=== PATIENT | female | born 1945 | race Caucasian/White ===

== ENCOUNTER 2017-12-30 16:09 | Outpatient (REF) | payer MEDICARE, SELFPAY ==
[2017-12-30 21:52] LABS: HCT 40.6 % (36.0-46.0); HGB 13.6 g/dL (12.0-15.5); Mean Corp. HGB Concentration 33.5 g/dL (32.0-36.0); Mean Corpuscular Hemoglobin 29.6 pg (27.0-33.0); Mean Corpuscular Volume 88.5 fL (80-95); Mean Platelet Volume 10.3 fL (8.0-11.0); Platelet Count 170 x1000/uL (130-400); RBC 4.59 m/cumm (4.00-5.20); RBC Distribution Width 13.6 % (11.7-14.6); White Blood Cell Count 5.98 k/cumm (4.4-10.8)
[2017-12-30 22:17] LABS: ALT 29 U/L (12-78); AST 14 U/L (15-37); Albumin 3.4 g/dL (3.4-5.0); Alkaline Phosphatase 98 U/L (46-116); Anion Gap 5.8 mmol/L (3-11); BUN 20 mg/dL (7-18); Bilirubin, Total 0.4 mg/dL (0.2-1.0); CO2 29.2 mmol/L (21.0-32.0); Calcium 9.2 mg/dL (8.5-10.1); Chloride 104 mmol/L (98-107); Glucose 185 mg/dL (70-100); Potassium 3.8 mmol/L (3.5-5.1); Sodium 139 mmol/L (136-145); TSH 1.61 uIU/mL (0.358-3.74); Total Protein 6.5 g/dL (6.4-8.2); Vitamin B12 605 pg/mL (193-986)
[2018-01-01 12:51] LABS: Albumin 59.9 % (55.8-66.1); Total Protein 6.1 g/dl (6.3-8.2)
== END 2017-12-30 16:29 ==
LOC: NCHCN 16:09
PROVIDERS: PCP Internal Medicine; Visit Provider Internal Medicine
DX: R27.9 Unspecified lack of coordination (principal); E11.40 Type 2 diabetes mellitus with diabetic neuropathy, unspecified
CPT/HCPCS: 80053; 85027; 82607; 84165; 84443

== ENCOUNTER 2018-10-05 16:04 | Outpatient (REF) | payer OTHER, SELFPAY ==
--- NOTE | 2018-10-05 16:15 | SKI_PTH ---
PATIENT: Peggy Coffman LOC: [facility] U#:[id number] AGE/SX: 73/F ROOM: RE10/05/[address]: Giovani Mendoza : 1945 BED: DIS: 10/05/2018 SPEC #: [id number] RECD: 10/06/18 12:48 STATUS: SEBASTIAN REDMOND #: [id number] YANETH: 10/05/18 16:[address]: Giovani Mendoza DEPT: Surgical Specimen RECD BY: Marla Walker ENTERED: 10/06/18 12:48 SP TYPE: RAVI GRAHAM DR: Ivan Gotti Tissues: 1 - SKIN BIOPSY(SHAVE/PUNCH) Procedures: SKIN LEVEL 4 Comments: [id number]
[2018-10-05 21:41] LABS: ALT 29 U/L (12-78); AST 15 U/L (15-37); Albumin 3.5 g/dL (3.4-5.0); Alkaline Phosphatase 74 U/L (46-116); Anion Gap 10.9 mmol/L (3-11); BUN 21 mg/dL (7-18); Bilirubin, Total 0.5 mg/dL (0.2-1.0); CO2 29.1 mmol/L (21.0-32.0); CREATININE 0.88 mg/dL (0.55-1.02); Calcium 9.7 mg/dL (8.5-10.1); Chloride 104 mmol/L (98-107); Glucose 216 mg/dL (70-100); Potassium 4.4 mmol/L (3.5-5.1); Sodium 144 mmol/L (136-145); Total Protein 6.5 g/dL (6.4-8.2)
[2018-10-05 21:49] LABS: Abs Immature Grans 0.01 k/cumm (0.0-0.09); Absolute Basophil Count 0.03 k/cumm (0.0-0.2); Absolute Eosinophil Count 0.22 k/cumm (0.0-0.7); Absolute Lymphocyte Count 2.06 k/cumm (1.2-3.4); Absolute Monocyte Count 0.61 k/cumm (0.11-0.7); Absolute Neutrophil Count 3.36 k/cumm (1.2-6.7); Basophils % 0.5; Eosinophils % 3.5; HCT 43.9 % (36.0-46.0); HGB 14.7 g/dL (12.0-15.5); Immature Grans % 0.2; Lymphocytes % 32.8; Mean Corp. HGB Concentration 33.5 g/dL (32.0-36.0); Mean Corpuscular Hemoglobin 30.1 pg (27.0-33.0); Mean Platelet Volume 10.4 fL (8.0-11.0); Monocytes % 9.7; Neutrophils % 53.3; Platelet Count 173 x1000/uL (130-400); RBC 4.88 m/cumm (4.00-5.20); RBC Distribution Width 13.5 % (11.7-14.6); White Blood Cell Count 6.29 k/cumm (4.4-10.8)
[2018-10-05 22:25] LABS: ESR 8 MM/HR (0-30)
== END 2018-10-05 16:24 ==
LOC: NCHCN 16:04
PROVIDERS: PCP Internal Medicine; Visit Provider Specialist/Technologist Athletic Trainer
DX: M79.609 Pain in unspecified limb (principal); L30.8 Other specified dermatitis; L57.0 Actinic keratosis
CPT/HCPCS: 80053; 85652; 85025; 86140; 88305

== ENCOUNTER 2018-12-29 12:04 | Outpatient (REF) | payer OTHER, SELFPAY ==
[2018-12-29 12:51] LABS: HCT 41.2 % (36.0-46.0); HGB 13.7 g/dL (12.0-15.5); Mean Corp. HGB Concentration 33.3 g/dL (32.0-36.0); Mean Corpuscular Volume 90.4 fL (80-95); Mean Platelet Volume 10.1 fL (8.0-11.0); Platelet Count 175 x1000/uL (130-400); RBC 4.56 m/cumm (4.00-5.20); RBC Distribution Width 13.8 % (11.7-14.6); White Blood Cell Count 6.45 k/cumm (4.4-10.8)
[2018-12-29 13:22] LABS: TSH 1.37 uIU/mL (0.36-3.74); Vitamin B12 1262 pg/mL (193-986)
[2018-12-29 13:43] LABS: ESR 11 mm/hr (0-30)
[2018-12-30 10:26] LABS: Cyclic Citrullinated Peptide <2.5 U/mL (<5.0)
[2018-12-30 11:38] LABS: Rheumatoid Factor <8 IU/mL (<12.5)
[2018-12-30 14:18] LABS: Albumin 59.7 % (55.8-66.1); Comment SEE COMMENTS; Total Protein 6.6 g/dl (6.3-8.2)
== END 2018-12-29 12:24 ==
LOC: NCHCN 12:04
PROVIDERS: PCP Internal Medicine; Visit Provider Internal Medicine
DX: E11.40 Type 2 diabetes mellitus with diabetic neuropathy, unspecified (principal); M79.10 Myalgia, unspecified site; M25.50 Pain in unspecified joint
CPT/HCPCS: 85027; 85652; 86200; 82607; 84165; 84443; 86320; 86431

== ENCOUNTER 2019-03-15 11:51 | Outpatient (REF) | payer OTHER, SELFPAY ==
[2019-03-15 21:21] LABS: HCT 40.9 % (36.0-46.0); HGB 13.4 g/dL (12.0-15.5); Mean Corp. HGB Concentration 32.8 g/dL (32.0-36.0); Mean Corpuscular Hemoglobin 29.6 pg (27.0-33.0); Mean Corpuscular Volume 90.5 fL (80-95); Platelet Count 182 x1000/uL (130-400); RBC 4.52 m/cumm (4.00-5.20); White Blood Cell Count 5.86 k/cumm (4.4-10.8)
[2019-03-15 22:33] LABS: ALT 32 U/L (14-59); AST 18 U/L (15-37); Albumin 3.6 g/dL (3.4-5.0); Alkaline Phosphatase 55 U/L (46-116); Anion Gap 10.3 mmol/L (3-11); BUN 22 mg/dL (7-18); Bilirubin, Total 0.5 mg/dL (0.2-1.0); CO2 27.7 mmol/L (21.0-32.0); CREATININE 0.76 mg/dL (0.55-1.02); Calcium 9.7 mg/dL (8.5-10.1); Chloride 104 mmol/L (98-107); Glucose 83 mg/dL (74-106); Potassium 4.2 mmol/L (3.5-5.1); Sodium 142 mmol/L (136-145); Total Protein 6.8 g/dL (6.4-8.2)
== END 2019-03-15 12:11 ==
LOC: NCHCN 11:51
PROVIDERS: PCP Internal Medicine; Visit Provider Internal Medicine
DX: R10.31 Right lower quadrant pain (principal)
CPT/HCPCS: 80053; 85027

== ENCOUNTER 2019-06-18 15:10 | Outpatient (REF) | payer OTHER, SELFPAY ==
[2019-06-18 21:57] LABS: Magnesium 1.6 mg/dL (1.8-2.4)
== END 2019-06-18 15:30 ==
LOC: NCHCN 15:10
PROVIDERS: PCP Internal Medicine; Visit Provider Internal Medicine
DX: E83.42 Hypomagnesemia (principal)
CPT/HCPCS: 83735

== ENCOUNTER → 2019-08-24 12:48 | Outpatient (BNVA) | payer OTHER, SELFPAY | PROVIDERS: PCP Internal Medicine; Referring Provider Internal Medicine; Visit Provider Surgery | DX: L72.3 Sebaceous cyst (principal); Z79.01 Long term (current) use of anticoagulants; E11.42 Type 2 diabetes mellitus with diabetic polyneuropathy; I10 Essential (primary) hypertension | CPT/HCPCS: 99202; 99203 ==

== ENCOUNTER → 2019-08-27 09:53 | Outpatient (BNVA) | payer OTHER, SELFPAY | PROVIDERS: PCP Internal Medicine; Referring Provider Internal Medicine; Visit Provider Surgery | DX: L72.3 Sebaceous cyst (principal); L08.9 Local infection of the skin and subcutaneous tissue, unspecified; E11.42 Type 2 diabetes mellitus with diabetic polyneuropathy; I10 Essential (primary) hypertension | CPT/HCPCS: 10060; 99212; 99213 ==

== ENCOUNTER → 2019-08-30 12:38 | Outpatient (BNVA) | payer OTHER, SELFPAY | PROVIDERS: PCP Internal Medicine; Referring Provider Internal Medicine; Visit Provider Surgery | DX: Z48.817 Encounter for surgical aftercare following surgery on the skin and subcutaneous tissue (principal) ==

== ENCOUNTER 2020-07-24 16:11 | Outpatient (REF) | payer OTHER, SELFPAY ==
[2020-07-24 21:58] LABS: Anion Gap 7.5 mmol/L (3-11); BUN 28 mg/dL (7-18); CO2 29.5 mmol/L (21.0-32.0); CREATININE 0.9 mg/dL (0.55-1.02); Calcium 9.6 mg/dL (8.5-10.1); Chloride 103 mmol/L (98-107); Glucose 183 mg/dL (74-106); Magnesium 1.7 mg/dL (1.8-2.4); Potassium 4.1 mmol/L (3.5-5.1); Sodium 140 mmol/L (136-145); TSH 1.36 uIU/mL (0.36-3.74)
[2020-07-24 22:15] LABS: FREE T4 0.94 ng/dL (0.76-1.46)
[2020-07-28 11:07] LABS: Codeine Negative ng/mL (Cutoff: 25); Dihydrocodeine Negative ng/mL (Cutoff: 25); Hydrocodone Negative ng/mL (Cutoff: 25); Hydromorphone Negative ng/mL (Cutoff: 25); Morphine Negative ng/mL (Cutoff: 25); Naloxone Negative ng/mL (Cutoff: 25); Norhydrocodone Negative ng/mL (Cutoff: 25); Noroxycodone Negative ng/mL (Cutoff: 25); Noroxymorphone Negative ng/mL (Cutoff: 25); Opiates Interpretation Negative.
== END 2020-07-24 16:12 | disposition home or self-care (01) ==
LOC: NCHCN 16:11
PROVIDERS: PCP Internal Medicine; Visit Provider Internal Medicine
DX: E11.9 Type 2 diabetes mellitus without complications (principal); I10 Essential (primary) hypertension; E83.42 Hypomagnesemia; R42 Dizziness and giddiness; M54.5 Low back pain; G89.29 Other chronic pain; Z79.899 Other long term (current) drug therapy; Z51.81 Encounter for therapeutic drug level monitoring
CPT/HCPCS: 80048; 80361; 80362; 83735; 84439; 84443

== ENCOUNTER → 2021-03-01 10:29 | Outpatient (BNVA) | payer MEDICARE, SELFPAY | PROVIDERS: PCP Internal Medicine; Referring Provider Physical Therapist; Visit Provider Student in an Organized Health Care Education/Training Program | DX: M16.11 Unilateral primary osteoarthritis, right hip (principal); Z79.891 Long term (current) use of opiate analgesic; E11.9 Type 2 diabetes mellitus without complications | CPT/HCPCS: 99214 ==

== ENCOUNTER → 2021-03-08 01:22 | Outpatient (CLI) | payer MEDICARE, SELFPAY ==
--- NOTE | 2021-03-08 08:30 | DI.RAD_ITS ---
Exam(s) RF JOINT INJECTION FLUORO GUID EXAM: RF JOINT INJECTION FLUORO GUID CLINICAL HISTORY: R HIP INJ UNDER FLUORO,primary oa rt hip, m16.11 TECHNIQUE: Fluoroscopy provided. Radiologist not present. CONTRAST MATERIAL: None COMPARISON: No exams were available for comparison FINDINGS: Fluoroscopy was provided for Dr. Varela during therapeutic right hip injection. Submitted image(s) reveal needle placement lateral aspect femoral head contrast Please refer to the procedure report for complete details. Cumulative Dose: nola Fuentes=2.13 mGy IMPRESSION: RADIATION DOSE DELIVERED:
[2021-03-08] MEDS: Omnipaque 300 MG/ML 10 ML BTL IJ (15:53)
[2021-03-08] MEDS: Bupivacaine 0.5% Pres-Free 10 ML VIAL IJ (15:53)
[2021-03-08] MEDS: methylPREDNISolone ACETATE 80 MG/ML VIAL IM (15:53)
--- NOTE | 2021-03-09 22:44 | W.PROCNOTE ---
Date of service: 03/08/21 Time of Service: 15:17 Procedure Note Date of procedure: 03/08/21 Procedure: Right Hip Injection with Fluoroscopic Guidance Surgeon/Proceduralist/Physician: Favio Varela Procedure Diagnosis: Right Hip Osteoarthritis Procedure Indications: Peggy has had persistent pain of the RIGHT hip and groin. Noninvasive measures have been tried. To serve as both diagnostic and therapeutic, an injection under fluoroscopy was recommended. I had discussed the risks of the procedure and the patient elected to proceed. Procedure Description: Hellen was greeted in the flouroscopy room. The correct side was identified and the consent was reviewed with the patient and signed. The patient was then placed in the supine position on the fluoroscopy table. The RIGHT hip was then prepped with Chloraprep. The anterolateral injection starting point was identiifed by bony landmarks and fluoroscopy. The skin and soft tissue in the tract of the injection was anesthetized with 1% Lidocaine. A spinal needle was then inserted deep into the hip joint at the level of the lateral femoral neck under fluoroscopic guidance. A small amount of Omnipaque solution was injected to confirm intraarticular placement. Once confirmed, the hip was injected with 6cc of 0.5% Bupivicaine and 80mg of Depo-Medrol. A bandaid was placed on the injection site. The patient tolerated the procedure well.
== END ==
PROVIDERS: PCP Internal Medicine; Visit Provider Student in an Organized Health Care Education/Training Program
DX: M16.11 Unilateral primary osteoarthritis, right hip (principal); M25.552 Pain in left hip; R10.32 Left lower quadrant pain
CPT/HCPCS: 20610; 77002; J1040

== ENCOUNTER 2021-04-15 13:11 | Emergency (ER) | payer MEDICARE, SELFPAY ==
[2021-04-15 13:15] VITALS: BP 156/72; PULSE 70; RESP 18; TEMP 36.1; O2SAT 96
--- NOTE | 2021-04-15 14:21 | NUR.NOTE ---
Nursing Note: PT REFERRAL MADE FOR PT TO BE SEEN BY [facility]O [facility] FOR PAIN MANAGEMENT. [facility]
--- NOTE | 2021-04-15 14:42 | ED.GENADUL_ITS ---
Discharge Plan Disposition Patient Disposition: HOME Condition: Stable Discharge Details Clinical Impression: Osteoarthritis of right hip Primary Care Provider: Ivan Gotti ED Provider: Markus Brody Home Meds and New Rx's Prescriptions: New ondansetron 4 mg tablet,disintegrating 4 mg PO Q8H PRN (Reason: nausea and vomiting) Qty: 10 RF: 0 Continued Lantus U-100 Insulin 100 unit/mL solution 40 unit subcut HS RF: 0 duloxetine 30 mg capsule,delayed release(DR/EC) 30 mg PO DAILY RF: 0 cholecalciferol (vitamin D3) 25 mcg (1,000 unit) capsule 50 mcg PO DAILY RF: 0 losartan 50 mg tablet 100 mg PO DAILY RF: 0 atorvastatin 80 mg tablet 80 mg PO DAILY RF: 0 pregabalin [Lyrica] 100 mg capsule 100 mg PO TID RF: 0 ascorbic acid (vitamin C) 1,000 mg tablet 1 g PO DAILY RF: 0 Trulicity 0.75 mg/0.5 mL pen injector 0.75 mg subcut QWEEK RF: 0 magnesium oxide 500 mg capsule 400 mg PO BID RF: 0 sumatriptan succinate [Imitrex] 50 MG tablet 50 mg PO PRN PRNRF: 0 clopidogrel [Plavix] 75 MG tablet 75 mg PO DAILY RF: 0 diflunisal 500 MG tablet 500 mg PO BID RF: 0 isosorbide mononitrate 60 MG tablet extended release 24 hr 60 mg PO DAILY RF: 0 nitroglycerin 0.4 MG tablet, sublingual 0.4 mg Sublingual PRN PRNRF: 0 epinephrine 0.3 MG/SYR auto-injector 1 unit IM PRN PRNRF: 0 Xtampza ER 13.5 mg cap,sprinkl,ER12hr(DONT CRUSH) 13.5 mg PO BID RF: 0 oxycodone 10 mg tablet 10 mg PO QID PRN PRNRF: 0 Calcium 600 + D(3) 600 mg calcium- 200 unit Capsule 2 cap PO DAILY RF: 0 Discharge Instructions Instructions: Hip Pain (ED) Additional Instructions: If you develop fever chills, severe worsening of your symptoms, or change in your condition please return immediately for reassessment. Otherwise it is very important that you follow-up with Dr. Varela for long-term establishment of plan for pain control pending your hip replacement. It is recommended that you call his office tomorrow and inform them of your discomfort level. As discussed take your medications that are already prescribed to you and you may also add in Tylenol 325 mg every 8 hours as needed. Medical Decision Making Patient presenting to the emergency department for chief complaint of significant right hip pain. She states history of chronic right hip issues and that she has pending replacement but over the past 3 days has noted to have return of pain. She does state that she received a joint injection by orthopedist that showed significant benefit but has started to wear off and now has had a return of discomfort. She does state some radiation of pain further down her extremity but otherwise discomfort is in similar pattern to previous pain. Patient denies any new injury or trauma, fever chills, erythema or other joints involved. Physical exam shows that patient is obviously uncomfortable with constant repositioning and significant pain with any movement of the right hip. Pulses and sensation are intact distal to injury with significant increase in pain with palpation to right hip both lateral and anterior. Contacted anesthesia on-call to discuss possible pain management strategies but unfortunately they were not able to assist with any acute strategy to pain reduction through block. After thorough discussion with patient risk versus benefit of IM steroid she was agreeable to this given that her blood sugars have been well managed with current medication regime and that she is willing to closely monitor blood sugars. Also went through patient's medication given that she is on multiple narcotic. Patient did show some confusion at using her prescribed meds as she has both on long-term and short acting narcotics. After thorough discussion it was evident that patient was only taking long-term pain medication and had not been taking immediate release for breakthrough pain. Discussed the directions as prescribed as I feel that this will also help control her pain better. Given that she is no longer on combination therapy did discuss use of o [id number] Tylenol and appropriate amounts for her to take given her age. Patient does state secondary nausea and lack of appetite due to pain and discomfort. Will prescribe patient some Zofran. patient placed upon orthopedic follow-up list as I do feel that she may need a long-term plan to get her to her scheduled surgery date or adjustment of that dates if possible. After discussion of diagnosis and plan of care patient has no further needs, questions, or concerns and states clear understanding to return to the emergency department for any worsening symptoms. HPI General Mode of arrival: ambulatory . Date/Time Provider Initiated Documentation: 04/15/21 13:24 . Limitations to Documentation: no limitations . Information obtained by: patient . History of Present Illness 75 year old F presents to the emergency department with the chief complaint of Right hip pain, described as severe and similar to prior episodes, with intensity rated at 10. Quality is described as aching and sharp, and is localized to the right and lower extremity. Patient extremity and distal. Patient started experiencing this year(s) (with worsening over the past 3 days) and it has been constant. Immobilization improves symptom(s), Movement worsens symptoms . Patient notes loss of appetite. Patient did receive the following treatments prior to arrival, other (Long-acting pain medications) Related Data Home Medications Medication Instructions Recorded Confirmed clopidogrel [Plavix] 75 mg PO DAILY 03/16/14 04/15/21 diflunisal 500 mg PO BID 03/16/14 04/15/21 epinephrine 1 unit IM PRN PRN 03/16/14 04/15/21 isosorbide mononitrate 60 mg PO DAILY 03/16/14 04/15/21 nitroglycerin 0.4 mg SUBLINGUAL PRN PRN 03/16/14 04/15/21 sumatriptan succinate [Imitrex] 50 mg PO PRN PRN 03/16/14 04/15/21 ascorbic acid (vitamin C) 1,000 mg 1 g PO DAILY tab 02/20/21 04/15/21 tablet atorvastatin 80 mg tablet 80 mg PO DAILY 02/20/21 04/15/21 cholecalciferol (vitamin D3) 25 50 mcg PO DAILY cap 02/20/21 04/15/21 mcg (1,000 unit) capsule dulaglutide 0.75 mg/0.5 mL 0.75 mg SUBCUT QWEEK 02/20/21 04/15/21 subcutaneous pen injector duloxetine 30 mg capsule,delayed 30 mg PO DAILY 02/20/21 04/15/21 release insulin glargine 100 unit/mL 40 unit SUBCUT HS ml 02/20/21 04/15/21 subcutaneous solution losartan 50 mg tablet 100 mg PO DAILY tab 02/20/21 04/15/21 pregabalin 100 mg capsule 100 mg PO TID 02/20/21 04/15/21 magnesium oxide 500 mg capsule 400 mg PO BID 03/01/21 04/15/21 Calcium 600 + D(3) 2 cap PO DAILY 04/15/21 04/15/21 Xtampza ER 13.5 mg PO BID 04/15/21 04/15/21 ondansetron 4 mg PO Q8H PRN #10 tab 04/15/21 oxycodone 10 mg PO QID PRN PRN 04/15/21 04/15/21 Previous Rx's Medication Instructions Recorded ondansetron 4 mg PO Q8H PRN #10 tab 04/15/21 Allergies Allergy/AdvReac Type Severity Reaction Status Date / Time aspirin Allergy Unverified 04/15/21 13:23 codeine Allergy Unverified 04/15/21 13:23 metformin Allergy Unverified 04/15/21 13:23 methadone Allergy Unverified 04/15/21 13:23 naproxen Allergy Anaphylaxsi Unverified 04/15/21 13:23 s Penicillins Allergy Unverified 04/15/21 13:23 Sulfa (Sulfonamide Allergy Unverified 04/15/21 13:23 Antibiotics) lisinopril [From Zestril] AdvReac cough Unverified 04/15/21 13:23 mirtazapine AdvReac Dizziness/L Unverified 04/15/21 13:23 ightheade General Stated Complaint: Orthopedic BROWN: 4 Review of Systems Constitutional Constitutional: Denies chills, Denies fever(s) and Reports poor appetite Cardiovascular Cardiovascular: Denies chest pain, Denies syncope, Denies leg edema and Reports dyspnea Respiratory Respiratory: Reports dyspnea Gastrointestinal Gastrointestinal: Reports abdominal pain and Reports nausea Genitourinary Genitourinary: Denies difficulty voiding, Denies dysuria and Reports urinary incontinence (at baseline) Musculoskeletal Musculoskeletal: Denies back pain, Reports arthralgias and Reports radiating pain into limb Integumentary/Breasts Skin/Breast: Denies rash Neurologic Neurologic: Denies syncope PFSH All Active Problems Osteoarthritis of right hip (Acute) Medical History Actinic keratosis Arthralgia Arthritis of hand Balance problem CAD (coronary artery disease) Chronic anticoagulation Chronic diarrhea Cystocele Depression Diabetes type 2, controlled Diabetic peripheral neuropathy Entrapment of right superficial peroneal nerve Globus sensation Hip pain, right Hx of adenomatous colonic polyps Hypercholesterolemia Hypertension Hypomagnesemia Infected sebaceous cyst Leg pain, left Lumbar back pain Migraine Mixed incontinence urge and stress Myalgia Onychomycosis Osteoarthritis of left knee Postmenopausal Rectocele Right thyroid nodule Sebaceous cyst Sleep apnea Stasis dermatitis Thyroid cyst Surgical History S/P colonoscopy Status post replacement of right shoulder joint Social History Smoking/Tobacco Use Status: Never Smoking risk assessment performed?: Yes Alcohol Intake: current Alcohol Intake frequency: holidays/special occasions only Drug use: Never Current gender identity: female Do you feel safe at home: Yes Do you feel safe in your relationship?: Yes Exam Const General: cooperative, no acute distress, in distress moderate (Secondary to pain) and not ill appearing Orientation: alert, awake and oriented x3 HENMT Mouth: moist mucous membranes Resp Effort & Inspection: normal respiratory effort, able to speak in complete se ntences and no respiratory distress Cardio Rate: regular rate Rhythm: regular rhythm Heart Sounds: S1 normal and S2 normal Back/Spine/Pelvis Thoracic/Lumbar Spine: No thoracic spinal tenderness and No lumbar spinal tenderness Pelvis: no buttock tenderness Skin General skin exam: no rashes or lesions noted Neuro General: patient alert, patient awake, patient oriented x3, moves all extremities and no focal motor deficits Sensory Exam: no sensory deficits noted Extrem General: normal exam except as noted Right lower extremity: hip/thigh Details: tenderness Location: of the hip, of the proximal upper leg and of the mid upper leg and abnormal ROM Details: pain with active ROM during, pain with passive ROM during and with range as follows (Difficult to perform due to significant pain with any movement of the extremity); no ecchymosis and no crepitus Course Vital Signs Vital signs: Vital Signs Temperature 36.1 C L 04/15/21 13:15 Pulse 70 04/15/21 13:15 Respiratory Rate 18 04/15/21 13:15 Blood Pressure 156/72 H 04/15/21 13:15 Pulse Oximetry 96 04/15/21 13:15 Temperature 36.1 C L 04/15/21 13:15 Temperature Source Temporal Artery Scan 04/15/21 13:15 Pulse 70 04/15/21 13:15 Respiratory Rate 18 04/15/21 13:15 Respiratory Effort Non-Labored 04/15/21 13:22 Blood Pressure 156/72 H 04/15/21 13:15 Pulse Oximetry 96 04/15/21 13:15 Oxygen Delivery Method Room Air 04/15/21 13:15 Oxygen Flow Rate 0 04/15/21 13:15 Pain Level 10 04/15/21 13:15
[2021-04-15] MEDS: Dexamethasone 10 MG/ML VIAL IM (14:48)
== END 2021-04-15 14:58 | disposition home or self-care (01) ==
PROVIDERS: Emergency Provider Nurse Practitioner Family; PCP Internal Medicine
DX: M16.11 Unilateral primary osteoarthritis, right hip (principal); R11.0 Nausea; E11.42 Type 2 diabetes mellitus with diabetic polyneuropathy
CPT/HCPCS: 36416; 82962; 96372; 99284; 99283; J1100

== ENCOUNTER 2021-05-14 14:54 | Outpatient (REF) | payer MEDICARE, SELFPAY ==
[2021-05-16 10:55] LABS: COVID-19 RT-PCR UVMMC Result Negative (Negative)
== END 2021-05-14 14:55 | disposition home or self-care (01) ==
LOC: NCHCN 14:54
PROVIDERS: PCP Internal Medicine; Visit Provider Internal Medicine
DX: Z20.822 Contact with and (suspected) exposure to COVID-19 (principal); J06.9 Acute upper respiratory infection, unspecified
CPT/HCPCS: U0003

== ENCOUNTER 2021-05-17 18:50 | Outpatient (REF) | payer MEDICARE, SELFPAY ==
[2021-05-17 15:57] LABS: HCT 45.5 % (36.0-46.0); MCH 28.2 pg (27.0-33.0); MCHC 30.8 % (32.0-36.0); MCV 91.5 fL (80-95); MPV 9.8 fL (8.0-11.0); Platelet Count 191 10^3/uL (130-400); RBC 4.97 10^6/uL (3.93-5.22); RDW 15.3 % (11.7-14.6); RDW-SD 50.6 fL; WBC 5.64 10^3/uL (4.4-10.8)
[2021-05-17 16:05] LABS: Anion Gap 8.2 mmol/L (3-11); BUN 18 mg/dL (7-18); CO2 29.8 mmol/L (21.0-32.0); CREATININE 0.8 mg/dL (0.55-1.02); Calcium 9.9 mg/dL (8.5-10.1); Chloride 105 mmol/L (98-107); Glucose 97 mg/dL (74-106); Potassium 4.5 mmol/L (3.5-5.1); Sodium 143 mmol/L (136-145)
[2021-05-17 19:00] LABS: Magnesium 1.7 mg/dL (1.8-2.4)
[2021-05-17 22:52] LABS: Hepatitis C Ab w Rflx HCV PCR Negative (Negative)
== END 2021-05-17 18:51 | disposition home or self-care (01) ==
LOC: NCHCN 18:50
PROVIDERS: PCP Internal Medicine; Visit Provider Internal Medicine
DX: E11.9 Type 2 diabetes mellitus without complications (principal); I10 Essential (primary) hypertension; Z11.59 Encounter for screening for other viral diseases; I25.10 Atherosclerotic heart disease of native coronary artery without angina pectoris; M16.11 Unilateral primary osteoarthritis, right hip; Z01.818 Encounter for other preprocedural examination
CPT/HCPCS: 80048; 85027; 86803; 83735

== ENCOUNTER 2021-05-21 15:34 | Outpatient (REF) | payer MEDICARE, SELFPAY ==
[2021-05-23 09:21] LABS: COVID-19 RT-PCR UVMMC Result Negative (Negative)
== END 2021-05-21 15:35 | disposition home or self-care (01) ==
LOC: NCHCN 15:34
PROVIDERS: PCP Internal Medicine; Visit Provider Internal Medicine
DX: Z20.822 Contact with and (suspected) exposure to COVID-19 (principal)
CPT/HCPCS: U0003; U0005

== ENCOUNTER 2021-05-31 13:53 | Outpatient (CLI) | payer MEDICARE, SELFPAY ==
--- NOTE | 2021-05-31 13:30 | DI.RAD_ITS ---
Exam(s) XR PELVIS AP EXAM: XR PELVIS AP CLINICAL HISTORY: PRE OP R MARBIN. TECHNIQUE: 2D digital imaging was performed. COMPARISON: CR XR SHANE HIP SINGLE W PELVIS from 01/12/2021 FINDINGS: Single AP view of the pelvis-hips compared to 01/12/2021. Again noted is a stimulator device on the right side which is projected over the right hip, partially obscuring the femoral head. There do appear to be some degenerative changes in the right hip. Left hip exhibits mild degenerative changes. No lytic osseous lesions evident in the field of view of th is single image. IMPRESSION: DATA REPOSITORY: RADIATION DOSE DELIVERED:
== END 2021-05-31 13:54 | disposition home or self-care (01) ==
LOC: DIORS 13:53
PROVIDERS: PCP Internal Medicine; Referring Provider Internal Medicine; Visit Provider Physician Assistant
DX: M16.11 Unilateral primary osteoarthritis, right hip (principal); Z01.818 Encounter for other preprocedural examination
CPT/HCPCS: 72170

== ENCOUNTER 2021-06-06 18:04 | Emergency (ER) | payer MEDICARE, SELFPAY ==
[2021-06-06 18:30] VITALS: BP 143/69; PULSE 61; RESP 18; TEMP 36.4; O2SAT 95
--- NOTE | 2021-06-06 18:30 | DI.RAD_ITS ---
Exam(s) XR PORTABLE CHEST AP EXAM: XR PORTABLE CHEST AP CLINICAL HISTORY: cough TECHNIQUE: 2D digital imaging was performed of the chest. One image was obtained. An AP view was ob tained. COMPARISON: CR CHEST 2 VIEWS PA,LAT from 03/25/2013 FINDINGS: MEDIASTINUM: Normal. HEART: Normal. PULMONARY VASCULATURE: Normal. LUNGS: No focal consolidating infiltrates. PLEURAL SPACE: No pleural effusion or pneumothorax. BONE:Within normal limits for the patient's age. The patient is status post right total reverse shoul norma replacement. OTHER FINDINGS:Normal. IMPRESSION: No pulmonary infiltrates. DATA REPOSITORY: RADIATION DOSE DELIVERED:
[2021-06-06 20:17] LABS: Abs Immature Grans 0.01 10^3/uL (0.0-0.06); Absolute Basophil Count 0.05 10^3/uL (0.0-0.2); Absolute Eosinophil Count 0.61 10^3/uL (0.0-0.7); Absolute Lymphocyte Count 2.16 10^3/uL (1.2-3.4); Absolute Monocyte Count 0.61 10^3/uL (0.1-0.8); Absolute Neutrophil Count 2.48 10^3/uL (1.2-6.7); Basophils % 0.8; Eosinophils % 10.3; HCT 38.8 % (36.0-46.0); HGB 12.2 g/dL (11.2-15.7); Immature Grans % 0.2; Lymphocytes % 36.5; MCH 28.4 pg (27.0-33.0); MCHC 31.4 % (32.0-36.0); MCV 90.2 fL (80-95); MPV 9.2 fL (8.0-11.0); Monocytes % 10.3; Neutrophils % 41.9; Nucleated RBC 0 %; Platelet Count 148 10^3/uL (130-400); RDW 14.5 % (11.7-14.6); RDW-SD 47.8 fL; WBC 5.92 10^3/uL (4.4-10.8)
[2021-06-06 20:29] LABS: ALT 17 U/L (14-59); AST 17 U/L (15-37); Albumin 2.9 g/dL (3.4-5.0); Alkaline Phosphatase 85 U/L (46-116); Anion Gap 3.3 mmol/L (3-11); BUN 18 mg/dL (7-18); Bilirubin, Total 0.5 mg/dL (0.2-1.0); CO2 33.7 mmol/L (21.0-32.0); CREATININE 0.9 mg/dL (0.55-1.02); Calcium 9.6 mg/dL (8.5-10.1); Chloride 103 mmol/L (98-107); Glucose 88 mg/dL (74-106); Sodium 140 mmol/L (136-145); Total Protein 6.4 g/dL (6.4-8.2)
--- NOTE | 2021-06-06 20:57 | DI.VRAD_ITS ---
PROCEDURE INFORMATION: Exam: XR Chest Exam date and time: 06/06/2021 6:38 PM Age: 75 years old Clinical indication: Cough TECHNIQUE: Imaging protocol: XR of the chest. Views: 1 view. Total images: 1 COMPARISON: No relevant prior studies available. FINDINGS: Lungs: Question mild peribronchial thickening and perihilar stranding suggesting possible bronchitis. Normal pulmonary expansion. Pulmonary vasculature grossly normal. No gross pulmonary infiltrates. Pleural spaces: No pleural effusion. No pneumothorax. Heart/Mediastinum: Heart size normal. No tracheal/mediastinal shift. Vasculature: Mild aortic ectasia/tortuosity. Bones/joints: No acute osseous abnormalities are identified. Osteopenia with advanced left glenohumeral osteoarthritic changes and prior right shoulder arthroplasty. Radiodensities projecting over the midline lower thoracic spine may represent a stimulator, correlate with procedural history. IMPRESSION: Question mild changes of bronchitis. No gross pulmonary infiltrates. Dictated and Authenticated by: Aleks Fine MD. Ordering:MAURY Gonzalez MD
--- NOTE | 2021-06-06 21:05 | W.ED.GENAD ---
Discharge Plan Disposition Patient Disposition: HOME Condition: Stable Discharge Details Clinical Impression: Cough Primary Care Provider: Ivan Gotti ED Provider: Carlos Rose Home Meds and New Rx's Prescriptions: New prednisone 20 mg tablet 20 mg PO DAILY 5 Days Qty: 5 0RF Continued duloxetine 30 mg capsule,delayed release(DR/EC) 30 mg PO DAILY 0RF cholecalciferol (vitamin D3) 25 mcg (1,000 unit) capsule 50 mcg PO DAILY 0RF losartan 50 mg tablet 100 mg PO DAILY 0RF atorvastatin 80 mg tablet 80 mg PO DAILY 0RF pregabalin [Lyrica] 100 mg capsule 100 mg PO TID 0RF ascorbic acid (vitamin C) 1,000 mg tablet 1 g PO DAILY 0RF Trulicity 0.75 mg/0.5 mL pen injector 0.75 mg subcut QWEEK 0RF magnesium oxide 500 mg capsule 400 mg PO BID 0RF Lantus U-100 Insulin 100 unit/mL solution 30 unit subcut HS 0RF spironolactone 25 mg tablet 25 mg PO DAILY 0RF sumatriptan succinate [Imitrex] 50 MG tablet 50 mg PO PRN PRN0RF clopidogrel [Plavix] 75 MG tablet 75 mg PO DAILY 0RF diflunisal 500 MG tablet 500 mg PO BID 0RF isosorbide mononitrate 60 MG tablet extended release 24 hr 60 mg PO DAILY 0RF nitroglycerin 0.4 MG tablet, sublingual 0.4 mg Sublingual PRN PRN0RF epinephrine 0.3 MG/SYR auto-injector 1 unit IM PRN PRN0RF Xtampza ER 13.5 mg cap,sprinkl,ER12hr(DONT CRUSH) 13.5 mg PO BID 0RF Label Comments: TAKE ONE CAPSULE BY MOUTH TWICE A DAY oxycodone 10 mg tablet 10 mg PO QID PRN PRN0RF Calcium 600 + D(3) 600 mg calcium- 200 unit Capsule 2 cap PO DAILY 0RF ondansetron 4 mg tablet,disintegrating 4 mg PO Q8H PRN (Reason: nausea and vomiting) Qty: 10 0RF Discharge Instructions Instructions: Acute Cough (ED) Additional Instructions: Your laboratory values are unremarkable for any obvious emergent process and your chest x-ray does not reveal a pneumonia. You have already been on 2 separate antibiotics. I do not know that a third 1 will help with your symptoms. Your COVID test is pending, I recommend quarantining until this has resulted negative. Prednisone albuterol as directed. Please watch for new or worsening symptoms and return to the ER for any concerns. Lastly, please contact your primary care office tomorrow to discuss your ER visit and need for outpatient reevaluation Discharge Data Discharge Date/Time-TO BE ENTERED AT DEPARTURE: 06/06/21 21:55 Medical Decision Making 75-year-old vaccinated female patient presents to the ER for evaluation of ongoing cough for the past 3 weeks. She states that she is seen by her primary care provider in place on Augmentin and then subsequently Levaquin although neither antibiotic really helped. She states in general she is feeling slightly better but the cough is not gone away, continues to the productive, a light yellow although this is different than the dark green she was coughing up last week. She denies any chest pain or shortness of breath. Otherwise she feels well. Clinically she appears well, nontoxic heart rate in the 60s, O2 sat 95% on room air she denies any chest pain or shortness of breath. Plan is to obtain routine laboratory values, chest x-ray headache send out Covid swab. Laboratory values are unremarkable for obvious process, no leukocytosis Chest x-ray questioned mild bronchitis but no gross pulmonary infiltrate. Covid pending Discussed work-up with patient. No clear pneumonia or indication for antibiotics. At this time she was treating her with steroids and albuterol inhaler may be beneficial. First dose of steroids will be given here and she will provided with a inhaler. Standard discharge and return precautions were provided. We discussed the importance of outpatient follow-up with her primary care provider This documentation was generated using [employer] dictation system, please disregard any oddities of phrase or misspellings. Medical Records Medical records reviewed: Yes I reviewed the patient's medical records. Imaging Data Radiologic Study: Attestation: I personally reviewed and interpreted this imaging study as follows: Imaging: X-Ray Radiologist's impression: PROCEDURE INFORMATION: Exam: XR Chest Exam date and time: 06/06/2021 6:38 PM Age: 75 years old Clinical indication: Cough TECHNIQUE: Imaging protocol: XR of the chest. Views: 1 view. Total images: 1 COMPARISON: No relevant prior studies available. FINDINGS: Lungs: Question mild peribronchial thickening and perihilar stranding suggesting possible bronchitis. Normal pulmonary expansion. Pulmonary vasculature grossly normal. No gross pulmonary infiltrates. Pleural spaces: No pleural effusion. No pneumothorax. Heart/Mediastinum: Heart size normal. No tracheal/mediastinal shift. Vasculature: Mild aortic ectasia/tortuosity. Bones/joints: No acute osseous abnormalities are identified. Osteopenia with advanced left glenohumeral osteoarthritic changes and prior right shoulder arthroplasty. Radiodensities projecting over the midline lower thoracic spine may represent a stimulator, correlate with procedural history. IMPRESSION: Question mild changes of bronchitis. No gross pulmonary infiltrates Lab Data Lab results reviewed: Yes I reviewed the patient's lab results. Labs: Laboratory Tests Range/Units 06/06/21 06/06/21 20:12 20:12 WBC (4.4-10.8) 10^3/uL 5.92 RBC (3.93-5.22) 10^6/uL 4.30 Hgb (11.2-15.7) g/dL 12.2 Hct (36.0-46.0) % 38.8 MCV (80-95) fL 90.2 MCH (27.0-33.0) pg 28.4 MCHC (32.0-36.0) % 31.4 L RDW (11.7-14.6) % 14.5 Plt Count (130-400) 10^3/uL 148 MPV (8.0-11.0) fL 9.2 Immature Gran % 0.2 Neutrophils % 41.9 Lymphocytes % 36.5 Monocytes % 10.3 Eosinophils % 10.3 Basophils % 0.8 Nucleated RBC % % 0 Absolute Neutrophils (1.2-6.7) 10^3/uL 2.48 Absolute Lymphocytes (1.2-3.4) 10^3/uL 2.16 Absolute Monocytes (0.1-0.8) 10^3/uL 0.61 Absolute Eosinophils (0.0-0.7) 10^3/uL 0.61 Absolute Basophils (0.0-0.2) 10^3/uL 0.05 Sodium (136-145) mmol/L 140 Potassium (3.5-5.1) mmol/L 4.0 Chloride (98-107) mmol/L 103 Carbon Dioxide (21.0-32.0) mmol/L 33.7 H Anion Gap (3-11) mmol/L 3.3 BUN (7-18) mg/dL 18 Creatinine (0.55-1.02) mg/dL 0.9 Estimated GFR/1.73 m2 (mL/min/1.73m2) >= 60.00 Glucose (74-106) mg/dL 88 Calcium (8.5-10.1) mg/dL 9.6 Total Bilirubin (0.2-1.0) mg/dL 0.5 AST (15-37) U/L 17 ALT (14-59) U/L 17 Alkaline Phosphatase (46-116) U/L 85 Total Protein (6.4-8.2) g/dL 6.4 Albumin (3.4-5.0) g/dL 2.9 L HPI General Mode of arrival: ambulatory. Date/Time Provider Initiated Documentation: 06/06/21 18:36. Limitations to Documentation: no limitations. Information obtained by: patient. History of Present Illness 75 year old F presents to the emergency department with the chief complaint of cough, described as moderate, with intensity rated at 5. Quality is described as other (productive cough), and is localized to the chest. Patient reports no radiation. Patient started experiencing this week(s) (3) and it has been intermittent (improving). improves with No relieving factors improve symptom(s), No exacerbating factors reported . Patient notes cough; denies chest pain and fever/chills. Patient did receive the following treatments prior to arrival, other (Has been on both Augmentin and Levaquin) Related Data Home Medications Medication Instructions Recorded Confirmed clopidogrel 75 mg tablet (Plavix) 75 mg PO DAILY 03/16/14 05/31/21 diflunisal 500 mg tablet 500 mg PO BID 03/16/14 05/31/21 epinephrine 0.3 mg/0.3 mL 1 unit IM PRN PRN 03/16/14 05/31/21 injection, auto-injector isosorbide mononitrate 60 mg 60 mg PO DAILY 03/16/14 05/31/21 tablet,extended release 24 hr nitroglycerin 0.4 mg sublingual 0.4 mg SUBLINGUAL PRN PRN 03/16/14 05/31/21 tablet sumatriptan succinate 50 mg tablet 50 mg PO PRN PRN 03/16/14 05/31/21 (Imitrex) ascorbic acid (vitamin C) 1,000 mg 1 g PO DAILY tab 02/20/21 05/31/21 tablet atorvastatin 80 mg tablet 80 mg PO DAILY 02/20/21 05/31/21 cholecalciferol (vitamin D3) 25 50 mcg PO DAILY cap 02/20/21 05/31/21 mcg (1,000 unit) capsule dulaglutide 0.75 mg/0.5 mL 0.75 mg SUBCUT QWEEK 02/20/21 05/31/21 subcutaneous pen injector (Trulicity) duloxetine 30 mg capsule,delayed 30 mg PO DAILY 02/20/21 05/31/21 release losartan 50 mg tablet 100 mg PO DAILY tab 02/20/21 05/31/21 pregabalin 100 mg capsule (Lyrica) 100 mg PO TID 02/20/21 05/31/21 magnesium oxide 500 mg capsule 400 mg PO BID 03/01/21 05/31/21 calcium carbonate 600 mg-vitamin 2 cap PO DAILY 04/15/21 05/31/21 D3 5 mcg (200 unit) capsule (Calcium 600 + D(3)) ondansetron 4 mg disintegrating 4 mg PO Q8H PRN #10 tab 04/15/21 05/31/21 tablet oxycodone 10 mg tablet 10 mg PO QID PRN PRN 04/15/21 05/31/21 oxycodone myristate 13.5 mg 13.5 mg PO BID 04/15/21 05/31/21 capsule sprinkle extend release 12hr(DON'T CRUSH) (Xtampza ER) insulin glargine 100 unit/mL 30 unit SUBCUT HS ml 05/31/21 05/31/21 subcutaneous solution (Lantus U-100 Insulin) spironolactone 25 mg tablet 25 mg PO DAILY 05/31/21 05/31/21 prednisone 20 mg tablet 20 mg PO DAILY 5 Days #5 tab 06/06/21 Previous Rx's Medication Instructions Recorded ondansetron 4 mg disintegrating 4 mg PO Q8H PRN #10 tab 04/15/21 tablet prednisone 20 mg tablet 20 mg PO DAILY 5 Days #5 tab 06/06/21 Allergies Allergy/AdvReac Type Severity Reaction Status Date / Time aspirin Allergy Unverified 05/31/21 13:38 codeine Allergy Unverified 05/31/21 13:38 methadone Allergy Unverified 05/31/21 13:38 naproxen Allergy Anaphylaxsi Unverified 05/31/21 13:38 s Penicillins Allergy Unverified 05/31/21 13:38 Sulfa (Sulfonamide Allergy Unverified 05/31/21 13:38 Antibiotics) lisinopril [From Zestril] AdvReac cough Unverified 05/31/21 13:38 metformin AdvReac Unverified 05/31/21 13:38 mirtazapine AdvReac Dizziness/L Unverified 05/31/21 13:38 ightheade General Stated Complaint: RespSymp BROWN: 4 Review of Systems Constitutional Constitutional: Denies fever(s) ENT Ears, Nose, Mouth, and Throat: Denies neck pain Cardiovascular Cardiovascular: Denies chest pain and Denies dyspnea Respiratory Respiratory: Reports cough and Denies dyspnea Gastrointestinal Gastrointestinal: Denies abdominal pain, Denies nausea and Denies vomiting Musculoskeletal Musculoskeletal: Denies back pain and Denies neck pain Integumentary/Breasts Skin/Breast: Denies rash PFSH All Active Problems Cough (Acute) Osteoarthritis of right hip (Chronic) Medical History Actinic keratosis Arthralgia Arthritis of hand Balance problem CAD (coronary artery disease) Chronic anticoagulation Chronic diarrhea Cystocele Depression Diabetes type 2, controlled Diabetic peripheral neuropathy Entrapment of right superficial peroneal nerve Globus sensation Hip pain, right Hx of adenomatous colonic polyps Hypercholesterolemia Hypertension Hypomagnesemia Infected sebaceous cyst Leg pain, left Lumbar back pain Migraine Mixed incontinence urge and stress Myalgia Onychomycosis Osteoarthritis of left knee Postmenopausal Rectocele Right thyroid nodule Sebaceous cyst Sleep apnea Stasis dermatitis Thyroid cyst Surgical History History of carpal tunnel surgery of left wrist History of tonsillectomy and adenoidectomy Nerve entrapment of lower limb s/p right lower extremity around knee S/P colonoscopy Status post replacement of right shoulder joint Status post right knee replacement Status post total left knee replacement Revision s/p Left TKA Social History Smoking/Tobacco Use Status: Former Tobacco Use tobacco type: cigarettes Smoking risk assessment performed?: Yes Alcohol Intake: former Drug use: Never Details: Reports rare cigarette use when she was upset years ago; denies regular use Current gender identity: female Do you feel safe at home: Yes Do you feel safe in your relationship?: Yes Exam Const General: cooperative, healthy appearing, comfortable and no acute distress Orientation: alert, awake and oriented x3 HENMT Head: normal to inspection, normocephalic and atraumatic Face and sinus: normal facial exam Mouth: moist mucous membranes Eyes Conjunctivae: conjunctivae normal Neck Neck: normal visual inspection, trachea midline and supple Resp Effort & Inspection: normal respiratory effort and able to speak in complete sentences Auscultation: wheezes (rare, clears with coughing) Cardio Rate: regular rate Rhythm: regular rhythm GI Palpation: soft and nontender Skin General skin exam: no rashes or lesions noted Neuro General: patient alert, patient awake, moves all extremities and no focal motor deficits Cognition: normal cognition Speech: speech normal Gait: normal gait Motor: muscle tone normal throughout Sensory Exam: no sensory deficits noted Extrem General: normal to inspection, full ROM, capillary refill normal, no pedal edema and no calf tenderness Psych Appearance: grossly normal Mental Status: mental status grossly normal Course Vital Signs Vital signs: Vital Signs Temperature 36.4 C L 06/06/21 18:30 Pulse 61 06/06/21 18:30 Respiratory Rate 18 06/06/21 18:30 Blood Pressure 143/69 H 06/06/21 18:30 Pulse Oximetry 95 06/06/21 18:30 Temperature 36.4 C L 06/06/21 18:30 Temperature Source Tympanic 06/06/21 18:30 Pulse 61 06/06/21 18:30 Respiratory Rate 18 06/06/21 18:30 Respiratory Effort 06/06/21 18:33 Respiratory Depth Normal 06/06/21 18:33 Blood Pressure 143/69 H 06/06/21 18:30 Blood Pressure Position Supine 06/06/21 18:30 Pulse Oximetry 95 06/06/21 18:30 Oxygen Delivery Method Room Air 06/06/21 18:30 Oxygen Flow Rate 0 06/06/21 18:30 Pain Level 8 06/06/21 18:30 Lab/Test Results Lab/Test Results: Laboratory Tests Range/Units 06/06/21 06/06/21 20:12 20:12 WBC (4.4-10.8) 10^3/uL 5.92 RBC (3.93-5.22) 10^6/uL 4.30 Hgb (11.2-15.7) g/dL 12.2 Hct (36.0-46.0) % 38.8 MCV (80-95) fL 90.2 MCH (27.0-33.0) pg 28.4 MCHC (32.0-36.0) % 31.4 L RDW (11.7-14.6) % 14.5 Plt Count (130-400) 10^3/uL 148 MPV (8.0-11.0) fL 9.2 Immature Gran % 0.2 Neutrophils % 41.9 Lymphocytes % 36.5 Monocytes % 10.3 Eosinophils % 10.3 Basophils % 0.8 Nucleated RBC % % 0 Absolute Neutrophils (1.2-6.7) 10^3/uL 2.48 Absolute Lymphocytes (1.2-3.4) 10^3/uL 2.16 Absolute Monocytes (0.1-0.8) 10^3/uL 0.61 Absolute Eosinophils (0.0-0.7) 10^3/uL 0.61 Absolute Basophils (0.0-0.2) 10^3/uL 0.05 Sodium (136-145) mmol/L 140 Potassium (3.5-5.1) mmol/L 4.0 Chloride (98-107) mmol/L 103 Carbon Dioxide (21.0-32.0) mmol/L 33.7 H Anion Gap (3-11) mmol/L 3.3 BUN (7-18) mg/dL 18 Creatinine (0.55-1.02) mg/dL 0.9 Estimated GFR/1.73 m2 (mL/min/1.73m2) >= 60.00 Glucose (74-106) mg/dL 88 Calcium (8.5-10.1) mg/dL 9.6 Total Bilirubin (0.2-1.0) mg/dL 0.5 AST (15-37) U/L 17 ALT (14-59) U/L 17 Alkaline Phosphatase (46-116) U/L 85 Total Protein (6.4-8.2) g/dL 6.4 Albumin (3.4-5.0) g/dL 2.9 L
[2021-06-06] MEDS: Albuterol HFA 8 GM 60 PUFF INH IH (21:27)
[2021-06-06] MEDS: predniSONE 20 MG TAB 60 MG PO (21:27)
[2021-06-08 13:23] LABS: COVID-19 RT-PCR UVMMC Result Negative (Negative)
== END 2021-06-06 21:55 | disposition home or self-care (01) ==
PROVIDERS: Emergency Provider Physician Assistant; PCP Internal Medicine
DX: R05.1 Acute cough (principal); Z20.822 Contact with and (suspected) exposure to COVID-19
CPT/HCPCS: 80053; 99283; U0003; U0005; 71045; 85025; J7512

== ENCOUNTER → 2021-07-12 13:39 | Outpatient (BNVA) | payer MEDICARE, SELFPAY | PROVIDERS: PCP Internal Medicine; Referring Provider Internal Medicine | DX: Z01.818 Encounter for other preprocedural examination (principal); M16.11 Unilateral primary osteoarthritis, right hip; Z47.1 Aftercare following joint replacement surgery; Z96.652 Presence of left artificial knee joint ==

== ENCOUNTER 2021-07-16 03:05 | Outpatient (CLI) | payer MEDICARE, SELFPAY ==
[2021-07-16 10:44] LABS: Source Nasal/Nares
[2021-07-16 13:08] LABS: COVID-19 PCR Negative (Negative)
== END 2021-07-16 03:06 | disposition home or self-care (01) ==
PROVIDERS: PCP Internal Medicine; Visit Provider Student in an Organized Health Care Education/Training Program
DX: Z20.822 Contact with and (suspected) exposure to COVID-19 (principal); Z01.818 Encounter for other preprocedural examination
CPT/HCPCS: 87635; U0005

== ENCOUNTER 2021-07-16 03:19 | Outpatient (CLI) | payer MEDICARE, SELFPAY ==
[2021-07-16 11:15] LABS: HCT 42.2 % (36.0-46.0); HGB 13.2 g/dL (11.2-15.7); MCH 28.4 pg (27.0-33.0); MCHC 31.3 % (32.0-36.0); MCV 90.8 fL (80-95); MPV 9.6 fL (8.0-11.0); Platelet Count 139 10^3/uL (130-400); RBC 4.65 10^6/uL (3.93-5.22); RDW 14.3 % (11.7-14.6); RDW-SD 47.5 fL; WBC 4.56 10^3/uL (4.4-10.8)
[2021-07-16 12:12] LABS: Anion Gap 4.9 mmol/L (3-11); BUN 15 mg/dL (7-18); CO2 32.1 mmol/L (21.0-32.0); CREATININE 0.8 mg/dL (0.55-1.02); Calcium 9.8 mg/dL (8.5-10.1); Chloride 105 mmol/L (98-107); Glucose 90 mg/dL (74-106); Potassium 4.2 mmol/L (3.5-5.1); Sodium 142 mmol/L (136-145)
[2021-07-16 12:14] LABS: Hemoglobin A1C 5.8 % (<5.7)
== END 2021-07-16 03:20 | disposition home or self-care (01) ==
LOC: LBO 03:19
PROVIDERS: PCP Internal Medicine; Visit Provider Student in an Organized Health Care Education/Training Program
DX: M25.551 Pain in right hip (principal); M16.11 Unilateral primary osteoarthritis, right hip; E11.9 Type 2 diabetes mellitus without complications; I25.10 Atherosclerotic heart disease of native coronary artery without angina pectoris; Z01.818 Encounter for other preprocedural examination; Z01.812 Encounter for preprocedural laboratory examination
CPT/HCPCS: 36415; 80048; 85027; 86850; 86900; 86901; 83036

== ENCOUNTER 2021-07-18 06:06 | Day surgery (SDC) | payer MEDICARE, SELFPAY ==
[2021-07-18] VITALS (10 sets, daily range): BP systolic 100–151; BP diastolic 46–71; PULSE 45–59; RESP 9–20; TEMP 36.1–36.8; O2SAT 94–97; BMI 36.8
[2021-07-18] MEDS: Acetaminophen 500 MG TAB 1000 MG PO (06:39)
[2021-07-18] MEDS: Celecoxib 200 MG CAP 400 MG PO (06:56)
--- NOTE | 2021-07-18 07:07 | W.ANESPRE ---
General Info Date of Service Date Performed: 07/18/21 Height: 5 ft 1 in Weight: 88.6 kg Body Mass Index (BMI): 36.8 Surgical Procedure: Operation Date: 07/18/21 08:35 Proposed Procedure Side Surgeon p Hip Total Hip Anterior Right Favio Varela MD Meds Allergies and Home Medications Allergies Allergy/AdvReac Type Severity Reaction Status Date / Time aspirin Allergy Severe Anaphylaxis Unverified 07/18/21 06:26 naproxen Allergy Severe Anaphylaxsi Unverified 07/18/21 06:26 s codeine Allergy Intermediate Hives Unverified 07/18/21 06:26 methadone Allergy Intermediate Hives Unverified 07/18/21 06:26 Penicillins Allergy Intermediate Hives Unverified 07/18/21 06:26 Sulfa (Sulfonamide Allergy Intermediate Hives Unverified 07/18/21 06:26 Antibiotics) lisinopril [From Zestril] AdvReac Intermediate cough Unverified 07/18/21 06:26 metformin AdvReac Intermediate Other (See Unverified 07/18/21 06:26 Comment) mirtazapine AdvReac Intermediate Dizziness/L Unverified 07/18/21 06:26 ightheade Home Medication Medication Instructions Recorded clopidogrel 75 mg tablet (Plavix) 75 mg PO DAILY 03/16/14 diflunisal 500 mg tablet 500 mg PO BID 03/16/14 epinephrine 0.3 mg/0.3 mL 1 unit IM PRN PRN 03/16/14 injection, auto-injector isosorbide mononitrate 60 mg 60 mg PO DAILY 03/16/14 tablet,extended release 24 hr nitroglycerin 0.4 mg sublingual 0.4 mg SUBLINGUAL PRN PRN 03/16/14 tablet sumatriptan succinate 50 mg tablet 50 mg PO PRN PRN 03/16/14 (Imitrex) ascorbic acid (vitamin C) 1,000 mg 1 g PO DAILY tab 02/20/21 tablet atorvastatin 80 mg tablet 80 mg PO DAILY 02/20/21 cholecalciferol (vitamin D3) 25 50 mcg PO DAILY cap 02/20/21 mcg (1,000 unit) capsule dulaglutide 0.75 mg/0.5 mL 0.75 mg SUBCUT QWEEK 02/20/21 subcutaneous pen injector (Trulicity) duloxetine 30 mg capsule,delayed 30 mg PO DAILY 02/20/21 release losartan 50 mg tablet 100 mg PO DAILY tab 02/20/21 pregabalin 100 mg capsule (Lyrica) 100 mg PO TID 02/20/21 magnesium oxide 500 mg capsule 400 mg PO BID 03/01/21 calcium carbonate 600 mg-vitamin 2 cap PO DAILY 04/15/21 D3 5 mcg (200 unit) capsule (Calcium 600 + D(3)) ondansetron 4 mg disintegrating 4 mg PO Q8H PRN #10 tab 04/15/21 tablet oxycodone myristate 13.5 mg 13.5 mg PO BID 04/15/21 capsule sprinkle extend release 12hr(DON'T CRUSH) (Xtampza ER) insulin glargine 100 unit/mL 30 unit SUBCUT HS ml 05/31/21 subcutaneous solution (Lantus U-100 Insulin) spironolactone 25 mg tablet 25 mg PO DAILY 05/31/21 acetaminophen 500 mg tablet 1,000 mg PO Q8H PRN #90 tab 07/18/21 celecoxib 200 mg capsule 200 mg PO BID PRN #60 cap 07/18/21 docusate sodium 100 mg capsule 100 mg PO BID PRN #7 cap 07/18/21 (Colace) oxycodone 10 mg tablet 10 mg PO Q4H PRN #35 tab MDD 70mg 07/18/21 pantoprazole 40 mg tablet,delayed 40 mg PO DAILY #30 tab 07/18/21 release rivaroxaban 10 mg tablet 10 mg PO DAILY #12 tab 07/18/21 Current Visit Medications: Current Medications Generic Name Dose Route Start Last Admin Trade Name Belkys PRN Reason Stop Dose Admin Acetaminophen 1,000 mg 07/18/21 06:00 07/18/21 06:39 Acetaminophen 500 Mg Tab PO 07/18/21 16:00 1,000 mg PREOP MARI Administration Celecoxib 400 mg 07/18/21 06:00 07/18/21 06:56 Celecoxib 200 Mg Cap PO 07/18/21 16:00 400 mg PREOP MARI Administration Tranexamic Acid 1,000 mg/ 60 mls @ 360 mls/hr 07/18/21 06:00 Sodium Chloride IV 07/18/21 16:00 PREOP MARI Ringer's Solution 1,000 mls @ 80 mls/hr 07/18/21 06:00 IV 08/16/21 23:59 INFUSION MARI Cefazolin Sodium/Dextrose 2 gm in 50 mls @ 100 mls/hr 07/18/21 06:00 Ancef Duplex IVPB 07/18/21 18:00 PREOP MARI IV Miscellaneous Supplies 1 each 07/18/21 06:00 Iv Access IV 08/16/21 23:59 DIRECTED MARI Sodium Chloride 0 ml 07/18/21 06:00 Normal Saline Flush 10 Ml Syr IV 08/16/21 23:59 PRN PRN Sodium Chloride 0 ml 07/18/21 06:00 Normal Saline 10 Ml Vial IJ 08/16/21 23:59 DIRECTED PRN Sterile Water 0 ml 07/18/21 06:00 Water,Injection,Sterile 10 Ml Vial IJ 08/16/21 23:59 DIRECTED PRN PFSH Active Problems Active Problems: Problem Status Onset Code Osteoarthritis of right hip M16.11 Medical History Medical History Actinic keratosis Arthralgia Arthritis of hand Balance problem CAD (coronary artery disease) Chronic anticoagulation Chronic diarrhea Cystocele Depression Diabetes type 2, controlled Diabetic peripheral neuropathy Entrapment of right superficial peroneal nerve Globus sensation Hip pain, right Hx of adenomatous colonic polyps Hypercholesterolemia Hypertension Hypomagnesemia Infected sebaceous cyst Leg pain, left Lumbar back pain Migraine Mixed incontinence urge and stress Myalgia Onychomycosis Osteoarthritis of left knee Postmenopausal Rectocele Right thyroid nodule Sebaceous cyst Sleep apnea Stasis dermatitis Thyroid cyst Medical History Comments:: Pt. reports she has a stimulator in her R lower back Surgical History Surgical History History of carpal tunnel surgery of left wrist History of tonsillectomy and adenoidectomy Nerve entrapment of lower limb s/p right lower extremity around knee S/P colonoscopy Status post replacement of right shoulder joint Status post right knee replacement Status post total left knee replacement Became infected Revision s/p Left TKA Tobacco Smoking/Tobacco Use Status: Former Tobacco Use Alcohol Alcohol Intake: never Substance Use Substance use: Never Substance use type: does not use Details: Reports rare cigarette use when she was upset years ago; denies regular use Vital Signs and Lab Results Vital Signs Most Recent Vital Signs in EMR: Most Recent Vital Signs Temp Pulse Resp BP Pulse Ox 36.3 C L 58 L 20 151/71 H 97 07/18/21 06:47 07/18/21 06:47 07/18/21 06:47 07/18/21 06:47 07/18/21 06:47 Point of Care Results Point of Care Results: Finger Stick Blood Glucose 83 07/18/21 07:07 Lab Results Blood Type / Crossmatch: Patient ABO/Rh O Negative 07/16/21 Antibody Screen NEGATIVE 07/16/21 Complete Blood Count: White Blood Count 4.56 10^3/uL (4.4-10.8) 07/16/21 10:55 07/16/21 Red Blood Count 4.65 10^6/uL (3.93-5.22) 07/16/21 10:55 07/16/21 Hemoglobin 13.2 g/dL (11.2-15.7) 07/16/21 10:55 07/16/21 Hematocrit 42.2 % (36.0-46.0) 07/16/21 10:55 07/16/21 Platelet Count 139 10^3/uL (130-400) 07/16/21 10:55 07/16/21 Complete Metabolic Panel: Sodium Level 142 mmol/L (136-145) 07/16/21 10:55 07/16/21 Potassium Level 4.2 mmol/L (3.5-5.1) 07/16/21 10:55 07/16/21 Chloride Level 105 mmol/L (98-107) 07/16/21 10:55 07/16/21 Carbon Dioxide Level 32.1 mmol/L (21.0-32.0) H 07/16/21 10:55 07/16/21 Blood Urea Nitrogen 15 mg/dL (7-18) 07/16/21 10:55 07/16/21 Creatinine 0.8 mg/dL (0.55-1.02) 07/16/21 10:55 07/16/21 Estimated GFR/1.73 m2 >= 60.00 (mL/min/1.73m2) 07/16/21 10:55 07/16/21 Calcium Level 9.8 mg/dL (8.5-10.1) 07/16/21 10:55 07/16/21 Glucose Level 90 mg/dL (74-106) 07/16/21 10:55 07/16/21 Hemoglobin A1c 5.8 % (<5.7) H 07/16/21 10:55 07/16/21 Liver Function Panel: No Data to Display Coagulation Panel: No Data to Display Cardiac Panel: No Data to Display Arterial Blood Gas: No Data to Display Venous Blood Gas: No Data to Display Pancreas Panel: No Data to Display Thyroid Panel: No Data to Display Infectious Disease: Coronavirus (COVID-19)(PCR) Negative (Negative) 07/16/21 10:10 07/16/21 Coronavirus 2019 Source Nasal/Nares 07/16/21 10:10 07/16/21 Blood Cultures: No Data to Display Toxicology Panel: No Data to Display Anesthesia Assessment and Plan Anesthesia History Personal History: No History of Anesthesia Complications Family History: No Family History of Anesthesia Complications Exercise Tolerance Exercise Tolerance: Metabolic Equivalents<4 Pertinent Negatives Pertinent Negatives: No Symptoms of GERD, No Major Cardiovascular Symptoms or Complaints, No Major Pulmonary Symptoms or Complaints, No History of CVA/TIA and Other (URI early May, antibiotics course, symptoms resolved) Cardiac & Pulmonary Exam Cardiac Exam: Normal S1/S2 Heart Sounds Pulmonary Exam: Clear Bilateral Breath Sounds Implantable Cardiac Device Does patient have a Pacemaker or an ICD?: No Airway Exam Known Difficult Airway: No Mallampati Class: 3 Mouth Opening: Normal (> 3cm) Thyromental Distance: Greater than 3 cm Neck Range of Motion: Full ROM Neck Circumference: Normal Teeth Condition: Removable Dentures/Plates Upper and Edentulous ASA Classification ASA Score: ASA 3 Emergency Case?: No NPO Status NPO Status: NPO Clears >2 hours, Solids >8 hours Anesthesia Plan Resuscitation Status: Full Code Anesthesia Technique: Spinal Anesthesia Airway Planned: Natural Airway Monitors Used: Standard Monitors Preoperative Comments:: Remote CAD history, no recent symptoms, followed by Cardiology in [place]. Nerve stimulator in situ right lower back, has not been working for years
--- NOTE | 2021-07-18 07:20 | W.PREOPHP ---
Assessment and Plan Assessment and plan (1) Osteoarthritis of right hip: Status: Chronic Assessment and plan: Peggy is a 75-year-old who has severe arthritis about the right hip. She has other major medical comorbidities but has been cleared for surgery by her primary care provider and cardiology. She has clopidogrel for 7 days and I recommend that she stays off of this in the postoperative period as clopidogrel is associated with significant increase in GI bleeding events. We will use Xarelto for 14 days postoperatively and then transition back to her home Clopidogrel dose. History of Present Illness Narrative: Peggy is a 75-year-old who has severe arthritis of her right hip. She is here today for right hip arthroplasty. She has been cleared by cardiology and her primary provider. Unfortunately, the primary care provider's note reported the right knee however it is the right hip. Please reference the primary care provider's history and physical for complete medical history and clearance for surgery but the surgery is listed inappropriately as the right knee where it is the right hip. She continues have right hip pain. She desires to proceed with right hip replacement. She has been off of the Plavix for 7 days. Review of Systems All systems reviewed & are unremarkable except as noted in HPI and below PFSH All Active Problems Osteoarthritis of right hip (Chronic) Medical History Actinic keratosis Arthralgia Arthritis of hand Balance problem CAD (coronary artery disease) Chronic anticoagulation Chronic diarrhea Cystocele Depression Diabetes type 2, controlled Diabetic peripheral neuropathy Entrapment of right superficial peroneal nerve Globus sensation Hip pain, right Hx of adenomatous colonic polyps Hypercholesterolemia Hypertension Hypomagnesemia Infected sebaceous cyst Leg pain, left Lumbar back pain Migraine Mixed incontinence urge and stress Myalgia Onychomycosis Osteoarthritis of left knee Postmenopausal Rectocele Right thyroid nodule Sebaceous cyst Sleep apnea Stasis dermatitis Thyroid cyst Surgical History History of carpal tunnel surgery of left wrist History of tonsillectomy and adenoidectomy Nerve entrapment of lower limb s/p right lower extremity around knee S/P colonoscopy Status post replacement of right shoulder joint Status post right knee replacement Status post total left knee replacement Became infected Revision s/p Left TKA Social History Smoking/Tobacco Use Status: Former Tobacco Use tobacco type: cigarettes Quit Date: 04/21/59 Smoking risk assessment performed?: Yes Alcohol Intake: never Drug use: Never Substance use type: does not use Details: Reports rare cigarette use when she was upset years ago; denies regular use Current gender identity: female Do you feel safe at home: Yes Do you feel safe in your relationship?: Yes Meds Allergies and Home Medications Allergies Allergy/AdvReac Type Severity Reaction Status Date / Time aspirin Allergy Severe Anaphylaxis Unverified 07/18/21 06:26 naproxen Allergy Severe Anaphylaxsi Unverified 07/18/21 06:26 s codeine Allergy Intermediate Hives Unverified 07/18/21 06:26 methadone Allergy Intermediate Hives Unverified 07/18/21 06:26 Penicillins Allergy Intermediate Hives Unverified 07/18/21 06:26 Sulfa (Sulfonamide Allergy Intermediate Hives Unverified 07/18/21 06:26 Antibiotics) lisinopril [From Zestril] AdvReac Intermediate cough Unverified 07/18/21 06:26 metformin AdvReac Intermediate Other (See Unverified 07/18/21 06:26 Comment) mirtazapine AdvReac Intermediate Dizziness/L Unverified 07/18/21 06:26 ightheade Home Medications Medication Instructions Recorded Confirmed Type clopidogrel 75 mg tablet (Plavix) 75 mg PO DAILY 03/16/14 07/18/21 History diflunisal 500 mg tablet 500 mg PO BID 03/16/14 07/18/21 History epinephrine 0.3 mg/0.3 mL 1 unit IM PRN PRN 03/16/14 07/18/21 History injection, auto-injector isosorbide mononitrate 60 mg 60 mg PO DAILY 03/16/14 07/18/21 History tablet,extended release 24 hr nitroglycerin 0.4 mg sublingual 0.4 mg SUBLINGUAL PRN PRN 03/16/14 07/18/21 History tablet sumatriptan succinate 50 mg tablet 50 mg PO PRN PRN 03/16/14 07/18/21 History (Imitrex) ascorbic acid (vitamin C) 1,000 mg 1 g PO DAILY tab 02/20/21 07/18/21 History tablet atorvastatin 80 mg tablet 80 mg PO DAILY 02/20/21 07/18/21 History cholecalciferol (vitamin D3) 25 50 mcg PO DAILY cap 02/20/21 07/18/21 History mcg (1,000 unit) capsule dulaglutide 0.75 mg/0.5 mL 0.75 mg SUBCUT QWEEK 02/20/21 07/18/21 History subcutaneous pen injector (Trulicity) duloxetine 30 mg capsule,delayed 30 mg PO DAILY 02/20/21 07/18/21 History release losartan 50 mg tablet 100 mg PO DAILY tab 02/20/21 07/18/21 History pregabalin 100 mg capsule (Lyrica) 100 mg PO TID 02/20/21 07/18/21 History magnesium oxide 500 mg capsule 400 mg PO BID 03/01/21 07/18/21 History calcium carbonate 600 mg-vitamin 2 cap PO DAILY 04/15/21 07/18/21 History D3 5 mcg (200 unit) capsule (Calcium 600 + D(3)) ondansetron 4 mg disintegrating 4 mg PO Q8H PRN #10 tab 04/15/21 07/18/21 Rx tablet oxycodone 10 mg tablet 10 mg PO QID PRN PRN 04/15/21 07/18/21 History oxycodone myristate 13.5 mg 13.5 mg PO BID 04/15/21 07/18/21 History capsule sprinkle extend release 12hr(DON'T CRUSH) (Xtampza ER) insulin glargine 100 unit/mL 30 unit SUBCUT HS ml 05/31/21 07/18/21 History subcutaneous solution (Lantus U-100 Insulin) spironolactone 25 mg tablet 25 mg PO DAILY 05/31/21 07/18/21 History Exam Narrative Exam Narrative: From primary care providers (Dr. Gotti) history and physical - heart rate rhythm are regular and chest is clear to auscultation bilaterally. Results Last Vital Signs Temp 36.3 C L 07/18/21 06:47 Pulse 58 L 07/18/21 06:47 Resp 20 07/18/21 06:47 BP 151/71 H 07/18/21 06:47 Pulse Ox 97 07/18/21 06:47
[2021-07-18] MEDS: Lactated Ringers 1,000 ML 80 ML IV (07:25)
--- NOTE | 2021-07-18 07:26 | W.PM.DSUDISC ---
Discharge Plan Disposition Patient Disposition: HOME Condition: Good Discharge Details Reason For Visit: Right Hip Arthritis Attending Provider: Favio Varela Primary Care Provider: Ivan Gotti Home Meds and New Rx's Prescriptions: New acetaminophen 500 mg tablet 1,000 mg PO Q8H PRN (Reason: pain) Qty: 90 3RF celecoxib 200 mg capsule 200 mg PO BID PRN (Reason: pain) Qty: 60 1RF pantoprazole 40 mg tablet,delayed release (DR/EC) 40 mg PO DAILY Qty: 30 0RF docusate sodium [Colace] 100 mg capsule 100 mg PO BID PRNQty: 7 0RF rivaroxaban 10 mg tablet 10 mg PO DAILY Qty: 12 0RF Rx Instructions: for 12 days s/p MARBIN Continued duloxetine 30 mg capsule,delayed release(DR/EC) 30 mg PO DAILY 0RF cholecalciferol (vitamin D3) 25 mcg (1,000 unit) capsule 50 mcg PO DAILY 0RF losartan 50 mg tablet 100 mg PO DAILY 0RF atorvastatin 80 mg tablet 80 mg PO DAILY 0RF pregabalin [Lyrica] 100 mg capsule 100 mg PO TID 0RF ascorbic acid (vitamin C) 1,000 mg tablet 1 g PO DAILY 0RF Trulicity 0.75 mg/0.5 mL pen injector 0.75 mg subcut QWEEK 0RF magnesium oxide 500 mg capsule 400 mg PO BID 0RF Lantus U-100 Insulin 100 unit/mL solution 30 unit subcut HS 0RF spironolactone 25 mg tablet 25 mg PO DAILY 0RF sumatriptan succinate [Imitrex] 50 MG tablet 50 mg PO PRN PRN0RF diflunisal 500 MG tablet 500 mg PO BID 0RF isosorbide mononitrate 60 MG tablet extended release 24 hr 60 mg PO DAILY 0RF nitroglycerin 0.4 MG tablet, sublingual 0.4 mg Sublingual PRN PRN0RF Label Comments: t. reports a long time ago epinephrine 0.3 MG/SYR auto-injector 1 unit IM PRN PRN0RF Label Comments: pt. reports she used it quite awhile ago Xtampza ER 13.5 mg cap,sprinkl,ER12hr(DONT CRUSH) 13.5 mg PO BID 0RF Label Comments: TAKE ONE CAPSULE BY MOUTH TWICE A DAY Calcium 600 + D(3) 600 mg calcium- 200 unit Capsule 2 cap PO DAILY 0RF ondansetron 4 mg tablet,disintegrating 4 mg PO Q8H PRN (Reason: nausea and vomiting) Qty: 10 0RF Changed oxycodone 10 mg tablet 10 mg PO Q4H MDD 70mg PRNQty: 35 0RF Rx Instructions: Take 10mg up to every 4 hours as needed with one additional dose per day if necessary. Held clopidogrel [Plavix] 75 MG tablet 75 mg PO DAILY 0RF Hold Instructions: Resume on 08/01/21. To resume after Rivaroxaban has stopped Discharge Instructions Additional Instructions: Total Hip Discharge Instructions Activity: The most important activity is to walk. You should try to take short walks a few times a day. You have no restrictions on movement or positioning, but do not try to force what you do. You will find some stiffness and weakness with hip flexion (lifting your knee). Do not try to strengthen this too early, continue to practice walking and stairs and this will come. - Outpatient physical therapy can be helpful to help return you to a normal gait and improve your flexibility and strength. This can start around 2 weeks. For some patients, it?s not necessary. Usually this is determined at the time of discharge or at the first post-operative visit. - You should wear the SHIRAZ hose on both legs for 2 weeks. You may remove them at night. If they become too cumbersome then you can discontinue them but discuss with Dr. Varela's nurse. Dressing: Keep the surgical dressing in place for at least one week. After the first week it may be removed and replace with light gauze and tape or nothing. It may get wet after 3 days but avoid soaking the dressing. If it gets wet, just lightly pat dry. It is important to always keep some gauze between skin folds, especially when you are sitting. Spend some time with the wound exposed when you are lying flat as the incision does wrinkle onto itself. Medications: - You should take Tylenol and an anti-inflammatory Celebrex as your primary pain control medications. The Celebrex you can take once or twice a day. If you start having any indigestion, stomach pain, or notice any blood or bleeding - stop the Celebrex and call Dr. Varela's office or him personally. - You have been prescribed a stronger pain medication Oxycodone for breakthrough pain, take as needed as prescribed. You usually take this up to 4 times per day but you may take it every 4 hours as needed with one additional breakthrough dose. You will then transition back to your baseline pain control. - You have also been prescribed a stomach acid reduction agent Pantoprozole to help reduce stomach acid and reflux. - You will be taking Rivaroxaban 10mg daily for DVT prevention for 12 days and then return to taking Plavix. You will not take Plavix while on this medication. - If you have constipation you should take Colace or Miralax (both [id number]). It takes most people 3-4 days to have a bowel movement. Follow-up: 2 weeks If you have any acute concerns or questions, please do not hesitate to contact the office at [phone]. You may contact Dr. Varela with any questions after hours through the hospital at [phone] or on his cell phone at [phone]. Referrals: Favio Varela MD [ [facility] STAFF PHYSICIAN] - Equipment/Supplies: Walker Activity:: Activity as Tolerated Remove Dressings/Wound Care:: Do Not Remove Shower/Bathe:: Cover Diet:: Carb Counting Discharge Orders Discharge Orders: Discharge Order (Routine); Ordered 07/18/21 Ordered By: Favio Varela DS: Diagnosis Discharge Diagnosis (1) Osteoarthritis of right hip: Status: Chronic
[2021-07-18] MEDS: ceFAZolin 2 GM/50 ML BAG IVPB (07:40)
[2021-07-18] MEDS: Ketorolac 30 MG/ML VIAL (08:15)
[2021-07-18] MEDS: Bupivacaine 0.25% Pres-Free 30 ML VIAL (08:16)
--- NOTE | 2021-07-18 09:00 | DI.RAD_ITS ---
Exam(s) XR HIP RT IN OR EXAM: XR HIP RT IN OR CLINICAL HISTORY: right total hip TECHNIQUE: 2D and realtime digital imaging was performed. COMPARISON: No exams were available for comparison FINDINGS: C-arm fluoroscopy was utilized by Dr. Varela during placement of a total hip prosthesis on the [facility]. Hard copies show acetabular and femoral components in good position. IMPRESSION: RADIATION DOSE DELIVERED: nola Fuentes=9.22 mGy
--- NOTE | 2021-07-18 11:13 | W.ANESPOSTOP ---
Postoperative Evaluation Date, Time and Location Date Performed: 07/18/21 Time Performed: 10:30 Patient Location: Day Surgery Unit Vital Signs Most Recent Imported Vital Signs: Most Recent Vital Signs Temp Pulse Resp BP Pulse Ox 36.2 C L 45 L 13 109/53 L 95 07/18/21 11:04 07/18/21 11:04 07/18/21 11:04 07/18/21 11:04 07/18/21 11:04 Pain Score Most Recent Pain Score: Most Recent Pain Score Pain Level 0 07/18/21 11:04 Assessment Mental Status: Awake (Alert & Oriented to Patient Baseline) Airway and Respiratory Function: Patent airway with normal (patient baseline) respiratory exam Cardiovascular Function: Hemodynamically Stable Hydration Status: Adequately Hydrated Nausea & Vomiting: No Nausea or Vomiting Pain: Pt. Denies Any Pain Peripheral Nerve Block: Patient did not receive a nerve block
--- NOTE | 2021-07-18 11:49 | IN_ITS ---
Date of service: 07/18/21 Time of Service: 11:49 PT Notes Visit Reasons: Right Hip Arthritis Physical Therapy Day Surgery Initial Evaluation Date: 07/18/2021 Referring Doctor: Favio Varela MD PT Orders: PT CONSULT: Status post Ortho surgery. S/p R MARBIN. Precautions: WBAT on the right LE with AD. Patient Profile/Admitting Diagnosis: Peggy is a 75-year-old female with primary osteoarthritis of the right hip and is status post right total hip arthroplasty on postoperative day 0. PMHX: Medical History? Actinic keratosis Arthralgia Arthritis of hand Balance problem CAD (coronary artery disease) Chronic anticoagulation Chronic diarrhea Cystocele Depression Diabetes type 2, controlled Diabetic peripheral neuropathy Entrapment of right superficial peroneal nerve Globus sensation Hip pain, right Hx of adenomatous colonic polyps Hypercholesterolemia Hypertension Hypomagnesemia Infected sebaceous cyst Leg pain, left Lumbar back pain Migraine Mixed incontinence urge and stress Myalgia Onychomycosis Osteoarthritis of left knee Postmenopausal Rectocele Right thyroid nodule Sebaceous cyst Sleep apnea Stasis dermatitis Thyroid cyst Surgical History?(Updated 07/12/21 @ 14:21 by Dalila Lai) History of carpal tunnel surgery of left wrist History of tonsillectomy and adenoidectomy Nerve entrapment of lower limb s/p right lower extremity around knee S/P colonoscopy Status post replacement of right shoulder joint Status post right knee replacement Status post total left knee replacement Became infected Revision s/p Left TKA Social History/Home Situation: Lives alone in a private home with 7-8 steps to enter with a rail on 1 side. Best friend Yocasta will be with her as she recovers for as long as needed. Equipment Owned/DME: [facility] Subjective: Agreeable to PT consult. Reports 2/10 pain and the right hip with weight bearing. Reports mild lightheadedness that did not limit mobility performance today. Denies headache and chest pain throughout. Objective: General Observation: Mepilex Ag over surgical incision. TEDs to B legs. Mental Status: Alert and oriented x4 Pain: 2/10 in the right hip ROM: Right Lower Extremity: Hip flexion lacks the last 30 degrees of active flexion while seated at edge of bed. Hip abduction WFL. Knee flexion WFL. Ankle dorsiflexion WFL. Ankle plantarflexion WFL. Left Lower Extremity: Hip flexion WFL. Hip abduction WFL. Knee flexion WFL. Ankle dorsiflexion WFL. Ankle plantarflexion WFL. Strength: Right Lower Extremity: Hip flexors 3-/5. Hip abductors 4-/5. Knee flexors 5/5. Knee extensors 4/5. Ankle dorsiflexors 5/5. Ankle plantarflexors 5/5. Left Lower Extremity:Hip flexors 5/5. Hip abductors 5/5. Knee flexors 5/5. Knee extensors 5/5. Ankle dorsiflexors 5/5. Ankle plantarflexors 5/5. Sensation: Intact as to pain and light pressure in bilateral lower extremities Bed Mobility/Transfers: Supine to sit supervision Sit to stand contact guard assist Stand to sit standby assist Bed to chair contact-guard assist Gait: 150 feet of level surface ambulation using front wheel walker with step to gait pattern requiring contact-guard assist of PT and wheelchair follow of nurse Michelle. Denies chest pain, headache, but did report mild lightheadedness that did not limit ambulation performance. Stairs: Negotiated up and down 6 x 4 inch steps and 4 x 6 inch steps while holding onto 1 rail with one hand and a single-point cane with the other hand requiring contact-guard assist with step to gait pattern. Balance: Static Sitting: Normal Dynamic Sitting: Normal Static Standing: Fair fair Dynamic Standing: Special Tests: Mobility Limitations Standardized Measure [facility] AM-PAC 6 clicks Basic Mobility Inpatient Short Form: Raw Score: 21 CMS Score: 29% deficit Informed Consent/Education: Patient instructed in purpose of PT consult. Education and training on initial set of exercises that can be done at home have been completed with patient. Assessment: Peggy requires the use of a front wheel walker for all mobility ADL performance in order to maximize independence and reduce fall risk. Patient presents with clinical signs and symptoms consistent with current/admitting diagnoses that have resulted to mobility limitations, gait instability, generalized weakness, and impairment of motor control as demonstrated by the following impairment level findings: 1. Decreased strength to right hip major muscle groups 2. Impaired standing balance 3. Limitation of joint range of motion in right hip Impairments are contributing to the following functional limitations: 1. Inability to safely ambulate without assistive device 2. Increase completion time for mobility ADL performance 3. Increased fall risk Patient is assessed as a 84682 moderate complexity based on the following: History: 75-year-old female with impairment level findings, functional limitations, and past medical history as indicated above Examination: Demonstrable impairment in strength, balance, and mobility level with underlying impairments and functional limitations as documented above Presentation: Evolving Decision Makin moderate complexity Goals: N/A. PT evaluation and 1-2 treatment sessions only for functional mobility training using recommended AD and for HEP instruction. Plan of Care/Treatment Plan: N/A. PT evaluation and 1-2 treatment session only for functional mobility training using recommended AD and for HEP instruction. DISCHARGE RECOMMENDATIONS: [] Home with no services [] [] Home with services [specify] [X] Home with outpatient PT. Home when medically cleared by orthopedic surgeon. Will benefit from outpatient PT services in order to facilitate return to full ADL performance and independent community ambulation without an assistive device. [] SNF for continued rehabilitation [] [] Longterm Care [] [] SNF versus LTC based on ability to participate and progress [] TREATMENT CODE/TIME: 85464 x 20 minutes, 62235 x 17 minutes beginning at 11:49 AM. Thank you for the opportunity to participate in the care of this patient. Ree Mckinley PT, DPT, CLT [facility] [place], [place]
--- NOTE | 2021-07-18 14:50 | W.PM.OP ---
Date of service: 07/18/21 Time of Service: 09:30 Operative Note Operative Note DATE OF PROCEDURE: 07/18/21 PRE-OP DIAGNOSIS: Right Hip Osteoarthritis POST-OP DIAGNOSIS: same PROCEDURE: Right Anterior Total Hip Arthroplasty with Intraoperative Navigation SURGEON: Favio Varela CORPORATE CONCIERGE: Jeremie Hawk Refer to Anesthesia Record PATHOLOGY: none sent COMPLICATIONS: None Patient was transported to: PACU Patient's condition: stable Implants: 1. Depuy [place] Acetabular Component, 50mm 2. Depuy Acetabular Liner, [id number] 3. Depuy Corail Standard Collared Femoral Stem, Size 11 4. Depuy Altrx Ceramic Femoral Head, Size 32+1mm Indications: I have seen Peggy in clinic for symptoms of hip arthritis, confirmed with radiographic findings. She has exhausted nonoperative methods and was having significant limitations in daily function and desired better function and less pain. I discussed the technical details of a hip replacement. I explained the risks of the procedure to include, but not limited to, bleeding, infection, pain, stiffness, fracture, damage to nerves and vessels, damage to muscles and tendons, loosening, instability, leg length inequality, need for repeat procedure, blood clot and cardiopulmonary demise. Despite these risks, Peggy elected to proceed. Findings: There was significant signs of arthritis throughout the hip with a completely flattened femoral head. Procedure Description: Peggy was greeted in the preoperative holding area where the correct side was identified and marked. The consent was reviewed with the patient and signed. The history and physical was updated. All questions were answered. She was taken back to the operating room. A spinal anesthestic was then administered. The feet were wrapped with cast padding and Coban and then placed into the boot liners and then into the boots. Care was taken to protect the skin and make sure the heels were fully down and the boots were stable. The patient was then positioned onto the HANA table. Both legs were held in a neutral position. SCDs were applied. The patient was then slid down onto a peroneal post. Prophylactic antibiotics in the form of Cefazolin were administered. 1g of Tranxemic Acid was given intravenously within 30 minutes of incision. The right leg was then prepped with Chloraprep and draped in a standard fashion. A second prep with Chloraprep was performed prior to placement of a shower-curtain type drape with Iodine impregnated skin protection. A timeout to confirm correct identity, side and site, procedure, allergies, anesthesia, and medical concerns was performed. An obliquely oriented incision was made starting lateral to the ASIS and running distal over the Tensor Fascia Tania (TFL) muscle belly toward the fibular head, approximately 10cm. The skin and soft tissue was dissected sharply, through Mitchell?s fascia, and to the fascia of the TFL. With the fascia and superior border of the IT band identified, the fascia was incised with a new knife just above any perforators from the IT band. The TFL muscle belly was bluntly dissected away from the fascia and moved laterally. The fat between TFL and rectus was identified to ensure the dissection was not within the TFL. Blunt dissection created space between abductors and the capsule and retractor was placed over the lateral femoral neck. The fibers of the rectus femoris tendon were identified and these were freed from the anterior capsule. A second cobra retractor was placed around the medial femoral neck. The TFL was further retracted laterally to show the deep fascia. Careful dissection through this layer identified three main crossing vessels of the lateral femoral circumflex. These were cauterized in multiple locations and then cut without any noticeable bleeding. The TFL was further released bluntly from the deep fascia to expose anterior hip capsule and fat The Patrick orthopaedic retractor was then placed beneath the TFL and against sartorius and medial soft tissues to protect and retract the soft tissues. A T-capsulotomy was then performed starting at the superior lateral acetabulum and moving distally to the intertrochanteric ridge. These capsular flaps were tagged with a No. 1 Ethibond and elevated from within. The capsular flaps were released to the shoulder of the lateral neck and to the lesser trochanter to give excellent visualization of the proximal femur. A neck osteotomy was performed using an oscillating saw based on preoperative templates. This cut started in the shoulder and of the lateral neck and exited medially. The saw was at all times directed medially to avoid injury to the greater trochanter. Gross traction was applied to the leg and the osteotomy opened. The femoral head was removed with a corkscrew, making sure to protect the TFL on its exit. Traction was released after head removal. This was measured on the back table to determine the starting reamer size. Portions of the rectus obscuring visualization were minimally elevated off the superior acetabulum. An anterior retractor was placed over the anterior wall between capsule and labrum and attached to the Gripper retraction system. The femur was rotated to 90 degrees and medial capsule was fully released until the lesser trochanter was palpable and visible; the femur was returned to 30 degrees. A posterior retractor was placed similarly between capsule and labrum. This provided excellent visualization. The contents of the cotyloid fossa were removed with electrocautery and the labrum was removed with a knife. There was significant chondromalacia of the superior acetabulum. There was incredible deformity of the femoral head with completely collapse. Acetabular reaming began with a 45mm reamer. This first reaming was directed anterior to posterior and medial to get down to the true floor. This was inspected and reamed until the true floor was reached. The anterior retractor was then released and entry and exit was provided by traction on the capsular flaps. I then reamed sequentially up to a 50mm reamer where good fit was obtained. The larger reamers were oriented based on anatomical reference of the anterior and lateral sloan to ensure proper abduction and anteversion. Positioning and size was confirmed with the fluoroscopy. A 50mm Depuy [place] acetabular component was selected. The deep tissues were irrigated. The acetabular component was then impacted in a position of about 40-45 degrees of abduction and 15-20 degrees of anteversion, using the patient?s anatomy as the ultimate landmark. Fluoroscopy was used to confirm this. There was excellent homebound teacher of the acetabular component and the inserting handle was removed. The acetabular liner, Depuy [id number] polyethylene liner, was inserted and lined up with the tines of the acetabular component. There was no soft tissue interposition. The liner was then impacted into position and confirmed to be well-seated. A portion of the vicky-articular cocktail was then injected around the acetabulum into the capsule and periosteum. This cocktail consisted of 50cc of 0.25% Bupivicaine and 20cc of Exparel and 30mg of Ketorolac. The leg was rotated to 120 degrees. Any remaining medial capsule was released until the lesser trochanter was easily palpable. A retractor was placed medially. The lateral capsule was further released into the shoulder to allow access to the greater trochanter. A Verma retractor was placed over the greater trochanter which allowed the trochanter to flip in front of the capsule for excellent exposure. The leg was brought down into maximal extension and 20 degrees of adduction while ensuring there was no impingement on the acetabulum. Any remnant capsule within the trochanter was released. Piriformis and obturator externis were identified and protected. There was excellent access to the proximal femur. The lateral neck remnant was removed with a rongeur. A blunt canal probe was used to identify the canal and trajectory for later broaching. A box osteotome initiated the broach course. A small curved rasp and a curved curette were used to work laterally. Broaching then began with a size 8 Corail broach. This was inserted manually around the trochanter and into the canal before mallet blows. The broach was seated to a few millimeters below the cut level based on the neck cut and the preoperative template. Sequential broaching was continued with the [employer] pneumatic broaching device until a tight fit was obtained with good rotational control of the femur. A trial standard neck was inserted along with a +1 trial head. The leg was brought out of extension and adduction and then reduced with traction and internal rotation. The leg was stable anteriorly in a position of 30 degrees of extension and 90 degrees of external rotation. Fluoroscopy was used to ensure there was no fracture and the stem was seated well. Leg lengths were checked with an AP pelvis and pelvic reference points. [employer] navigation system was used to confirm appropriate positioning and leg length and offset. This provided necessary leg length and offset recreation. Once content with the desired offset and leg lengths, the leg was brought back into extension, external rotation and adduction. The periosteum and surrounding tissue was injected with remaining portion of the vicky-articular cocktail. The proximal femur was irrigated as well as the deep tissues. The Depuy Corail standard collared stem, size 11, was then manually inserted into the proximal femur making sure to control rotation. It was then malleted into position with light blows, giving breaks to allow bone expansion and decrease risk of fracture. The selected Depuy Altrx Ceramic Head, size 32+1mm, was then placed onto the clean and dry trunnion and secured with impaction onto the tapered fit. The leg was brought back out of extension and adduction and reduced with traction and internal rotation. Stability was confirmed with no shuck at 90 degrees of external rotation and 30 degrees of extension. No impingement through range of motion arc. Final x-ray images were obtained with fluoroscopy to confirm adequate positioning and no intraoperative fracture. The deep tissues were thoroughly irrigated with Irrisept chlorhexadine solution. The capsule was then reapproximated with the previously placed Ethibond sutures. The TFL fascia was finally closed with a No. 2 Stratafix, barbed suture. Deep tissues were then reapproximated with 0 Vicryl and a running 2-0 Vicryl. The skin was closed with a running 4-0 Monocryl in a subcuticular fashion. This was reinforced with skin glue. A Mepilex silver dressing was applied. At the end of the case, all counts were correct. Peggy was transferred to the hospital bed without difficulty and suffering no apparent complication. Peggy has a good prognosis. Physical therapy will start today and without restrictions, weight-bearing as tolerated. Rivaroxaban 10mg daily will be used for DVT prophylaxis.
== END 2021-07-18 13:29 | disposition home or self-care (01) ==
PROVIDERS: PCP Internal Medicine; Visit Provider Student in an Organized Health Care Education/Training Program
PROC: (CPT 27130; principal; 2021-07-18 08:15)
DX: M16.11 Unilateral primary osteoarthritis, right hip (principal); E11.42 Type 2 diabetes mellitus with diabetic polyneuropathy; I10 Essential (primary) hypertension; E78.00 Pure hypercholesterolemia, unspecified; I25.10 Atherosclerotic heart disease of native coronary artery without angina pectoris
CPT/HCPCS: 20985; 27130; C1776; 97162; 97530; 73501; J0690; J1885; J2250; J2405

== ENCOUNTER 2021-08-02 11:32 | Outpatient (CLI) | payer MEDICARE, SELFPAY ==
--- NOTE | 2021-08-02 11:00 | DI.RAD_ITS ---
Exam(s) XR HIP RT COMPLETE AP PELVIS EXAM: XR HIP RT COMPLETE AP PELVIS CLINICAL HISTORY: R MARBIN TECHNIQUE: COMPARISON: CR XR PELVIS AP from 05/31/2021 FINDINGS: Two views were obtained and show total hip joint replacement in position on the right. The component s appear well seated. Note is made of severe DJD of the left hip. IMPRESSION: RADIATION DOSE DELIVERED: Total DLP
== END 2021-08-02 11:33 | disposition home or self-care (01) ==
LOC: DIORS 11:32
PROVIDERS: PCP Internal Medicine; Referring Provider Internal Medicine; Visit Provider Student in an Organized Health Care Education/Training Program
DX: Z96.641 Presence of right artificial hip joint (principal); Z47.1 Aftercare following joint replacement surgery
CPT/HCPCS: 73502

== ENCOUNTER → 2021-09-03 13:03 | Outpatient (BNVA) | payer MEDICARE, SELFPAY | PROVIDERS: PCP Internal Medicine; Referring Provider Internal Medicine; Visit Provider Student in an Organized Health Care Education/Training Program | DX: Z96.641 Presence of right artificial hip joint (principal); M70.61 Trochanteric bursitis, right hip | CPT/HCPCS: 20610; J1040 ==

== ENCOUNTER 2021-09-20 19:00 | Outpatient (REF) | payer MEDICARE, SELFPAY ==
[2021-09-20 14:49] LABS: Calculated LDL 67 mg/dL (<100); Cholesterol 143 mg/dL (<200); HDL Cholesterol 66 mg/dL (40-60); TSH 1.19 uIU/mL (0.36-3.74); Triglyceride 53 mg/dL (<150)
== END 2021-09-20 19:01 | disposition home or self-care (01) ==
LOC: NCHCN 19:00
PROVIDERS: PCP Internal Medicine; Visit Provider Internal Medicine
DX: E04.1 Nontoxic single thyroid nodule (principal); I10 Essential (primary) hypertension; E11.9 Type 2 diabetes mellitus without complications; I25.10 Atherosclerotic heart disease of native coronary artery without angina pectoris; F32.9 Major depressive disorder, single episode, unspecified
CPT/HCPCS: 80061; 84439; 84443

== ENCOUNTER → 2022-01-14 13:48 | Outpatient (BNVA) | payer MEDICARE, SELFPAY | PROVIDERS: PCP Internal Medicine; Referring Provider Internal Medicine; Visit Provider Student in an Organized Health Care Education/Training Program | DX: M70.61 Trochanteric bursitis, right hip (principal); M16.12 Unilateral primary osteoarthritis, left hip | CPT/HCPCS: 99213 ==

== ENCOUNTER 2022-02-21 03:04 | Outpatient (CLI) | payer MEDICARE, SELFPAY ==
[2022-02-21 13:50] LABS: HGB 12.8 g/dL (11.2-15.7); MCH 30.7 pg (27.0-33.0); MCHC 32.8 % (32.0-36.0); MCV 94 fL (80-95); MPV 9.2 fL (8.0-11.0); Platelet Count 154 10^3/uL (130-400); RBC 4.17 10^6/uL (3.93-5.22); RDW 13.3 % (11.7-14.6); RDW-SD 45.6 fL; WBC 6.13 10^3/uL (4.4-10.8)
[2022-02-21 13:59] LABS: Hemoglobin A1C 6.1 % (<5.7)
[2022-02-21 14:12] LABS: Anion Gap 5.3 mmol/L (3-11); BUN 19 mg/dL (7-18); CO2 32.7 mmol/L (21.0-32.0); CREATININE 0.9 mg/dL (0.55-1.02); Calcium 9.8 mg/dL (8.5-10.1); Chloride 104 mmol/L (98-107); Estimated GFR 65.44 (mL/min/1.73m2); Glucose 100 mg/dL (74-106); Potassium 3.9 mmol/L (3.5-5.1); Sodium 142 mmol/L (136-145)
== END 2022-02-21 03:05 | disposition home or self-care (01) ==
LOC: LBO 03:04
PROVIDERS: PCP Internal Medicine; Visit Provider Student in an Organized Health Care Education/Training Program
DX: M16.12 Unilateral primary osteoarthritis, left hip (principal); Z01.818 Encounter for other preprocedural examination
CPT/HCPCS: 36415; 80048; 85027; 83036

== ENCOUNTER 2022-03-05 05:51 | Day surgery (SDC) | payer MEDICARE, SELFPAY ==
[2022-03-05] VITALS (11 sets, daily range): BP systolic 76–136; BP diastolic 32–66; PULSE 58–77; RESP 17–22; TEMP 36.1–36.5; O2SAT 93–99; BMI 36.3
[2022-03-05] MEDS: Celecoxib 200 MG CAP 400 MG PO (06:34)
[2022-03-05] MEDS: Acetaminophen 500 MG TAB 1000 MG PO (06:34)
[2022-03-05] MEDS: Lactated Ringers 1,000 ML 80 ML IV (06:50)
--- NOTE | 2022-03-05 07:00 | DI.RAD_ITS ---
Exam(s) XR HIP LT IN OR EXAM: XR HIP LT IN OR CLINICAL HISTORY: ARTHRITIS LEFT HIP. TECHNIQUE: 2D digital imaging was performed. COMPARISON: No exams were available for comparison FINDINGS: Fluoroscopy provided during left hip procedure. See procedure report for details. Total fluoroscopy time 33 seconds. Cumulative dose=4.17mGy IMPRESSION: DATA REPOSITORY: RADIATION DOSE DELIVERED:
--- NOTE | 2022-03-05 07:11 | ANES.PREOP_ITS ---
General Info Date of Service Date Performed: 03/05/22 Height: 5 ft 1 in Weight: 87.4 kg Body Mass Index (BMI): 36.3 Surgical Procedure: Operation Date: 03/05/22 07:50 Proposed Procedure Side Surgeon p Hip Total Hip Anterior Left Favio Varela MD Pre-Op Diagnosis Post-Op Diagnosis ARTHRITS LEFT HIP Meds Allergies and Home Medications Allergies Allergy/AdvReac Type Severity Reaction Status Date / Time aspirin Allergy Severe Anaphylaxis Verified 03/05/22 06:10 naproxen Allergy Severe Anaphylaxsi Verified 03/05/22 06:10 s codeine Allergy Intermediate Hives Verified 03/05/22 06:10 methadone Allergy Intermediate Hives Verified 03/05/22 06:10 Penicillins Allergy Intermediate Hives Verified 03/05/22 06:10 Sulfa (Sulfonamide Allergy Intermediate Hives Verified 03/05/22 06:10 Antibiotics) lisinopril [From Zestril] AdvReac Intermediate cough Verified 03/05/22 06:10 metformin AdvReac Intermediate Other (See Verified 03/05/22 06:10 Comment) mirtazapine AdvReac Intermediate Dizziness/L Verified 03/05/22 06:10 ightheade Home Medication Medication Instructions Recorded epinephrine 0.3 mg/0.3 mL 1 unit IM PRN PRN 03/16/14 injection, auto-injector isosorbide mononitrate 60 mg 50 mg PO DAILY 03/16/14 tablet,extended release 24 hr nitroglycerin 0.4 mg sublingual 0.4 mg sublingual PRN PRN 03/16/14 tablet sumatriptan succinate 50 mg tablet 50 mg PO PRN PRN 03/16/14 (Imitrex) ascorbic acid (vitamin C) 1,000 mg 1 g PO DAILY 02/20/21 tablet atorvastatin 80 mg tablet 80 mg PO HS 02/20/21 cholecalciferol (vitamin D3) 25 50 mcg PO DAILY 02/20/21 mcg (1,000 unit) capsule duloxetine 30 mg capsule,delayed 20 mg PO DAILY 02/20/21 release losartan 50 mg tablet 100 mg PO DAILY 02/20/21 calcium carbonate 600 mg-vitamin 2 cap PO DAILY 04/15/21 D3 5 mcg (200 unit) capsule (Calcium 600 + D(3)) insulin glargine 100 unit/mL 30 unit subcut HS 05/31/21 subcutaneous solution (Lantus U-100 Insulin) spironolactone 25 mg tablet 25 mg PO DAILY 05/31/21 acetaminophen 500 mg tablet 1,000 mg PO Q8H PRN pain #90 tabs 07/18/21 docusate sodium 100 mg capsule 100 mg PO BID PRN #7 caps 07/18/21 (Colace) rivaroxaban 10 mg tablet 10 mg PO DAILY #12 tabs 07/18/21 atenolol 25 mg tablet 25 mg PO HS 09/26/21 biotin 5 mg capsule 5 mg PO DAILY 09/26/21 calcium carbonate 500 mg calcium 1,200 mg PO DAILY 09/26/21 (1,250 mg) tablet conjugated estrogens 0.625 mg/gram 0.625 mg vaginal DAILY 09/26/21 vaginal cream (Premarin) diflunisal 500 mg tablet 500 mg PO BID PRN 09/26/21 dulaglutide 0.75 mg/0.5 mL 0.75 mg subcut QWEEK 09/26/21 subcutaneous pen injector (Trulicity) fluticasone propionate 50 1 spray intranasal DAILY 09/26/21 mcg/actuation nasal spray,suspension magnesium oxide 500 mg capsule 500 mg PO HS 09/26/21 naloxone 4 mg/actuation nasal 4 mg intranasal Q3M PRN 09/26/21 spray (Narcan) clopidogrel 75 mg tablet (Plavix) 75 mg PO DAILY 10/04/21 polyethylene glycol 3350 17 17 g PO DAILY 10/04/21 gram/dose oral powder (Miralax) pregabalin 100 mg capsule (Lyrica) 300 mg PO DAILY 01/14/22 oxycodone 10 mg tablet 10 mg PO QID 02/21/22 Current Visit Medications: Current Medications Generic Name Dose Route Start Last Admin Trade Name Freq PRN Reason Stop Dose Admin Acetaminophen 1,000 mg 03/05/22 06:00 03/05/22 06:34 Acetaminophen 500 Mg Tab PO 03/05/22 16:00 1,000 mg PREOP MARI Administration Celecoxib 400 mg 03/05/22 06:00 03/05/22 06:34 Celecoxib 200 Mg Cap PO 03/05/22 16:00 400 mg PREOP MARI Administration Tranexamic Acid 1,000 mg/ 60 mls @ 360 mls/hr 03/05/22 06:00 Sodium Chloride IV 03/05/22 16:00 PREOP MARI Ringer's Solution 1,000 mls @ 80 mls/hr 03/05/22 06:00 03/05/22 06:50 IV 03/05/22 23:59 80 mls/hr [facility] Administration Cefazolin Sodium/Dextrose 2 gm in 50 mls @ 100 mls/hr 03/05/22 06:00 Ancef Duplex IVPB 03/05/22 23:59 PREOP MARI IV Miscellaneous Supplies 1 each 03/05/22 06:00 Iv Access IV 03/05/22 23:59 DIRECTED MARI Sodium Chloride 0 ml 03/05/22 06:00 Normal Saline Flush 10 Ml Syr IV 03/05/22 23:59 PRN PRN Sodium Chloride 0 ml 03/05/22 06:00 Normal Saline 10 Ml Vial IJ 03/05/22 23:59 DIRECTED PRN Sterile Water 0 ml 03/05/22 06:00 Water,Injection,Sterile 10 Ml Vial IJ 03/05/22 23:59 DIRECTED PRN PFSH Active Problems Active Problems: Problem Status Onset Code History of total right hip arthroplasty 07/18/21 Z96.641 Trochanteric bursitis, right hip M70.61 Arthritis of left hip M16.12 Medical History Medical History Actinic keratosis Arthralgia Arthritis of hand Balance problem Bradycardia CAD (coronary artery disease) Chronic anticoagulation Chronic cough Chronic diarrhea Chronic pain Cystocele Depression Diabetes type 2, controlled Diabetic peripheral neuropathy Eczematous dermatitis 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 reports she has a stimulator in her R lower back Surgical History Surgical History History of carpal tunnel surgery of left wrist History of hip replacement History of tonsillectomy and adenoidectomy Nerve entrapment of lower limb s/p right lower extremity around knee S/P colonoscopy Status post replacement of right shoulder joint Status post right knee replacement Status post total left knee replacement Became infected Revision s/p Left TKA Tobacco Smoking/Tobacco Use Status: Former Tobacco Use Alcohol Alcohol Intake: never Substance Use Substance use: Never Substance use type: does not use Details: Reports rare cigarette use when she was upset years ago; denies regular use Vital Signs and Lab Results Vital Signs Most Recent Vital Signs in EMR: Most Recent Vital Signs Temp Pulse Resp BP Pulse Ox 36.4 C L 58 L 18 136/63 98 03/05/22 06:25 03/05/22 06:25 03/05/22 06:25 03/05/22 06:25 03/05/22 06:25 Point of Care Results Point of Care Results: Finger Stick Blood Glucose 70 03/05/22 06:47 Lab Results Blood Type / Crossmatch: No Data to Display Complete Blood Count: White Blood Count 6.13 10^3/uL (4.4-10.8) 02/21/22 13:42 Red Blood Count 4.17 10^6/uL (3.93-5.22) 02/21/22 13:42 Hemoglobin 12.8 g/dL (11.2-15.7) 02/21/22 13:42 Hematocrit 39.0 % (36.0-46.0) 02/21/22 13:42 Platelet Count 154 10^3/uL (130-400) 02/21/22 13:42 Complete Metabolic Panel: Sodium 142 mmol/L (136-145) 02/21/22 13:42 Potassium 3.9 mmol/L (3.5-5.1) 02/21/22 13:42 Chloride 104 mmol/L (98-107) 02/21/22 13:42 Carbon Dioxide 32.7 mmol/L (21.0-32.0) H 02/21/22 13:42 BUN 19 mg/dL (7-18) H 02/21/22 13:42 Creatinine 0.9 mg/dL (0.55-1.02) 02/21/22 13:42 Est GFR (CKD-EPI 2020) 65.44 (mL/min/1.73m2) 02/21/22 13:42 Calcium 9.8 mg/dL (8.5-10.1) 02/21/22 13:42 Glucose 100 mg/dL (74-106) 02/21/22 13:42 Hemoglobin A1c 6.1 % (<5.7) H 02/21/22 13:42 Liver Function Panel: No Data to Display Coagulation Panel: No Data to Display Cardiac Panel: No Data to Display Arterial Blood Gas: No Data to Display Venous Blood Gas: No Data to Display Pancreas Panel: No Data to Display Thyroid Panel: No Data to Display Infectious Disease: No Data to Display Blood Cultures: No Data to Display Toxicology Panel: No Data to Display Anesthesia Assessment and Plan Anesthesia History Personal History: No History of Anesthesia Complications Family History: No Family History of Anesthesia Complications Exercise Tolerance Exercise Tolerance: Metabolic Equivalents<4 Pertinent Negatives Pertinent Negatives: No Symptoms of GERD, No Major Cardiovascular Symptoms or Complaints, No Major Pulmonary Symptoms or Complaints and No History of CVA/TIA Cardiac & Pulmonary Exam Cardiac Exam: Normal S1/S2 Heart Sounds Pulmonary Exam: Clear Bilateral Breath Sounds Implantable Cardiac Device Does patient have a Pacemaker or an ICD?: No Airway Exam Known Difficult Airway: No Mallampati Class: 3 Mouth Opening: Normal (> 3cm) Thyromental Distance: Greater than 3 cm Neck Range of Motion: Full ROM Neck Circumference: Normal Teeth Condition: Removable Dentures/Plates Upper and Edentulous ASA Classification ASA Score: ASA 2 Emergency Case?: No NPO Status NPO Status: NPO Clears >2 hours, Solids >8 hours Anesthesia Plan Resuscitation Status: Full Code Anesthesia Technique: Spinal Anesthesia Airway Planned: Natural Airway Monitors Used: Standard Monitors Preoperative Comments:: Blood sugar 70, patient asymptomatic
--- NOTE | 2022-03-05 07:24 | W.PM.DSUDISC ---
Date of service: 03/05/22 Time of Service: 07:24 Discharge Plan Disposition Patient Disposition: HOME Condition: Good Discharge Details Reason For Visit: Left Hip DJD Attending Provider: Favio Varela Primary Care Provider: Ivan Gotti Home Meds and New Rx's Prescriptions: New celecoxib 200 mg capsule 200 mg PO BID PRN (Reason: pain) Qty: 60 1RF pantoprazole 40 mg tablet,delayed release (DR/EC) 40 mg PO DAILY Qty: 30 0RF Continued duloxetine 30 mg capsule,delayed release(DR/EC) 20 mg PO DAILY cholecalciferol (vitamin D3) 25 mcg (1,000 unit) capsule 50 mcg PO DAILY losartan 50 mg tablet 100 mg PO DAILY atorvastatin 80 mg tablet 80 mg PO HS ascorbic acid (vitamin C) 1,000 mg tablet 1 g PO DAILY pregabalin [Lyrica] 100 mg capsule 300 mg PO DAILY insulin glargine [Lantus U-100 Insulin] 100 unit/mL solution 30 unit subcut HS spironolactone 25 mg tablet 25 mg PO DAILY polyethylene glycol 3350 [Miralax] 17 gram/dose powder 17 g PO DAILY Trulicity 0.75 mg/0.5 mL pen injector 0.75 mg subcut QWEEK atenolol 25 mg tablet 25 mg PO HS diflunisal 500 mg tablet 500 mg PO BID PRN Premarin 0.625 mg/gram cream 0.625 mg vaginal DAILY fluticasone propionate 50 mcg/actuation spray,suspension 1 spray intranasal DAILY Rx Instructions: administer into each nostril magnesium oxide 500 mg capsule 500 mg PO HS calcium carbonate 500 mg calcium (1,250 mg) tablet 1,200 mg PO DAILY biotin 5 mg capsule 5 mg PO DAILY naloxone [Narcan] 4 mg/actuation spray,non-aerosol 4 mg intranasal Q3M PRN Rx Instructions: spray 1 dose into ONE nostril; alternate nostrils w each dose until help arrives sumatriptan succinate [Imitrex] 50 MG tablet 50 mg PO PRN PRN isosorbide mononitrate 60 MG tablet extended release 24 hr 50 mg PO DAILY Label Comments: pt. reports dose change nitroglycerin 0.4 MG tablet, sublingual 0.4 mg Sublingual PRN PRN Label Comments: t. reports a long time ago epinephrine 0.3 MG/SYR auto-injector 1 unit IM PRN PRN Label Comments: pt. reports she used it quite awhile ago. Pt. states she used it about a year ago because she took alkaselsa plus acetaminophen 500 mg tablet 1,000 mg PO Q8H PRN (Reason: pain) Qty: 90 3RF rivaroxaban 10 mg tablet 10 mg PO DAILY Qty: 12 0RF Rx Instructions: for 12 days s/p MARBIN Calcium 600 + D(3) 600 mg calcium- 200 unit Capsule 2 cap PO DAILY docusate sodium [Colace] 100 mg capsule 100 mg PO BID PRNQty: 7 0RF Changed oxycodone 10 mg tablet 10 mg PO Q4H PRN PRNQty: 30 0RF Rx Instructions: Take up to every 4 hours as needed. Held clopidogrel [Plavix] 75 mg tablet 75 mg PO DAILY Hold Instructions: Resume on 03/19/22. After Rivaroxaban is completed. Discharge Instructions Additional Instructions: Total Hip Discharge Instructions Activity:?The most important activity is to walk.? You should try to take short walks a few times a day.? You have no restrictions on movement or positioning, but do not try to force what you do.? You will find some stiffness and weakness with hip flexion (lifting your knee).? Do not try to strengthen this too early, continue to practice walking and stairs and this will come.? - Outpatient physical therapy can be helpful to help return you to a normal gait and improve your flexibility and strength.? This can start around 2 weeks.? For some patients, it?s not necessary.? Usually this is determined at the time of discharge or at the first post-operative visit. - You should wear the SHIRAZ hose on both legs for 2 weeks.? You may remove them at night.? If they become too cumbersome then you can discontinue them but discuss with Dr. Varela's nurse. Dressing:?Keep the surgical dressing in place for at least one week.? After the first week it may be removed and replace with light gauze and tape or nothing.? It may get wet after 3 days but avoid soaking the dressing.? If it gets wet, just lightly pat dry.? It is important to always keep some gauze between skin folds, especially when you are sitting.? Spend some time with the wound exposed when you are lying flat as the incision does wrinkle onto itself. Medications: -?You should take Tylenol and an anti-inflammatory Celebrex as your primary pain control medications.? The Celebrex you can take once or twice a day.? If you start having any indigestion, stomach pain, or notice any blood or bleeding - stop the Celebrex and call Dr. Varela's office or him personally. - You have been prescribed a stronger pain medication Oxycodone for breakthrough pain, take as needed as prescribed.? You usually take this up to 4 times per day but you may take it every 4 hours as needed with one additional breakthrough dose.? You will then transition back to your baseline pain control. - You have also been prescribed a stomach acid reduction agent Pantoprozole to help reduce stomach acid and reflux. - You will be taking Rivaroxaban 10mg daily for DVT prevention for 12 days and then return to taking Plavix.? You will not take Plavix while on this medication. - If you have constipation you should take Colace or Miralax (both [id number]).? It takes most people 3-4 days to have a bowel movement. Follow-up:?2 weeks If you have any acute concerns or questions, please do not hesitate to contact the office at [phone].? You may contact Dr. Varela with any questions after hours through the hospital at [phone] or on his cell phone at [phone]. Equipment/Supplies: Walker Activity:: Activity as Tolerated Remove Dressings/Wound Care:: Do Not Remove Shower/Bathe:: 72 hours Diet:: As Tolerated Discharge Orders Discharge Orders: Discharge Order (Routine); Ordered 03/05/22 Ordered By: Favio Varela
[2022-03-05] MEDS: ceFAZolin 2 GM/50 ML BAG IVPB (07:39)
[2022-03-05] MEDS: ePHEDrine 25 MG/5 ML Syringe IVP (10:17)
--- NOTE | 2022-03-05 13:02 | IN_ITS ---
Date of service: 03/05/22 Time of Service: 13:02 PT Notes Visit Reasons: Left Hip DJD Physical Therapy Day Surgery Initial Evaluation Date: 03/05/2022 Referring Doctor: Favio Varela MD PT Orders: PT CONSULT: S/P Ortho surgery.? S/p L MARBIN. Precautions: WBAT on the left LE with AD. Patient Profile/Admitting Diagnosis: Peggy is a 75-year-old female with primary osteoarthritis of the left hip and is status post left total hip arthroplasty on postoperative day 0. PMHX: Medical History? 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 History of carpal tunnel surgery of left wrist History of tonsillectomy and adenoidectomy Nerve entrapment of lower limb s/p right lower extremity around knee S/P colonoscopy Status post replacement of right shoulder joint Status post right knee replacement Status post total left knee replacement Became infected Revision s/p Left TKA Social History/Home Situation: Lives alone in a private home with no steps to enter.? Equipment Owned/DME: None Subjective: Agreeable to PT consult.? Reports 7-8/10 pain in the right hip with weight bearing.? Denies headache, chest pain, and lightheadedness throughout. Objective: General Observation: Mepilex Ag over surgical incision.? TEDs to B legs. Mental Status: Alert and oriented x4 Pain: 7-8/10 in the right hip ROM: Right Lower Extremity: Hip flexion WFL. Hip abduction WFL. Knee flexion WFL. Ankle dorsiflexion WFL. Ankle plantarflexion WFL. Left Lower Extremity: Hip flexion lacks the last 30 degrees of active flexion while seated at edge of bed.? Hip abduction WFL. Knee flexion WFL. Ankle dorsiflexion WFL. Ankle plantarflexion WFL. Strength: Right Lower Extremity: Hip flexors 3-/5. Hip abductors 4-/5. Knee flexors 5/5. Knee extensors 4/5. Ankle dorsiflexors 5/5. Ankle plantarflexors 5/5. Left Lower Extremity:Hip flexors 5/5. Hip abductors 5/5. Knee flexors 5/5. Knee extensors 5/5. Ankle dorsiflexors 5/5. Ankle plantarflexors 5/5. Sensation: Intact as to pain and light pressure in bilateral lower extremities Bed Mobility/Transfers: Supine to sit supervision Sit to stand contact guard assist Stand to sit standby assist Bed to chair stand by assist Gait: 150 feet of level surface ambulation using front-wheeled walker with step- through gait pattern requiring stand by assist of PT and wheelchair follow of nurse Michelle for safety.? Denies chest pain, headache, but did report mild lightheadedness that did not limit ambulation performance. Stairs: Negotiated up and down 3 x 4-inch steps and 2 x 6-inch steps while holding onto 1 rail with one hand and a single-point cane with the other hand requiring contact-guard assist with step to gait pattern. Balance: Static Sitting: Normal Dynamic Sitting: Normal Static Standing: Fair Dynamic Standing:Fair Special Tests: Mobility Limitations Standardized Measure [facility] AM-PAC 6 clicks Basic Mobility Inpatient Short Form: Raw Score: 22 CMS Score: 21% deficit Informed Consent/Education:? Patient instructed in purpose of PT consult. ? Education and training on initial set of exercises that can be done at home have been completed with patient. Written [employer] exercise sheet with access code given to patient. Assessment: Peggy requires the use of a front wheel walker for all mobility ADL performance in order to maximize independence and reduce fall risk.? Patient presents with clinical signs and symptoms consistent with current/admitting diagnoses that have resulted to mobility limitations, gait instability, generalized weakness, and impairment of motor control as demonstrated by the following impairment level findings: 1.? Decreased strength to left hip major muscle groups 2.? Impaired standing balance 3.? Limitation of joint range of motion in left hip Impairments are contributing to the following functional limitations: 1.? Inability to safely ambulate without assistive device 2.? Increase completion time for mobility ADL performance 3.? Increased fall risk Patient is assessed as a [id number] moderate complexity based on the following: History: 75-year-old female with impairment level findings, functional limitations, and past medical history as indicated above Examination: Demonstrable impairment in strength, balance, and mobility level with underlying impairments and functional limitations as documented above Presentation: Evolving Decision Makin moderate complexity Goals: N/A.? PT evaluation and 1-2 treatment sessions only for functional mobility training using recommended AD and for HEP instruction. Plan of Care/Treatment Plan: N/A.? PT evaluation and 1-2 treatment session only for functional mobility training using recommended AD and for HEP instruction. DISCHARGE RECOMMENDATIONS: [] ? Home with no services [] [] ? Home with services [specify] [X] ? Home with outpatient PT.? Home when medically cleared by orthopedic surgeon.? Will benefit from outpatient PT services in order to facilitate return to full ADL performance and independent community ambulation without an assistive device. [] ? SNF for continued rehabilitation [] [] ? [facility] [] [] ? SNF versus LTC based on ability to participate and progress [] TREATMENT CODE/TIME: 71811 x 20 minutes, 97512 x 10 minutes beginning at 13:02 PM. Thank you for the opportunity to participate in the care of this patient. Ree Mckinley PT, DPT, CLT [facility] [place], [place]
[2022-03-05] MEDS: oxyCODONE 5 MG TAB PO (13:18)
--- NOTE | 2022-03-05 15:00 | W.ANESPOSTOP ---
Postoperative Evaluation Date, Time and Location Date Performed: 03/05/22 Time Performed: 14:10 Patient Location: Day Surgery Unit Vital Signs Most Recent Imported Vital Signs: Most Recent Vital Signs Temp Pulse Resp BP Pulse Ox 36.2 C L 69 18 122/60 97 03/05/22 13:35 03/05/22 13:35 03/05/22 13:35 03/05/22 13:35 03/05/22 13:35 Pain Score Most Recent Pain Score: Most Recent Pain Score Pain Level [Left Hip] 2 03/05/22 12:04 Pain Level 6 03/05/22 13:35 Assessment Mental Status: Awake (Alert & Oriented to Patient Baseline) Airway and Respiratory Function: Patent airway with normal (patient baseline) respiratory exam Cardiovascular Function: Hemodynamically Stable Hydration Status: Adequately Hydrated Nausea & Vomiting: No Nausea or Vomiting Pain: Pain is tolerable per patient Peripheral Nerve Block: Patient did not receive a nerve block
--- NOTE | 2022-03-05 17:39 | W.PM.OP ---
Date of service: 03/05/22 Time of Service: 09:20 Operative Note Operative Note DATE OF PROCEDURE: 03/05/22 PRE-OP DIAGNOSIS: Left Hip Osteoarthritis POST-OP DIAGNOSIS: same PROCEDURE: Left Anterior Total Hip Arthroplasty with Intraoperative Navigation SURGEON: Favio Varela SOFA BACK UPHOLSTERER: Jeremie aHwk ANESTHESIA TYPE: Spinal Refer to Anesthesia Record ESTIMATED BLOOD LOSS: 250 PATHOLOGY: none sent TOURNIQUET TIME: 0 COMPLICATIONS: None Patient was transported to: PACU Patient's condition: stable Implants: 1. Depuy Hawks Acetabular Component, 50mm 2. Depuy Acetabular Liner, [id number] 3. Depuy Corail Standard Collared Femoral Stem, Size 11 4. Depuy Altrx Ceramic Femoral Head, Size 32+5mm Indications: I have seen Peggy in clinic for symptoms of hip arthritis, confirmed with radiographic findings. She has exhausted nonoperative methods and was having significant limitations in daily function and desired better function and less pain. She had a previous hip replacement on the right with excellent results. I discussed the technical details of a hip replacement. I explained the risks of the procedure to include, but not limited to, bleeding, infection, pain, stiffness, fracture, damage to nerves and vessels, damage to muscles and tendons, loosening, instability, leg length inequality, need for repeat procedure, blood clot and cardiopulmonary demise. Despite these risks, Peggy elected to proceed. Findings: There was significant signs of arthritis throughout the hip involving the weight bearing portion of the femoral head and acetabular chondromalacia. Procedure Description: Peggy was greeted in the preoperative holding area where the correct side was identified and marked. The consent was reviewed with the patient and signed. The history and physical was updated. All questions were answered. She was taken back to the operating room. A spinal anesthestic was then administered. The feet were wrapped with cast padding and Coban and then placed into the boot liners and then into the boots. Care was taken to protect the skin and make sure the heels were fully down and the boots were stable. The patient was then positioned onto the HANA table. Both legs were held in a neutral position. SCDs were applied. The patient was then slid down onto a peroneal post. Prophylactic antibiotics in the form of Cefazolin were administered. 1g of Tranxemic Acid was given intravenously within 30 minutes of incision. The left leg was then prepped with Chloraprep and draped in a standard fashion. A second prep with Chloraprep was performed prior to placement of a shower-curtain type drape with Iodine impregnated skin protection. A timeout to confirm correct identity, side and site, procedure, allergies, anesthesia, and medical concerns was performed. An obliquely oriented incision was made starting lateral to the ASIS and running distal over the Tensor Fascia Tania (TFL) muscle belly toward the fibular head, approximately 10cm. The skin and soft tissue was dissected sharply, through Mitchell?s fascia, and to the fascia of the TFL. With the fascia and superior border of the IT band identified, the fascia was incised with a new knife just above any perforators from the IT band. The TFL muscle belly was bluntly dissected away from the fascia and moved laterally. The fat between TFL and rectus was identified to ensure the dissection was not within the TFL. Blunt dissection created space between abductors and the capsule and retractor was placed over the lateral femoral neck. The fibers of the rectus femoris tendon were identified and these were freed from the anterior capsule. A second cobra retractor was placed around the medial femoral neck. The TFL was further retracted laterally to show the deep fascia. Careful dissection through this layer identified three main crossing vessels of the lateral femoral circumflex. These were cauterized in multiple locations and then cut without any noticeable bleeding. The TFL was further released bluntly from the deep fascia to expose anterior hip capsule and fat The Patrick orthopaedic retractor was then placed beneath the TFL and against sartorius and medial soft tissues to protect and retract the soft tissues. A T-capsulotomy was then performed starting at the superior lateral acetabulum and moving distally to the intertrochanteric ridge. These capsular flaps were tagged with a No. 1 Ethibond and elevated from within. The capsular flaps were released to the shoulder of the lateral neck and to the lesser trochanter to give excellent visualization of the proximal femur. A neck osteotomy was performed using an oscillating saw based on preoperative templates. This cut started in the shoulder and of the lateral neck and exited medially. The saw was at all times directed medially to avoid injury to the greater trochanter. Gross traction was applied to the leg and the osteotomy opened. The femoral head was removed with a corkscrew, making sure to protect the TFL on its exit. Traction was released after head removal. This was measured on the back table to determine the starting reamer size. Portions of the rectus obscuring visualization were minimally elevated off the superior acetabulum. An anterior retractor was placed over the anterior wall between capsule and labrum and attached to the Gripper retraction system. The femur was rotated to 90 degrees and medial capsule was fully released until the lesser trochanter was palpable and visible; the femur was returned to 30 degrees. A posterior retractor was placed similarly between capsule and labrum. This provided excellent visualization. The contents of the cotyloid fossa were removed with electrocautery and the labrum was removed with a knife. There was a notable floor osteophyte. There was significant chondromalacia of the superior acetabulum. Acetabular reaming began with a 46mm reamer. This first reaming was directed anterior to posterior and medial to get down to the true floor. This was inspected and reamed until the true floor was reached. The anterior retractor was then released and entry and exit was provided by traction on the capsular flaps. I then reamed sequentially up to a 50mm reamer where good fit was obtained. The larger reamers were oriented based on anatomical reference of the anterior and lateral sloan to ensure proper abduction and anteversion. Positioning and size was confirmed with the fluoroscopy. A 50mm Depuy Hawks acetabular component was selected. The acetabulum was reamed around the periphery with the selected acetabular size to prevent a rim fit. The deep tissues were irrigated. The acetabular component was then impacted in a position of about 40-45 degrees of abduction and 15-20 degrees of anteversion, using the patient?s anatomy as the ultimate landmark. Fluoroscopy was used to confirm this. There was excellent agricultural engineering teacher of the acetabular component and the inserting handle was removed. The acetabular liner, Depuy [id number] polyethylene liner, was inserted and lined up with the tines of the acetabular component. There was no soft tissue interposition. The liner was then impacted into position and confirmed to be well-seated. A portion of the vicky-articular cocktail was then injected around the acetabulum into the capsule and periosteum. This cocktail consisted of 123mg of Ropivacaine, 0.25mg of Epinephrine, 0.04mg of Clonidine, and 15mg of Ketorolac, diluted to 50cc. The leg was rotated to 120 degrees. Any remaining medial capsule was released until the lesser trochanter was easily palpable. A retractor was placed medially. The lateral capsule was further released into the shoulder to allow access to the greater trochanter. A Verma retractor was placed over the greater trochanter which allowed the trochanter to flip in front of the capsule for excellent exposure. The leg was brought down into maximal extension and 20 degrees of adduction while ensuring there was no impingement on the acetabulum. Any remnant capsule within the trochanter was released. Piriformis and obturator externis were identified and protected. There was excellent access to the proximal femur. The lateral neck remnant was removed with a rongeur. A blunt canal probe was used to identify the canal and trajectory for later broaching. A box osteotome initiated the broach course. A small curved rasp and a curved curette were used to work laterally. Broaching then began with a size 8 Corail broach. This was inserted manually around the trochanter and into the canal before mallet blows. The broach was seated to a few millimeters below the cut level based on the neck cut and the preoperative template. Sequential broaching was continued with the [place] Stem Cellse pneumatic broaching device until a tight fit was obtained with good rotational control of the femur. A trial standard neck was inserted along with a +5 trial head. The leg was brought out of extension and adduction and then reduced with traction and internal rotation. The leg was stable anteriorly in a position of 30 degrees of extension and 90 degrees of external rotation. Fluoroscopy was used to ensure there was no fracture and the stem was seated well. Leg lengths were checked with an AP pelvis and pelvic reference points. BackupAgent navigation system was used to confirm appropriate positioning and leg length and offset. Once content with the desired offset and leg lengths, the leg was brought back into extension, external rotation and adduction. The periosteum and surrounding tissue was injected with remaining portion of the vicky-articular cocktail. The proximal femur was irrigated as well as the deep tissues. The Depuy Corail standard collared stem, size 11, was then manually inserted into the proximal femur making sure to control rotation. It was then malleted into position with light blows, giving breaks to allow bone expansion and decrease risk of fracture. The selected Depuy Altrx Ceramic Head, size 32+5mm, was then placed onto the clean and dry trunnion and secured with impaction onto the tapered fit. The leg was brought back out of extension and adduction and reduced with traction and internal rotation. Stability was confirmed with no shuck at 90 degrees of external rotation and 30 degrees of extension. No impingement through range of motion arc. Final x-ray images were obtained with fluoroscopy to confirm adequate positioning and no intraoperative fracture. The deep tissues were thoroughly irrigated with Surgiphor, betadine solution. This was allowed to sit in the wound for 3 minutes before being thoroughly irrigated out with normal saline. The capsule was then reapproximated with the previously placed Ethibond sutures. The TFL fascia was finally closed with a No. 2 Stratafix, barbed suture. Deep tissues were then reapproximated with 0 Vicryl and a running 2-0 Vicryl. The skin was closed with a running 4-0 Monocryl in a subcuticular fashion. This was reinforced with skin glue. A Mepilex silver dressing was applied. At the end of the case, all counts were correct. Peggy was transferred to the hospital bed without difficulty and suffering no apparent complication. She has a good prognosis. Physical therapy will start today and without restrictions, weight-bearing as tolerated. Rivaroxaban 10mg dailyl will be used for DVT prophylaxis with a return to Plavix at 2 weeks.
== END 2022-03-05 14:28 | disposition home or self-care (01) ==
PROVIDERS: PCP Internal Medicine; Visit Provider Student in an Organized Health Care Education/Training Program
PROC: (CPT 27130; principal; 2022-03-05 07:30)
DX: M16.12 Unilateral primary osteoarthritis, left hip (principal); E11.9 Type 2 diabetes mellitus without complications; I25.10 Atherosclerotic heart disease of native coronary artery without angina pectoris; I10 Essential (primary) hypertension
CPT/HCPCS: 20985; 27130; C1776; 97162; 97530; 73501; J0360; J0690; J1100; J2250; J2405; J3010

== ENCOUNTER 2022-03-10 20:56 | Emergency (ER) | payer MEDICARE, SELFPAY ==
--- OUTSIDE RECORDS SUMMARY | 2022-03-10 21:02 | XMS_ITS | Encounter Summary ---
:1945 Author Organization [facility] [place] [address] Care Team Providers Name Role Phone Ivan Gotti MD Primary Care Provider Reason for Referral Speech Therapy (Routine) - Closed Specialty Diagnoses / Procedures Referred By Contact Refer red To Contact Speech Pathology / Diagnoses Dysphagia, unspecified type Marlon Still, [facility] Payroll Analyst Rehab Speech Therapy PA [facility] [address] [place] [phone] [place] [address] Referral ID Status Reason Start Date Expiration Date Visits V isits Requested Authorized [id number] Closed Evaluate and 05/04/2017 05/04/2018 1 1 Treat Diagnostic Test (Routine) - Closed Specialty Diagnoses / Procedures Referred By Contact Refer red To Contact Radiology Diagnoses Thyroid nodule Marlon Still PA [facility] Interventionl Rad Procedures IR Biopsy Thyroid FNA [facility] [place] [address] [place] [address] Referral ID Status Reason Start Date Expiration Date Visits V isits Requested Authorized [id number] Closed Specialty 05/04/2017 05/04/2018 1 1 Service Requested Encounter Details Date Type Department Care Team Description 05/02/2017 Orders Only Otolaryngology at [facility] Dysphagia, unspecified type; [facility] [place] [place] [address] [address] [facility] [phone] Center Otolaryngology [place], [place] [address] Social History Tobacco Use Types Packs/Day Years Used Date Smoking Tobacco: Former Cigarettes Quit : 07/12/1969 Smokeless Tobacco: Never Alcohol Use Standard Drinks/Week Comments No 0 (1 standard drink = 0.6 oz pure alcoho l) never Sex Assigned at Date Recorded Not on file documented as of this encounter Plan of Treatment Scheduled Referrals Name Type Priority Associated Diagnoses Order S chedule Referral to Speech Outpatient Referral Routine Dysphagia, Or dered: Therapy Unspecified Type 05/04/2017 documented as of this encounter Results XR Fluoro Modified Barium Swallow (06/02/2017 2:36 PM EST) Anatomical Region Laterality Modality N/A Radio Fluoroscopy Specimen (Source) Anatomical Location Collection Method / Collectio n Time Received Time / Laterality Volume Impressions 06/02/2017 3:17 PM EST Normal modified barium swallow. Please see speech therapy note for furth er details. I have personally reviewed the image(s) and the residents interpretation and agree with the findings, Brea james at 06/02/2017 3:17 PM Narrative 06/02/2017 3:17 PM EST EXAMINATION: XR FLUORO MODIFIED BARIUM SWALLOW CLINICAL HISTORY: Dysphagia TECHNIQUE: The examination was performed in conjunc tion with speech pathology. ??Varying consistencies of barium were administere d under lateral fluoroscopic observation. ? Fluoro time: 0.98 minutes COMPARISON: None FINDINGS: The oral phase of swallowing is normal. There is normal elevation of the larynx and normal epiglottic inversion with swallowing. No penetration of the airway or aspirati on occurred with any consistency. No residual pooling within the vallecula e or piriform sinuses. The 13 mm barium tablet passed quickly t hrough the hypopharynx without delay or globus sensation. Procedure Note Brea River MD - 06/02/2017Form atting of this note might be different from the original. EXAMINATION: XR FLUORO MODIFIED BARIUM S CLINICAL HISTORY: Dysphagia TECHNIQUE: The examination was performed in conjunc tion with speech pathology. Varying consistencies of barium were administere d under lateral fluoroscopic observation. Fluoro time: 0.98 minutes COMPARISON: None FINDINGS: The oral phase of swallowing is normal. There is normal elevation of the larynx and normal epiglottic inversion with swallowing. No penetration of the airway or aspirati on occurred with any consistency. No residual pooling within the vallecula e or piriform sinuses. The 13 mm barium tablet passed quickly t hrough the hypopharynx without delay or globus sensation. IMPRESSION Normal modified barium swallow. Please see speech therapy note for furth er details. I have personally reviewed the image(s) and the residents interpretation and agree with the findings, Brea james at 06/02/2017 3:17 PM Bart Chatman MD IMG FLUORO ORDERABLES IR Biopsy Thyroid FNA (05/23/2017 10:40 AM EST) Anatomical Region Laterality Modality Neck X-Ray Angiography Specimen (Source) Anatomical Location Collection Method / Collectio n Time Received Time / Laterality Volume Impressions 05/23/2017 11:06 AM EST Ultrasound guided thyroid FNA with a total of 3 FNAs taken from the right inferior thyroid lobe lesion. I, Salinas Cai, was present for the e ntire procedure. I have personally reviewed the image(s) and the residents interpretation and agree with the findings, Salinas Cai at 05/23/2017 11:06 AM Narrative 05/23/2017 11:06 AM EST EXAMINATION: IR BIOPSY THYROID FNA CLINICAL HISTORY: Right calcified thyroi d nodule found incidentally on CT, would like to rule out malignant pathology.; E xam/Procedure requested: U/S guided FNA TECHNIQUE: The risks, benefits and alter natives of the procedure were explained to the patient. Written informed consent was obtained. The site was marked. Time out was performed. An appropriate entry site was marked under ultrasound, then prepped and draped in the usual sterile fashion. Limited ultrasound evaluation of the thyroid demonstrated a 1 cm hypoe choic nodule in the inferior right thyroid. 1% lidocaine was given to achie ve local anesthesia. Under ultrasound guidance, three 25-gauge FNAs of the rig ht thyroid lobe were taken. The lesion mostly appeared cystic and was aspirated , the samples given to the pathology teacher present for the study, who deemed the samples adequate. All needles were removed. The patient tolerated the procedure well without immediate post-procedure complication. The patient was instructed on post-procedure site care and told to seek healthcare for sig ns or symptoms of infection, prolonged/excessive pain or bleeding. Procedure Note Salinas Cai MD - 05/23/2017Format ting of this note might be different from the original. EXAMINATION: IR BIOPSY THYROID FNA CLINICAL HISTORY: Right calcified thyroi d nodule found incidentally on CT, would like to rule out malignant pathology.; E xam/Procedure requested: U/S guided FNA TECHNIQUE: The risks, benefits and alter natives of the procedure were explained to the patient. Written informed consent was obtained. The site was marked. Time out was performed. An appropriate entry site was marked under ultrasound, then prepped and draped in the usual sterile fashion. Limited ultrasound evaluation of the thyroid demonstrated a 1 cm hypoe choic nodule in the inferior right thyroid. 1% lidocaine was given to achie ve local anesthesia. Under ultrasound guidance, three 25-gauge FNAs of the rig ht thyroid lobe were taken. The lesion mostly appeared cystic and was aspirated , the samples given to the pathology teacher present for the study, who deemed the samples adequate. All needles were removed. The patient tolerated the procedure well without immediate post-procedure complication. The patient was instructed on post-procedure site care and told to seek healthcare for sig ns or symptoms of infection, prolonged/excessive pain or bleeding. IMPRESSION Ultrasound guided thyroid FNA with a tot al of 3 FNAs taken from the right inferior thyroid lobe lesion. I, Salinas Cai, was present for the e ntire procedure. I have personally reviewed the image(s) and the residents interpretation and agree with the findings, Salinas Cai at 05/23/2017 11:06 AM Bart Chatman MD IMG IR ORDERABLES documented in this encounter Visit Diagnoses Diagnosis Dysphagia, unspecified type Thyroid nodule Nontoxic uninodular goiter Pre-op testing Preoperative examination, unspecified Thyroid nodule Nontoxic uninodular goiter Dysphagia, unspecified type documented in this encounter Care Teams [employer] Relationship Specialty Start Date End Date Ivan Gotti MD PCP - General 03/13/10 [address] [place] [address] documented as of this encounter
--- OUTSIDE RECORDS SUMMARY | 2022-03-10 21:02 | XMS_ITS | Encounter Summary ---
:1945 Author Organization [facility] [place] [address] Care Team Providers Name Role Phone Ivan Gotti MD Primary Care Provider Encounter Details Date Type Department Care Team Description 06/02/2017 Hospital Encounter XRay at [facility] [place] [place], Dysphagia, [address] Bart Holland MD unspecified type [place] [phone] CENTER [phone] [place] [address] Social History Tobacco Use Types Packs/Day Years Used Date Smoking Tobacco: Former Cigarettes Quit : 07/12/1969 Smokeless Tobacco: Never Alcohol Use Standard Drinks/Week Comments No 0 (1 standard drink = 0.6 oz pure alcoho l) never Sex Assigned at Date Recorded Not on file documented as of this encounter Medications at Time of Discharge Medication Sig Dispensed Refills Start Date End Date atorvastatin (LIPITOR) TAKE ONE TABLET BY 0 80 mg Tablet MOUTH AT BEDTIME Insulin Syringe-Needle USE WITH INSULIN TWO 0 U-100 (BD INSULIN TIMES A DAY SYRINGE ULTRA-FINE) 1 mL 31 gauge x 5/16 Syringe NARCAN 4 mg/actuation 0 02/20/2017 [place], Non-Aerosol gabapentin (NEURONTIN) nightly. 0 02/20/2017 300 mg Capsule MYRBETRIQ 50 mg Tablet Take 50 mg by mouth 0 10/19 Sustained Release 24 hr daily. lidocaine (XYLOCAINE) 2 Apply topically as 0 % Gel needed. amLODIPine (NORVASC) 5 Take 5 mg by mouth 0 08/30 mg tablet daily. oxyCODONE-acetaminophen Take 2 tablets by 0 05/14 (PERCOCET) 5-325 mg per mouth every 4 hours tablet as needed. senna-docusate Take 1-4 tablets by 60 tablet 2 04/18/2013 (PERICOLACE) 8.6-50 mg mouth 2 times daily. per tablet ondansetron (ZOFRAN-ODT) Take 1-2 tablets by 10 tablet 1 4 mg oral disintegrating mouth every 8 hours tablet as needed for Nausea. OXYcodone (OXYCONTIN) 40 Take 40 mg by mouth 0 mg CR tablet every 12 hours. insulin glargine Inject 80 Units 0 (LANTUS) vial injection subcutaneously nightly. sertraline (ZOLOFT) 100 Take 100 mg by mouth 0 mg tablet daily. clopidogrel (PLAVIX) 75 Take 75 mg by mouth 0 mg tablet daily. nitroGLYcerin Place 0.4 mg under 0 (NITROSTAT) 0.4 mg SL the tongue every 5 tablet minutes as needed. isosorbide mononitrate Take 60 mg by mouth 0 (IMDUR) 60 mg 24 hr daily. tablet SUMAtriptan (IMITREX) 50 Take 50 mg by mouth 0 mg tablet as needed. epiNEPHrine (EPIPEN Inject 0.3 mg into 0 2-JIM) 0.3 mg/0.3 mL the muscle once as (1:1,000) injection needed. diflunisal (DOLOBID) 500 Take 500 mg by mouth 0 mg Tab 2 times daily. prochlorperazine Take 5 mg by mouth 0 (COMPAZINE) 5 mg tablet every 6 hours as needed. atenolol (TENORMIN) 25 Take 25 mg by mouth 0 mg tablet daily. Blood-Glucose Meter 1 each by 0 (FREESTYLE F[place]) [facility] [place] [facility].(Non-Drug; Combo monitoring kit Route) route as needed. insulin by [facility].(Non-Drug; 0 syringe,safetyneedle 0.5 Combo Route) route. mL 29 x 1/2 Syrg lancets (FREESTYLE by [facility] [place] [facility].(Non-Drug; 0 LANCETS) 28 gauge Misc Combo Route) route. PROAIR HFA 90 0 03/04/2017 02/24/2018 mcg/actuation HFA Aerosol Inhaler benzonatate (TESSALON) Every 8 hours. 0 02/24/2018 200 mg Capsule betamethasone valerate 0 04/26/2017 (VALISONE) 0.1 % Ointment OXYcodone (OXYCONTIN) 20 Take 15 mg by mouth 0 02/24/2018 mg CR tablet every 12 hours. losartan (COZAAR) 50 mg Take 100 mg by mouth 0 02/24/2018 tablet daily. documented as of this encounter Plan of Treatment Not on filedocumented as of this encounter Procedures Procedure Name Priority Date/Time Associated Diagnosis Comme nts XR FLUORO BARIUM Routine 06/02/2017 2:36 PM Dysphagia, Resul ts for this SWALLOW EST unspecified type procedure a re in (MODIFIED/VIDEO the results SWALLOW PHARYNX) section. documented in this encounter Results XR Fluoro Modified Barium Swallow (06/02/2017 2:36 PM EST) Anatomical Region Laterality Modality N/A Radio Fluoroscopy Specimen (Source) Anatomical Location Collection Method / Collectio n Time Received Time / Laterality Volume Impressions 06/02/2017 3:17 PM EST Normal modified barium swallow. [facility] I have personally reviewed the [...] original. EXAMINATION: XR FLUORO MODIFIED BARIUM S WALLOW CLINICAL HISTORY: Dysphagia TECHNIQUE: The examination was [...] PM Bart Chatman MD IMG FLUORO ORDERABLES documented in this encounter Visit Diagnoses Diagnosis Dysphagia, unspecified type documented in this encounter Administered Medications Inactive Administered Medications - up to 3 most recent administrations Medication Order MAR Action Action Date Dose Rate Site barium sulfate (E-Z DISK) tablet Given 06/02/2017 2:27 PM EST 70 0 mg 700 mg 700 mg, Oral, ONCE PRN, 1 dose, Starting on Fri06/02/17 at 1437, Until Fri06/02/17 at 1427, Per Protocol, Routine barium sulfate (VARIBAR HONEY) oral Given 06/02/2017 2:27 PM EST 10 mLs suspension 10 mL 10 mL, Oral, ONCE PRN, 1 dose, Starting on Fri06/02/17 at 1437, Until Fri06/02/17 at 1427, Per Protocol, Routine barium sulfate (VARIBAR NECTAR) oral Given 06/02/2017 2:27 PM ES T 15 mLs suspension 15 mL 15 mL, Oral, ONCE PRN, 1 dose, Starting on Fri06/02/17 at 1437, Until Fri06/02/17 at 1427, Per Protocol, Routine barium sulfate (VARIBAR PUDDING) oral paste Given 06/02/2017 2:27 PM EST 15 mLs 15 mL 15 mL, Oral, ONCE PRN, 1 dose, Starting on Fri06/02/17 at 1437, Until Fri06/02/17 at 1427, Per Protocol, Routine barium sulfate (VARIBAR THIN LIQUID) oral Given 06/02/2017 2:28 PM EST 40 mLs powder 40 mL 40 mL, Oral, ONCE PRN, 1 dose, Starting on Fri06/02/17 at 1436, Until Fri06/02/17 at 1428, Per Protocol, Routine documented in this encounter Care Teams 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
--- OUTSIDE RECORDS SUMMARY | 2022-03-10 21:02 | XMS_ITS | Encounter Summary ---
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
--- OUTSIDE RECORDS SUMMARY | 2022-03-10 21:02 | XMS_ITS | Encounter Summary ---
:1945 Author Organization [facility] [place] [address] Care Team Providers Name Role Phone Ivan Gotti MD Primary Care Provider Encounter Details Date Type Department Care Team Description 04/28/2017 Telephone Otolaryngology at [facility] [place] [address] Social History Tobacco Use Types Packs/Day Years Used Date Smoking Tobacco: Former Cigarettes Quit : 07/12/1969 Smokeless Tobacco: Never Alcohol Use Standard Drinks/Week Comments No 0 (1 standard drink = 0.6 oz pure alcoho l) never Sex Assigned at Date Recorded Not on file documented as of this encounter Miscellaneous Notes Telephone Encounter - Marlon Still PA - 04/30/2017 6:00 PM EST I called his office this afternoon, but he was not in today. I left a number for him to return my call, with instructions to have me paged so that I can hopefully speak with him at that time. Telephone Encounter - Julia Monte - 04/28/2017 1:39 PM EST Alessandro Gotti called regarding patient. He stated both he and Kenny Still were waiting on a CT scan for patient. CT was done Friday and CT was essentially normal so his question is now Now what?. documented in this encounter Plan of Treatment Not on filedocumented as of this encounter Visit Diagnoses Not on filedocumented in this encounter Care Teams Deck Lid Fitter Relationship Specialty Start Date End Date Ivan Gotti MD PCP - General 03/13/10 [address] [place] [address] documented as of this encounter
--- OUTSIDE RECORDS SUMMARY | 2022-03-10 21:02 | XMS_ITS | Clinical Summary ---
:1945 Author Organization [facility] [place] [address] Care Team Providers Name Role Phone Ivan Gotti MD Primary Care Provider Allergies Active Allergy Reactions Severity Noted Date Comments Aspirin Anaphylaxis High Anaphylaxis Codeine Phosphate Hives High hives, sw elling, hard time breathing Lisinopril Hives High hives, swellin g, hard time breathing Metformin Nausea And Vomiting High vomitin g Methadone Hives High Hives Mirtazapine Other (See Comments) Medium 02/24/2013 dizzine ss Naproxen Anaphylaxis High Anaphylaxis Penicillins Anaphylaxis High Anaphylaxis Red Blood Cells Other (See Comments) High 04/14/2013 Anti bodies-Difficult to Crossmatch DO NOT REMOVE Please contact the Blood Bank at [phone] for questions. Sulfa (Sulfonamide Anaphylaxis High Anaphyla xis Antibiotics) Medications Medication Sig Dispensed Refills Start Date End Date Status OXYcodone (OXYCONTIN) Take 40 mg by mouth 0 Active 40 mg CR tablet every 12 hours. insulin glargine Inject 80 Units 0 Active (LANTUS) vial subcutaneously injection nightly. sertraline (ZOLOFT) Take 100 mg by 0 Active 100 mg tablet mouth daily. clopidogrel (PLAVIX) Take 75 mg by mouth 0 Active 75 mg tablet daily. nitroGLYcerin Place 0.4 mg under 0 Active (NITROSTAT) 0.4 mg SL the tongue every 5 tablet minutes as needed. isosorbide mononitrate Take 60 mg by mouth 0 Active (IMDUR) 60 mg 24 hr daily. tablet SUMAtriptan (IMITREX) Take 50 mg by mouth 0 Active 50 mg tablet as needed. epiNEPHrine (EPIPEN Inject 0.3 mg into 0 Active 2-JIM) 0.3 mg/0.3 mL the muscle once as (1:1,000) injection needed. diflunisal (DOLOBID) Take 500 mg by 0 Active 500 mg Tab mouth 2 times daily. prochlorperazine Take 5 mg by mouth 0 Active (COMPAZINE) 5 mg every 6 hours as tablet needed. atenolol (TENORMIN) 25 Take 25 mg by mouth 0 Active mg tablet daily. Blood-Glucose Meter 1 each by 0 Active (FREESTYLE FREEDOM Misc.(Non-Drug; LITE) monitoring kit Combo Route) route as needed. insulin by Misc.(Non-Drug; 0 A ctive syringe,safetyneedle Combo Route) route. 0.5 mL 29 x 1/2 Syrg lancets (FREESTYLE by Misc.(Non-Drug; 0 Active LANCETS) 28 gauge Misc Combo Route) route. senna-docusate Take 1-4 tablets by 60 tablet 2 04/18/2013 Active (PERICOLACE) 8.6-50 mg mouth 2 times per tablet daily. ondansetron Take 1-2 tablets by 10 tablet 1 04/18/2013 Active (ZOFRAN-ODT) 4 mg oral mouth every 8 hours disintegrating tablet as needed for Nausea. oxyCODONE-acetaminophe Take 2 tablets by 0 4 Active n (PERCOCET) 5-325 mg mouth every 4 hours per tablet as needed. amLODIPine (NORVASC) 5 Take 5 mg by mouth 0 08/31/19 14 Active mg tablet daily. MYRBETRIQ 50 mg Tablet Take 50 mg by mouth 0 016 Active Sustained Release 24 daily. hr lidocaine (XYLOCAINE) Apply topically as 0 Active 2 % Gel needed. atorvastatin (LIPITOR) TAKE ONE TABLET BY 0 Active 80 mg Tablet MOUTH AT BEDTIME Insulin Syringe-Needle USE WITH INSULIN 0 Active U-100 (BD INSULIN TWO TIMES A DAY SYRINGE ULTRA-FINE) 1 mL 31 gauge x 5/16 Syringe NARCAN 4 mg/actuation 0 02/20/2017 Active [place], Non-Aerosol gabapentin (NEURONTIN) nightly. 0 02/20/2017 Active 300 mg Capsule DULoxetine (CYMBALTA) TAKE ONE CAPSULE BY 0 10/18/20 18 Active 30 mg Capsule, Delayed MOUTH EVERY DAY Release(E.C.) losartan (COZAAR) 100 TAKE 1 TABLET BY 0 12/15/2017 Active mg Tablet MOUTH EVERY DAY Active Problems Problem Noted Date Chronic pain disorder 05/12/2017 Goiter 05/12/2017 Heart murmur 05/12/2017 Migraine without aura 05/12/2017 Morbid obesity 05/12/2017 Spasm of bladder 05/12/2017 Pain in right hip 05/12/2017 Obesity, Class II, BMI 35-39.9 04/15/2013 Overview: BMI 39.3 Hyperlipidemia 04/02/2013 migraine H/A 04/02/2013 Low back pain 04/02/2013 Obstructive sleep apnea 04/02/2013 recurrent r peroneal entrapment 04/02/2013 Episodic mood disorder 04/02/2013 Disorder of thyroid gland 04/02/2013 adenoma coln polyp 04/02/2013 Osteoarthritis, knee - s/p R TKA (04/15/13) 02/24/2013 Chronic pain 02/24/2013 CAD (coronary artery disease) 02/24/2013 Diabetes mellitus 02/24/2013 Anticoagulant long-term use on plavix 02/24/2013 S/P knee replacement 02/24/2013 Hypertensive disorder 02/24/2013 Family History Medical History Relation Comments High Cholesterol Mother Relation Status Comments Mother Social History Tobacco Use Types Packs/Day Years Used Date Smoking Tobacco: Former Cigarettes Quit : 07/12/1969 Smokeless Tobacco: Never Alcohol Use Standard Drinks/Week Comments No 0 (1 standard drink = 0.6 oz pure alcoho l) never Sex Assigned at Date Recorded Not on file Last Filed Vital Signs Vital Sign Reading Time Taken Comments Blood Pressure 158/69 02/24/2018 9:44 AM EST Pulse 78 05/23/2017 10:37 AM EST Temperature 36.8 ??C (98.2 ??F) 02/24/2018 9:44 AM EST Respiratory Rate 15 05/23/2017 11:30 AM EST Oxygen Saturation 97% 02/24/2018 9:44 AM EST Inhaled Oxygen Concentration - - Weight 95.3 kg (210 lb) 02/24/2018 9:44 AM EST Height 156.2 cm (5' 1.5) 02/24/2018 9:44 AM EST Body Mass Index 39.04 02/24/2018 9:44 AM EST Plan of Treatment Health Maintenance Due Date Last Done Comments Covid-19 Vaccine (#1) 03/02/1946 DM Hemoglobin A1c 08/30/1953 DM Opthalmology Exam 08/30/1953 DM Urine Microalbumin yearly 08/30/1953 Hepatitis C Screening 08/30/1961 Tdap adult 08/30/1962 Tetanus vaccine 08/30/1962 Zoster vaccine (1 of 2) 08/30/1993 Bone Density Scan 08/30/2008 Pneumoccocal Vaccine: 65+ (1 - 08/30/2008 PCV) DM Creatinine yearly 04/18/2014 04/18/2013, 04/17/2013, 04/16/2013, Additional history exists Influenza (Flu) vaccine (1 of 1 - 12/20/2021 Influenza standard series) Medical Devices Implanted Type Area Bottoming Machine Operator Device Shelf Model / Identifier Expiration Serial / Date Lot Inser,Sgm,Stab,Crslnk,2.5x12.5 ([id number]) ([employer]) - Sn/A IMPLAN TS DO NOT USE Depuy 07/19/2017 [id number] / Implanted: Qty: 1 on 04/15/2013 by David Rehman MD at [facility] - [id number] N/A / [id number] Insurance Payer Benefit Plan / Subscriber ID Effective Dates Phone Addre ss Type Group [facility] MANAGED [facility] MANAGED [id number] 2020-Timothy [phone] [address] [address] MEDICARE MEDICARE t [address] [place] [address] Advance Directives Documents on File Type Date Recorded Patient Value Analyst Explanati on Advance Directives and 07/03/2010 2:59 PM Living Will Advance Directives and 06/20/2010 8:50 AM Revoked 06/29/10 Living Will Latest Code Status on File Code Status Date Activated Date Inactivated Comments Full Code 05/23/2017 9:10 AM 05/24/2017 4:35 AM Question Answer Comments Does patient have capacity to make decision: Yes Code Status History Code Status Date Activated Date Inactivated Comments Full Code 04/15/2013 12:22 PM 04/18/2013 5:34 PM Question Answer Comments Does patient have decision making Yes, order is based on Pat ient capacity? wishes. Care Teams Assistant Food Service Manager Relationship Specialty Start Date End Date Ivan Gotti MD PCP - General 03/13/[address] [place] [address]
--- OUTSIDE RECORDS SUMMARY | 2022-03-10 21:02 | XMS_ITS | Encounter Summary ---
:1945 [place] [address] Care Team Providers Name Role Phone Ivan Gotti MD Primary Care Provider Encounter Details Date Type Department Care Team Description 11/28/2017 Orders Only Orthopaed[place] [facility] [place]aph[place] Luna, History of knee [facility] HEATING AND VENTILATING TENDER replacement, total, [facility] [place] [phone] ORTHOPAEDIC SURGERY [place] [address] Social History Tobacco Use Types Packs/Day Years Used Date Smoking Tobacco: Former Cigarettes Quit : 07/12/1969 Smokeless Tobacco: Never Alcohol Use Standard Drinks/Week Comments No 0 (1 standard drink = 0.6 oz pure alcoho l) never Sex Assigned at Date Recorded Not on file documented as of this encounter Plan of Treatment Not on filedocumented as of this encounter Visit Diagnoses Diagnosis History of knee replacement, total, bila teral documented in this encounter Care Teams Replenishment Specialist Relationship Specialty Start Date End Date Ivan Gotti MD PCP - General 03/13/10 [address] [place] [address] documented as of this encounter
--- OUTSIDE RECORDS SUMMARY | 2022-03-10 21:02 | XMS_ITS | Encounter Summary ---
:1945 Author Organization [facility] [place] [address] Care Team Providers Name Role Phone Ivan Gotti MD Primary Care Provider Encounter Details Date Type Department Care Team Description 06/02/2017 Telephone Otolaryngology at [facility] [place] [address] Social History Tobacco Use Types Packs/Day Years Used Date Smoking Tobacco: Former Cigarettes Quit : 07/12/1969 Smokeless Tobacco: Never Alcohol Use Standard Drinks/Week Comments No 0 (1 standard drink = 0.6 oz pure alcoho l) never Sex Assigned at Date Recorded Not on file documented as of this encounter Miscellaneous Notes Telephone Encounter - Emily Gu - 06/02/2017 11:05 AM EST Left message for patient to call back to schedule follow-up with Kenny when Dr. Woodard in clinic. documented in this encounter Plan of Treatment Not on filedocumented as of this encounter Visit Diagnoses Not on filedocumented in this encounter Care Teams Interdisciplinary Professor Relationship Specialty Start Date End Date Ivan Gotti MD PCP - General 03/13/10 [address] [place] [address] documented as of this encounter
--- OUTSIDE RECORDS SUMMARY | 2022-03-10 21:02 | XMS_ITS | Encounter Summary ---
:1945 Author Organization [facility] [place] [address] Care Team Providers Name Role Phone Ivan Gotti MD Primary Care Provider Reason for Visit Reason Comments Other new pt Consultation (Routine) - Closed Specialty Diagnoses / Procedures Referred By Contact Refer red To Contact Otolaryngology Diagnoses Globus Sensation Dysphagia Ivan Gotti MD Murphy, Douglas M, PA Procedures Evaluate and Treat [address] [facility] [place] [address] [place] [address] Phone: Fax: Referral ID Status Reason Start Date Expiration Date Visits V isits Requested Authorized [id number] Closed Consult, 04/09/2017 04/09/2018 1 1 [facility] Encounter Details Date Type Department Care Team Description 04/11/2017 Office Visit Otolaryngology at [facility] Swelling of pharynx; [facility] FACUNDO Monteiro Dysphagia, unspecified type; [place] [address] [facility] Globus sensation [phone] Center [facility] [place], [place] [address] Social History Tobacco Use Types Packs/Day Years Used Date Smoking Tobacco: Former Cigarettes Quit : 07/12/1969 Smokeless Tobacco: Never Alcohol Use Standard Drinks/Week Comments No 0 (1 standard drink = 0.6 oz pure alcoho l) never Sex Assigned at Date Recorded Not on file documented as of this encounter Last Filed Vital Signs Vital Sign Reading Time Taken Comments Blood Pressure - - Pulse - - Temperature - - Respiratory Rate - - Oxygen Saturation - - Inhaled Oxygen Concentration - - Weight 100.2 kg (221 lb) 04/11/2017 1:10 PM EST Height 154.9 cm (5' 1) 04/11/2017 1:10 PM EST Body Mass Index 41.76 04/11/2017 1:10 PM EST documented in this encounter Progress Notes Marlon Still PA - 04/11/2017 1:00 PM EST [facility] Otolaryngology - Head and Neck Surgery Marlon Still PA-C 04/11/17 1:16 PM [place], [place] [address] Office Patient Name: Peggy Coffman Date of : 1945 PCP: Ivan Gotti MD Chief Complaint: Globus sensation and dysphagia History was obtained through review of the relevant records, discussion with referring physician and/or patient interview. History of Present Illness: Peggy Coffman is a 71 y.o. year old female with a history of DM2, CAD, HTN, and SID who was seen today at the request of Ivan Gotti in consultation for globus sensation and dysphagia. For two years has had a knot in her throat. If she flexes her neck toward chest, cuts off her breath. Notes it putting clothes on, happens often, every few days. Progressing, as feels it more often. Has thyroid nodules, known for 5 years, Dr. Upton sees her 1/year to monitor. Denies difficulty with swallowing, but chokes when swallowing often. Happens with solids and liquids; especially lettuce, beef. They get caught, coughs it up some, then re-swallows and will usually go down. Happens at least every week, sometimes a couple of times per day. Has been going on for a 1.5 years. Not progressing. Admits to coughing fits every day at night and in the morning. Had CT neck on 09/26/15 which was negative. Had Barium Swallow on 09/24/15, which was normal. Is to have a CT neck next week. Denies odynophagia. Admits GERD symptoms occasionally. Denies difficulty with breathing. Denies difficulty with talking. Has had some fevers and chills recently due to recent cold. Head and neck symptom survey >Symptom ?? >Comments Dysphagia y See HPI Odynophagia n Voice change or hoarseness n Breathing difficulties n Otalgia n Hemoptysis n ?? Adenopathy n Weight loss n Xerstomia n Trismus n Numbness n Loose Dentition n Has false teeth Taste disturbance n ?? 10 point Review of Systems was normal except for pertinent positives and negatives included in the History of Present Illness. Past Medical and Surgical History Problem List: Patient Active Problem List Diagnosis Code ??? Osteoarthritis, knee - s/p R TKA (04/15/13) M17.10 ??? Chronic pain G89.29 ??? CAD (coronary artery disease) I25.10 ??? Diabetes mellitus E11.9 ??? Anticoagulant long-term use on plavix Z79.01 ??? S/P knee replacement Z96.659 ??? HTN (hypertension) I10 ??? Hypercholesterolemia E78.00 ??? migraine H/A G43.C1 ??? Low back pain M54.5 ??? Obstructive sleep apnea G47.33 ??? 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 Depression F32.9 ??? Thyroid cyst E04.1 ??? adenoma coln polyp K63.5 ??? Obesity, Class II, BMI 35-39.9 E66.9 Medications: Current Outpatient Prescriptions on File Prior to Visit Medication Sig Dispense Refill ??? mirtazapine (REMERON) 15 mg Tablet Take 15 mg by mouth nightly. ??? MYRBETRIQ 50 mg Tablet Sustained Release 24 hr Take 50 mg by mouth daily. ??? lidocaine (XYLOCAINE) 2 % Gel Apply topically as needed. ??? PREMARIN 0.625 mg/gram Cream ??? amLODIPine (NORVASC) 5 mg tablet Take 5 mg by mouth daily. ??? econazole nitrate 1 % cream ??? oxyCODONE-acetaminophen (PERCOCET) 5-325 mg per tablet Take by mouth. ??? diclofenac 1 % Gel topical gel Apply 1 g topically 4 times daily as needed. 1 Tube 1 ??? senna-docusate (PERICOLACE) 8.6-50 mg per tablet Take 1-4 tablets by mouth 2 times daily. 60 tablet 2 ??? ondansetron (ZOFRAN-ODT) 4 mg oral disintegrating tablet Take 1-2 tablets by mouth every 8 hoursas needed for Nausea. 10 tablet 1 ??? ascorbic acid (VITAMIN C) 500 mg tablet Take 500 mg by mouth daily. ??? CALCIUM CARBONATE/VITAMIN D3 (CALCIUM 500 + D, D3, ORAL) Take by mouth. ??? biotin 300 mcg Tab Take by mouth. ??? OXYcodone (OXYCONTIN) 20 mg CR tablet Take 15 mg by mouth every 12 hours. ??? OXYcodone (OXYCONTIN) 40 mg CR tablet Take 40 mg by mouth every 12 hours. ??? insulin glargine (LANTUS) vial injection Inject 50 Units subcutaneously nightly. ??? ezetimibe-simvastatin (VYTORIN) 10-40 mg per tablet Take 1 tablet by mouth nightly. ??? sertraline (ZOLOFT) 100 mg tablet Take 100 mg by mouth daily. ??? clopidogrel (PLAVIX) 75 mg tablet Take 75 mg by mouth daily. ??? nitroGLYcerin (NITROSTAT) 0.[address] 0.4 mg under the tongue every 5 minutes as needed. ??? isosorbide mononitrate (IMDUR) 60 mg 24 hr tablet Take 60 mg by mouth daily. ??? SUMAtriptan (IMITREX) 50 mg tablet Take 50 mg by mouth as needed. ??? imipramine (TOFRANIL) 25 mg tablet Take 25 mg by mouth nightly. ??? epiNEPHrine (EPIPEN 2-JIM) 0.3 mg/0.3 mL (1:1,000) injection Inject 0.3 mg into the muscle once as needed. ??? diflunisal (DOLOBID) 500 mg Tab Take 500 mg by mouth 2 times daily. ??? losartan (COZAAR) 50 mg tablet Take 50 mg by mouth daily. ??? prochlorperazine (COMPAZINE) 5 mg tablet Take 5 mg by mouth every 6 hours as needed. ??? atenolol (TENORMIN) 25 mg tablet Take 25 mg by mouth daily. ??? Blood-Glucose Meter (FREESTYLE FREEDOM LITE) monitoring kit 1 each by [facility].(Non-Drug; Combo Route) route as needed. ??? insulin syringe,safetyneedle 0.5 mL 29 x 1/2 Syrg by [facility].(Non-Drug; Combo Route) route. ??? lancets (FREESTYLE LANCETS) 28 gauge Misc by [facility].(Non-Drug; Combo Route) route. No current facility-administered medications on file prior to visit. Allergies: Aspirin; Codeine phosphate; Lisinopril; Metformin; Methadone; Naproxen; Penicillins; Red blood cells; Sulfa (sulfonamide antibiotics); and Mirtazapine Surgical History: Past Surgical History: Procedure Laterality Date ??? PRO TOTAL KNEE ARTHROPLASTY 04/15/2013 @TOTAL KNEE ARTHROPLASTY performed by David Rehman MD at [facility] MA[facility] OR ??? PRO UNLISTED PROCEDURE, MUSCULOSKELETAL SYSTEM, GENERAL Family and Social History Family History: Family History Problem Relation Age of Onset ??? High Cholesterol Mother Social History: Lives [place] [facility] [id number] Social History Social History ??? Marital status: Spouse name: N/A ??? Number of children: N/A ??? Years of education: N/A Occupational History ??? Not on file. Social History Main Topics ??? Smoking status: Former Smoker Types: Cigarettes Quit date: 07/12/1969 ??? Smokeless tobacco: Never Used ??? Alcohol use No Comment: never ??? Drug use: No ??? Sexual activity: Not on file Other Topics Concern ??? Exercise: Patient Reported No ??? Abuse Or Threat: Physical, Sexual, Verbal No Social History Narrative Physical Exam Physical Examination: VITALS - Height 154.9 cm (5' 1), weight 100.2 kg (221 lb). GENERAL - Well dressed and well nourished. - Breathing comfortably without stridor. - No acute distress. - Patient is obese. FACE - Full and symmetric facial movement. - No dysmorphic facial features. EYES - Periocular structures and conjunctiva healthy without lesions. - Pupils are equal, round, and reactive to light. - Extraocular movement is full and intact. - No evidence of nystagmus. EARS Left: - Auricle normal exam. - External auditory canal normal exam. - Tympanic membrane padron and translucent. Right: - Auricle normal exam. - External auditory canal normal exam. - Tympanic membrane padron and translucent. NOSE - Patent anteriorly with adequate airflow, healthy pink mucosa. - Septum is midline without significant deviation. - Inferior turbinates normal exam. MOUTH - Lips and gingiva pink, moist, without lesions. - Patient is edentulous - Tongue soft without lesions or masses. - Hard palate without lesions. PHARYNX - Soft palate without lesions. - Uvula is midline. - Oropharynx symmetric. NECK - Soft, supple, without significant lymphadenopathy. - Thyroid gland without masses or asymmetry. - Trachea midline without deviation. LUNGS - Clear to auscultation bilaterally without wheezes. HEART - Regular rate and rhythm without murmur. NEURO - Cranial nerves II-XII intact and symmetric. - Responds appropriately to questions. PSYCHE - Normal mood and affect. Procedures Procedure: Direct Laryngoscopy: Indications: Evaluation for mucosal lesion of the upper airway. The risks of the procedure were reviewed, and verbal consent was obtained. Topical anesthetic and decongestant applied to the nasal cavity. The scope was passed through the nasal cavity, through the nasopharynx, and into the oropharynx. Patient tolerated the procedure well without any complications. Nasal Cavity: Normal appearing mucosa, no obstructions or lesions noted. Nasopharynx: No lesions or masses noted. Some mild erythema postero-superiorly. Midline ~1cm raised submucosal mass on superior aspect of nasopharynx. Oropharynx: Base of tongue/vallecula symmetric with normal appearing lingual tonsillar tissue. Rightposterior pharyngeal submucosal swelling, extending into the right posterior hypopharynx. No abnormal mucosal tissue noted; no evidence of infection or bleeding. Larynx: Epiglottis is thin and non-edematous. Arytenoids are symmetric. True cords demonstrate full and symmetric motion. Hypopharynx: Piriform sinuses are clear bilaterally, without evidence of masses or lesions. No significant pooling of secretions was noted. No overt laryngeal penetration or aspiration. ASSESSMENT & RECOMMENDATIONS Peggy Coffman is a 71 y.o. year old female with a history of DM2, CAD, HTN, and SID who was seen today in consultation for globus sensation which feels like a knot in throat for 2 years, notes it every few days, usually when she flexes her neck forward, and it interrupts her breathing. Dysphagia to solids and liquids for 1.5 years, feeling that things get caught, she coughs them up a little and then is able to swallow again and pass. Does report thyroid nodule being monitored yearly by Dr. Johnson. As part of a workup for these same symptoms last year, she did have a CT neck done on 09/26/15 which was negative, and a Barium Swallow test on 09/24/15 that was similarly negative. Direct laryngoscopy reveals a large, right, postero-lateral area of submucosal swelling that extends from the oropharyngeal/nasopahryngeal junction into the hypopharynx. Also noted was an ~1cm submucosal mass in the nasopharynx at its superior aspect, midline. Discussed abnormal finding of right pharyngeal submucosal swelling, and that it might be contributing to her swallowing difficulty and choking. Discussed her upcoming CT neck study next week, and its importance in determining what the swelling is. Discussed that I would like to receive the results of that imaging, and that if there were any concerning finding, that she may need to come to our clinic for further management. The incidental finding of the mass in the nasopharyngeal roof was also of concern. The patient expressed understanding of these points and agreement with the plan, and all questions that were asked were answered to the patient's satisfaction. Recommendations: 1. Have CT neck performed neck week as planned by Dr. Gotti. With contrast would be preferable. 2. Pending results of imaging, patient may need to return to our clinic for further workup/treatment. 3. Patient should call if her symptoms worsen or fail to improve, if new concerning symptoms arise, or if she has any question or concerns regarding their treatment. Marlon Still PA-C [place], [place] [address] Office 04/11/2017 1:16 PM documented in this encounter Plan of Treatment Not on filedocumented as of this encounter Visit Diagnoses Diagnosis Swelling of pharynx Dysphagia, unspecified type Globus sensation Gastrointestinal malfunction arising fro m mental factors documented in this encounter Care Teams Food And Beverage Intern Relationship Specialty Start Date End Date Ivan Gotti MD PCP - General 03/13/10 [address] [place] [address] documented as of this encounter
--- OUTSIDE RECORDS SUMMARY | 2022-03-10 21:02 | XMS_ITS | Encounter Summary ---
:1945 Author Organization [facility] [place] [address] Care Team Providers Name Role Phone Ivan Gotti MD Primary Care Provider Encounter Details Date Type Department Care Team Description 05/14/2017 Hospital Encounter Ultrasound at [facility] Bart Hernandez Thyroid nodule [facility] [place] [address] OTOLARYNGOLOGY DEPT. [place], [place] [address] Social History Tobacco Use Types [...] 5/16 Syringe NARCAN 4 mg/actuation 0 02/20/2017 [place], Non-Aerosol gabapentin (NEURONTIN) nightly. 0 02/20/2017 300 mg Capsule MYRBETRIQ 50 mg Tablet Take 50 mg by mouth 0 10/19 Sustained Release 24 hr daily. lidocaine (XYLOCAINE) 2 Apply topically as 0 % Gel needed. amLODIPine (NORVASC) 5 Take 5 mg by mouth 0 05/12 /2014 mg tablet daily. oxyCODONE-acetaminophen Take 2 tablets [...] 1 each by 0 (FREESTYLE FREEDOM LITE) [facility]Non-Drug; Combo monitoring kit Route) route as needed. insulin by [facility].(Non-Drug; 0 syringe,safetyneedle 0.5 Combo Route) route. mL 29 x 1/2 Syrg lancets (FREESTYLE by [facility].(Non-Drug; 0 LANCETS) 28 gauge Misc Combo Route) [...] Name Priority Date/Time Associated Diagnosis Comme nts US THYROID SOFT Routine 05/14/2017 11:25 AM Thyroid nodule Res ults for this TISSUE EST procedure are i n the results section. documented in this encounter Results US Thyroid Soft Tissue (05/14/2017 11:25 AM EST) Anatomical Region Laterality Modality Pelvis Ultrasound Specimen (Source) Anatomical Collection Method Collection Time Re ceived Time Location / / Volume Laterality 05/14/2017 11:26 AM EST Impressions 05/14/2017 12:06 PM EST ??Ultrasound Dictation:Multiple colloid cysts bilaterally.Using the TiRADS ACR Criter ia the following nodules were evaluated:Nodule Number: 1 Site: Right mid thyroid lobe:TiRADS: TR2: Not suspi cious. RECOMMENDATION: No FNACalcified septate d are dominantly cystic nodule. This may repr esent a complexcolloid cyst.Nodule Number: 2Sit e: Right lower thyroid lobe:TiRADS: 5A portion of this nodule is obscured by shadowing from peripheral calcificationwhich limits sonographic e valuation. Nevertheless, this deep inferior rightn odule is suspicious and given its size, FNA is recommended. TR1 Score (0 points)- Benign (No FNA)TR2 Score (2 points)- Not suspiciou s (No FNA)TR3 Score (3 points)- Mildly suspic ious (FNA if greater than 2.5cm, Follow ifgreater th an 1.5cm)TR4 Score (4-6 points)- Moderately suspicio us (FNA if greater than 1.5cm, Followif greater th an 1.0cm)TR5 Score (7 points or more)- Highly suspic ious (FNA is greater than 1.0cm,Follow if greater th an 0.5cm)Follow up ultrasound recommendations assuming no growth are as follows:TR3: At 1, 3 and 5 years TR4: At 1,2,3 and 5 yearsTR5: At 1,2,3,4,5 yearsImagi ng can stop at 5 years if there is no change in size, as stability overthat time span reliably indicates t hat a nodule has a benign behaviorBiopsy of no more than 2 nodules with the most suspicious criteria isrec ommended (not necessarily the largest)Source: Journal of [employer] 2017;14:587-595. ?Melissa morataya MD Electronically Signed Final Report ?? 12:05 pm Narrative 05/14/2017 12:06 PM EST Thyroid ? (Signed Final 05/14/2017 12:05 pm) PATIENT INFO: ID #: ? [id number] ?: ??[birth year] (71 yrs) Name: ? PEGGY L ?Visit Date: 05/14/2017 11:26 am ? HONEY PERFORMED BY: Performed By: ? Feroz Parra RDMS Attending: ?Melissa Soriano MD Referred By: ?[facility] Location: ? [place] SERVICE(S) PROVIDED: ??UTHYRD - Thyroid - [id number] ?[id number] INDICATIONS: ??Concerning finding of potentially magaly cified ??thyroid nodule in the right lower lob e. ??Needs ??further assessment. COMPARISON: CT - SPINE 04/25/17 RIGHT LOBE: ??Date ? L(cm) ?AP(cm) ?TV(cm) ??05/14/17 ? 5.3 ?2.1 ? 2.4 -------- Lesions: -------- ??# ?Date ?Location ?Description ??1 ?05/14/17 ?Mid Lobe ?Cystic or almost ? completely cystic (0) ? Hyperechoic or isoechoic ? (1) Diubi-rfmo-fovn (0) ? Smooth (0 points) ? Macrocalcifications (1) ??2 ?01/24/18 ?Lower Lobe ?Solid or almost completely ? solid (2) Hypoechoic (2) ? Lekmeg-duvx-iiah (3) ill- ? defined (0 points) ? Peripheral (rim) ? calcifications (2) -------- Lesions: -------- ??# ?? Date ? L(cm) ? AP(cm) ?TV(cm) ?Vol(ml) ?? % Chg ??1 ?? 05/14/17 ?? 0.9 ? 0.6 ? 0.9 ? 0.3 ??2 ?? 05/14/17 ?? 1.0 ? 1.1 ? 1.2 ? 0.7 Comment: ?Multiple colloid cysts LEFT LOBE: ??Date ? L(cm) ?AP(cm) ?TV(cm) ??05/14/17 ? 5.5 ?2.5 ? 1.9 Comment: ?Multiple colloid cysts -------- ISTHMUS: -------- Measurement: ?0.6 ??cm Comment: ?Heterogeneous LYMPH NODES: Lateral neck: ??Examination of bilatera l levels II - IV does not reveal any masses or morphologically ab normal lymph nodes. Procedure Note Melissa Soriano MD - 05/14/2017 Thyroid (Signed Final 05/14/2017 12:05 pm) PATIENT INFO: ID #: [id number] : [birth year] (71 y rs) Name: PEGGY Albert Visit Date: 05/14/2017 11:26 am HONEY PERFORMED BY: Performed By: Feroz Parra RDMS Attending: Melissa Soriano MD Referred By: BART HERNANDEZ Location: [place] SERVICE(S) PROVIDED: UTHYRD - Thyroid - [id number] INDICATIONS: Concerning finding of potentially calci fied thyroid nodule in the right lower lobe. Needs further assessment. COMPARISON: CT - SPINE 04/25/17 RIGHT LOBE: Date L(cm) AP(cm) TV(cm) 05/14/17 5.3 2.1 2.4 -------- Lesions: -------- # Date Location Description 1 05/14/17 Mid Lobe Cystic or almost completely cystic (0) Hyperechoic or isoechoic (1) Nawhb-xidc-phim (0) Smooth (0 points) Macrocalcifications (1) 2 05/14/17 Lower Lobe Solid or almost c ompletely solid (2) Hypoechoic (2) Upvqus-suzs-tpkl (3) ill- defined (0 points) Peripheral (rim) calcifications (2) -------- Lesions: -------- # Date L(cm) AP(cm) TV(cm) Vol(ml) % Ch g 1 05/14/17 0.9 0.6 0.9 0.3 2 05/14/17 1.0 1.1 1.2 0.7 Comment: Multiple colloid cysts LEFT LOBE: Date L(cm) AP(cm) TV(cm) 05/14/17 5.5 2.5 1.9 Comment: Multiple colloid cysts -------- ISTHMUS: -------- Measurement: 0.6 cm Comment: Heterogeneous LYMPH NODES: Lateral neck: Examination of bilateral levels II - IV does not reveal any masses or morphologically ab normal lymph nodes. IMPRESSION Ultrasound Dictation:Multiple colloid c ysts bilaterally.Using the TiRADS ACR Criter ia the following nodules were evaluated:Nodule Number: 1 Site: Right mid thyroid lobe:TiRADS: TR2: Not suspi cious. RECOMMENDATION: No FNACalcified septate d are dominantly cystic nodule. This may repr esent a complexcolloid cyst.Nodule Number: 2Sit e: Right lower thyroid lobe:TiRADS: 5A portion of this nodule is obscured by shadowing from peripheral calcificationwhich limits sonographic e valuation. Nevertheless, this deep inferior rightn odule is suspicious and given its size, FNA is recommended. TR1 Score (0 points)- Benign (No FNA)TR2 Score (2 points)- Not suspiciou s (No FNA)TR3 Score (3 points)- Mildly suspic ious (FNA if greater than 2.5cm, Follow ifgreater th an 1.5cm)TR4 Score (4-6 points)- Moderately suspicio us (FNA if greater than 1.5cm, Followif greater th an 1.0cm)TR5 Score (7 points or more)- Highly suspic ious (FNA is greater than 1.0cm,Follow if greater th an 0.5cm)Follow up ultrasound recommendations assuming no growth are as follows:TR3: At 1, 3 and 5 years TR4: At 1,2,3 and 5 yearsTR5: At 1,2,3,4,5 yearsImagi ng can stop at 5 years if there is no change in size, as stability overthat time span reliably indicates t hat a nodule has a benign behaviorBiopsy of no more than 2 nodules with the most suspicious criteria isrec ommended (not necessarily the largest)Source: Journal of [employer] 2017;14:587-595. Melissa Soriano MD Electronically Signed Final Report 05/14 12:05 pm Bart Hernnadez MD IMG US GEN ORDERABLES documented in this encounter Visit Diagnoses Diagnosis Thyroid nodule Nontoxic uninodular goiter documented in this encounter Care Teams Computer Graphic Artist Relationship Specialty Start Date End Date Ivan Gotti MD PCP - General 03/13/10 [address] [place] [address] documented as of this encounter
--- OUTSIDE RECORDS SUMMARY | 2022-03-10 21:02 | XMS_ITS | Encounter Summary ---
:1945 Author Organization [facility] [place] [address] Care Team Providers Name Role Phone Ivan Gotti MD Primary Care Provider Reason for Referral Diagnostic Test (Routine) - Closed Specialty Diagnoses / Procedures Referred By Contact Refer red To Contact Radiology Diagnoses Thyroid nodule Marlon Still PA [facility] Interventionl Rad Procedures IR Biopsy Thyroid FNA [facility] [place] [phone] [place] [address] Referral ID Status Reason Start Date Expiration Date Visits V isits Requested Authorized [id number] Closed Specialty 05/04/2017 05/04/2018 1 1 Service Requested Reason for Visit Diagnostic Test (Routine) - Closed Specialty Diagnoses / Procedures Referred By Contact Refer red To Contact Radiology Diagnoses Thyroid nodule Marlon Still PA [facility] Interventionl Rad Procedures IR Biopsy Thyroid FNA [facility] [place] [id number] [place] [address] Referral ID Status Reason Start Date Expiration Date Visits V isits Requested Authorized [id number] Closed Specialty 05/04/2017 05/04/2018 1 1 Service Requested Encounter Details Date Type Department Care Team Description 05/23/2017 Hospital Encounter Radiology at [facility] WarrenantoniaBart llamas Pre-op testing; [facility] MD Amalia Thyroid nodule [address] [place], [place] C[place] [address] OTOLARYNGOLOGY [phone] [place] [address] Social History Tobacco Use Types Packs/Day Years Used Date Smoking Tobacco: Former Cigarettes Quit : 07/12/1969 Smokeless Tobacco: Never Alcohol Use Standard Drinks/Week Comments No 0 (1 standard drink = 0.6 oz pure alcoho l) never Sex Assigned at Date Recorded Not on file documented as of this encounter Last Filed Vital Signs Vital Sign Reading Time Taken Comments Blood Pressure 138/69 05/23/2017 11:15 AM EST Pulse 78 05/23/2017 10:37 AM EST Temperature 36.7 ??C (98 ??F) 05/23/2017 10:37 AM EST Respiratory Rate 15 05/23/2017 11:30 AM EST Oxygen Saturation 96% 05/23/2017 11:15 AM EST Inhaled Oxygen Concentration - - Weight - - Height - - Body Mass Index - - documented in this encounter Discharge Instructions Discharge InstructionsJacoby Ng RN - 05/23/2017 10:51 AM EST [facility] DEPARTMENT OF RADIOLOGY Biopsy Discharge Instructions Thyroid, lymph node or soft tissue: call your doctor immediately if you develop increased pain swelling or heavy bleeding at the biopsy site, or difficulty swallowing . Activity and Diet: Go home and rest quietly for the remainder of the day. You may resume your normalactivities tomorrow. Resume your usual diet after the procedure. When to call your healthcare provider: If you see any redness, swelling or drainage at the biopsy site. If you develop shaking chills. If you have a fever greater than or equal to101 degrees Fahrenheit. If you develop pain around the biopsy site. Bandage: Check the dressing/bandaid throughout the day for an increase in drainage. Keep the biopsy site dry for 24 hours. Replace the bandaid as needed. You may shower 24 hours after the biopsy. Medication: DO NOT take aspirin-containing products, ibuprofen, or blood- thinning medication for thenext 24 hours unless your doctor says you may do so. Generally you may use acetaminophen as needed for discomfort unless you have liver disease and are instructed not to take acetaminophen. Biopsy Results: The results of your biopsy should be available within 5 business days and will be reported to you by your primary career services officer or the clinician who ordered the biopsy. Please do not call us for results as we will not have them. If you have not been contacted by your clinician within 5 business days you should call that office for further information. When to call the Radiology Department: Please call with any questions or concerns. If it is during regular office hours, please call [phone]. If it is after regular office hours, or on weekends or holidays, please call [phone] andask to speak to the Logistics/Shipper qualifications examiner. Revised 05/05/15 documented in this encounter Medications at Time of Discharge Medication Sig Dispensed Refills Start Date End Date atorvastatin (LIPITOR) TAKE ONE TABLET BY 0 80 mg Tablet MOUTH AT BEDTIME Insulin Syringe-Needle USE WITH INSULIN TWO 0 U-100 (BD INSULIN TIMES A DAY SYRINGE ULTRA-FINE) 1 mL 31 gauge x 5/16 Syringe NARCAN 4 mg/actuation 0 02/20/2017 [place], Non-Aerosol gabapentin (NEURONTIN) nightly. 0 02/20/2017 300 [...] 1 each by 0 (FREESTYLE FREEDOM LITE) [facility].(Non-Drug; Combo monitoring kit Route) route as needed. insulin by [facility].(Non-Drug; 0 syringe,safetyneedle 0.5 Combo Route) route. mL 29 x 1/2 Syrg lancets (FREESTYLE by [facility]Non-Drug; 0 LANCETS) 28 gauge Misc Combo Route) [...] encounter Procedures Procedure Name Priority Date/Time Associated Comments Diagnosis IR FNA THYROID NODULE Routine 05/23/2017 10:40 Thyroid nodule Results for this AM EST procedure are i n the results section. NON-SUCTION OPERATOR FINAL REPORT Routine 05/23/2017 10:00 Res ults for this AM EST procedure are i n the results section. CYTOPATHOLOGY Routine 05/23/2017 9:38 AM Results for this NON-GYNECOLOGICAL EST procedure are in the results section. POCT GLUCOSE Routine 05/23/2017 9:12 AM Results f or this EST procedure are i n the results section. documented in this encounter Results IR Biopsy Thyroid FNA (05/23/2017 10:40 AM [...] aspirated , the samples given to the medical imaging technologist present for the study, who deemed the [...] aspirated , the samples given to the medical imaging technologist present for the study, who deemed the [...] AM Bart Chatman MD IMG IR ORDERABLES Non-Palaeontologist Final Report (05/23/2017 10:00 AM EST) Component Value Ref Test Analysis Performed At [facility] Range Method Time Signature Non-Palaeontologist [id number] ? Location: [address] [place] [address] Final Report SYLACAUGA The signing pathologist has (i) examined the relevant preparation(s) for the MEMORIAL specimen(s) and (ii) rendered or confirmed the diagnosis(es) . HOSPITAL LAB[facility]ORY . ? No n-Palaeontologist Final DIAGNOSIS Benign Electronically signed by: ??Betty HERNANDEZ, Denis Sanchez Verified: ??05/27/2017 ?Cytopathologist Performed at: ??-[facility] Dept. of Pathology, [place], [place] DISCUSSION Thyroid: right (US-guided FNA) - Benign (see note). Compatible with a benign fol licular nodule (includes adenomatoid nodule and colloid nodule). Cytologic preservation: ?? Adequate. Cellularity (follicular cells): ?? Low to moderate. Colloid: ?? Abundant. Macrophages: ?? Some histiocytes are seen. Architectural pattern: ?? Predominantly macrofollicular pattern. Note: Recommend clinicopatho logic correlation and follow up as clinically indicated. Reference: Nato DEWITT, Belem SERNA. The [place] System for Reporting Thyroid Cytopathology. [place]: [place]; 2018. CLINICAL INFORMATION Specimen Source : Thyroid: right (US-guided FNA - assisted) Pertinent Clinical Data and Significant Therapy: Right calcified thyroid nodu le found incidentally on CT, would like to rule out malignant pathology Clinical Impression: ? malignancy Pertinent Radiologic Findings: (not provided) Gross Description: Received in CytoLyt approximately 10 mL total volume o f clear, yellow fluid. Total Preparation: Liquid-Based Prep 1; Diff-Quik 2; Pap Sta in 2. . CLINICAL INFORMATION Fine Needle Aspiration Immediate Assessment: Evaluation Episode #1 (1 slide): Adequate for final diagnosis. Clusters of follicular epithelial cells present. Immediate Assessment by: Kelli Hernández MD. I have personally examined the cytologic slides. My interpretation is as stated. Note: Immediate Assessment results are p reliminary assessments of adequacy and diagnosis. See final diagnostic comments for completed inte rpretation. Specimen (Source) Anatomical Collection Method Collection Time Re ceived Time Location / / Volume Laterality 05/23/2017 10:00 AM EST Bart Chatman MD PATHOLOGY/CYTOLOGY ORDERABLE S Performing Organization Address City/State/[place] [address] [facility] [address] Cytopathology Non-Gynecological (05/23/2017 9:38 AM EST) Specimen Anatomical Collection Method Collection Time Receive d Time (Source) Location / / Volume Laterality AP Specimen 05/23/2017 9:38 AM 8 9:38 EST AM EST Narrative [facility] - 05/23/2017 9:38 AM EST Specimen requisition ordered. ??Separate Pathology report to follow Bart Chatman MD PATHOLOGY/CYTOLOGY ORDERABLE S Performing Organization Address City/[facility]/ZIP Code Phon e Number [address] POCT Glucose (05/23/2017 9:12 AM EST) athologist Signature POC Glucose 129 65 - 199 [facility] mg/dL [facility] Comment: Supplemental ranges: <140 mg/dL before meals <180 mg/dL all other times of the day Specimen Anatomical Collection Method Collection Time Receive d Time (Source) Location / / Volume Laterality Blood specimen 05/23/2017 9:12 AM 018 9:12 (specimen) EST AM EST Bart Chatman MD POINT OF CARE TEST ORDERABLE S Performing Organization Address City/[facility]/ZIP Code Phon e Number [address] Platelet count (05/23/2017 8:44 AM EST) athologist Signature Platelets 167 145 - 357 [facility] x10(3)/[facility] LABORATORY Plat Immature 1.2 0.0 - 7.4 [facility] % % [facility] Comment: Limitation of the Immature Platelet Frac tion (IPF)-May be less reliable when the platelet count is less than 34n044/u L due to statistical imprecision. The IPF value provides an assessment of the Bone Marrow production status. ??It is useful in differentiating Thrombocyto penia caused by platelet destruction/consumption versus decreased production. It also helps to determine the imminent release of platelets and ca n be therefore a helpful parameter in Chemotherapy and Bone marrow transplant patients. ELEVATED IPF value: ?? When the bone marrow is in a state of over production such as when increased destruction and consumption are the unde rlying issue. ?? When the marrow is recovering post ch emotherapy or bone marrow transplant. LOW to NORMAL IPF value: ?? When the bone marrow in not respondin g and is in a decreased state of production. References: [employer] The Clinical Value of the Immature Platelet Fraction (IPF) in Cell Recovery Document Number [id number] 09/2010 [employer] The Role of the Imm ature Platelet Fraction (IPF) in the Differential Diagnosis of Thrombocytopen ia, Document [id number] V008/30/13 P009/01 Specimen Anatomical Collection Method Collection Time Receive d Time (Source) Location / / Volume Laterality Blood specimen 05/23/2017 8:44 AM 018 8:47 (specimen) EST AM EST Resulting Agency Comment Spec In Lab Bart Chatman MD HEMATOLOGY ORDERABLES Performing Organization Address City/State/[place] [address] documented in this encounter Visit Diagnoses Diagnosis Pre-op testing Preoperative examination, unspecified Thyroid nodule Nontoxic uninodular goiter documented in this encounter Care Teams Print Shop Assistant Relationship Specialty Start Date End Date Ivan Gotti MD PCP - General 03/13/10 [address] [place] [address] documented as of this encounter
--- OUTSIDE RECORDS SUMMARY | 2022-03-10 21:02 | XMS_ITS | Encounter Summary ---
:1945 Author Organization [facility] [place] [address] Care Team Providers Name Role Phone Ivan Gotti MD Primary Care Provider Encounter Details Date Type Department Care Team Description 09/22/2013 Hospital Encounter XRay at [facility] Right knee pain; [address] [place] [phone] Social History Tobacco Use Types Packs/Day Years Used Date Smoking Tobacco: Former Cigarettes Quit : 07/12/1969 Smokeless Tobacco: Never Alcohol Use Standard Drinks/Week Comments No 0 (1 standard drink = 0.6 oz pure alcoho l) never Sex Assigned at Date Recorded Not on file documented as of this encounter Medications at Time of Discharge Medication Sig Dispensed Refills Start Date End Date amLODIPine (NORVASC) 5 Take 5 mg by [...] 1 each by 0 (FREESTYLE FREEDOM LITE) [facility].(Non-Drug; Combo monitoring kit Route) route as needed. insulin by [facility].(Non-Drug; 0 syringe,safetyneedle 0.5 Combo Route) route. mL 29 x 1/2 Syrg lancets (FREESTYLE by [facility].(Non-Drug; 0 LANCETS) 28 gauge Misc Combo Route) route. econazole nitrate 1 % 0 08/30/2013 cream terbinafine (LAMISIL) 0 05/08/201307/2015 250 mg tablet diclofenac 1 % Gel Apply 1 g topically 4 1 Tube 1 201305/12/2017 topical gel times daily as needed. PAIN RELIEF EXTRA TAKE 2 TABLETS BY 90 tablet 2 05/24/2013 11/23/2015 STRENGTH 500 mg tablet MOUTH EVERY 8 HOURS polyethylene glycol Take 17 g by mouth 2 14 each 3 201211/23/2015 (MIRALAX) 17 gram packet times daily. ascorbic acid (VITAMIN Take 500 mg by mouth 0 05/12/2017 C) 500 mg tablet daily. CALCIUM Take by mouth. 0 05/12/2017 CARBONATE/VITAMIN D3 (CALCIUM 500 + D, D3, ORAL) cyanocobalamin (VITAMIN Take 1,000 mcg by 0 11/23/2015 B-12) 1,000 mcg tablet mouth daily. pyridoxine (VITAMIN B-6) Take 100 mg by mouth 0 11/23/2015 100 mg tablet daily. biotin 300 mcg Tab Take by mouth. 0 OXYcodone (OXYCONTIN) 20 Take 15 mg by mouth 0 02/24/2018 mg CR tablet every 12 hours. ezetimibe-simvastatin Take 1 tablet by 0 05/12/2017 (VYTORIN) 10-40 mg per mouth nightly. tablet imipramine (TOFRANIL) 25 Take 25 mg by mouth 0 05/12/2017 mg tablet nightly. losartan (COZAAR) 50 mg Take 100 mg by mouth 0 02/24/2018 tablet daily. Monona-3 Fatty Acids Take 1 capsule by 0 11/23/2015 (FISH OIL) 500 mg Cap mouth daily. OXYGEN-AIR DELIVERY by Misc.(Non-Drug; 0 11/23/2015 SYSTEMS (HORIZON NASAL Combo Route) route. CPAP SYSTEM MISC) documented as of this encounter Plan of Treatment Not on filedocumented as of this encounter Procedures Procedure Name Priority Date/Time Associated Diagnosis Comme nts XR KNEE DIAGNOSTIC 1 Routine 09/22/2013 1:15 PM Right kn ee pain Results for this OR 2 VIEW EDT Aftercare following procedur e are in joint replacement the result s section. documented in this encounter Results XR knee diagnostic 1 or 2 view (09/22/2013 1:15 PM EDT) Anatomical Region Laterality Modality Knee N/A Radiographic Imaging Specimen (Source) Anatomical Collection Method Collection Time Re ceived Time Location / / Volume Laterality 09/22/2013 1:15 PM EDT Narrative 09/22/2013 2:48 PM EDT Examination KNEE 1 OR 2 VIEWS/RIGHT Clinical History s/p right TKA ??04/15/13 - Pt fell ~3-4 weeks ago and has pain still Comparison 05/12/2013, 02/24/2013 ?? Technique AP view and right lateral views of the k nees were obtained. ?? Findings Bilateral, cemented total knee arthropla sties are unchanged in appearance and alignment. No periprosthetic fracture or new significant radiolucency identified. ??There is interval decrease in size of the right joint effusion. ?? Impression Stable appearance of right total knee ar throplasty with slight interval decrease in size of right knee effusion. Procedure Note Rosie Cornell MD - 09/22/2013 Examination KNEE 1 OR 2 VIEWS/RIGHT Clinical History s/p right TKA 04/15/13 - Pt fell ~3-4 we eks ago and has pain still Comparison 05/12/2013, 02/24/2013 Technique AP view and right lateral views of the k nees were obtained. Findings Bilateral, cemented total knee arthropla sties are unchanged in appearance and alignment. No periprosthetic fracture or new significant radiolucency identified. There is interval decrease i n size of the right joint effusion. Impression Stable appearance of right total knee ar throplasty with slight interval decrease in size of right knee effusion. David Rehman MD IMG DX ORDERABLES documented in this encounter Visit Diagnoses Diagnosis Right knee pain Pain in joint, lower leg Aftercare following joint replacement documented in this encounter Care Teams Draw Hand Relationship Specialty Start Date End Date Ivan Gotti MD PCP - General 03/13/10 [address] [place] [address] documented as of this encounter
--- OUTSIDE RECORDS SUMMARY | 2022-03-10 21:02 | XMS_ITS | Encounter Summary ---
:1945 Author Organization [facility] [place] [address] Care Team Providers Name Role Phone Ivan Gotti MD Primary Care Provider Encounter Details Date Type Department Care Team Description 03/06/2018 Telephone Rheumatology at [facility] [place] [address] Social History Tobacco Use Types Packs/Day Years Used Date Smoking Tobacco: Former Cigarettes Quit : 07/12/1969 Smokeless Tobacco: Never Alcohol Use Standard Drinks/Week Comments No 0 (1 standard drink = 0.6 oz pure alcoho l) never Sex Assigned at Date Recorded Not on file documented as of this encounter Miscellaneous Notes Telephone Encounter - David Walker RN - 03/06/2018 1:34 PM EST Images from the original note were not included. Bobo Pemberton MD Gavalakis, Rory A, RN Caller: Unspecified (Today, 10:23 AM) ?? Not sure where the idea of Celebrex came up. I talked about Tylenol along with the Diflunisal that she is already on. And then if that didn't help much, maybe a trial of Voltaren gel, watching for any signs of a skin reaction to that. I think the odds of her having an allergic reaction to a topical NSAID would be smaller, but not zero. Telephone Encounter - David Walker RN - 03/06/2018 10:57 AM EST Patient calls about labs results. Message in -, relayed to patient. Patient expressed understanding. Patient does state she can't take Celebrex d/t allergy. Patient states she will call if any issues/questions arise. documented in this encounter Plan of Treatment Not on filedocumented as of this encounter Visit Diagnoses Not on filedocumented in this encounter Care Teams Conditioner Tender Relationship Specialty Start Date End Date Ivan Gotti MD PCP - General 03/13/10 [address] [place] [address] documented as of this encounter
--- OUTSIDE RECORDS SUMMARY | 2022-03-10 21:02 | XMS_ITS | Encounter Summary ---
:1945 Author Organization [facility] [place] [address] Care Team Providers Name Role Phone Ivan Gotti MD Primary Care Provider Encounter Details Date Type Department Care Team Description 11/23/2015 Hospital Encounter [place] [facility] [place] Khan, Right knee pain, [address] HERNANDEZ unspecified [place], [place] [facility] chronicity [id number] [place] [phone] [place] [address] Social History Tobacco Use Types Packs/Day Years Used Date Smoking Tobacco: Former Cigarettes Quit : 07/12/1969 Smokeless Tobacco: Never Alcohol Use Standard Drinks/Week Comments No 0 (1 standard drink = 0.6 oz pure alcoho l) never Sex Assigned at Date Recorded Not on file documented as of this encounter Medications at Time of Discharge Medication Sig Dispensed Refills Start Date End Date MYRBETRIQ 50 mg Tablet Take 50 mg [...] 1 each by 0 (FREESTYLE FREEDOM LITE) [facility]Non-Drug; Combo monitoring kit Route) route as needed. insulin by [facility].(Non-Drug; 0 syringe,safetyneedle 0.5 Combo Route) route. mL 29 x 1/2 Syrg lancets (FREESTYLE by [facility].(Non-Drug; 0 LANCETS) 28 gauge Misc Combo Route) route. mirtazapine (REMERON) 15 Take 15 mg by mouth 0 05/12/2017 mg Tablet nightly. PREMARIN 0.625 mg/gram 0 11/07/2015 Cream econazole nitrate 1 % 0 08/30/2013 cream diclofenac 1 % Gel Apply 1 g topically 4 1 Tube 1 201305/12/2017 topical gel times daily as needed. ascorbic acid (VITAMIN Take 500 mg by mouth 0 05/12/2017 C) 500 mg tablet daily. CALCIUM Take by mouth. 0 05/12/2017 CARBONATE/VITAMIN D3 (CALCIUM 500 + D, D3, ORAL) biotin 300 mcg Tab Take by mouth. [...] Date/Time Associated Diagnosis Comme nts XR KNEE STANDING Routine 11/23/2015 1:49 PM Right knee pain, R esults for this ALIGNMENT AP LAT EDT unspecified procedure a re in [facility] chronicity the result s RIGHT section. documented in this encounter Results XR Joint Team Alignment AP Lat [facility] Right (11/23/2015 1:49 PM EDT) Anatomical Region Laterality Modality Right Digital Radiography Specimen (Source) Anatomical Location Collection Method / Collectio n Time Received Time / Laterality Volume Addenda Addendum by Clotilde Murillo MD on 11/19 4:37 PM EDT TECHNIQUE: Separate images of the pelvis , knees and feet were acquired in the AP projection with the patient standing. Th christopher images were stitched together to form a composite image of the pelvis and legs allowing for evaluation of lower extremity alignment in the weight bearin g position. 4 additional views of the right knee were obtained. Addendum by Clotilde Murillo MD on 11/19 3:24 PM EDT TECHNIQUE: ??TECHNIQUE: Separate images of the pelvis, knees and feet were acquired in the AP projection with the p atient standing. These images were stitched together to form a composite im age of the pelvis and legs allowing for evaluation of lower extremity alignment in the weight bearing position. 4 additional views of the right knee were obtained. Impressions 11/23/2015 2:50 PM EDT No fracture seen. No interval post arthroplasty complication identified. Right knee joint effusion appears resolved. Narrative 11/23/2015 2:50 PM EDT EXAMINATION: XR JOINT TEAM ALIGNMENT AP LAT [facility]LINE RIGHT CLINICAL HISTORY: R KNEE PAIN S/P FALL S /P TKA 2012 TECHNIQUE: Separate images of the pelvis , knees and feet were acquired in the AP projection with the patient standing. Th christopher images were stitched together to form a composite image of the pelvis and legs allowing for evaluation of lower extremity alignment in the weight bearin g position. ? COMPARISON: 09/22/2013. FINDINGS: The left lower extremity mechanical vasc ular versus medially deviated approximately 17 mm. On the right, mecha nical axis may be slightly less accurate as the right femoral head is obscured by pulse generator. However, the right lower extremity mechanical axis appears medially deviated approximately 7 mm. Bilateral total knee arthroplasties, as before, with no change in alignment of the osseous structures. No new or increa sed periprosthetic lucency is seen. No periprosthetic fracture is identified. B jude demonstrated, but unchanged is an osteophyte along the lateral articular s urface of the legs proximal tibia. Previous right knee joint effusion appea rs resolved. Procedure Note Clotilde Murillo MD - 11/23/2015Formatt ing of this note might be different from the original. EXAMINATION: XR JOINT TEAM ALIGNMENT AP LAT [facility] SKYLINE RIGHT CLINICAL HISTORY: R KNEE PAIN S/P FALL S /P TKA 2012 TECHNIQUE: Separate images of the pelvis , knees and feet were acquired in the AP projection with the patient standing. Th christopher images were stitched together to form a composite image of the pelvis and legs allowing for evaluation of lower extremity alignment in the weight bearin g position. COMPARISON: 09/22/2013. FINDINGS: The left lower extremity mechanical vasc ular versus medially deviated approximately 17 mm. On the right, mecha nical axis may be slightly less accurate as the right femoral head is obscured by pulse generator. However, the right lower extremity mechanical axis appears medially deviated approximately 7 mm. Bilateral total knee arthroplasties, as before, with no change in alignment of the osseous structures. No new or increa sed periprosthetic lucency is seen. No periprosthetic fracture is identified. B jude demonstrated, but unchanged is an osteophyte along the lateral articular s urface of the legs proximal tibia. Previous right knee joint effusion appea rs resolved. IMPRESSION No fracture seen. No interval post arthr oplasty complication identified. Right knee joint effusion appears resolved. Víctor Khan MD IMG DX ORDERABLES documented in this encounter Visit Diagnoses Diagnosis Right knee pain, unspecified chronicity documented in this encounter Care Teams Manager Field Services Relationship Specialty Start Date End Date Ivan Gotti MD PCP - General 03/13/[address] [place] [id number] documented as of this encounter
--- OUTSIDE RECORDS SUMMARY | 2022-03-10 21:02 | XMS_ITS | Encounter Summary ---
:1945 [place] [address] Care Team Providers Name Role Phone Ivan Gotti MD Primary Care Provider Reason for Visit Reason Comments Right Knee Pain s/p fall Encounter Details Date Type Department Care Team Description 09/22/2013 Office Visit Orthopaedics at [facility] David Rehman, Osteoarthritis, knee [facility] MD - s/p R TKA [facility] (04/15/13) ([place] [address] Dx) [phone] ORTHOPAEDIC SURGERY [place] [address] Social History Tobacco Use Types Packs/Day Years Used Date Smoking Tobacco: Former Cigarettes Quit : 07/12/1969 Smokeless Tobacco: Never Alcohol Use Standard Drinks/Week Comments No 0 (1 standard drink = 0.6 oz pure alcoho l) never Sex Assigned at Date Recorded Not on file documented as of this encounter Last Filed Vital Signs Vital Sign Reading Time Taken Comments Blood Pressure 121/66 09/22/2013 2:31 PM EDT Pulse 63 09/22/2013 2:31 PM EDT Temperature - - Respiratory Rate - - Oxygen Saturation - - Inhaled Oxygen Concentration - - Weight 98.9 kg (218 lb) 09/22/2013 2:31 PM EDT Height 154.9 cm (5' 1) 09/22/2013 2:31 PM EDT Body Mass Index 41.19 09/22/2013 2:31 PM EDT documented in this encounter Progress Notes David Rehman MD - 09/22/2013 4:50 PM EDT I saw this patient in conjunction with FACUNDO Yung today. Please see his note for details of the history and physical examination. I am in agreement with the plan as stated. Contusion and lateral pain after a fall on her TKA. Films are unchanged and exam is reassuring. Willwork with local modalities and follow up as previously scheduled or sooner PRN. David Rehman MD MS Bobo Hooker PA - 09/22/2013 2:49 PM EDT Case Date: 04/15/2013 Surgeon: Surgeon(s) and Role: * David Rehman MD - Primary PROCEDURE: right total knee arthroplasty. INSTRUMENTATION USED: DePuy PFC Sigma knee system 1. Size 3 lugged posterior stabilized femoral component. 2. Size 2.5 tibial tray. 3. 12.5 mm polyethylene insert. 4. 35 mm round all-polyethylene patellar component. 5. 1 batch of gentamycin bone cement. HPI Ms Coffman returns 6 months form her knee replacement. She had been doing well until 4 weeks ago when she had a fall and landed on her knee. Since that time there has been increased anterior aching. The symptoms are stable. She has been working through the discomfort without accomodation. She denies numbness or tingling. No weakness. There is some tenderness. Aside from the pain she has felt well. Physical Exam: Ambulatory without assist or antalgia. The right knee shows no effusion. No pain or laxity with varus and valgus stress. ROM from 0-115 without pain; no extensor lag. Good quad strength with some anterior discomfort. X-rays: Cemented implants; I see no fracture or dislocation. No signs of loosening. No change from previous films Assessment: Contusion s/p TKA Plan: Her x-rays are reassuring; I see no structural abnormality but she likely has soft tisue contusion. We reviewed joint precautions and infection management. Antibiotic prophylaxis was recommended.We discussed appropriate activities to prevent premature implant failure. I encouraged continued joint specific rehab exercises. We'll plan to f/u at the one year anniversary of her surgery or sooner as needed. documented in this encounter Plan of Treatment Not on filedocumented as of this encounter Visit Diagnoses Diagnosis Osteoarthritis, knee - s/p R TKA () - Primary Osteoarthrosis, unspecified whether gene ralized or localized, lower leg documented in this encounter Care Teams [employer] Labourer Relationship Specialty Start Date End Date Ivan Gotti MD PCP - General 03/13/10 [address] [place] [address] documented as of this encounter
--- OUTSIDE RECORDS SUMMARY | 2022-03-10 21:02 | XMS_ITS | Encounter Summary ---
:1945 Author Organization [place] [address] Care Team Providers Name Role Phone Ivan Gotti MD Primary Care Provider Reason for Referral Physical Therapy (Routine) - Complete - Patient Will Schedule External Appt Specialty Diagnoses / Procedures Referred By Contact Refer red To Contact Physical Therapy Diagnoses Right knee pain Bobo Hooker PA [facility] Krissy [place] [address] Referral ID Status Reason Start Expiration Visits Visits Date Date Requested Authorized [id number] Complete - Evaluate and 07/12/2013 01/08/2014 1 1 Patient Will Treat Schedule External Appt Reason for Visit Reason Comments Follow-up S/P RIGHT TKA 04/15/13 Encounter Details Date Type Department Care Team Description 07/12/2013 Office Visit Orthopaedics at [facility] [place] David Rehman, Right knee pain [facility] (Primary Dx) [place] [address] [phone] ORTHOPAEDIC SURGERY [place] [address] Social History Tobacco Use Types Packs/Day Years Used Date Smoking Tobacco: Former Cigarettes Quit : 07/12/1969 Smokeless Tobacco: Never Alcohol Use Standard Drinks/Week Comments No 0 (1 standard drink = 0.6 oz pure alcoho l) never Sex Assigned at Date Recorded Not on file documented as of this encounter Last Filed Vital Signs Vital Sign Reading Time Taken Comments Blood Pressure 133/77 07/12/2013 12:55 PM EDT Pulse 71 07/12/2013 12:55 PM EDT Temperature - - Respiratory Rate - - Oxygen Saturation - - Inhaled Oxygen Concentration - - Weight 93.4 kg (206 lb) 07/12/2013 12:55 PM EDT Height 154.9 cm (5' 1) 07/12/2013 12:55 PM EDT Body Mass Index 38.92 07/12/2013 12:55 PM EDT documented in this encounter Patient Instructions Patient InstructionsBobo Hooker PA - 07/12/2013 1:35 PM EDT -activities as tolerated with exception of running (axial loading) -infection awareness -continue stretching and strengthening -antibiotic prior to dental work documented in this encounter Progress Notes Bobo Hooker PA - 07/12/2013 1:40 PM EDT Case Date: 04/15/2013 Surgeon: Surgeon(s) and Role: * David Rehman MD - Primary PROCEDURE: right total knee arthroplasty. INSTRUMENTATION USED: DePuy PFC Sigma knee system 1. Size 3 lugged posterior stabilized femoral component. 2. Size 2.5 tibial tray. 3. 12.5 mm polyethylene insert. 4. 35 mm round all-polyethylene patellar component. 5. 1 batch of gentamycin bone cement. HPI Ms Coffman returns 3 months form her knee replacement. She has done well overall. Her knee replacement specifically is doing very well. She has had some lpostero-lateral pain which is reminiscentof previous peroneal nerve entrapement symptoms. She has had discomfort with pressure to the are in the last 3 weeks. She denes injuries. She denies numbness or tingling. No weakness. There is some tenderness. Aside from the pain she has felt well. Physical Exam: Ambulatory without assist or antalgia. The right knee shows no effusion. No pain or laxity with varus and valgus stress. ROM from 0-115 without pain. Good quad strength. There is tenderness to the distal ITB and rectis insertion. Trace depenedent lymphedema Assessment: Postero- lateral knee pain s/p TKA Plan: Im not sure exactly what the cause of her symptoms are but there is certainly localized tenderness and inflammation at the distal rectis and ITB. I recommended ice, PT to included soft tissue modalaties. I also gave her some voltaren which she will use with caution given her history of reaction to aspirin. We'll see her again in 3 months or sooner as needed. documented in this encounter Plan of Treatment Scheduled Referrals Name Type Priority Associated Diagnoses Order S chedule Referral to Outpatient Referral Routine Right knee pain Order ed: Physical Therapy 07/12/2013 documented as of this encounter Visit Diagnoses Diagnosis Right knee pain - Primary Pain in joint, lower leg documented in this encounter Care Teams Custom Furrier Relationship Specialty Start Date End Date Ivan Gotti MD PCP - General 03/13/10 [address] [place] [address] documented as of this encounter
--- OUTSIDE RECORDS SUMMARY | 2022-03-10 21:02 | XMS_ITS | Encounter Summary ---
:1945 [place] [address] Care Team Providers Name Role Phone Ivan Gotti MD Primary Care Provider Reason for Visit Reason Comments Medication Refill Encounter Details Date Type Department Care Team Description 05/24/2013 Refill Orthopaedics at [facility] [place] Corinne Clinton MD [facility] [place] [address] [place] [address] ORTHOPAEDIC SURGERY DEPT [phone] [place], [place] [address] (Wo rk) Social History Tobacco Use Types Packs/Day Years Used Date Smoking Tobacco: Former Cigarettes Smokeless Tobacco: Never Alcohol Use Standard Drinks/Week Comments No 0 (1 standard drink = 0.6 oz pure alcoho l) never Sex Assigned at Date Recorded Not on file documented as of this encounter Plan of Treatment Not on filedocumented as of this encounter Visit Diagnoses Not on filedocumented in this encounter Care Teams Bench Grinder Relationship Specialty Start Date End Date Ivan Gotti MD PCP - General 03/13/10 [address] [place], [place] [address] documented as of this encounter
--- OUTSIDE RECORDS SUMMARY | 2022-03-10 21:02 | XMS_ITS | Encounter Summary ---
:1945 Author Organization [facility] [place] [address] Care Team Providers Name Role Phone Ivan Gotti MD Primary Care Provider Reason for Visit Speech Therapy (Routine) - Closed Specialty Diagnoses / Procedures Referred By Contact Refer red To Contact Speech Pathology / Diagnoses Dysphagia, unspecified type Marlon Still, [facility] Speech Therapy [facility] [address] [place], [place] Otolaryngology [id number] [place] [address] Referral ID Status Reason Start Date Expiration Date Visits V isits Requested Authorized [id number] Closed Evaluate and 05/04/2017 05/04/2018 1 1 Treat Encounter Details Date Type Department Care Team Description 06/02/2017 Office Visit Speech Therapy at Ila Richardson ia, pharyngeal [facility] Lin Holland, CARBON PAPER COATING MACHINE SETTER phase [facility]ly [facility], [address] [place] PHYSICAL MEDICINE & [id number] REHABILITAT [phone] [place] [address] Social History Tobacco Use Types Packs/Day Years Used Date Smoking Tobacco: Former Cigarettes Quit : 07/12/1969 Smokeless Tobacco: Never Alcohol Use Standard Drinks/Week Comments No 0 (1 standard drink = 0.6 oz pure alcoho l) never Sex Assigned at Date Recorded Not on file documented as of this encounter Progress Notes Lin Richardson, CARBON PAPER COATING MACHINE SETTER - 06/02/2017 2:30 PM EST Speech-Language Pathology OP Modified Barium Swallow Evaluation Patient Name: Peggy Coffman Date of : 1945 Referring MD: Marlon Still Date Seen by MD: 04/11/2017 Diagnosis: Dysphagia Date of Onset: 1.5 years ago Date of Evaluation: 06/02/2017 Duration of Evaluation minutes Certification Period: Eval Only Total Timed Code Treatment: 0 minutes S: Pt. denies pain at this time. Pt alert and cooperative with study. O: Order received and completed with this 71 y.o. female referred by Marlon Still Current Problem / Complaint: Intermittent choking / coughing w/ solids (ex: beef, lettuce) happens at least weekly, at times morefrequent Relevant Medical History: 04/11/2017: ENT note states: Procedure: Direct Laryngoscopy: Indications: Evaluation for mucosal lesion of the upper airway. ??The risks of the procedure were reviewed, and [...] noted. No overt laryngeal penetration or aspiration. Peggy Coffman is a 71 y.o. year [...] nodule being monitored yearly by Dr. Johnson. Recent FNA came back benign, calcified R inferior thyroid. Medications: Current Outpatient Prescriptions Medication Sig Dispense Refill ??? PROAIR HFA 90 mcg/actuation HFA Aerosol Inhaler ??? atorvastatin (LIPITOR) 80 mg Tablet TAKE ONE TABLET BY MOUTH AT BEDTIME ??? Insulin Syringe-Needle U-100 (BD INSULIN SYRINGE ULTRA-FINE) 1 mL 31 gauge x 5/16 Syringe USE WITH INSULIN TWO TIMES A DAY ??? benzonatate (TESSALON) 200 mg Capsule Every 8 hours. ??? betamethasone valerate (VALISONE) 0.1 % Ointment ??? NARCAN 4 mg/actuation [place], Non-Aerosol ??? gabapentin (NEURONTIN) 300 mg Capsule ??? MYRBETRIQ 50 mg Tablet Sustained Release 24 hr Take 50 mg by mouth daily. ??? lidocaine (XYLOCAINE) 2 % Gel Apply topically as needed. ??? amLODIPine (NORVASC) 5 mg tablet Take 5 mg by mouth daily. ??? oxyCODONE-acetaminophen (PERCOCET) 5-325 mg per tablet Take by mouth. ??? senna-docusate (PERICOLACE) 8.6-50 mg per tablet Take 1-4 tablets by mouth 2 times daily. 60 tablet 2 ??? ondansetron (ZOFRAN-ODT) 4 mg oral disintegrating tablet Take 1-2 tablets by mouth every 8 hoursas needed for Nausea. 10 tablet 1 ??? OXYcodone (OXYCONTIN) 20 mg CR tablet Take 15 mg by mouth every 12 hours. ??? OXYcodone (OXYCONTIN) 40 mg CR tablet Take 40 mg by mouth every 12 hours. ??? insulin glargine (LANTUS) vial injection Inject 50 Units subcutaneously nightly. ??? sertraline (ZOLOFT) 100 mg tablet [...] 50 mg by mouth as needed. ??? epiNEPHrine (EPIPEN 2-JIM) 0.3 mg/0.3 mL (1:1,000) injection Inject 0.3 mg into the muscle once as needed. ??? diflunisal (DOLOBID) 500 mg Tab Take 500 mg by mouth 2 times daily. ??? losartan (COZAAR) 50 mg tablet Take 100 mg by mouth daily. ??? prochlorperazine (COMPAZINE) 5 mg tablet Take 5 mg by mouth every 6 hours as needed. ??? atenolol (TENORMIN) 25 mg tablet Take 25 mg by mouth daily. ??? Blood-Glucose Meter (Signum BiosciencesSTYLE FREEDOM LITE) monitoring kit 1 each by [facility].(Non-Drug; Combo Route) route as needed. ??? insulin syringe,safetyneedle 0.5 mL 29 x 1/2 Syrg by [facility].(Non-Drug; Combo Route) route. ??? lancets (FREESTYLE LANCETS) 28 gauge Misc by [facility].(Non-Drug; Combo Route) route. No current facility-administered medications for this visit. Current Diet: modified regular; pt reports avoiding certain solids, cutting up or chewing hard solids up very well prior to swallowing Cognitive-Linguistic Status: alert, Ox3, able to follow simple directions and respond to basic questions Respiratory Status: pt on room air Feeding / Oral Care Status: pt independent Seating and Positioning: pt able to stand up with head midline without assistance; pt ambulatory Oral Peripheral WFL: labial, buccal, lingual, jaw ROM, strength, agility, and sensation are adequate for PO intake Velar elevation and retraction adequate Intact gag reflex Adequate laryngeal elevation, retraction to palpation Volitional swallow, throat clear, cough prompt and strong Speech and voice judged to be WNL Difficulties Observed: ?? Intermittent globus sensation reported (not noted during today's testing) Bolus Presentation(s) (all consistencies are mixed with Barium) ?? Thin liquid via straw ?? Lyden thick liquid via straw ?? Honey Thick liquid via spoon ?? Thick puree via spoon ?? Soft solid via spoon ?? Hard solid ?? Pill w/ thin liquids Oral Preparatory Phase WFL; adequate lip closure, no loss from oral cavity; adequate bolus cohesion and A-P propulsion; prompt swallow initiation, no oral residue noted. Pharyngeal Phase Appears to be WFL, no overt clinical s/s aspiration or significant pharyngeal dysphagia noted duringevaluation. Prompt, distinct, and coordinated swallow without breath or vocal quality changes Esophageal Phase WFL, no immediate reflux noted during this limited test, normal relaxation of upper esophageal sphincter Pt denies s/s GERD at this time A: Dx: ?? No significant Oropharyngeal Dysphagia noted at this time with this study. ?? Aspiration / Penetration Scale Score (RosenRosetta hyman et al. Dysphagia, 1995) ??? 1 = no material enters the airway ??? 2 = material enters the airway, does not touch the vocal cords, and is completely ejected ??? 3 = material enters the airway, does not touch the vocal cords, but is not ejected ??? 4 = material enters the airway, contacts the vocal cords, but is ejected ??? 5 = material enters the airway, contacts the vocal cords, but is not ejected ??? 6 = material enters the airway, passes below the vocal cords, and is ejected ??? 7 = material passes below the vocal cords, is not ejected, but there is effort made to expel material ??? 8 = material passes below the vocal cords, and there is no attempt to eject it Recommendations: Diet: continue modified regular diet; cut solids small and chew throughly prior to swallowinging; adding moisture via soups, gravies, sauces, juices, etc...may also improve subjective swallow function / comfort when eating solids Aspiration Precautions / Safe Swallowing Strategies: ?? Sit up for all meals / snacks / drinks / oral medications ?? Take small, single bites and sips ?? Swallow everything in your mouth before taking next bite and sip; eat slowly ?? Remain upright for 30 min after eating before laying down P: ?? No Speech Pathology intervention recommended at this time ?? [facility] Speech Pathology to monitor for carryover and safety with recommendations. Pt provided w/ this clinician's contact information (see below). Encouraged to email me w/ any questions or concerns, and to call my office if f/u appointments are desired in the future. ?? Pt in agreement with plan of treatment. Thank you for this consult with this patient. Please feel free to contact me with any questions or concerns. Lin Richardson MA CCC-CARBON PAPER COATING MACHINE SETTER [facility] OP Rehabilitation Medicine [phone] Pager:# [phone] [email or web address] G-Code: Swallowing Status Modifier CURRENT CI - At least 1 percent but less than 20 percent impaired, limited or restricted PROJECTED CI - At least 1 percent but less than 20 percent impaired, limited or restricted DISCHARGE CI - At least 1 percent but less than 20 percent impaired, limited or restricted G Code Rationale: This G-Code and these disability modifiers were selected as the primary speech therapy goal based upon the patient's evaluation including clinical presentation on tests and clinical judgement. Ms. Coffman's current G-Code functional level is 5% impaired based upon pt report / clinical assessment. documented in this encounter Plan of Treatment Scheduled Referrals Name Type Priority Associated Diagnoses Order S chedule Referral to Speech Outpatient Referral Routine Dysphagia, Or dered: Therapy Unspecified Type 05/04/2017 documented as of this encounter Visit Diagnoses Diagnosis Dysphagia, pharyngeal phase documented in this encounter Care Teams Electrical Installer Relationship Specialty Start Date End Date Ivan Gotti MD PCP - General 03/13/10 [address] [place] [address] documented as of this encounter
--- OUTSIDE RECORDS SUMMARY | 2022-03-10 21:02 | XMS_ITS | Encounter Summary ---
:1945 [place] [address] Care Team Providers Name Role Phone Ivan Gotti MD Primary Care Provider Encounter Details Date Type Department Care Team Description 04/25/2017 Hospital Encounter Radiology Library at [place] [facility] [place] [address] [place] [address] OTOLARYNGOLOGY DEPT. [phone] [place] [id number] (Wo rk) Social History Tobacco Use Types [...] Sig Dispensed Refills Start Date End Date NARCAN 4 mg/actuation 0 02/20/2017 [place], Non-Aerosol gabapentin (NEURONTIN) nightly. 0 02/20/2017 300 [...] 1 each by 0 (FREESTYLE FREEDOM LITE) [facility].(Non-Drug; Combo monitoring kit Route) route as needed. insulin by [facility].(Non-Drug; 0 syringe,safetyneedle 0.5 Combo Route) route. mL 29 x 1/2 Syrg lancets (FREESTYLE by [facility].(Non-Drug; 0 LANCETS) 28 [facility] Combo Route) route. PROAIR HFA 90 0 03/04/2017 02/24/2018 mcg/actuation HFA Aerosol Inhaler mirtazapine (REMERON) 15 Take 15 mg by [...] Name Priority Date/Time Associated Diagnosis Comme nts FILM LIBRARY Routine 04/25/2017 12:00 AM Results for this STORAGE ONLY CT EST procedure ar e in SPINE the results section. documented in this encounter Results Film Library- Storage Only CT Spine (04/25/2017 12:00 AM EST) Specimen (Source) Anatomical Location Collection Method / Collectio n Time Received Time / Laterality Volume Narrative RADAMES - 04/25/2017 9:42 PM EST This exam is for storage only and is aut o-finalizing. Dennis Woodard MD IMeRji FILM LIBRARY ORDERABLES Performing Organization Address City/State/ZIP Code Phon e Number [place], [place] documented in this encounter Visit Diagnoses Not on filedocumented in this encounter Care Teams Recycling Tech Relationship Specialty Start Date End Date Ivan Gotti MD PCP - General 03/13/10 [address] [place] [address] documented as of this encounter
--- OUTSIDE RECORDS SUMMARY | 2022-03-10 21:02 | XMS_ITS | Encounter Summary ---
:1945 Author Organization [facility] [place] [address] Care Team Providers Name Role Phone Ivan Gotti MD Primary Care Provider Reason for Visit Reason Comments Right Hip Pain Consultation (Routine) - Closed Specialty Diagnoses / Procedures Referred By Contact Refer red To Contact Orthopaedics Diagnoses RIGHT HIP PAIN Ivan Gotti MD [facility] Orthopaedics 3a Procedures [address] [place] [address] [place] [address] Fax: Referral ID Status Reason Start Date Expiration Date Visits V isits Requested Authorized [id number] Closed Consult, 04/30/2017 04/30/2018 1 1 Test & Treat Encounter Details Date Type Department Care Team Description 05/12/2017 Office Visit Orthopaedics at [facility] Daphney Luna, Status post bilateral knee r eplacements (Primary Dx); [facility] [place] MAITRE D Pain in right hip; [facility] Trochanteric bursitis [place] [address] CENTER [phone] ORTHOPAEDIC SURGERY [place], [place] [address] Social History Tobacco Use Types Packs/Day Years Used Date Smoking Tobacco: Former Cigarettes Quit : 07/12/1969 Smokeless Tobacco: Never Alcohol Use Standard Drinks/Week Comments No 0 (1 standard drink = 0.6 oz pure alcoho l) never Sex Assigned at Date Recorded Not on file documented as of this encounter Last Filed Vital Signs Vital Sign Reading Time Taken Comments Blood Pressure 145/54 05/12/2017 11:02 AM EST Pulse 62 05/12/2017 11:02 AM EST Temperature - - Respiratory Rate - - Oxygen Saturation - - Inhaled Oxygen Concentration - - Weight 100.2 kg (221 lb) 05/12/2017 11:02 AM EST Height 154.9 cm (5' 1) 05/12/2017 11:02 AM EST Body Mass Index 41.76 05/12/2017 11:02 AM EST documented in this encounter Progress Notes Daphney Luna, MAITRE D - 05/12/2017 11:30 AM EST Arthroplasty History/Previous Hip Surgery: 1. LEFT knee TKA 2003 [place], [place] 2. LEFT knee TKA revision 2004 [facility] 3. Right knee TKA 2012. Dr. Rehman. Chief Complaint: Chief Complaint Patient presents with ??? Right lateral Hip Pain This patient was referred from Ivan Gotti MD [address] [address] I.D.: Peggy Coffman is a 71 y.o. year old female being seen today to discuss her right hip. Her history and physical exam were reviewed in detail. She states the hip has been symptomatic for a few months. There was no inciting trauma/injury, although she does admit to falling off of a horse a few years ago. No groin pain. She does describe hip pain, does not report groin pain, does not endorse thigh pain and does feel as if she walks with a limp. There is No radiation of the pain below the knee. Aggravating factors include lying on the right side of the hip. Alleviating factors include relativerest and avoidance of painful activity. There is pain at night.. She can walk short distances and does not use assistive devices. She climb stairs and does use the railing. She does not have difficultyputting on her shoes and socks. She can sit comfortably in a chair. She can use public transportation. She has not had tried injections into the joint. She has not had tried NSAID's (Aspirin allergy)/Pain meds (Chronic narcotic pain medication for chronic pain syndrome). Ms. Coffman denies no fevers/chills/headache/chest pain/shortness of breath/abdominal pain/nausea or vomiting/weight changes She does not endorse a history of DVT/PE or clotting disorder. ASSOCIATED DIAGNOSES: She does not reports problems with the contralateral hip, does not report problems with the ipsilateral knee and does have a history of spine or back issues. ALLERGIES Allergies Allergen Reactions ??? Aspirin Anaphylaxis Anaphylaxis ??? Codeine Phosphate Hives hives, swelling, hard time breathing ??? Lisinopril Hives hives, swelling, hard time breathing ??? Metformin Nausea And Vomiting vomiting ??? Methadone Hives Hives ??? Naproxen Anaphylaxis Anaphylaxis ??? Penicillins Anaphylaxis Anaphylaxis ??? Red Blood Cells Other (See Comments) Antibodies-Difficult to Crossmatch DO NOT REMOVE Please contact the Blood Bank at [phone] for questions. ??? Sulfa (Sulfonamide Antibiotics) Anaphylaxis Anaphylaxis ??? Mirtazapine Other (See Comments) dizziness Allergies to metals: none reported. SOCIAL HISTORY: reports that she quit smoking about 47 years ago. Her smoking use included Cigarettes. She has never used smokeless tobacco. She reports that she does not drink alcohol or use illicit drugs. 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 SIGNIFICANT MEDICAL COMORBIDITIES: Patient Active Problem List Diagnosis Code ??? Osteoarthritis, knee - s/p R TKA (04/15/13) M17.10 ??? Chronic pain G89.29 ??? CAD (coronary artery disease) I25.10 ??? Diabetes mellitus E11.9 ??? Anticoagulant long-term use on plavix Z79.01 ??? S/P knee replacement Z96.659 ??? Hypertensive disorder I10 ??? Hyperlipidemia E78.5 ??? migraine H/A G43.C1 ??? Low back pain M54.5 ??? Obstructive sleep apnea G47.33 ??? 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 Episodic mood disorder F39 ??? Disorder of thyroid gland E07.9 ??? adenoma coln polyp K63.5 ??? Obesity, Class II, BMI 35-39.9 E66.9 ??? Chronic pain disorder G89.4 ??? Goiter E04.9 ??? Heart murmur R01.1 ??? Migraine without aura G43.009 ??? Morbid obesity E66.01 ??? Spasm of bladder N32.89 ??? Pain in right hip M25.551 VITALS: BP Readings from Last 1 Encounters: 05/12/17 145/54 Pulse Readings from Last 1 Encounters: 05/12/17 62 Height: 154.9 cm (5' 1) Weight: 100.2 kg (221 lb) Body mass index is 41.76 kg/(m^2). PHYSICAL EXAM: Constitution: Patient sits in the clinic today in no apparent distress. The patient is alert and oriented x 3. Appearance is age-appropriate, affect is similarly appropriate. Chest: Normal chest expansion with regular inspiratory effort. No audible wheezing with regularly inspiratory effort. Cardiac: regular rate and rhythm by peripheral palpation. I have made the following determinations: Enters exam room with no assistive devices. Positional changes are slow with a mildly antalgic gait. Negative nerve root tension sign. No clonus. EHL/FHL 5/5. + Anthony's. ++ TTP at the right hip GTB. No palpable masses or lesions of the right lateral hip. Hip Exam: Right Prior surgery on this joint: No Leg length: Longer leg: equal Limb Length discrepancy: 0cm Motion: Flexion contracture: 0 Total degrees of Flexion:105 Total degrees of Abduction:20 Total degrees of Ext Rotation: 30 Total degrees of Internal Rotation: 15 Gait Abnormality: Antalgic, mild Skin Integrity: Normal Pulses Palpable: Right PT: Yes Right DP:Yes Motor/Sensory: Right Distal Motor: Normal Distal Sensory: Normal Hip Abductors: 5 Trendelenburg test: negative Radiographic evidence of joint damage:[0= normal; 1=minimal ; 2= some osteophytes , some narrowing ;3= moderate osteophytes, significant narrowing, mild deformity; 4= large osteophytes, marked narrowing, obvious deformity]: 2= some osteophytes, some narrowing Questionnaire Responses: General Health, Prior Treatments, PreExisting Condition, Health Habits, About You 05/12/2017 PROMIS-10 General Health Fair PROMIS-10 Quality of Life Good PROMIS-10 Physical Health Fair PROMIS-10 Mental Health Good PROMIS-10 Social Activity Fair PROMIS-10 Everyday Activities A little PROMIS-10 Pain 7 PROMIS-10 Fatigue Moderate PROMIS-10 Social Roles Fair PROMIS-10 Anxious or Depressed Sometimes PROMIS PHYSICAL SCORE (range 16-68) 32.4 PROMIS MENTAL SCORE (range 21-68) 41.1 Treatments Tried Heat and ice therapy, Acetaminophen (e.g. Tylenol) Prior Surgery none HOOS JR Scores 49.86 MARBIN Grade 5 Alzheimers or dementia No Cirrohosis or liver disease No HIV/AIDS No Pain in more than one joint in legs Yes Back or neck pain Yes Heart attack No Heart failure Yes Unclog/bypass leg arteries No Stroke, blood clot, TIA No Asthma No Emphysema, chronic bronchities, or COPD No Stomach ulcers/peptic ulcer disease No Diabetes Yes Diabetes caused problems with kidneys No Diabetes caused problems with eyes No Poor kidney function No Rheumatic condtions No Cancer No Weight (lbs) 220 Height (feet) 5 feet Height (Inches) 1 BMI 41.56 (Obese) Ever used tobacco products Yes Tobacco frequency Never WHO - Tobacco Advice 0 (You are at low risk of health and other problems from your current pattern of use.) Ever used alcoholic beverages Yes Alcohol frequency Once or twice WHO - Alcohol Advice 2 (You are at low risk of health and other problems from your current pattern of use.) Live Alone Yes Marital situation Schooling High school graduate or GED Combined Household Income $10,000 to less than $15,000 # People Supported 1 Lithuanian, , No, not Lithuanian// Race White Health Literacy Quite a bit Currently working No Not working because: Not working due to disability Orthopeadics [facility] Response 05/12/2017 HOOS JR Scores 49.86 Spine [facility] Response 05/12/2017 HOOS JR Scores 49.86 ASSESSMENT AND PLAN: Ms. Coffman is a 71 y.o. year old female with her right lateral hip pain. Radiographs with mild tomoderate DJD. 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 We reviewed various treatment options available to her for this condition. At this time, Peggy would like to try a right hip GTB steroid injection. See procedure below. Tolerated well. Advised cool packs prn. Tylenol prn no greater than 3grams per day. I reviewed a HEP for hip pain. She can try this. If Peggy feels that she needs someadditional structure with the HEP, call and we can set up a formal PT program closer to home. Consider using a trekking pole to help unload her painful joint. In addition, the following is relevant to their care: We do recommend a routine rotary f/u for the knees and I will have the secretarial staff schedule that in the next few months with both knee x-rays. We briefly discussed the right spine stimulator, apparently the batteries have been for a few years. Peggy is not interested in a Pain clinic consult at this time to address. Certainly call prn and we can send a referral. Pt agrees, questions solicited/answered, will return as scheduled and as needed for concerns or questions. Pt understands they may also call us prn for above. Procedure: After sterile preparation, Right trochanteric region injected with 40mg Kenolog and 4 cc's of quarter percent marcaine plain. Post injection care was reviewed. Will use ice afterwards. documented in this encounter Plan of Treatment Not on filedocumented as of this encounter Visit Diagnoses Diagnosis Status post bilateral knee replacements - Primary Pain in right hip Pain in joint, pelvic region and thigh Trochanteric bursitis of right hip Enthesopathy of hip region documented in this encounter Administered Medications Inactive Administered Medications - up to 3 most recent administrations Medication Order MAR Action Action Date Dose Rate Site BUpivacaine (PF) (MARCAINE) 0.25 Given 05/12/2017 11:35 AM EST 1 2.5 mg % (2.5 mg/mL) injection 12.5 mg 12.5 mg, Intra-articular, ONCE, 1 dose, On Fri05/12/17 at 1145, Routine triamcinolone acetonide (KENALOG) injection Given 05/12/2017 11:35 AM EST 20 mg 20 mg 20 mg, Other, ONCE, 1 dose, On Fri05/12/17 at 1145, Routine documented in this encounter Care Teams Welder Apprentice Gas Relationship Specialty Start Date End Date Ivan Gotti MD PCP - General 03/13/10 [address] [place] [address] documented as of this encounter
--- OUTSIDE RECORDS SUMMARY | 2022-03-10 21:02 | XMS_ITS | Encounter Summary ---
:1945 Author Organization [facility] [place] [address] Care Team Providers Name Role Phone Ivan Gotti MD Primary Care Provider Encounter Details Date Type Department Care Team Description 05/12/2013 Hospital Encounter XRay at [facility] Osteoarthritis, knee [address] [facility] [place] [address] Social History Tobacco Use Types Packs/Day Years Used Date Smoking Tobacco: Former Cigarettes Smokeless Tobacco: Never Alcohol Use Standard Drinks/Week Comments No 0 (1 standard drink = 0.6 oz pure alcoho l) never Sex Assigned at Date Recorded Not on file documented as of this encounter Medications at Time of Discharge Medication Sig Dispensed Refills Start Date End Date senna-docusate Take 1-4 tablets by 60 tablet 2 04/18/2013 (PERICOLACE) 8.6-50 mg mouth 2 times daily. per tablet ondansetron Take 1-2 tablets by 10 tablet 1 04/18/2013 (ZOFRAN-ODT) 4 mg oral mouth every 8 hours disintegrating tablet as needed for Nausea. OXYcodone (OXYCONTIN) Take 40 mg by mouth 0 40 mg CR tablet every 12 hours. [...] (IMITREX) Take 50 mg by mouth 0 50 mg tablet as needed. epiNEPHrine (EPIPEN Inject 0.3 mg into 0 2-JIM) 0.3 mg/0.3 mL the muscle once as (1:1,000) injection needed. diflunisal (DOLOBID) Take 500 mg by mouth 0 500 mg Tab 2 times daily. prochlorperazine Take 5 mg by mouth 0 (COMPAZINE) 5 mg tablet every 6 hours as needed. atenolol (TENORMIN) 25 Take 25 mg by mouth 0 mg tablet daily. Blood-Glucose Meter 1 each by 0 (FREESTYLE FREEDOM Misc.(Non-Drug; Combo LITE) monitoring kit Route) route as needed. insulin by Misc.(Non-Drug; 0 syringe,safetyneedle Combo Route) route. 0.5 mL 29 x 1/2 Syrg lancets (FREESTYLE by Misc.(Non-Drug; 0 LANCETS) 28 gauge Misc Combo Route) route. terbinafine (LAMISIL) 0 05/08/201307/2015 250 mg tablet acetaminophen (TYLENOL) Take 2 tablets by 90 tablet 2 04/1805/24/2013 500 mg tablet mouth every 8 hours. HYDROmorphone Take 1-2 tablets by 100 tablet 0 04/18/2013 (DILAUDID) 4 mg tablet mouth every 4 hours as needed for Pain. polyethylene glycol Take 17 g by mouth 2 14 each 3 201211/23/2015 (MIRALAX) 17 gram times daily. packet ascorbic acid (VITAMIN Take 500 mg by mouth 0 05/12/2017 C) 500 mg tablet daily. CALCIUM Take by mouth. 0 8 CARBONATE/VITAMIN D3 (CALCIUM 500 + D, D3, ORAL) cyanocobalamin (VITAMIN Take 1,000 mcg by 0 11/23/2015 B-12) 1,000 mcg tablet mouth daily. pyridoxine (VITAMIN Take 100 mg by mouth 0 11/23/2015 B-6) 100 mg tablet daily. biotin 300 mcg Tab Take by mouth. 0 OXYcodone (OXYCONTIN) Take 15 mg by mouth 0 02/24/2018 20 mg CR tablet every 12 hours. ezetimibe-simvastatin Take 1 tablet by 0 05/12/2017 (VYTORIN) 10-40 mg per mouth nightly. tablet imipramine (TOFRANIL) Take 25 mg by mouth 0 05/12/2017 25 mg tablet nightly. losartan (COZAAR) 50 mg Take 100 mg by mouth 0 02/24/2018 tablet daily. Sweetser-3 Fatty Acids Take 1 capsule by 0 11/23/2015 (FISH OIL) 500 mg Cap mouth daily. OXYGEN-AIR DELIVERY by [facility].(Non-Drug; 0 11/23/2015 SYSTEMS (HORIZON NASAL Combo Route) route. CPAP SYSTEM MISC) documented as of this encounter Plan of Treatment Not on filedocumented as of this encounter Procedures Procedure Name Priority Date/Time Associated Diagnosis Comme nts XR TKA FIRST PO Routine 05/12/2013 11:49 AM Osteoarthritis, kn ee Results for this VISIT ALIGNMENT AP EST procedure are in LAT SKYLINE the results section. documented in this encounter Results XR TKA FIRST PO VISIT ALIGNMENT AP LAT SKYLINE (05/12/2013 11:49 AM EST) Anatomical Region Laterality Modality Knee N/A Radiographic Imaging Specimen (Source) Anatomical Collection Method Collection Time Re ceived Time Location / / Volume Laterality 05/12/2013 11:49 AM EST Narrative 05/12/2013 2:49 PM EST Examination TKA FIRST PO VISIT STANDING ALIGNMENT AP LAT SKYLINE/RIGHT Clinical History Status Post TKA Comparison Radiographs of the knees from 02/24/2013 . Technique Separate images of the pelvis, knees and feet were acquired in the AP projection with the patient standing. In addition to routine views of the knee, these images were stitched together to f orm a composite image of the pelvis and legs allowing for evaluation of lower ex tremity alignment in the weight bearing position. Findings New right total knee arthroplasty, witho ut periprosthetic fracture or abnormal lucency. ??Small to moderate right knee effusion is present, with mild soft tissue swelling about the knee. ??Older left revised arthroplasty is also unchanged from the prior exam in the fro ntal projection. Standing alignment view demonstrates cynthia ghtbearing axis of the right lower extremity near midline, and mild unchang ed medial deviation of the left lower extremity weightbearing axis relative to the knee by approximately 13 mm. Impression New right total knee arthroplasty, witho ut evidence of complication. ??Small to moderate right knee effusion. Procedure Note Bakari Negron MD - 05/12/2013Formatti ng of this note might be different from the original. Examination TKA FIRST PO VISIT STANDING ALIGNMENT AP LAT SKYLINE/RIGHT Clinical History Status Post TKA Comparison Radiographs of the knees from 02/24/2013 . Technique Separate images of the pelvis, knees and feet were acquired in the AP projection with the patient standing. In addition to routine views of the knee, these images were stitched together to f orm a composite image of the pelvis and legs allowing for evaluation of lower ex tremity alignment in the weight bearing position. Findings New right total knee arthroplasty, witho ut periprosthetic fracture or abnormal lucency. Small to moderate right knee ef fusion is present, with mild soft tissue swelling about the knee. Older le ft revised arthroplasty is also unchanged from the prior exam in the fro ntal projection. Standing alignment view demonstrates cynthia ghtbearing axis of the right lower extremity near midline, and mild unchang ed medial deviation of the left lower extremity weightbearing axis relative to the knee by approximately 13 mm. Impression New right total knee arthroplasty, witho ut evidence of complication. Small to moderate right knee effusion. David Rehman MD IMG DX ORDERABLES documented in this encounter Visit Diagnoses Diagnosis Osteoarthritis, knee Osteoarthrosis, unspecified whether gene ralized or localized, lower leg documented in this encounter Care Teams Order Expediter Relationship Specialty Start Date End Date Ivan Gotti MD PCP - General 03/13/10 [address] [place] [address] documented as of this encounter
--- OUTSIDE RECORDS SUMMARY | 2022-03-10 21:02 | XMS_ITS | Encounter Summary ---
:1945 [place] [address] Care Team Providers Name Role Phone Ivan Gotti MD Primary Care Provider Reason for Visit Reason Comments Medication Refill Encounter Details Date Type Department Care Team Description 11/30/2013 Refill Orthopaedics at [facility] Corinne Clinton MD [facility] [place] [address] ORTHOPAEDIC SURGERY DEPT [phone] [place], [place] [address] (Wo rk) Social History Tobacco [...] on filedocumented in this encounter Care Teams Guest Relations Agent Relationship Specialty Start Date End Date Ivan Gotti MD PCP - General 03/13/10 [address] [place] [address] documented as of this encounter
--- OUTSIDE RECORDS SUMMARY | 2022-03-10 21:02 | XMS_ITS | Encounter Summary ---
:1945 Author Organization [facility] [place] [address] Care Team Providers Name Role Phone Ivan Gotti MD Primary Care Provider Encounter Details Date Type Department Care Team Description 05/12/2017 Hospital Encounter XRay at [facility] Daphney Luna, Right hip pain [address] [place] [address] [place] [address] [facility] [phone] ORTHOPAEDIC SURGERY [place], [place] [address] Social History Tobacco Use Types [...] 5/16 Syringe NARCAN 4 mg/actuation 0 02/20/2017 [place], Non-Aerosol gabapentin (NEURONTIN) nightly. 0 02/20/2017 300 [...] 1 each by 0 (FREESTYLE FREEDOM LITE) [facility].(Non-Drug; Combo monitoring kit Route) route as needed. insulin by [facility].(Non-Drug; 0 syringe,safetyneedle 0.5 Combo Route) route. mL 29 x 1/2 Syrg lancets (FREESTYLE by [facility].(Non-Drug; 0 LANCETS) 28 gauge Misc Combo Route) [...] Priority Date/Time Associated Diagnosis Comme nts XR PELVIS AND HIP 2 Routine 05/12/2017 10:25 AM Right hip pain Results for this VIEWS RIGHT EST procedure are i n the results section. documented in this encounter Results XR Pelvis w AP & Lat Hip Right (05/12/2017 10:25 AM EST) Anatomical Region Laterality Modality Pelvis, Hip Right Digital Radiography Specimen (Source) Anatomical Location Collection Method / Collectio n Time Received Time / Laterality Volume Impressions 05/12/2017 11:51 AM EST 1. ??No fracture or dislocation. 2. ??Bilateral hip osteoarthropathy. I have personally reviewed the image(s) and the residents interpretation and agree with the findings, Phylicia garcia 05/12/2017 11:51 AM Narrative 05/12/2017 11:51 AM EST EXAMINATION: XR PELVIS W AP AND LAT HIP RIGHT CLINICAL HISTORY: right hip pain TECHNIQUE: Frontal pelvis, frontal and lateral RIGH T hip. COMPARISON: None FINDINGS: There is a partially imaged neural simul ator is noted projecting over the RIGHT iliac. No fracture or dislocation. Bilateral hi p osteoarthropathy with subchondral sclerosis, marginal osteophytes and mild joint space loss. The sacrum is obscured by stool and bowel gas. No abno rmal soft tissue calcification. Procedure Note Phylicia Navarrete MD - 05/12/2017Formatt ing of this note might be different from the original. EXAMINATION: XR PELVIS W AP AND LAT HIP RIGHT CLINICAL HISTORY: right hip pain TECHNIQUE: Frontal pelvis, frontal and lateral RIGH T hip. COMPARISON: None FINDINGS: There is a partially imaged neural simul ator is noted projecting over the RIGHT iliac. No fracture or dislocation. Bilateral hi p osteoarthropathy with subchondral sclerosis, marginal osteophytes and mild joint space loss. The sacrum is obscured by stool and bowel gas. No abno rmal soft tissue calcification. IMPRESSION 1. No fracture or dislocation. 2. Bilateral hip osteoarthropathy. I have personally reviewed the image(s) and the residents interpretation and agree with the findings, Phylicia garcia 05/12/2017 11:51 AM Daphnye Luna APRN IMG DX ORDERABLES documented in this encounter Visit Diagnoses Diagnosis Right hip pain Pain in joint, pelvic region and thigh documented in this encounter Care Teams Materials Handling Equipment Operator Relationship Specialty Start Date End Date Ivan Gotti MD PCP - General 03/13/10 [address] [place] [address] documented as of this encounter
--- OUTSIDE RECORDS SUMMARY | 2022-03-10 21:02 | XMS_ITS | Encounter Summary ---
:1945 Author Organization [facility] [place] [address] Care Team Providers Name Role Phone Ivan Gotti MD Primary Care Provider Reason for Referral Physical Therapy (Routine) - Closed by system - unspecified Specialty Diagnoses / Procedures Referred By Contact Refer red To Contact Physical Therapy Diagnoses Knee joint replacement by other means Brandyn Gardiner PA [facility] D [place] [address] Referral ID Status Reason Start Expiration Visits Visits Date Date Requested Authorized [id number] Closed by Evaluate and 11/08/2013 12 12 system - Treat 4 unspecified Reason for Visit Reason Comments Aftercare Of Tjr SP R TKA DOS 04/15/13 Encounter Details Date Type Department Care Team Description 05/12/2013 Office Visit Orthopaedics at [facility] David Rehman, Knee joint replacement by ot her means (Primary Dx); [facility] Osteoarthritis, knee - s/p R TKA () [place] [address] [place] [address] ORTHOPAEDIC SURGERY [place] [id number] Social History Tobacco Use Types Packs/Day Years Used Date Smoking Tobacco: Former Cigarettes Smokeless Tobacco: Never Alcohol Use Standard Drinks/Week Comments No 0 (1 standard drink = 0.6 oz pure alcoho l) never Sex Assigned at Date Recorded Not on file documented as of this encounter Last Filed Vital Signs Vital Sign Reading Time Taken Comments Blood Pressure 151/75 05/12/2013 1:29 PM EST Pulse 82 05/12/2013 1:29 PM EST Temperature 36.9 ??C (98.5 ??F) 05/12/2013 1:29 PM EST Respiratory Rate - - Oxygen Saturation - - Inhaled Oxygen Concentration - - Weight 92.6 kg (204 lb 1.6 oz) 05/12/2013 1:29 PM EST Height 154.9 cm (5' 1) 05/12/2013 1:29 PM EST STATED Body Mass Index 38.56 05/12/2013 1:29 PM EST documented in this encounter Progress Notes Brandyn Gardiner PA - 05/14/2013 10:34 AM EST Patient Name: Peggy Coffman : 67 y.o. Case Date: 04-15-13 Surgeon: Adeline Rehman Procedure: right total knee replacement HPI: Peggy Coffman is a very pleasant 67 y.o. female who presents for a 4 weeks follow-up of the above procedure. The patient has been doing very well and her pain is moderately improved over preoperative status. No fevers, chills, nausea, vomiting, or symptoms of infection. Peggy has been ambulating with a cane and working with PT. ROS: Denies fevers, chills, night sweats, nausea, or vomiting. Physical Exam: Well-appearing female in no acute distress. Alert and Oriented x 3 and answers all questions appropriately. The incision is well healed, with no signs of infection. Knee Exam: Left Gait Abnormality: Antalgic Knee ROM: Extension:5 Flexion: 95 Alignment: 0-4 degrees Neutral Stability: A/P Translation <5mm Varus <5mm Valgus <5mm Extension La degrees or less Patella Tracking: Normal Pulses Palpable: Left PT:Yes Left DP:Yes Motor/Sensory: Distal Motor: Normal Distal Sensory: Normal Quadriceps Strength: 5 X-RAYS: Multiple radiographic views were obtained at my request and reviewed with the patient. X-rays show a well-placed prosthesis with no evidence of fracture or loosening. ASSESSMENT/PLAN: 4 weeks post-op and doing well. Continue weightbearing as tolerated and working on range of motion, and we will see her back in 2 months for repeat examination. No x-rays will be needed at that time. Patient may return to normal activities as her pain and function allow. We discussed the appropriate precautions surrounding dental prophylaxis. I stressed that she should avoid elective dental procedures for the first 6 months after surgery and then call the office for a prescription prior to any further dental work for the lifetime of the joint replacement. We also discussed maintaining good foot care and giving prompt attention to any source of infection throughout the body including foot ulcers and urinary tract infections. Signed: FACUNDO RICH David Rehman MD - 05/12/2013 2:06 PM EST I saw this patient in conjunction with FACUNDO Nicolas today. Please see her note for details ofthe history and physical examination. I am in agreement with the plan as stated. Peggy Coffman is a 67 y.o. year old female who is 4 weeks status post right TKA. She is doing well and making progress with PT. I have advised her to continue working on ROM and strengthening exercises. 5-95 today. Radiographs today show a well-placed prosthesis without any evidence of fracture or loosening. We discussed the appropriate precautions surrounding dental prophylaxis. The patient should call theoffice for a prescription prior to any further dental work for the life of the joint replacement. Wealso discussed giving prompt attention to any source of infection throughout the body. She will follow up in 2 months for repeat examination. David Rehman MD MS documented in this encounter Plan of Treatment Scheduled Referrals Name Type Priority Associated Diagnoses Order S chedule Referral to Outpatient Referral Routine Knee joint Ordered: Physical Therapy replacement by other means documented as of this encounter Visit Diagnoses Diagnosis Knee joint replacement by other means - Primary Osteoarthritis, knee - s/p R TKA () Osteoarthrosis, unspecified whether gene ralized or localized, lower leg documented in this encounter Care Teams Shelter Case Manager Relationship Specialty Start Date End Date Ivan Gotti MD PCP - General 03/13/10 [address] [place] [address] documented as of this encounter
--- OUTSIDE RECORDS SUMMARY | 2022-03-10 21:02 | XMS_ITS | Encounter Summary ---
:1945 [place] [address] Care Team Providers Name Role Phone Ivan Gotti MD Primary Care Provider Encounter Details Date Type Department Care Team Description 05/23/2017 Laboratory Appointment Lab 3L [facility] [place] [address] Social History Tobacco Use Types Packs/Day [...] Name Priority Date/Time Associated Diagnosis Comme nts PLATELET COUNT STAT 05/23/2017 8:44 AM Pre-op testing Resul ts for this EST procedure are i n the results section . documented in this encounter Results Platelet count (05/23/2017 8:44 AM EST) P athologist Signature Platelets 167 145 - 357 SONI DONNA x10(3)/[facility] LABORATORY Plat Immature 1.2 0.0 - 7.4 SONI DONNA % % [facility] LAB[facility] Comment: Limitation of the Immature Platelet Frac tion (IPF)-May be less reliable when the platelet count is less than 73l801/u L due to statistical imprecision. The IPF [...] in a decreased state of production. References: [employer] The Clinical Value of the Immature Platelet Fraction (IPF) in Cell Recovery Document Number 10-1143 09/2010 [employer] The Role of the Imm ature [...] Organization Address City/State/[place] [address] documented in this encounter Visit Diagnoses Diagnosis Pre-op testing Preoperative examination, unspecified documented in this encounter Care Teams General Manager Road Production Relationship Specialty Start Date End Date Ivan Gotti MD PCP - General 03/13/10 [address] [place] [address] documented as of this encounter
--- OUTSIDE RECORDS SUMMARY | 2022-03-10 21:02 | XMS_ITS | Encounter Summary ---
:1945 Author Organization [facility] [place] [address] Care Team Providers Name Role Phone Ivan Gotti MD Primary Care Provider Encounter Details Date Type Department Care Team Description 05/09/2017 Orders Only Otolaryngology at [facility] Marlon Still, Thyroid nodule [facility] [place] [address] [facility] [phone] Otolaryngology [place], [place] [address] (Wo rk) Social History Tobacco Use Types Packs/Day Years Used Date Smoking Tobacco: Former Cigarettes Quit : 07/12/1969 Smokeless Tobacco: Never Alcohol Use Standard Drinks/Week Comments No 0 (1 standard drink = 0.6 oz pure alcoho l) never Sex Assigned at Date Recorded Not on file documented as of this encounter Plan of Treatment Not on filedocumented as of this encounter Results US Thyroid Soft Tissue [...] ommended (not necessarily the largest)Source: [employer] 2017;14:587-595. ?Melissa morataya MD Electronically Signed Final Report ?? 12:05 pm Narrative 05/14/2017 12:06 PM EST Thyroid ? (Signed Final 05/14/2017 12:05 pm) PATIENT INFO: ID #: ? [id number] ?: ??[birth year] (71 yrs) Name: ? PEGGY L ?Visit Date: 05/14/2017 11:26 am ? HONEY PERFORMED BY: Performed By: ? Feroz Parra RDMS Attending: ?Bo HERNANDEZ, Melissa Ku Referred By: ?BART Holland [facility] Location: ? [place] SERVICE(S) PROVIDED: ??UTHYRD - Thyroid - [id number] ?[id number] INDICATIONS: ??Concerning finding of potentially magaly cified ??thyroid nodule in the right lower lob e. ??Needs ??further assessment. COMPARISON: CT - SPINE 04/25/17 RIGHT LOBE: ??Date ? L(cm) ?AP(cm) ?TV(cm) ??05/14/17 ? 5.3 ?2.1 ? 2.4 -------- Lesions: -------- ??# ?Date ?Location ?Description ??1 ?05/14/17 ?Mid Lobe ?Cystic or almost ? completely cystic (0) ? Hyperechoic or isoechoic ? (1) Ybuld-eknn-fjqk (0) ? Smooth (0 points) ? Macrocalcifications (1) ??2 ?05/14/17 ?Lower Lobe ?Solid or almost completely ? solid (2) Hypoechoic (2) ? Xmojxk-gtxg-guvt (3) ill- ? defined (0 points) ? [...] 05/14/2017 12:05 pm) PATIENT INFO: ID #: [id number] : [birth year] (71 y rs) Name: PEGGY Albert Visit Date: 05/14/2017 11:26 am HONEY PERFORMED BY: Performed By: Feroz Parra RDMS Attending: Melissa Soriano MD Referred By: BART CHATMAN Location: [place] SERVICE(S) PROVIDED: UTHYRD - Thyroid - [id number] INDICATIONS: Concerning finding of potentially calci fied thyroid nodule in the right lower lobe. Needs further assessment. COMPARISON: CT - SPINE 04/25/17 RIGHT LOBE: Date L(cm) AP(cm) TV(cm) 05/14/17 5.3 2.1 2.4 -------- Lesions: -------- # Date Location Description 1 05/14/17 Mid Lobe Cystic or almost completely cystic (0) Hyperechoic or isoechoic (1) Ohykq-rbok-qkyz (0) Smooth (0 points) Macrocalcifications (1) 2 05/14/17 Lower Lobe Solid or almost c ompletely solid (2) Hypoechoic (2) Muutnu-jeof-viqv (3) ill- defined (0 points) Peripheral (rim) [...] ommended (not necessarily the largest)Source: [employer] [place] 2017;14:587-595. Melissa Soriano MD Electronically Signed Final Report 05/14 12:05 pm Bart Chatman MD IMG US GEN ORDERABLES documented in this encounter Visit Diagnoses Diagnosis Thyroid nodule Nontoxic uninodular goiter Thyroid nodule Nontoxic uninodular goiter documented in this encounter Care Teams Insurance Consultant Relationship Specialty Start Date End Date Ivan Gotti MD PCP - General 03/13/10 [address] [place] [address] documented as of this encounter
--- OUTSIDE RECORDS SUMMARY | 2022-03-10 21:02 | XMS_ITS | Encounter Summary ---
:1945 Author Organization [facility] [place] [address] Care Team Providers Name Role Phone Ivan Gotti MD Primary Care Provider Reason for Visit Reason Comments Follow-up Encounter Details Date Type Department Care Team Description 06/12/2017 Office Visit Otolaryngology at [facility] Marlon Still Dysphagia, unspecified type; [facility] [place] [address] [facility] [phone] [place] [facility] [place], [place] [address] Social History Tobacco Use Types [...] - Inhaled Oxygen Concentration - - Weight 100.7 kg (222 lb) 06/12/2017 3:30 PM EST Height 156.2 cm (5' 1.5) 06/12/2017 3:30 PM EST Body Mass Index 41.27 06/12/2017 3:30 PM EST documented in this encounter Progress Notes Marlon Still PA - 06/12/2017 3:30 PM EST [facility] Otolaryngology - Head and Neck Surgery Marlon Still PA-C 06/12/17 [place] [id number] Office Patient Name: Peggy Coffman Date of : 1945 PCP: Ivan Gotti MD Peggy Coffman is a 71 y.o. year old female with a history of DM2, CAD, HTN, and SID who is being seen in follow up for symptoms of dysphagia to solids and liquids, with feeling things get caught up, and that she has to cough them up and swallow them again; a feeling of a knot in her throat that interrupts her breathing that she notes when she flexes her neck forward; and a right submucosal swelling noted on laryngoscopy that extends from the from the oropharyngeal/nasopahryngeal junction into the hypopharynx. She was also noted to have a prominence of lymphoid tissue in the nasopharynx midline that warranted a second look. A CT neck found the submucosal mass appeared to be associated with a tortuous right carotid artery. The CT incidentally showed concerning calcifications of a right inferior lobe thyroid nodule, which on subsequent ultrasound was similarly deemed suspicious. An FNA of the nodule was undertaken on 05/23/17 with benign results. And a modified barium swallow test on 06/02/17 to address her dysphagia symptoms was found to be normal. She returns today in follow up of her testing to discuss results. New concerns since last visit: Still has some choking with swallowing, no change. Has had occasions when the choking causes her to stop breathing for No difficulty with the thyroid biopsy, no pain. When chews her food more, doesn't choke as often. Feels she has dry mouth, which may be contributing to her difficulty with swallowing. No changes in her health since she was last in clinic. ROS: 10 point Review of Systems was normal except for pertinent positives and negatives included in the History of Present Illness. Physical Examination: VITALS - Height 156.2 cm (5' 1.5), weight 100.7 kg (222 lb). GENERAL - Well dressed and well nourished. - Breathing comfortably without stridor. - No acute distress. FACE - Full and symmetric facial movement. [...] lesions. - Patient is edentulous - Tongue and floor of mouth soft without lesions or masses. - Hard palate without lesions. SALIVARY - Normal exam of the parotid glands. - Normal exam of the right submandibular gland; unable to elicit flow on the left. - No swelling or tenderness to palpation noted. PHARYNX - Soft palate without lesions. - [...] questions. PSYCHE - Normal mood and affect. IMAGING: US Thyroid Soft Tissue 05/14/17 IMPRESSION Ultrasound Dictation:Multiple colloid cysts bilaterally.Using the TiRADS ACR Criteria the following nodules were evaluated:Nodule Number: 1Site: Right mid thyroid lobe:TiRADS: TR2: Not suspicious. RECOMMENDATION: No FNACalcified septated are dominantly cystic nodule. This may represent a complexcolloid cyst.Nodule Number: 2Site: Right lower thyroid lobe:TiRADS: 5A portion of this nodule is obscured by shadowing from peripheral calcificationwhich limits sonographic evaluation. Nevertheless, this deep inferior rightnodule is suspicious and given its size, FNA is recommended. IR Biopsy Thyroid FNA 05/23/17 ??Non-Electronic Publishing Specialist Final DIAGNOSIS Benign XR Fluoro Modified Barium Swallow 06/02/17 FINDINGS: The oral phase of swallowing is normal. There is normal elevation of the larynx and normal epiglottic inversion with swallowing. No penetration of the airway or aspiration occurred with any consistency. No residual pooling within the valleculae or piriform sinuses. The 13 mm barium tablet passed quickly through the hypopharynx without delay or globus sensation. ?? IMPRESSION Normal modified barium swallow. ?? Speech-Language Pathology OP Modified Barium Swallow Evaluation 06/02/17 Dx: ?? No significant Oropharyngeal Dysphagia noted at this time with this study. ?? Aspiration / Penetration Scale Score (Rosetta Brown et al. Dysphagia, 1995) ?? 1 = no material enters the airway Recommendations: Diet: continue modified regular diet; cut [...] 30 min after eating before laying down PROCEDURE NOTE: Direct Laryngoscopy: Indications: Evaluation for mucosal lesion of the upper airway. The risks of the procedure were reviewed, and verbal consent was obtained. Topical anesthetic and decongestant applied to the nasal cavity. The scope was passed through the nasal cavity, through to thenasopharynx. Patient tolerated the procedure well without any complications. Nasal Cavity: Normal appearing mucosa, no obstructions or lesions noted. Nasopharynx: Midline lymphoid tissue exam stable from prior. No lesions or masses noted. ASSESSMENT Peggy Coffman is a 71 y.o. year old female with the above mentioned history, exam, and imagingand swallowing studies. Discussed with the patient that it was still uncertain to me what the etiology of her swallowing difficulty was, in light of her normal swallow imaging and MEASURER MACHINE assessment. Emphasized her instituting the MEASURER MACHINE recommendations for safer swallowing going forward, especially the use of fluids to help her swallowing. Discussed that if her symptoms worsened, that she should call to [facility] again. Also discussed the benign results of her thyroid nodule FNA, and continuing to monitor her thyroid nodules with a follow up ultrasound in a year's time. Also discussed the stable exam of the midline nasopharyngeal tissue, and that its presence may be due to scarring from her distant adenoidectomy. The patient expressed understanding of these points and agreement with the plan, and all questions that were asked were answered to the patient's satisfaction. RECOMMENDATIONS: Follow up ultrasound for thyroid nodules monitoring in 1 year. [place] the MEASURER MACHINE swallow recommendations. Patient should call if her symptoms worsen or fail to improve, if new concerning symptoms arise, or if they have any question or concerns regarding their treatment. Marlon Still PA-C 06/12/2017 [place], [place] [address] Office documented in this encounter Plan of Treatment Not on filedocumented as of this encounter Visit Diagnoses Diagnosis Dysphagia, unspecified type Thyroid nodule Nontoxic uninodular goiter documented in this encounter Care Teams Sample Prep Technician Relationship Specialty Start Date End Date Ivan Gotti MD PCP - General 03/13/10 [address] [place] [address] documented as of this encounter
--- OUTSIDE RECORDS SUMMARY | 2022-03-10 21:02 | XMS_ITS | Encounter Summary ---
:1945 Author Organization [facility] [place] [address] Care Team Providers Name Role Phone Ivan Gotti MD Primary Care Provider Reason for Visit Reason Comments Medication Refill Encounter Details Date Type Department Care Team Description 09/02/2013 Refill Orthopaedics at [facility] Bobo Hooker, Right knee pain; [facility] PA Aftercare following joint replacement [address] [facility] [place] [address] ORTHOPAEDIC SURGERY [phone] [place] [id number] (Wo rk) Social History Tobacco Use Types Packs/Day Years Used Date Smoking Tobacco: Former Cigarettes Quit : 07/12/1969 Smokeless Tobacco: Never Alcohol Use Standard Drinks/Week Comments No 0 (1 standard drink = 0.6 oz pure alcoho l) never Sex Assigned at Date Recorded Not on file documented as of this encounter Miscellaneous Notes Telephone Encounter - Elizabeth Gudino RN - 09/06/2013 4:16 PM EDT Surgery: 04/15/[address] Rehman. Patient fell about 3-4 weeks ago and has continued knee pain. Transferred to iron melter to schedule an appointment to evaluate the knee. X-ray ordered. Patient not using the Voltaren gel anymore. documented in this encounter Plan of Treatment Not on filedocumented as of this encounter Results XR knee diagnostic 1 [...] joint, lower leg Aftercare following joint replacement Right knee pain Pain in joint, lower leg Aftercare following joint replacement documented in this encounter Care Teams Car Rider Relationship Specialty Start Date End Date Ivan Gotti MD PCP - General 03/13/[address] [place] [id number] documented as of this encounter
--- OUTSIDE RECORDS SUMMARY | 2022-03-10 21:02 | XMS_ITS | Encounter Summary ---
:1945 Author Organization [facility] [place] [address] Care Team Providers Name Role Phone Ivan Gotti MD Primary Care Provider Reason for Referral Speech Therapy (Routine) - Closed Specialty Diagnoses / Procedures Referred By Contact Refer red To Contact Speech Pathology / Diagnoses Dysphagia, unspecified type Marlon Still, [facility] Director [employer] Rehab Speech Therapy [place] [facility] [address] [place] Otolaryngology [phone] [place] [address] Referral ID Status Reason Start Date Expiration Date Visits V isits Requested Authorized [id number] Closed Evaluate and 05/28/2017 05/28/2018 1 1 Treat Encounter Details Date Type Department Care Team Description 05/28/2017 Telephone Otol[facility]ology at [facility] Marlon Still, [place] [facility] [place] [address] Otolaryngology [phone] [place], [place] [address] (Wo rk) Social History Tobacco Use Types Packs/Day Years Used Date Smoking Tobacco: Former Cigarettes Quit : 07/12/1969 Smokeless Tobacco: Never Alcohol Use Standard Drinks/Week Comments No 0 (1 standard drink = 0.6 oz pure alcoho l) never Sex Assigned at Date Recorded Not on file documented as of this encounter Miscellaneous Notes Telephone Encounter - Marlon Still PA - 05/28/2017 3:04 PM EST Discussed the benign findings of her FNA of the calcified right inferior thyroid nodule. Discussed that there was no need to follow up with me tomorrow. Discussed that we still wanted her to have a Modified Barium Swallow study performed, and that we would have her come in to see me after the study onthe same day to discuss the findings and any recommended treatment at that time. The patient expressed understanding of these points and agreement with the plan, and all questions that were asked were answered to the patient's satisfaction. documented in this encounter Plan of Treatment Scheduled Referrals Name Type Priority Associated Diagnoses Order S chedule Referral to Speech Outpatient Referral Routine Dysphagia, Or dered: Therapy unspecified type 05/28/2017 documented as of this encounter Visit Diagnoses Diagnosis Dysphagia, unspecified type documented in this encounter Care Teams Print Line Feeder Relationship Specialty Start Date End Date Ivan Gotti MD PCP - General 03/13/10 [address] [place] [address] documented as of this encounter
--- OUTSIDE RECORDS SUMMARY | 2022-03-10 21:02 | XMS_ITS | Encounter Summary ---
:1945 Author Organization [facility] [place] [address] Care Team Providers Name Role Phone Ivan Gotti MD Primary Care Provider Reason for Visit Reason Onset Date Comments Bumped Appointment 01/25/2014 Encounter Details Date Type Department Care Team Description 01/25/2014 Telephone Orthopaedics at [facility] David Rehman [place] [address] ORTHOPAEDIC SURG [place] [phone] (Wo rk) Social History Tobacco Use Types Packs/Day Years Used Date Smoking Tobacco: Former Cigarettes Quit : 07/12/1969 Smokeless Tobacco: Never Alcohol Use Standard Drinks/Week Comments No 0 (1 standard drink = 0.6 oz pure alcoho l) never Sex Assigned at Date Recorded Not on file documented as of this encounter Miscellaneous Notes Telephone Encounter - Ema Maldonado - 01/27/2014 12:09 PM EDT Scheduled Telephone Encounter - Johanne Gutierrez - 01/25/2014 9:08 AM EDT [id number] to reschedule bumped appointment with Dr. Rehman on 04/18/14. documented in this encounter Plan of Treatment Not on filedocumented as of this encounter Visit Diagnoses Not on filedocumented in this encounter Care Teams Filter Pulp Washer Relationship Specialty Start Date End Date Ivan Gotti MD PCP - General 03/13/10 [address] [place] [address] documented as of this encounter
--- OUTSIDE RECORDS SUMMARY | 2022-03-10 21:02 | XMS_ITS ---
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 92 416811 of colon Problem Thyromegaly 240.9 Active 6996703 Problem Multinodular 241.1 Active 8514681 6 goiter, nontoxic Problem PRSNL HST COLONIC V12.72 Active 42 6134310 POLYPS Problem Cough 786.2 Active 20078754 Problem Dysphagia 787.20 Active 30865265 Problem MIXED INCONTINENCE 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.33 Active 4 79818683 Problem Multinodular goiter E04.2 Active 952840968 Problem Cough R05 Active 27668119 Problem Carcinoma in situ D01.0 Active 92 951556 of colon Problem Cystocele 618.01 Active 147666402 Problem H/O adenomatous Z86.010 Active 4282 91972 polyp of colon Problem Rectocele 618.04 Active 401506179 Problem Diverticulosis K57.90 Active 22138 0005 Problem Nodule of colon K63.9 Active 8591 9009 Problem Chronic cough R05 Active Problem Abnormal chest CT R93.8 Active 16 3920423 ALLERGIES Substance Reaction Event Type Date Status Penicillin V Potassium facial, swelling, hives Drug Allergy Dec, Active Aspirin face/hand swelling, hives, Drug Allergy Dec, A ctive shortness of breath sulfa facial swelling Drug Allergy Dec, Active Mirtazapine GI upset Drug Allergy Dec, Active Methadone HCl nausea, vomiting Drug Allergy Dec, Active codeine hives Drug Allergy Dec, Active Metformin HCl nausea, vomiting Drug Allergy Dec, Active Zestril hives Drug Allergy Dec, Active Lisinopril Unknown Drug Allergy Dec, Active Naproxen face/hand swelling, hives, Drug Allergy Dec, A ctive sob ENCOUNTERS Encounter Location Date Diagnosis [address] Dec, Road [address] [place], [place] [id number] [facility] [address] [place] [address] Dec, Hip pain M25.[address] [place], [place] Lumbar radicu lar pain [id number] M54.[address] May, Carcinoma i n situ of [facility] [address] [place], [place] colon D01.0 ; Nontoxic [id number] multinodular goi ter E04.2 ; Polyp of colon, unspecified part of colon, unspecifi ed type K63.5 and Divert iculosis K57.[address] [place] [address] Apr, Road [address] [place], [place] [id number] [facility] [address] [place] [address] Apr, Road [address] [place] [id number] [facility] Pulmonology [address] [place] [address] Mar, Abno rmal chest CT R93.[address] and Chronic coug h R05 [place], [place] [id number] [facility] [address] Nov, Road [address] [place] [id number] Oct, Nodule of c olon K63.[address] [place], [place] and Diverticu losis [id number] K57.[address] Oct, Cough R05 and Otolaryngology [address] [place], Multinodular goiter [place] [id number] E04.2 [facility] [address] August, Road [address] [place], [place] [id number] [facility] [address] [place] [address] Jul, Road [facility] [place], [place] [id number] [facility] [address] [place] [address] Jul, Urinary incontinence R32 [facility] [address] ; Midline cystoc david [place], [place] N81.11 and Recto tatianna [id number] N81.6 Aleks Pierce MD [address] [place] [address] [address], [address] [place], [place] incontinence R32 [id number] [facility] [address] [place] [address] Jul, [facility] [address] [place], [place] [id number] Aleks Pierce MD [address] [place] [address] Jul, Mixed incont inence Road [place], [place] N39.46 ; Cyst ocele, [id number] midline N81.11 ; Rectocele N81.6 and Atrophic vaginit is N95.[address] Apr, Otolaryngology [address] [place], [place] [id number] Aleks Pierce MD [address] [place] [address] Nov, Road [place], [place] [id number] [address] Oct, Cough 786. 2 Ot[address]ology [address] [place], [place] [id number] Aleks Pierce MD [address] [place] [address] Sep, Road [place], [place] [id number] Aleks Pierce MD [address] [place] [address] August, MIXED INCONT IN[address] Road [place], [place] 788.33 ; Cyst ocele [id number] 618.01 and Recto tatianna 618.04 [facility] [address] August, Road [address] [place], [place] [id number] [facility] [address] Jul, Road [address] [place], [place] [id number] [address] Feb, Cough 786. 2 and Otol[address]ology [address] [place], Multinodular goiter, [place] [id number] nontoxic 241.[address] Oct, Otolaryngology [address] [place] [id number] [address] Sep, Otolaryngology [address] [place], [place] [id number] [address] Sep, Cough 786. 2 and Ot[address]ology [address] [place], Dysphagia 78 7.20 [place] [id number] [address] May, 2013 Road [place], [place] [id number] [address] Feb, Cough 786. 2 and Ot[address] [place], Multinodular goiter, [place] [id number] nontoxic [address] Jan, Otolaryngology [address] [place] [id number] [address] August, Cough 786. 2 and Ot[address] [place], Multinodular goiter, [place] [id number] nontoxic 241.[address] Jan, Multinodul ar goiter, Otolaryngology [address] [place], [facility] 241 .1 [place] [id number] [facility] [address] Apr, Car cinoma in situ of Road [address] colon 230.3 and PRSNL [place], [place] HST COLONIC POLY PS [id number] V12.72 [facility] [address] Apr, Road [address] [place] [id number] [place] [address] Feb, Carcinoma i n situ of [facility] [address] [place] colon 230.3 [id number] [facility] [address] Feb, Road [address] [place] [id number] [facility] [address] Feb, Road [address] [place] [id number] [facility] [address] Jan, Road [address] [place] [id number] [facility] [address] Jan, Road [address] [place] [id number] [facility] [address] Jan, Road [address] [place] [id number] [facility] [address] Jan, Road [address] [place] [id number] [facility] [address] Jan, Car cinoma in situ of Road [address] colon 230.3 [place], [place] [id number] [address] August, Carcinoma i n situ of [facility] [address] [place] colon 230.3 [id number] [facility] [address] Jul, Road [address] [place] [id number] [facility] [address] Jun, Car cinoma in situ of Road Suite colon 230.3 [place], [place] [id number] [facility] [address] Apr, Car cinoma in situ of Road Suite colon 230.3 [place], [place] [id number] [facility] [address] Mar, Road [address] [place] [id number] [facility] [address] Mar, Road [address] [place] [id number] Mar, [address] [place] [id number] [facility] [address] Feb, Road [address] [id number] [facility] [address] Feb, Thy romegaly 240.9 ; Road [place] [address] Thyroid cyst 246 .2 ; [place] CONSTIPATION NOS 564.00 [id number] and SCREEN MALIG NEOP-COLON V76.5 1 [facility] [address] August, Road [address] [id number] [facility] [address] Jul, Road [address] [id number] [address] Apr, [facility] [address] [place] [id number] [facility] [address] Apr, Road [address] [id number] IMMUNIZATIONS Vaccine Route Administration Date Status Zostavax Unknown June 25, 2007 Administered Td -Adult Unknown Mar 22, 2005 Administered Td -Adult Unknown Mar 15, 2019 Administered Tdap - Adult Unknown Mar 05, 2012 Administered Prevnar 13 Adult Unknown July 31, 2015 Administered Pneumovax [id number] Unknown Mar 05, 2006 Administe red Pneumovax [id number] Unknown Feb 14, 2005 Administe red Pneumovax [id number] Unknown Apr 03, 2000 Administe red SHANE - Flu VACC 6 MONTHS > Unknown Feb 20, 2017 Admini stered SHANE - Flu VACC 6 MONTHS > Unknown Jan 24, 2018 Admini stered SHANE - Flu VACC 6 MONTHS > Unknown Feb 01, 2016 Admini stered SHANE - Flu VACC 6 MONTHS > Unknown Jan 19, 2019 Admini stered SHANE - Flu VACC 6 MONTHS > Unknown Jun 12, 2009 Admini stered SOCIAL HISTORY Never Assessed REASON FOR REFERRAL FUNCTIONAL STATUS PLAN OF CARE Activity Details Follow Up prn Reason: VITAL SIGNS Height 60.5 in 2021-01-12 Height 60.5 in 2016-03-21 Height 60.5 in 2015-10-24 Height 60.5 in 2015-08-07 Height 60.5 in 2015-07-26 Height 60.5 in 2014-10-31 Height 60.5 in 2014-09-16 Height 60.5 in 2014-02-21 Height 60.5 in 2013-10-11 Height N/A in 2013-02-22 Height 60.5 in 2012-08-25 Height N/A in 2012-02-19 Height 60.5 in 2011-01-30 Weight 220 lbs 2021-01-12 Weight 219 lbs 2016-03-21 Weight 224 lbs 2015-10-24 Weight 218 lb 8 oz lbs 2015-08-07 Weight 215 lbs 2015-07-26 Weight 215 lbs 2014-09-16 Weight 218 lbs 2014-02-21 Weight 204 lbs 2013-02-22 Weight 220 lbs 2012-08-25 Weight 215 lbs 2012-02-19 Weight 205.0 lbs 2011-01-30 Temperature 97.9 degrees Fahrenheit 2021-01-12 Heart Rate 60 /min 2021-01-12 Heart Rate 62 /min 2016-03-21 Heart Rate 72 /min 2015-10-24 Heart Rate 67 /min 2015-08-07 Heart Rate 70 /min 2014-10-31 Heart Rate 63 /min 2014-02-21 Heart Rate 58 /min 2013-10-11 Heart Rate 65 /min 2013-02-22 Heart Rate 84 /min 2012-08-25 Heart Rate 63 /min 2012-02-19 Heart Rate 56 /min 2011-01-30 Heart Rate 60 /min 2009-07-10 Heart Rate 66 /min 2009-04-24 Heart Rate 72 /min 2009-02-22 Oximetry 99 2021-01-12 Oximetry 97 2016-03-21 Oximetry 96 2015-08-07 Respiratory Rate 16 /min 2021-01-12 Respiratory Rate 16 /min 2016-03-21 Respiratory Rate 16 /min 2015-10-24 Respiratory Rate 16 /min 2014-10-31 Respiratory Rate 16 /min 2014-02-21 Respiratory Rate 16 /min 2013-10-11 Respiratory Rate 16 /min 2013-02-22 Respiratory Rate 16 /min 2012-02-19 Respiratory Rate 16 /min 2011-01-30 Respiratory Rate 16 /min 2009-07-10 Respiratory Rate 16 /min 2009-04-24 Respiratory Rate 16 /min 2009-02-22 BMI 42.25 kg/m2 2021-01-12 BMI 42.06 kg/m2 2016-03-21 BMI 43.02 kg/m2 2015-10-24 BMI 41.97 kg/m2 2015-08-07 BMI 41.29 kg/m2 2015-07-26 BMI 41.29 kg/m2 2014-09-16 BMI 41.87 kg/m2 2014-02-21 BMI 39.18 kg/m2 2013-02-22 BMI 42.25 kg/m2 2012-08-25 BMI 41.29 kg/m2 2012-02-19 BMI 39.37 kg/m2 2011-01-30 Blood pressure systolic 179 mm Hg 2021-01-12 Blood pressure diastolic 78 mm Hg 2021-01-12 MEDICATIONS Medication Instructions Dosage Frequency Start End Duration Statu s Date Date Losartan Orally daily 1 tab(s) 24h Active Potassium 100 mg Bee Pollen 580 MG Active CPAP 11 cm H2O as directed Activ e with heated humidification OxyCONTIN 40 MG Orally every 12 1 tablet 12h Active hrs Nora-Colace Orally Once a 1 tablet in 24h Ac tive 8.6-50 MG day the evening as needed DULoxetine HCl 30 Orally Once a 1 capsule 24h Active MG day Imitrex 50 MG Orally as 1 tab(s) Active needed BD Pen Needle Active Mini U/F 31G X 5 MM Sertraline HCl Orally Once a 1 tablet 24h Ac tive 100 MG day Atorvastatin Orally Once a 1 tablet 24h Acti ve Calcium 40 MG day Compazine 5 mgs by mouth as 1 tablet Act geraldine needed Vitamin C 500 MG Orally Once a 2 tablets 24h Active day Atenolol 25 MG Orally Once a 1 tablet 24h 30 day(s) Active day Lidocaine HCl 2 % Externally 1 application 8h Active Three times a to affected day area as needed Xtampza ER 36 MG Orally every 12 1 capsule 12h Active hrs with food Calcium 1000 + D Active 1000-800 MG-UNIT Vytorin 10-40 MG Orally Once a 1 tablet 24h Active day Imipramine HCl 25 Orally Once a 1 tablet at 24h 30 d ay(s) Active MG day bedtime Multivitamins Active Narcan 4 MG/0.1ML Active Plavix 75 MG Orally Once a 1 tablet 24h 30 day(s) Ac tive day Trospium Chloride Orally Once a 1 tablet at 24h Active 20 MG day bedtime on an empty stomach Clopidogrel Orally Once a 1 tablet 24h Activ e Bisulfate 75 MG day Lantus 70 Subcutaneous 25 units 24h Active Once a day OxyCONTIN 15 MG Orally every 12 1 tablet 12h Active hrs oxyCODONE-Acetami Orally every 6 1 tablet as 6h Active nophen 5-325 MG hrs needed Super B Complex Active Nitrostat 0.4 MG Sublingual as 1 tablet 30 day(s ) Active needed under the tongue Isosorbide Orally Once a 1 tablet 24h 30 day(s) Acti ve Mononitrate 60 MG day amLODIPine Orally Once a 1 tablet 24h Active Besylate 5 MG day Gabapentin 300 MG Orally Once a 1 capsule 24h Active day Myrbetriq 50 MG Orally Once a 1 tablet 24h 90 A ctive day Myrbetriq 25 MG Orally Once a 1 tablet 24h A ctive day One Touch Ultra test 12h Active Blue EpiPen 0.3 Intramuscular as directed Act geraldine MG/0.3ML (1:1000) as needed Premarin 0.625 Vaginal Twice a as directed Jul, da ys Active MG/GM week 1/2 2015 Diflunisal 500 MG Orally Twice a 1 tablet 12h 30 day (s) Active day Biotin 5 MG Orally Once a 1 capsule 24h Acti ve day PROCEDURES Procedure Date Ordered Result Body Site COLONOSCOPY & COLD BIOPSY POLYPECTOMY November 07, 2015 DIAGNOSTIC FLEXIBLE LARYNGOSCOPY October 24, 2015 COLONOSCOPY SNARE POLYPEC Mar 05, 2011 [facility] - X-RAY EXAM HIP UNI 2-3 VIEWS Jan 12, 2021 [facility] - X-RAY EXAM LUMBOSACRAL; 2 OR 3 VIEWS Jan 12, 2021 PT VISIT DOC USING CCHIT CER Apr 24, 2011 DIAGNOSTIC FLEXIBLE LARYNGOSCOPY October 11, 2013 COLONOSCOPY SNARE POLYPEC Mar 21, 2009 COLONOSCOPY DIAGNOSTIC August 22, 2009 BLADDER SCAN August 07, 2015 COLONOSCOPY W HOT BIOPSY Mar 21, 2009 RESULTS Name Result Date Reference Range SHANE XR LUMBAR SPINE 2 VIEWS 2021-01-12 [facility] XR HIP SINGLE WITH OR WO PELVIS 2021-01-12 US THYROID/NECK/HEAD 2019-03-29 Colonoscopy Bladder Scan MG MAMMOGRAPHY BILATERAL SCREENING 2014-09-16 TSH THYROID STIMULATING HORMONE FL BARIUM SWALLOW 2013-10-14 US THYROID/NECK/HEAD 2013-02-22 Colonoscopy US THYROID 2009-04-07 THYROID PROFILE 2009-02-22 THYROID PROFILE T4 7.3 6.09-12.23 T3 UPTAKE 40.7 32.0-48.0 FTI 7.4 5.93-13.13 TSH 0.78 0.49-4.67 US THYROID US THYROID 2008-08-16 REASON FOR VISIT [employer] re-establish care, bladder issue, re-establish care w/SHANE Dan right side hip groin leg knee ankle pain, GI-colonoscopy, REF FOR COLONOSCOPY TO EVALUATE RLQ Abdominal pain. ALSO REF. FOR CAT SCAN WITH IV AND ORAL CONTRAST., Ref by Ivan Gotti MD, [facility], tel -[phone] //Fax- [phone], pre load, diarrhea, NCPUL CT scan f/up, Abnormal chest CT scan, f/u appt, screening pers hx adenomatous colon polyp, chronic cough, colonoscopy, Premarin Script, URO-incontinence, Increase dose, referral for pt, EST [employer], Call back, ENT-1 YEAR F/U, cough when drinking or eating, Myrbetriq, NEW [employer], ? PROLAPSE, Colonoscopy Questionnaire, needs colonoscopy, multinodular goiter with thyroid cyst, aspiration, cough, Patient Declined Referral, referral, intermittent cough, shoe paperwork, multinodular goiter, cough, thyroid nodules and cysts, ent thyroid us done at [facility], ent thyroid nodule, ent thyroid nodule, christopher fu colo, christopher fu colo, R/S appt, CHRISTOPHER fu colonoscopy, COLON CANCER, pt's prep, msg re:bottle of stuff, wants to r/s colonoscopy , r/s colonoscopy, COLON CANCER, fax they recieved, Stop Plavix, CHRISTOPHER, f/u colon cancer, due for colonoscopy, CHRISTOPHER, f/u colon cancer, duefor colonoscopy, REPEAT DUE TO MALIGNANT POLYP, colonoscopy, F/U COLON PER DR CARSON, F/U COLON PERDR ALLI, no show, CONSTIPATION/SCREENING, XRay, F/U thyroid US, needs colonoscopy, F/U thyroid US, preload EMR clinical data, F/U THYROID US, Colonoscopy, THYROID FNA IN X-RAY, multiple cysts/? FNA fibroid nodule Insurance Providers [facility] Member Patient Patient Patient Patient Patient Subscriber Subscriber Subscriber Group Insurance Plan Plan Plan Plan ID Relationship Address Phone Name Date of ID Name Date of No Type Insurance Insurance Insurance Coverage to Subscriber Address Phone Name Dates MEDICARE [phone] MEDICARE self Peggy [id number] [facility] [place] [address] [place] [phone] [place] self Peggy [id number] HEALTHCARE [id number] [address] HE[address]ARE [facility] [place] [id number] [place] [phone] [place] self Peggy [id number] [place]ID [place] [address] MEDICAID [facility] [place] e [id number] MEDICARE [phone] MEDICARE self Peggy [id number] [facility] [place] [address] [place] [phone] [place] self Peggy [id number] [place]ID [place] [address] MEDICAID [facility] [place] e [id number]
--- OUTSIDE RECORDS SUMMARY | 2022-03-10 21:02 | XMS_ITS | Encounter Summary ---
:1945 Author Organization [facility] [place] [address] Care Team Providers Name Role Phone Ivan Gotti MD Primary Care Provider Encounter Details Date Type Department Care Team Description 05/14/2017 Notes Only Radiology at [facility] Favio Bingham MD [facility] [place] [address] RADIOLOGY DEPT [phone] [place] [id number] (Wo rk) Social History Tobacco Use Types Packs/Day Years Used Date Smoking Tobacco: Former Cigarettes Quit : 07/12/1969 Smokeless Tobacco: Never Alcohol Use Standard Drinks/Week Comments No 0 (1 standard drink = 0.6 oz pure alcoho l) never Sex Assigned at Date Recorded Not on file documented as of this encounter H&P Notes Favio Bingham MD - 05/14/2017 4:23 PM EST Images from the original note were not included. NEURORADIOLOGY PRE-PROCEDURE NOTE and FOCUSED H&P: Referring Physician: Bart Chatman MD PCP: Ivan Gotti MD Planned Procedure: US guided thyroid FNA Procedure Indication: TIRADS 5 right thyroid nodule Presenting Diagnosis/ Complaint: Peggy Coffman is a 71 y.o. female with a suspicious right thyroid nodule first detected on CT of the neck 04/25/17. A diagnostic ultrasound of the thyroid graded the lesion at TIRADs 5 and given its size of 12mm, FNA was recommended. Past Medical/Surgical History Patient Active Problem List Diagnosis Code ??? [...] N32.89 ??? Pain in right hip M25.551 Past Medical History: Diagnosis Date ??? Allergy ??? Blood disorder ??? Breast disease ??? Chronic pain ??? Diabetes ??? Digestive problems ??? Elevated cholesterol ??? Hormone disorder ??? Hypertensive disease ??? Infection ??? Musculoskeletal disease ??? Urinary disorder Past Surgical History: Procedure Laterality Date ??? PRO TOTAL KNEE ARTHROPLASTY 04/15/2013 @TOTAL KNEE ARTHROPLASTY performed by David Rehman MD at [facility] MAIN OR ??? PRO UNLISTED PROCEDURE, MUSCULOSKELETAL SYSTEM, GENERAL Medications: Current Outpatient Prescriptions on File Prior to Visit Medication Sig Dispense Refill ??? PROAIR HFA [...] 0.1 % Ointment ??? NARCAN 4 mg/actuation [place], Non-Aerosol ??? gabapentin (NEURONTIN) 300 mg Capsule [...] FREEDOM LITE) monitoring kit 1 each by Misc.(Non-Drug; Combo Route) route as needed. ??? insulin syringe,safetyneedle 0.5 mL 29 x 1/2 Syrg by Misc.(Non-Drug; Combo Route) route. ??? lancets (FREESTYLE LANCETS) 28 gauge Misc by Misc.(Non-Drug; Combo Route) route. No current facility-administered medications on file prior to visit. Allergies: Aspirin; Codeine phosphate; Lisinopril; Metformin; Methadone; Naproxen; Penicillins; Red blood cells; Sulfa (sulfonamide antibiotics); and Mirtazapine Social History and Habits: Social History Social History ??? Marital status: [...] Physical, Sexual, Verbal No Social History Narrative Significant Family History: Family History Problem Relation Age of Onset ??? High Cholesterol Mother Physical Exam: Pending Labs: Lab Results Component Value Date WBC 6.0 04/18/2013 HCT 32.4 (L) 04/18/2013 PLATELET 116 (L) 04/18/2013 INR 0.9 04/07/2013 BUN 22 (H) 04/18/2013 CREATININE 1.00 04/18/2013 Prior relevant imaging: Assessment/Plan: 71 y.o. female with suspicious right thyroid lobe nodule. Plan is US guided FNA. Biopsy/drain access site: Right neck Patient Position: supine Cytopathology presence needed: yes General anesthesia required: [no] Medications to discontinue (and days): plavix x5 days. Dr. Gotti (PCP) has been contacted, and agrees this may be held for the procedure. Labs: Platelets, This case was discussed with Dr. Machuca. Favio Bingham MD [facility] Neuroradiology Fellow Pager [phone] documented in this encounter Plan of Treatment Not on filedocumented as of this encounter Visit Diagnoses Not on filedocumented in this encounter Care Teams Acting Instructor Relationship Specialty Start Date End Date Ivan Gotti MD PCP - General 03/13/10 [address] [place] [address] documented as of this encounter
--- OUTSIDE RECORDS SUMMARY | 2022-03-10 21:03 | XMS_ITS | Encounter Summary ---
:1945 Author Organization [facility] [address] Care Team Providers Name Role Phone Ivan Gotti MD Primary Care Provider Encounter Details Date Type Department Care Team Description 02/24/2013 Hospital Encounter XRay at [facility] [place] Knee pain [address] [facility] [place] [phone] Social History Tobacco Use Types Packs/Day Years Used Date Smoking Tobacco: Former Cigarettes Smokeless Tobacco: Never Alcohol Use Standard Drinks/Week Comments No 0 (1 standard drink = 0.6 oz pure alcoho l) Sex Assigned at Date Recorded Not on [...] LANCETS) 28 gauge Misc Combo Route) route. acetaminophen (TYLENOL) Take 2 tablets by 90 tablet 2 04/1805/24/2013 500 mg tablet mouth every 8 hours. HYDROmorphone Take 1-2 tablets by 100 tablet 0 04/18/2013 (DILAUDID) 4 mg tablet mouth every 4 hours as needed for Pain. polyethylene glycol Take 17 g by mouth 2 14 each 3 201211/23/2015 (MIRALAX) 17 gram times daily. packet OXYcodone (OXYCONTIN) Take 15 mg by mouth 0 02/24/2018 20 mg CR tablet every 12 hours. ezetimibe-simvastatin Take 1 tablet by 0 05/12/2017 (VYTORIN) 10-40 mg per mouth nightly. tablet polyethylene glycol Take 17 g by mouth 2 0 04/18/2013 (MIRALAX) 17 gram times daily. packet imipramine (TOFRANIL) Take 25 mg by mouth 0 05/12/2017 25 mg tablet nightly. losartan (COZAAR) 50 mg Take 100 mg by mouth 0 02/24/2018 tablet daily. OXYcodone-acetaminophen Take 1 tablet by 0 04/18/2013 (PERCOCET) 5-325 mg per mouth every 4 hours tablet as needed. [place]-3 Fatty Acids Take 1 capsule by 0 11/23/2015 (FISH OIL) 500 mg Cap mouth daily. [place] [facility] [place]rug; 0 11/23/2015 SYSTEMS (HORIZON NASAL Combo Route) route. CPAP SYSTEM [facility] [place] azithromycin Take 500 mg by mouth 0 (ZITHROMAX) 500 mg daily. tablet documented as of this encounter Plan of Treatment Not on filedocumented as of this encounter Procedures Procedure Name Priority Date/Time Associated Diagnosis Comme nts XR JOINT TEAM Routine 02/24/2013 10:32 AM Knee pain Results for this ALIGNMENT AP LAT EST procedure a re in [place] the results section. documented in this encounter Results XR JOINT TEAM ALIGNMENT AP LAT [place] (02/24/2013 10:32 AM EST) Anatomical Region Laterality Modality N/A Radiographic Imaging Specimen (Source) Anatomical Collection Method Collection Time Re ceived Time Location / / Volume Laterality 02/24/2013 10:32 AM EST Narrative 02/24/2013 11:11 AM EST Examination JOINT TEAM STANDING ALIGNMENT AP LAT MARI USS SKYLINE/RIGHT Clinical History RIGHT KNEE PAIN Comparison 08/01/2004 Technique Separate images of the pelvis, knees and feet were acquired in the AP projection with the patient standing. In addition to routine views of the knee, these images were stitched together to f orm a composite image of the pelvis and legs allowing for evaluation of lower ex tremity alignment in the weight bearing position. Findings The standing alignment study again docum ents the presence of a left total knee arthroplasty. ??An electronic device now stated now projects over the right hip. ?? There is a mild degree of medial displac ement of the mechanical axis bilaterally. At the right knee a large joint effusion is present. ??Patellofemoral compartment narrowing and osteophyte for mation is present. ??Severe medial compartment narrowing is apparent on the AP projection. ??There are large marginal osteophytes and there is subcho ndral sclerosis. ??With flexion there is also severe joint space narrowing of the lateral compartment. ?? Chondrocalcinosis is present. ??I do not see a fracture. ??When comparison is made to 08/01/2004 there has been a prog ression in the severity of the patient's arthropathy. Impression Osteoarthritis of the right knee. ??Ther e has been progression when compared to earlier studies. Procedure Note Marlon Torres MD - 02/24/2013Forma tting of this note might be different from the original. Examination JOINT TEAM STANDING ALIGNMENT AP LAT MARI USS SKYLINE/RIGHT Clinical History RIGHT KNEE PAIN Comparison 08/01/2004 Technique Separate images of the pelvis, knees and feet were acquired in the AP projection with the patient standing. In addition to routine views of the knee, these images were stitched together to f orm a composite image of the pelvis and legs allowing for evaluation of lower ex tremity alignment in the weight bearing position. Findings The standing alignment study again docum ents the presence of a left total knee arthroplasty. An electronic device now s tated now projects over the right hip. There is a mild degree of medial displac ement of the mechanical axis bilaterally. At the right knee a large joint effusion is present. Patellofemoral compartment narrowing and osteophyte for mation is present. Severe medial compartment narrowing is apparent on the AP projection. There are large marginal osteophytes and there is subcho ndral sclerosis. With flexion there is also severe joint space narrowing of the lateral compartment. Chondrocalcinosis is present. I do not s ee a fracture. When comparison is made to 08/01/2004 there has been a prog ression in the severity of the patient's arthropathy. Impression Osteoarthritis of the right knee. There has been progression when compared to earlier studies. David Rehman MD IMG DX ORDERABLES documented in this encounter Visit Diagnoses Diagnosis Knee pain Pain in joint, lower leg documented in this encounter Care Teams Decision Support Manager Relationship Specialty Start Date End Date Ivan Gotti MD PCP - General 03/13/10 [address] [place] [address] documented as of this encounter
--- OUTSIDE RECORDS SUMMARY | 2022-03-10 21:03 | XMS_ITS | Encounter Summary ---
:1945 [place] [address] Care Team Providers Name Role Phone Ivan Gotti MD Primary Care Provider Encounter Details Date Type Department Care Team Description 04/07/2013 Clinical Support [place] [facility] [place], [place] [phone] Social History Tobacco Use Types Packs/Day Years Used Date Smoking Tobacco: Former Cigarettes Smokeless Tobacco: Never Alcohol Use Standard Drinks/Week Comments No 0 (1 standard drink = 0.6 oz pure alcoho l) never Sex Assigned at Date Recorded Not on file documented as of this encounter Last Filed Vital Signs Vital Sign Reading Time Taken Comments Blood Pressure - - Pulse 90 04/07/2013 11:37 AM EST Temperature - - Respiratory Rate - - Oxygen Saturation 97% 04/07/2013 11:37 AM EST Inhaled Oxygen Concentration - - Weight 93.9 kg (207 lb) 04/07/2013 11:37 AM EST Height 154.9 cm (5' 1) 04/07/2013 11:37 AM EST Body Mass Index 39.11 04/07/2013 11:37 AM EST documented in this encounter Progress Notes Madi Graham RN - 04/07/2013 12:41 PM EST PAT questionnaire reviewed with patient while in Pre admission testing. Patient states she has a pain stimulator device implanted in her right hip, and an electrode wire in her back. It is non functioning. She states her last dose of plavix was 04/07/13. Her surgery is scheduled for 04-15-13. She was instructed by her PCP to take 1/2 dose of lantus the night before surgery. Patient had blood work, urine and EKG done today. Pre op folder reviewed with patient. documented in this encounter Plan of Treatment Not on filedocumented as of this encounter Procedures Procedure Name Priority Date/Time Associated Diagnosis Comme nts EKG 12-LEAD Routine 04/07/2013 12:56 PM Osteoarthritis, knee Results for this EST procedure are i n the results section . documented in this encounter Results EKG 12 Lead (04/07/2013 12:56 PM EST) [facility] gist Method Time Signature Ventricular rate 83 BPM MUSE SYSTEM Atrial Rate 83 BPM MUSE SYSTEM P-R Interval 166 ms MUSE SYSTEM QRS Duration 88 ms MUSE SYSTEM Q-T Interval 386 ms MUSE SYSTEM QTC Calculated 453 ms MUSE SYSTEM (Bezet) Calculated P [place] 36 degrees MUSE SYSTEM Calculated R [place] -13 degrees MUSE SYSTEM Calculated T [place] 55 degrees MUSE SYSTEM INTERPRETATION Normal sinus rhythm MUSE SYSTEM Normal ECG When compared with ECG of 04-SEP-2006 10:24, Vent. rate has increased BY ??28 BPM Confirmed by MD Eleno, Albert ([id number]) on 04/07/2013 5:19: 18 PM Specimen Anatomical Collection Method Collection Time Receive d Time (Source) Location / / Volume Laterality 04/07/2013 12:56 04/07/2013 5:19 PM EST PM EST David Rehman MD ECG ORDERABLES Performing Organization Address City/State/ZIP Code Phon e Number MUSE SYSTEM documented in this encounter Visit Diagnoses Diagnosis Osteoarthritis, knee Osteoarthrosis, unspecified whether gene ralized or localized, lower leg documented in this encounter Care Teams Carbide Tool Die Maker Relationship Specialty Start Date End Date Ivan Gotti MD PCP - General 03/13/10 [address] [place] [address] documented as of this encounter
--- OUTSIDE RECORDS SUMMARY | 2022-03-10 21:03 | XMS_ITS | Encounter Summary ---
:1945 Author Organization [facility] [place] [address] Care Team Providers Name Role Phone Ivan Gotti MD Primary Care Provider Reason for Visit Reason Onset Date Comments Pain Management 04/02/2013 Encounter Details Date Type Department Care Team Description 04/02/2013 Telephone Orthopaedics at [facility] [place] Luis [place] [address] Social History Tobacco Use Types Packs/Day Years Used Date Smoking Tobacco: Former Cigarettes Smokeless Tobacco: Never Alcohol Use Standard Drinks/Week Comments No 0 (1 standard drink = 0.6 oz pure alcoho l) Sex Assigned at Date Recorded Not on file documented as of this encounter Miscellaneous Notes Telephone Encounter - Luis Padilla RN - 04/02/2013 3:33 PM EST Spoke with Dionne the nurse that works with Ivan Gotti, the patient's PCP. Requested that they continue to manage the long acting narcotics post op as patient has chronic low back pain and that will need to be managed as well as her post op pain after TKA. She will discuss with him and give us a call back next week. documented in this encounter Plan of Treatment Not on filedocumented as of this encounter Visit Diagnoses Not on filedocumented in this encounter Care Teams Lining Feller Relationship Specialty Start Date End Date Ivan Gotti MD PCP - General 03/13/10 [address] [place] [address] documented as of this encounter
--- OUTSIDE RECORDS SUMMARY | 2022-03-10 21:03 | XMS_ITS | Encounter Summary ---
:1945 Author Organization [facility] [place] [address] Care Team Providers Name Role Phone Ivan Gotti MD Primary Care Provider Reason for Visit Reason Comments Right Knee Pain Encounter Details Date Type Department Care Team Description 04/07/2013 Office Visit Orthopaedics at [facility] David Rehman, Osteoarthritis, knee; [facility] Knee pain, [place] [address] [place] [address] ORTHOPAEDIC SURGERY [place] [address] Social History Tobacco Use Types Packs/Day Years Used Date Smoking Tobacco: Former Cigarettes Smokeless Tobacco: Never Alcohol Use Standard Drinks/Week Comments No 0 (1 standard drink = 0.6 oz pure alcoho l) never Sex Assigned at Date Recorded Not on file documented as of this encounter Last Filed Vital Signs Vital Sign Reading Time Taken Comments Blood Pressure 146/71 04/07/2013 3:48 PM EST Pulse 81 04/07/2013 3:48 PM EST Temperature - - Respiratory Rate - - Oxygen Saturation - - Inhaled Oxygen Concentration - - Weight 94.3 kg (207 lb 12.8 oz) 04/07/2013 3:48 PM EST Height 154.9 cm (5' 1) 04/07/2013 3:48 PM EST stated Body Mass Index 39.26 04/07/2013 3:48 PM EST documented in this encounter Progress Notes David Rehman MD - 04/07/2013 3:36 PM EST his note is recorded by Daphney Alejandro RN acting as a scribe for David Rehman MD. PREOPERATIVE VISIT HISTORY OF PRESENT ILLNESS: Very pleasant 67 y.o. year-old female with severe osteoarthritis of the knee. I have seen the patient previously and the plan is for right total knee arthroplasty. Please refer to my previous note for the full history. She reports that the pain has not changed and has actually gotten a bit worse. She has reviewed the shared decision making video and is confident in the decision to go forward with total joint arthroplasty. PHYSICAL EXAMINATION: Exam is previously documented in my note and is unchanged. RELEVANT LAB STUDIES: Lab Results Component Value Date WBC 5.9 04/07/2013 HGB 14.3 04/07/2013 HCT 41.8 04/07/2013 PLATELET 174 04/07/2013 CREATININE 0.83 04/07/2013 INR 0.9 04/07/2013 The CrCl is unknown because both a height and weight (above a minimum accepted value) are required for this calculation. type and screen done. ASSESSMENT/PLAN: A 67 y.o. year-old female who presents for preoperative appointment today. I had a long discussion with her regarding the risks and benefits of total knee arthroplasty. We talked aboutbleeding, infection, need for further surgery, fracture, blood clots, implant failure, blood transfusion, and the complications of anesthesia up to and including . I used total knee implants to demonstrate for her how we perform the procedure and all questions were answered. I did review the history and physical today which says she is cleared for surgery and has no specific recommendations for further testing. I reviewed the labs and there were no issues with those. Informed consent was signedin the clinic today. We discussed DNR status and the patient is a full code. We will plan to restartPlavix for postoperatively for DVT prophylaxis. She was instructed today is the last dose of plavix prior to surgery. I discussed with them the possible discharge scenarios including going home versus needing to go to a rehab facility. We will make that determination after seeing how well mobilizationis progressing. documented in this encounter Miscellaneous Notes Miscellaneous - Provider, Scanning - 04/19/2013 12:29 PM EST documented in this encounter Plan of Treatment Not on filedocumented as of this encounter Procedures Procedure Name Priority Date/Time Associated Comments Diagnosis URINALYSIS WITH REFLEX Routine 04/07/2013 12:56 Osteoarthritis , Results for this CULTURE PM EST knee procedure are i n the results section. URINE CULTURE Routine 04/07/2013 12:56 Osteoarthritis, Results for this PM EST knee procedure are i n the results section. AB COMMENT Routine 04/07/2013 12:47 Results for this PM EST procedure are i n the results section. DIFFERENTIAL, AUTOMATED Routine 04/07/2013 12:47 Results for this PM EST procedure are i n the results section. TYPE AND SCREEN, SDP Routine 04/07/2013 12:47 Osteoarthritis, (FUTURE SURGERY, [facility] PM EST knee SAME DAY PROGRAM ONLY) ANTIBODY IDENTIFICATION Routine 04/07/2013 12:47 Results for this PM EST procedure are i n the results section. ABO/RH TYPING Routine 04/07/2013 12:47 Osteoarthritis, Results for this PM EST knee procedure are i n the results section. PROTHROMBIN TIME Routine 04/07/2013 12:47 Osteoarthritis, Resu lts for this PM EST knee procedure are i n the results section. CBC (WITH DIFF) Routine 04/07/2013 12:47 Osteoarthritis, Resul ts for this PM EST knee procedure are i n the results section. ANTIBODY SCREEN Routine 04/07/2013 12:47 Osteoarthritis, Resul ts for this PM EST knee procedure are i n the results section. BASIC METABOLIC PANEL Routine 04/07/2013 12:47 Osteoarthritis, Results for this (NON-FASTING) PM EST knee procedure are in the results section. documented in this encounter Results Urine culture Clean Catch Urine (04/07/2013 12:56 PM EST) [facility] Method Time Signature Urine Culture CERNER ? Patient Name: PEGGY COFFMAN ?? Ordered By: DAVID PENA [facility] ? MR#: [id number] ?LOC: ??3C ? /Sex: ??1945 (67 years), ? Female ? PROCEDURE: Urine Culture ?SOURCE: U CC ? COLLECTED: 04/07/2013 12:56 ? STARTED: 04/07/2013 13:37 ? FINAL REPORT ? Final Report ? Verified:04/08/2013 10:43 ? 10,000-49,000 cfu/ml mixed mucosal jean ? Note: Multiple bacterial morphotypes present. Suggest appropriate ? recollection with timely delivery to ? the laboratory, if clinically significant. ? Specimen (Source) Anatomical Collection Method Collection Time Re ceived Time Location / / Volume Laterality Urine specimen 04/07/2013 12:56 3 1:37 obtained by clean PM EST PM EST catch procedure (specimen) Resulting Agency Comment Spec In Lab David Rehman MD MICROBIOLOGY - GENERAL ORDER ATA Performing Organization Address City/State/ZIP Code Phon e Number [place] [phone] CERNER MILLENNIUM Urinalysis with microscopic (04/07/2013 12:56 PM EST) [facility] Method Time Signature Glucose UA Negative Negative CERNER mg/dL MILLENNIUM Protein UA Negative mg/dL CERNER MILLENNIUM Bilirubin UA Negative Negative CERNER mg/dL MILLENNIUM Comment: Clinical correlation required for positi ve Urine Bilirubin results as false positive may occur with some drugs and d rug related products. If a false positive is suspected a serum total bili cheung should be considered if clinically indicated. Urobilinogen UA Normal mg/dL CERNER MILLENN IUM pH UA 7.0 5.0 - 8.0 CERNER MILLENNIUM Blood UA Negative mg/dL CERNER MILLENNIUM Ketones UA Negative mg/dL CERNER MILLENNIUM Nitrite UA Negative CERNER MILLENNIUM Leukocytes UA Negative mcL CERNER MILLENNIU M Appearance UA Clear Clear CERNER MILLENNIU M Spec [place] UA 1.012 1.002 - 1.030 [facility] MIL LENNIUM Color UA Yellow Yellow [facility] MILLENNIUM RBC UA <1 0 - 4 /HPF CERNER MILLENNIUM WBC UA <1 0 - 5 /HPF CERNER MILLENNIUM Squam Epith UA 1 <=4 /HPF CERNER MILLENNI UM Trans Epith UA <1 <=1 /HPF CERNER MILLENNI UM Specimen Anatomical Collection Method Collection Time Receive d Time (Source) Location / / Volume Laterality Urine specimen 04/07/2013 12:56 3 1:06 (specimen) PM EST PM EST Resulting Agency Comment Spec In Lab David Rehman MD URINE ORDERABLES Performing Organization Address [facility] Phon e Number [address] CERNER MILLENNIUM Ab Comment (04/07/2013 12:47 PM EST) Component Value Ref Test Analysis Performed At [facility] Range Method Time Signature Ab Information INTERPRETATION: 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 ??Futur e units for MILLENNIUM transfusion will need to be selected as antigen negative and compatible at the antiglobulin phase. ??These steps will add about an ho ur to unit preparation time, but compatible units should be identifiable in invento ry. Ava Carpenter MD Transfusion Medicine Service 04/14/13 10:22 Comment: Ava Carpenter, Pathologist Verified:04/14/13 Specimen Anatomical Collection Method Collection Time Receive d Time (Source) Location / / Volume Laterality Blood specimen 04/07/2013 12:47 3 1:20 (specimen) PM EST PM EST Resulting Agency Comment Spec In Lab David Rehman MD BLOOD BANK ORDERABLES Performing Organization Address [facility]/ZIP Code Phon e Number [address] CERNER MILLENNIUM Antibody identification (04/07/2013 12:47 PM EST) athologist Signature Ab Identified Anti-C CERNER Anti-D MILLENNIUM Specimen Anatomical Collection Method Collection Time Receive d Time (Source) Location / / Volume Laterality Blood specimen 04/07/2013 12:47 3 1:20 (specimen) PM EST PM EST Resulting Agency Comment Spec In Lab David Rehman MD BLOOD BANK ORDERABLES Performing Organization Address City/State/ZIP [place] [address] [facility] [address] CERNER MILLENNIUM Differential, Automated (04/07/2013 12:47 PM EST) athologist Signature Neutrophils % 43.0 34.0 - CERNER 71.0 % MILLENNIUM Neutr Abs (ANC) 2.55 1.50 - CERNER 6.30 MILLENNIUM x10(3)/mcL Lymphocytes % 44.4 19.0 - CERNER 53.0 % MILLENNIUM Lymphocytes Abs 2.6 1.0 - 3.6 CERNER x10(3)/mcL MILLENNIUM Monocytes % 6.6 4.0 - 13.0 CERNER % MILLENNIUM Monocyte Abs 0.4 0.2 - 1.0 CERNER x10(3)/mcL MILLENNIUM Eosinophils % 5.1 0.0 - 7.0 CERNER % MILLENNIUM Eosinophils Abs 0.3 0.0 - 0.5 CERNER x10(3)/mcL MILLENNIUM Basophils % 0.7 0.0 - 2.0 CERNER % MILLENNIUM Basophils Abs 0.0 0.0 - 0.2 CERNER x10(3)/mcL MILLENNIUM Immature Gran % 0.20 0.00 - CERNER 0.66 % MILLENNIUM Comment: Immature granulocytes(IG's)percentage an d absolute count will include metamyelocytes, myelocytes, and promyelo cytes. Blood smears from CBCs yielding IG's will be scanned manually for concor dance. If this scan disagrees with the automated IG or if promyelocytes are not ed, a manual differential will be performed. Hortencia Gran Abs 0.01 0.00 - 0.05 x10(3)/mcL CER NER MILLENNIUM Specimen Anatomical Collection Method Collection Time Receive d Time (Source) Location / / Volume Laterality Blood specimen 04/07/2013 12:47 3 (specimen) PM EST 12:54 PM EST David Rehman MD HEMATOLOGY ORDERABLES Performing Organization Address City/[facility]/[place]IP [place] [address] CERNER MILLENNIUM Antibody screen (04/07/2013 12:47 PM EST) Analysis Performed At Patho logist Time Signature Ab Screen Positive CERNER Interp MILLENNIUM Expires at [phone] [facility] [id number] on: MILLENNIUM Specimen Anatomical Collection Method Collection Time Receive d Time (Source) Location / / Volume Laterality Blood specimen 04/07/2013 12:47 3 1:20 (specimen) PM EST PM EST Resulting Agency Comment Spec In Lab David Rehman MD BLOOD BANK ORDERABLES Performing Organization Address City/[facility]/[place] [address] CERNER MILLENNIUM ABO/Rh Typing (04/07/2013 12:47 PM EST) P athologist Signature ABORh Type O Neg CERNER MILLENNIUM Specimen Anatomical Collection Method Collection Time Receive d Time (Source) Location / / Volume Laterality Blood specimen 04/07/2013 12:47 3 1:20 (specimen) PM EST PM EST Resulting Agency Comment Spec In Lab David Rehman MD BLOOD BANK ORDERABLES Performing Organization Address City/[facility]/[place] [address] CERNER MILLENNIUM Prothrombin Time (04/07/2013 12:47 PM EST) P athologist Signature PT 12.3 12.0 - 15.0 CERNER sec MILLENNIUM Comment: [facility] Transfusion Committee Guidelines: I NR less than 2.0, PTT less than OR equal to 43.5 seconds, or Fibrinogen gre ater than or equal to 100 mg/dl indicate adequate procoagulant activity for hemostasis in patients without underlying bleeding disorders. INR 0.9 0.9 - 1.1 CERNER MILLENNIUM Specimen Anatomical Collection Method Collection Time Receive d Time (Source) Location / / Volume Laterality Blood specimen 04/07/2013 12:47 3 (specimen) PM EST 12:54 PM EST Resulting Agency Comment Spec In Lab David Rehman MD HEMATOLOGY ORDERABLES Performing Organization Address City/State/ZIP Code Phon e Number [place] [phone] CERNER MILLENNIUM Basic Metabolic Panel (non-fasting) (04/07/2013 12:47 PM EST) P athologist Signature Glucose Lvl 149 60 - 199 CERNER mg/dL MILLENNIUM Comment: Diabetes: >=200 mg/dL plus symp toms BUN 16 8 - 18 mg/dL CERNER MILLENNIUM Creatinine 0.83 0.70 - 1.20 mg/dL CERNER MILL ENNIUM Comment: Please note that the pediatric reference intervals supplied above were not validated at [facility]. Results from pediatri c patients should be interpreted in conjunction to the patient's age, height and muscle mass. Sodium 141 135 - 145 mmol/L CERNER SHIREEN NIUM Potassium 3.8 3.5 - 5.0 mmol/L CERNER SHIREEN NIUM Comment: Please note: ??Patients with WBC >100,00 0 may have falsely elevated Potassium levels. ??For accurate Potassium quantif ication in these patients send serum separator tube (gold top) for subsequent determinations. ??Contact the Clinical Chemistry Laboratory if there are any qu estions. Chloride 100 98 - 107 mmol/L CERNER MILLENN IUM CO2 30 22 - 31 mmol/L CERNER MILLENNI UM Anion Gap 11 5 - 15 mmol/L CERNER MILLENNIU M Calcium 9.9 8.5 - 10.5 mg/dL CERNER SHIREEN NIUM Estimated GFR >60 >=60 CERNER MILLENNIU M Comment: This estimated GFR (eGFR) value was calc ulated using the MDRD equation which has been validated on patients between t he ages of 18 and 70. The MDRD should not be used to assess kidney function in patients < 18 years of age or in patients with extremes of body mass, or in patients with acute kidney failure. This value should be multiplied by 1.2 f or patients. For further information please copy and past e the following links into your internet browser. http://www.nkdep.nih.gov/lab-evaluation. shtml http://www.kidney.org/professionals/ Specimen Anatomical Collection Method Collection Time Receive d Time (Source) Location / / Volume Laterality Blood specimen 04/07/2013 12:47 3 (specimen) PM EST 12:54 PM EST Resulting Agency Comment Spec In Lab David Rehman MD CHEMISTRY ORDERABLES Performing Organization Address City/State/[place] [address] CERNER MILLENNIUM CBC (with Diff) (04/07/2013 12:47 PM EST) P athologist Signature WBC 5.9 4.0 - 10.0 CERNER x10(3)/mcL MILLENNIUM RBC 4.61 3.93 - 5.22 CERNER x10(6)/mcL MILLENNIUM Hemoglobin 14.3 11.2 - 15.7 CERNER gm/dL MILLENNIUM Hematocrit 41.8 34.0 - 45.0 CERNER % MILLENNIUM MCV 90.7 79.0 - 94.0 CERNER fL MILLENNIUM MCH 31.0 26.6 - 32.2 CERNER pg MILLENNIUM MCHC 34.2 32.0 - 36.5 CERNER gm/dL MILLENNIUM Platelets 174 145 - 370 CERNER x10(3)/mcL MILLENNIUM RDWSD 44.7 35.0 - 46.0 CERNER fL MILLENNIUM RDWCV 13.6 10.9 - 14.4 CERNER % MILLENNIUM MPV 9.6 9.0 - 12.0 CERNER fL MILLENNIUM Specimen Anatomical Collection Method Collection Time Receive d Time (Source) Location / / Volume Laterality Blood specimen 04/07/2013 12:47 3 (specimen) PM EST 12:54 PM EST Resulting Agency Comment Spec In Lab David Rehman MD HEMATOLOGY ORDERABLES Performing Organization Address City/[facility]/[place] [address] CERNER MILLENNIUM documented in this encounter Visit Diagnoses Diagnosis Osteoarthritis, knee Osteoarthrosis, unspecified whether gene ralized or localized, lower leg Knee pain, right Pain in joint, lower leg documented in this encounter Care Teams Manager User Interface Relationship Specialty Start Date End Date Ivan Gotti MD PCP - General 03/13/10 [address] [place] [address] documented as of this encounter
--- OUTSIDE RECORDS SUMMARY | 2022-03-10 21:03 | XMS_ITS | Encounter Summary ---
:1945 [place] [address] Care Team Providers Name Role Phone Ivan Gotti MD Primary Care Provider Encounter Details Date Type Department Care Team Description 04/15/2013 - Hospital Encounter 3 [place] David Brunner, Osteoa rthritis, knee; 04/18/2013 [facility] Osteoarthritis, knee - s/p R TKA () [facility] [place] [facility] [place], [place] SURGERY [id number] [place] [address] [facility] Social History Tobacco Use Types Packs/Day Years Used Date Smoking Tobacco: Former Cigarettes Smokeless Tobacco: Never Alcohol Use Standard Drinks/Week Comments No 0 (1 standard drink = 0.6 oz pure alcoho l) never Sex Assigned at Date Recorded Not on file documented as of this encounter Last Filed Vital Signs Vital Sign Reading Time Taken Comments Blood Pressure 120/48 04/16/2013 7:42 AM EST Pulse 78 04/16/2013 7:42 AM EST Temperature 36.8 ??C (98.2 ??F) 04/16/2013 7:42 AM EST Respiratory Rate 18 04/16/2013 7:42 AM EST Oxygen Saturation 96% 04/16/2013 7:42 AM EST Inhaled Oxygen Concentration - - Weight 93.9 kg (207 lb) 04/15/2013 3:27 PM EST Height 154.9 cm (5' 0.98) 04/15/2013 3:27 PM EST Body Mass Index 39.13 04/15/2013 3:27 PM EST documented in this encounter Discharge Instructions Discharge InstructionsChapincito Reynoso MD - 04/18/2013 2:56 PM EST Activity: 1. You can weight bear as tolerated on your Right leg remembering to use a walker or crutches at alltimes for balance and protection. 2. Flexion AND extension are important to work on at home. You should NOT place a pillow under your right knee. To help with extension you can place a pillow under your heel or lower leg or placed lengthwise along the leg. Again DO NOT place a pillow under the operated knee for comfort. 3. You should wear the SHIRAZ hose to knee bilaterally until you are seen in followup. Remove these at least once per day to inspect your skin. Anti-coagulation follow up: You have been discharged on your usual dose of Plavix, 75 mg daily. Diet: Resume usual consistent carbohydrate diet, but increase your intake of fluids and fiber while you are on narcotic pain meds to prevent constipation Driving: No, not until you are cleared to do so by your Orthopedic surgeon. Ideally you should not drive if you are on narcotic pain meds as these can affect your judgement and reaction time. Call yoursurgeon with any questions. Medication: 1. The pain medication that you are using can cause constipation, so make sure you increase your intake of fluids and fiber while you are on them. You should also take the stool softener that was ordered, sennakot, to factilitate a bowel movement. An vlzi-rbm-twvcuck medication, miralax can also be used if needed to combat constipation 2. If you need a renewal on your narcotic pain medication, you need to give the Orthopedic clinic enough time to process your request. This can take up to three days, so plan accordingly. 3. You have been discharged on a long acting (Oxycontin) and a short acting narcotic. You will be onthese medications for a limited period of time only. You will need to follow-up with your Primary Care Provider for ongoing pain evaluation/management. 4. Continue the Tylenol around the clock for the next 10 days, (Apr.25). This can be effective in controlling pain along with your other medications. Shower: 1. You can shower but remember your activity limitations and always have a chair available for balance and protection. DO NOT submerge the dressing/incision. 2. (Mepilex) Do not let water run over the operative dressing. If it becomes wet lightly pat the dressing dry. DO NOT submerge the incision. 3. You have skylar/sutures. Always cover them with a waterproof dressing or plastic bag when showering until they are removed. 4. After skylar/sutures are removed you can let water run gently over the incision. Wound (Mepilex): 1. Sutures/skylar: Staple/suture removal 11-14 days after surgery (approximately Apr.29). 2. Remove your operative dressing 7 days from your surgery (Apr.22). When it is removed you can leave the incision open to air or cover it with a light dressing. 3. If you have lots of drainage when you get home (and it is before Apr.22), remove this operativedressing and replace it with dry sterile gauze. Continue with daily dressing changes (and as needed)until the drainage stops, then remove the dressing and leave the incision open to air or lightly covered. 4. Do not pull back the Mepilex dressing to inspect the incision. Keep the Mepilex dressing in placeuntil Apr 22, unless wet or soiled. FOLLOWUP APPOINTMENTS: 1. You will have followup appointments at [facility] as indicated in Future Appointments and Orders. Youwill have an xray prior to those appointments so please come to Radiology, desk 3T, 1 hour BEFORE your appointment for those x-rays. 2. You have a follow-up appointment with your Primary Care Provider, Dr. Gotti, ([phone]), on April 26, at 2:25 pm. This appointment is for continued pain management. documented in this encounter Medications at Time [...] Meter 1 each by 0 (FREESTYLE FREEDOM [facility].(Non-Drug; Combo LITE) monitoring kit Route) route as needed. insulin by Misc.(Non-Drug; 0 syringe,safetyneedle Combo Route) route. 0.5 mL 29 x 1/2 Syrg lancets (FREESTYLE by [facility].(Non-Drug; 0 LANCETS) 28 gauge Misc Combo Route) [...] mg by mouth 0 02/24/2018 tablet daily. [place]-3 Fatty Acids Take 1 capsule by 0 11/23/2015 (FISH OIL) 500 mg Cap mouth daily. OXYGEN-AIR DELIVERY by Misc.(Non-Drug; 0 11/23/2015 SYSTEMS (HORIZON NASAL Combo Route) route. CPAP SYSTEM MISC) documented as of this encounter Progress Notes Carmita Puga, PT - 04/18/2013 4:46 PM EST Physical Therapy Treatment Note Visit #: 2 Patient Dx: Pt is s/p (R) TKA Precautions: WBAT (R) LE, fall risk S: I been through this before. I'm prepared Pt feels confident about discharge home O: Patient seen bedside to address goals. Pt demonstrated the following ?? Reviewed exercises with pt in sitting and supine, AROM (R) knee in sittin -70 ?? Sit><stand: bed><FWW CC><FWW without assistance ?? Pt amb with FWW with supervision ~130', WBAT (R) LE ?? Supine><sit without assistance ?? Pt able to step up/down 1 curb step by back stepping using FWW and supervision ?? Pt on RA, Sp02: 94% HR: 73 Pain: (R) knee pain 10/28 - 11/28 Education: Pt/family education ongoing A: Pt did well with mobility. Should be safe for discharge home with follow up PT Physical Therapy Goals: Pt will be knowledgeable of prescribed exercises. Pt will demonstrate AROM knee extension 0-15 degrees and flexion 80-90 degrees Pt will move supine<>sit independently. Pt will move sit<>stand independently. Pt will ambulate 150 feet using std walker independently Pt will negotiate one step with a std walker Discharge Recommendations: Recommend follow up PT P: Cont per POC as outlined on 04/16/13 Total time spent with patient: 30 minutes Total timed interventions: 30 minutes therapeutic functional Pager:[phone] CARMITA PUGA, ZACK Physical Therapy Rehabilitation Department Scott Shanks RN - 04/18/2013 4:19 PM EST Patient discharged to home with VNA services. IV removed, site benign. My assessment remains unchanged from my previous assessment. Patient denies chest pain and shortness of breath. Discussed pain management with patient, pain tolerable. Patient medicated prior to discharge. Patient has all belongings. Patient received discharge summary and prescriptions. These were reviewed. All questions answered.Patient encouraged to call with questions or concerns. Patient discharged to home with family. Discharge Summary was faxed, RN called report to VNA. Darius Etienne RN - 04/18/2013 11:44 AM EST Office of Care Management/[facility] (CRC)/Discharge Planning Note CRC Draius Brody RN (pager [phone]) Patient: Peggy Coffman : 1945 (67 y.o.) Home: [facility] [phone] LOS: 3 days Care reviewed with Dr. Chapincito Reynoso. Reviewed record and interviewed patient. Reviewed CRC role and services accepted. ?? Anticipated barriers to discharge: None ?? Identified patient/family concerns r/t discharge: None ?? Admission status: 04/15/13 IPI Order to Admit is appropriate and signed by attending provider Dr.Karl Gaston ?? Anticipated discharge date: Today, Thursday 03/29 ?? Anticipated discharge place: Home ?? Home health agency: [facility] ([place], [place]) orders pended. phone/ fax ?? Transportation at discharge: ?? Family involved in discharge planning: is at the bedside, supportive, and involved in discharge planning. ?? PCP: IVAN GOTTI MD, Future Appointments Date Time Provider Department Center 05/12/2013 1:00 PM David Gaston MD [facility] 3[facility] None Plan: Care Management will continue to monitor progress, follow for continuity of care, and assist with discharge planning. Patient Active Problem List Diagnosis Code ??? Osteoarthritis, knee - s/p R TKA (04/15/13) 715.96 ??? Chronic pain 338.29 ??? CAD (coronary artery disease) 414.00 ??? Diabetes mellitus 250.00 ??? Anticoagulant long-term use on plavix V58.61 ??? 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 HTN (hypertension) 401.9 ??? Hypercholesterolemia 272.0 ??? migraine H/A 346.21 ??? Low back pain 724.2 ??? Obstructive sleep apnea 327.23 ??? 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 Depression 311 ??? Thyroid cyst 246.2 ??? adenoma coln polyp 211.3 ??? Obesity, Class II, BMI 35-39.9 278.00 Chapincito Reynoso MD - 04/18/2013 6:16 AM EST Orthopaedic Surgery Inpatient Progress Note Peggy Coffman is a 67 y.o. female who underwent a Right Total Knee Replacement on 04/15/2013 Subjective: The patient is doing well. Denies chest pain, shortness of breath, nausea and vomiting. Due for dilaudid and c/o knee paint this AM. Pain control has generally been good. Objective: Temp: [36.1 ??C (97 ??F)-37 ??C (98.6 ??F)] Heart Rate: [64-83] Resp: [18-19] BP: (97-150)/(45-70) SpO2: [92 %-100 %] I/O last 3 completed shifts: In: 1999 [P.O.:1999] Out: 2750 [Urine:2750] I/O this shift: In: 342 [P.O.:342] Out: 1750 [Urine:1750] Physical Exam: General: Well appearing, no acute distress Cardiovascular: Regular rate and rhythm Resp: non-labored breathing Right Lower Extremity Exam: Sitting in chair, NAD Foot wwp, brisk cap refill Sensation intact to light touch to DP/SP/T nerve distributions Motor intact to ADF/APF/EHL Dressing dime sized area of serosang drainage Laboratory Recent Labs Basename 04/18/13 0401 04/17/13 0314 04/16/13 0344 WBC 6.0 8.9 8.7 HGB 10.5* 11.1* 11.5 HCT 32.4* 33.4* 35.6 PLATELET 116* 143* 149 NA 134* 131* 134* K 4.2 4.2 4.4 CL 98 96* 98 CO2 30 27 26 BUN 22* 15 20* CREATININE 1.00 0.67* 1.07 INR -- -- -- Assessment: 67 y.o. female s/p Right TKA doing well post-op. Continue to work on PO pain management and mobilization. Expect d/c home with VNA after PT today. Plan: ?? Mobilize with Physical Therapy - Weight bearing as tolerated ?? Mepilex dressing - changed POD#7 unless soiled ?? Wound closed with skylar, remove in 2 weeks ?? Urinating independently ?? Antibiotics x 24 hours ?? Pain Control: transition to PO pain meds ?? DVT Prophalaxis: Plavix ?? Discharge Planning: Home vs rehab per PT final recommendations. ?? Follow up in 4-6 weeks with knee x-Rays. CHAPINCITO REYNOSO MD 04/18/2013 Future Appointments Date Time Provider Department Center 05/12/2013 1:00 PM David Gaston MD [facility] None Lucero Vaughn, PT - 04/17/2013 4:41 PM EST Attempted to see pt this afternoon. Pt ambulated 1 lap with Mobility BOILER OUT with FWW around unit. Reports pain 8/10 after mobility. Pt reports to fatigued to participate in exercises or PT activities. Pt has 1 step to enter home. Will follow up early tomorrow morning. Enc ambulation with nursing later this evening and to do her HEP. Pt verbalized agreement. ~Lucero Vaughn, PT Pager [phone] Faustina Yang, RD - 04/17/2013 4:14 PM EST Nutrition Services Initial Note Reason for Intervention: consult for poor po intake S: Not hungry since surgery because I'm not active. O: Patient Active Problem List Diagnosis Code ??? Osteoarthritis, knee - s/p R TKA (04/15/13) 715.96 ??? Chronic pain 338.29 ??? CAD (coronary artery disease) 414.00 ??? Diabetes mellitus 250.00 ??? Anticoagulant long-term use on plavix V58.61 ??? 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 HTN (hypertension) 401.9 ??? Hypercholesterolemia 272.0 ??? migraine H/A 346.21 ??? Low back pain 724.2 ??? Obstructive sleep apnea 327.23 ??? 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 Depression 311 ??? Thyroid cyst 246.2 ??? adenoma coln polyp 211.3 ??? Obesity, Class II, BMI 35-39.9 278.00 Past Surgical History Procedure Date ??? Musculoskeletal surgery unlisted ??? Total knee arthroplasty 04/15/2013 @TOTAL KNEE ARTHROPLASTY performed by David Gaston MD at [facility] Past Medical History Diagnosis Date ??? Allergy ??? Blood disorder ??? Musculoskeletal disease ??? Hypertensive disease ??? Breast disease ??? Elevated cholesterol ??? Chronic pain ??? Diabetes ??? Digestive problems ??? Infection ??? Urinary disorder ??? Hormone disorder Diet order: CHO control level 2 Oral Supplements ordered: Boost Glucose Control 3 x day Appetite: not hungry Food Allergies: NKFA Food Intolerances: denies Chewing/Swallowing: denies difficulty Food Preferences: none Admit Weight: 93.89 kg Height: 154.9 BMI: 39.2 pert meds:multivitmain, vitamin C, Vitamin B 12, Vitamin B 6, Novolog, Lantus, others noted Lab Results Component Value Date Sodium 131* 04/17/2013 Potassium 4.2 04/17/2013 Chloride 96* 04/17/2013 CO2 27 04/17/2013 BUN 15 04/17/2013 Creatinine 0.67* 04/17/2013 Glucose Lvl 121 04/17/2013 Lab Results Component Value Date CALCIUM 8.7 04/17/2013 Assessment: Pt seen per consult request for poor po intake. States that she just isn't hungry since surgery. Shefeels it is because she is not active. Denies difficulty chewing, swallowing, or problems with nausea. States that her appetite was fine prior to surgery. Denies any particular food preferences. Deniesneed for information on CHO control diet. Declines offer of between meal snacks. Is agreeable to trying Boost Glucose Control supplements that have been ordered. Encouraged eating small amounts frequently, and to concentrate on getting a good source of protein at all meals and snacks. States that she knows what foods are high in protein. Plan/Recommendations: CHO control level 2 diet as ordered. Pt denies needing information. Encourage p.o. Intake, debbie protein for healing. [place] food preferences as able. Boost Glucose Control supplements 3 x day as ordered. Pt declines other snacks. Monitor weight. Nutrition services to follow up weekly unless consulted in the interim. Brooklyn Sibley OT - 04/17/2013 3:55 PM EST Occupational Therapy orders have been received, attempted to see patient 2 x for initial evaluation,however, patient with pain issues, requesting to defer. Evaluation to follow as patient is availableto participate. Brooklyn Causey OT/L Pager [phone] Occupational Therapist Rehabilitation Department Kathy Chan - 04/17/2013 9:01 AM EST Regional Anesthesia Progress Note Date of Encounter: 04/17/2013 Provider: Kathy Silver MD Attending: Antelmo Rollins MD ID: Patient is POD# 2 s/p Right TKA for which the patient received right femoral nerve block for post-operative pain control. Subjective: Pain is well controlled with PO pain meds. Sensation is intact, pt feels like strength in quads is improved since yesterday Objective: Sensory Exam: numbness has resolved over anterior knee Motor Exam: able to perform straight leg raise against gravity and with some resistance Assessment: Pt is POD2 s/p R TKA for which she received R FNB for post op pain control. Sensory block has resolved; there is residual motor block which seems to be improving. Expect that this will continue to resolve. Pt was d/w Dr. Rollins Plan and/or Recommendations: Continue current pain regimen as ordered Will continue to follow with you for resolution of motor symptoms of nerve block. Kathy Silver MD [facility] Anesthesiology Regional team pager [phone] Susan Roque MD - 04/17/2013 5:52 AM EST Orthopaedic Surgery Inpatient Progress Note Peggy Coffman is a 67 y.o. female who underwent a Right Total Knee Replacement on 04/15/2013 Subjective: The patient is doing well. Pain is under control. Denies chest pain, shortness of breath, nausea and vomiting. Objective: Temp: [36.6 ??C (97.9 ??F)-37.1 ??C (98.8 ??F)] Heart Rate: [71-89] Resp: [16-18] BP: (107-176)/(48-84) SpO2: [92 %-99 %] I/O last 3 completed shifts: In: 5171 [P.O.:1330; I.V.:3641; IV Piggyback:200] Out: 2990 [Urine:2515; Other:275; Blood:200] I/O this shift: In: - Out: 1000 [Urine:1000] Physical Exam: General: Well appearing, no acute distress Cardiovascular: Regular rate and rhythm Resp: non-labored breathing Right Lower Extremity Exam: Sitting in chair, NAD 2+ PT pulses Sensation intact to light touch to DP/SP/T nerve distributions Motor intact to ADF/APF/EHL Dressing c/d/i Laboratory Recent Labs Basename 04/17/13 0314 04/16/13 0344 WBC 8.9 8.7 HGB 11.1* 11.5 HCT 33.4* 35.6 PLATELET 143* 149 NA 131* 134* K 4.2 4.4 CL 96* 98 CO2 27 26 BUN 15 20* CREATININE 0.67* 1.07 INR -- -- Assessment: 67 y.o. female s/p Right TKA doing well post-op Plan: ?? Mobilize with Physical Therapy - Weight bearing as tolerated ?? Mepilex dressing - changed POD#7 unless soiled ?? Wound closed with skylar, remove in 2 weeks ?? Urinating independently ?? Antibiotics x 24 hours ?? Pain Control: transition to PO pain meds ?? DVT Prophalaxis: Plavix ?? Discharge Planning: Home vs rehab per PT final recommendations. ?? Follow up in 4-6 weeks with knee x-Rays. SUSAN ROQUE MD 04/17/2013 Future Appointments Date Time Provider Department Center 05/12/2013 1:00 PM David Gaston MD [facility] 3[facility] None Brandyn Gaxiola RN - 04/16/2013 3:34 PM EST S: I want to go home, I had my other knee done in [place] and then revised in [place] and it took me three yrs to get up the courage to have this one done. O: Chart reviewed and met with pt who is lying in bed and itching but states she is sweating becauseof the heat and she is used to cooler temps with her Wood heat. Pt had R TKA yesterday by Dr Gaston.Pt is , disabled, not working, and lives in [place], [place]. Pt denies the need for in-pt rehab and feels she can manage at home with VNA. Pt requests [facility] for services. She will be on Plavix, SR in 10-14 days, and Home PT 3xwk within 24 hrs of d/c including weekends. Pt requests a FWW andhas no preference so I have ordered from [facility] who will deliver to pt's room this afternoon. A: Progressing toward d/c to home with VNA, DME, and family assist. P: Anticipate d/c in 24-48 hrs. Eduardo Lockhart - 04/16/2013 8:45 AM EST Regional Anesthesia Progress Note Date of Encounter: 04/16/2013 Provider: EDUARDO COCHRAN MD Attending: Antelmo Rollins MD ID: Patient is POD# 1 s/p Right TKA for which the patient received right femoral nerve block for post-operative pain control. Subjective: Today the patient has excellent pain control and at present states pain is 1 out of 10. Objective: Please see VS flowsheet Appears comfortable Sensory Exam: numbness on anterior knee Motor Exam: unable to perform knee extension while sitting in bed Block insertion site free of bruising, hematoma, or erythema Assessment: Peripheral nerve block for post-operative pain control, currently with excellent pain control. Block appears to be still in effect. Plan and/or Recommendations: ?? Continue current pain regimen as ordered Will continue to follow with you for resolution of motor and sensory symptoms of nerve block. EDUARDO COCHRAN MD Regional team pager [phone] David Gaston MD - 04/16/2013 8:11 AM EST Orthopaedic Surgery Inpatient Progress Note Peggy Coffman is a 67 y.o. female who underwent a Right Total Knee Replacement on 04/15/2013 Subjective: The patient is doing well. Pain is under control. Denies chest pain, shortness of breath, nausea and vomiting. Hemoglobin drop associated with anemia from a combination of acute blood loss from surgery and hemodilution as expected. Objective: Temp: [36.2 ??C (97.2 ??F)-36.8 ??C (98.2 ??F)] Heart Rate: [62-87] Resp: [12-18] BP: (91-124)/(46-73) SpO2: [92 %-99 %] I/O last 3 completed shifts: In: 3891 [P.O.:50; I.V.:3641; IV Piggyback:200] Out: 1740 [Urine:1265; Other:275; Blood:200] I/O this shift: In: 400 [P.O.:400] Out: 350 [Urine:350] Physical Exam: General: Well appearing, no acute distress Cardiovascular: Regular rate and rhythm Resp: non-labored breathing Right Lower Extremity Exam: Sitting in chair, NAD 2+ PT pulses Sensation intact to light touch to DP/SP/T nerve distributions Motor intact to ADF/APF/EHL Dressing c/d/i Drains with serosanguinous output Laboratory Recent Labs Basename 04/16/13 0344 WBC 8.7 HGB 11.5 HCT 35.6 PLATELET 149 NA 134* K 4.4 CL 98 CO2 26 BUN 20* CREATININE 1.07 INR -- Assessment: 67 y.o. female s/p Right TKA doing well post-op Plan: ?? Mobilize with Physical Therapy - Weight bearing as tolerated ?? Mepilex dressing - changed POD#7 unless soiled ?? Wound closed with skylar, remove in 2 weeks ?? Drain pulled tip intact ?? D/C narayanan POD#1 ?? Antibiotics x 24 hours ?? Pain Control: transition to PO pain meds ?? DVT Prophalaxis: Plavix ?? Discharge Planning: Home vs rehab per PT final recommendations. ?? Follow up in 4-6 weeks with knee x-Rays. OMAR VARELA MD 04/16/2013 Future Appointments Date Time Provider Department Center 05/12/2013 1:00 PM David Gaston MD [facility] 3[facility] None Reason for Admission: TKA See Dr. Varela's note for details. I saw and evaluated the patient and agree with the resident's findings and plans as written. Pt is comfortable this am. Mobilize with PT. Disposition: pending mobility and PT clearance. David Gaston MD MS Narayan Almeida MD - 04/15/2013 3:23 PM EST Orthopaedic Surgery Post-Op Check Note Surgery: Right TKA Patient Active Problem List Diagnosis Code ??? Osteoarthritis, knee - s/p R TKA (04/15/13) 715.96 ??? Chronic pain 338.29 ??? CAD (coronary artery disease) 414.00 ??? Diabetes mellitus 250.00 ??? Anticoagulant long-term use on plavix V58.61 ??? 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 HTN (hypertension) 401.9 ??? Hypercholesterolemia 272.0 ??? migraine H/A 346.21 ??? Low back pain 724.2 ??? Obstructive sleep apnea 327.23 ??? 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 Depression 311 ??? Thyroid cyst 246.2 ??? adenoma coln polyp 211.3 Patient seen: In PACU appx 1500 S/Events: Denies CP, SOB, nausea, vomiting, abd pain. Pain well controlled. Resting comfortably. O: Vitals: Temp: [36.2 ??C (97.2 ??F)-36.8 ??C (98.2 ??F)] Heart Rate: [62-84] Resp: [12-18] BP: (97-124)/(46-73) SpO2: [93 %-99 %] I/O this shift: In: 2977 [P.O.:50; I.V.:2927] Out: 565 [Urine:265; Other:100; Blood:200] Exam: General: NAD, awake/alert Resp: Breathing comfortably Abd: S/NT/ND RLE: Dressing c/d/i. In cryocuff. Constavac attached and draining serosagnuinous fluid. Motor intactto EHL, FHL, TA. Sensation intact in foot/calf. Brisk capillary refill distally. Labs: No results found for this basename: WBC:3,HGB:3,HCT:3,PLATELET:3,NA:3,K:3,CL:3,CO2:3,BUN:3,CREATININE:3 in the last 72 hours A/P: 67 y.o. year old female POD#0 s/p right TKA, progressing well with stable vitals and uop. - Orders reviewed - continue all post-operative care -WBAT -plavix -floor status Rosie Niño RN - 04/15/2013 3:00 PM EST Patient arrived from PACU to floor via bed. Patient awake, alert, and oriented to person, place, time, and situation. Lungs are clear and heart rate regular. Patient has hypoactive bowel sounds and states their last BM was on 04/15/13 AM before surgery. Patient has an TED wrap to the right knee, notedto be clean, dry, and intact. Patient has an IV of LR infusing at 100cc/hr to their peripheral IV inthe right hand Patient states their pain level is 7/10. Patient demonstrates use of Dilaudid HEALTH PROMOTION MANAGER. Patient denies chest pain, shortness of breath, numbness or tingling. Patient oriented to room, call enamorado, and Incentive Spirometry. RN will continue to monitor patient. documented in this encounter H&P Notes David Gaston MD - 04/15/2013 9:14 AM EST Patient Name: Peggy Coffman Patient Age: 67 y.o. Birthdate: 1945 Admit date: 04/15/2013 Attending Physician: David Gaston MD Please see H&P note for visit documentation and PCP note under scanned documents. The patient's history and physical exam have been reviewed and completed. There has been no intervalchange from that of the pre-operative history and physical exam done within the last 30 days. documented in this encounter Procedure Notes Provider, Scanning - 04/19/2013 12:29 PM ESTAssociated Order(s): SCAN DOC: IMPLANTABLE DEVICES documented in this encounter Miscellaneous Notes Miscellaneous - Provider, Scanning - 04/19/2013 12:29 PM EST Miscellaneous - Provider, Scanning - 04/19/2013 12:29 PM EST Discharge Summary - Chapincito Reynoso MD - 04/18/2013 2:49 PM EST Department of Orthopedic Medicine - Discharge Summary Patient Name: Peggy Coffman Patient Age: 67 y.o. Birthdate: 1945 Admit date: 04/15/2013 Discharge date: 04/18/2013 Attending Physician: David Gaston MD Discharge Diagnoses (Hospital Problems) and Secondary Diagnoses (Chronic Problems): Active Hospital Problems Diagnosis ??? Osteoarthritis, knee - s/p R TKA (04/15/13) Resolved Hospital Problems Diagnosis Date Resolved No resolved problems to display. Active Non-Hospital Problems Diagnosis ??? Obesity, Class II, BMI 35-39.9 BMI 39.3 ??? Hypercholesterolemia ??? migraine H/A ??? Low back pain Chronic ??? Obstructive sleep apnea ??? recurrent r peroneal entrapment ??? Depression ??? Thyroid cyst ??? adenoma coln polyp ??? Chronic pain ??? CAD (coronary artery disease) ??? Diabetes mellitus ??? Anticoagulant long-term use on plavix ??? 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 HTN (hypertension) Operations/Major Procedures: 04/15/2013 Surgeon(s) and Role: * David Gaston MD - Primary * Omar Varela MD - Resident-Surgeon Kleber Procedure: Right Total Knee Arthroplasty Hospital Course: The patient was admitted via Same Day Surgery for the above operation. DVT prophylaxis: Plavix as before surgery. Patient began rehab on POD#1 w/ weight bearing as tolerated of right leg remembering touse protection at all times for balance and protection. Drains were removed POD# 1. Narayanan was removed POD#1 and patient was voiding spontaneously. Wound inspected POD#3 and found to be benign. Patient did not have a bowel movement prior to discharge but was passing flatus . By POD#3 the patient was medically stable and was cleared for safe discharge to home. Important Studies and Lab Data: Labs: Lab Results Component Value Date HGB 10.5* 04/18/2013 HCT 32.4* 04/18/2013 Transfusions: No Discharge Conditions/Prognosis: Stable, awake, and alert. Mobilizing with a walker, pain controlled on oral medications. Vital Signs: Last value Range last 24 hrs Temperature Temp: 36.9 ??C (98.5 ??F) Temp: [36.1 ??C (97 ??F)-36.9 ??C (98.5 ??F)] Heart Rate Heart Rate: 60 Heart Rate: [60-83] Blood Pressure BP: 96/51 mmHg BP: (96-150)/(45-66) Respiratory Rate Resp: 18 Resp: [18-19] SpO2 SpO2: 94 % SpO2: [92 %-100 %] Art BP BP (Arterial Line): -- Discharge to: Home Discharge Medications: Current Discharge Medication List New Meds Dose Details acetaminophen (TYLENOL) 500 mg tablet 1,000 mg Take 2 tablets by mouth every 8 hours. Qty: 90 tablet Refills: 2 HYDROmorphone (DILAUDID) 4 mg tablet 4-8 mg Take 1-2 tablets by mouth every 4 hours as needed for Pain. Qty: 100 tablet Refills: 0 senna-docusate (PERICOLACE) 8.6-50 mg per tablet 1-4 tablets Take 1-4 tablets by mouth 2 times daily. Qty: 60 tablet Refills: 2 ondansetron (ZOFRAN-ODT) 4 mg oral disintegrating tablet 4-8 mg Take 1-2 tablets by mouth every 8 hours as needed for Nausea. Qty: 10 tablet Refills: 1 Continued medications with revised dosing Dose Details polyethylene glycol (MIRALAX) 17 gram packet 17 g Take 17 g by mouth 2 times daily. Qty: 14 each Refills: 3 Continued medications, unchanged Dose Details ascorbic acid (VITAMIN C) 500 mg tablet 500 mg Take 500 mg by mouth daily. CALCIUM CARBONATE/VITAMIN D3 (CALCIUM 500 + D, D3, ORAL) Take by mouth. cyanocobalamin (VITAMIN B-12) 1,000 mcg tablet 1,000 mcg Take 1,000 mcg by mouth daily. pyridoxine (VITAMIN B-6) 100 mg tablet 100 mg Take 100 mg by mouth daily. biotin 300 mcg Tab Take by mouth. !! OXYcodone (OXYCONTIN) 20 mg CR tablet Take by mouth every 12 hours. !! OXYcodone (OXYCONTIN) 40 mg CR tablet 40 mg Take 40 mg by mouth every 12 hours. insulin glargine (LANTUS) vial injection 50 Units Inject 50 Units subcutaneously nightly. ezetimibe-simvastatin (VYTORIN) 10-40 mg per tablet 1 tablet Take 1 tablet by mouth nightly. sertraline (ZOLOFT) 100 mg tablet 100 mg Take 100 mg by mouth daily. clopidogrel (PLAVIX) 75 mg tablet 75 mg Take 75 mg by mouth daily. isosorbide mononitrate (IMDUR) 60 mg 24 hr tablet 60 mg Take 60 mg by mouth daily. SUMAtriptan (IMITREX) 50 mg tablet 50 mg Take 50 mg by mouth as needed. imipramine (TOFRANIL) 25 mg tablet 25 mg Take 25 mg by mouth nightly. diflunisal (DOLOBID) 500 mg Tab 500 mg Take 500 mg by mouth 2 times daily. losartan (COZAAR) 50 mg tablet 50 mg Take 50 mg by mouth daily. atenolol (TENORMIN) 25 mg tablet 25 mg Take 25 mg by mouth daily. Blood-Glucose Meter (FREESTYLE FREEDOM LITE) monitoring kit 1 each 1 each by [facility].(Non-Drug; Combo Route) route as needed. insulin syringe,safetyneedle 0.5 mL 29 x 1/2 Syrg by Misc.(Non-Drug; Combo Route) route. lancets (FREESTYLE LANCETS) 28 gauge Misc by Misc.(Non-Drug; Combo Route) route. [place]-3 Fatty Acids (FISH OIL) 500 mg Cap 1 capsule Take 1 capsule by mouth daily. OXYGEN-AIR DELIVERY SYSTEMS (HORIZON NASAL CPAP SYSTEM MISC) by [facility].(Non-Drug; Combo Route) route. nitroGLYcerin (NITROSTAT) 0.4 mg SL tablet 0.[address] 0.4 mg under the tongue every 5 minutes as needed. epiNEPHrine (EPIPEN 2-JIM) 0.3 mg/0.3 mL (1:1,000) injection 0.3 mg Inject 0.3 mg into the muscle once as needed. prochlorperazine (COMPAZINE) 5 mg tablet 5 mg Take 5 mg by mouth every 6 hours as needed. !! - Potential duplicate medications found. Please discuss with provider. Medications STOPPED Dose OXYcodone-acetaminophen (PERCOCET) 5-325 mg per tablet 1 tablet Updated Allergies/ADRs: Allergies Allergen Reactions ??? Aspirin Anaphylaxis Anaphylaxis ??? Codeine Phosphate Hives hives, swelling, hard time breathing ??? Lisinopril Hives hives, swelling, hard time breathing ??? Metformin Nausea And Vomiting vomiting ??? Methadone Hives Hives ??? Naproxen Anaphylaxis Anaphylaxis ??? Penicillins Anaphylaxis Anaphylaxis ??? Red Blood Cells Other (See Comments) Antibodies-Difficult to Crossmatch DO NOT REMOVE Please contact the Blood Bank at [phone] for questions. ??? Sulfa (Sulfonamide Antibiotics) Anaphylaxis Anaphylaxis ??? Mirtazapine Other (See Comments) dizziness Instructions Given to Patient at Discharge: Provider Instructions None General Instructions Activity: 1. You can weight bear as tolerated on your Right leg remembering to use a walker or crutches at alltimes for balance and protection. 2. Flexion AND extension are important to work on at home. You should NOT place a pillow under your right knee. To help with extension you can place a pillow under your heel or lower leg or placed lengthwise along the leg. Again DO NOT place a pillow under the operated knee for comfort. 3. You should wear the SHIRAZ hose to knee bilaterally until you are seen in followup. Remove these at least once per day to inspect your skin. Anti-coagulation follow up: You have been discharged on your usual dose of Plavix, 75 mg daily. Diet: Resume usual consistent carbohydrate diet, but increase your intake of fluids and fiber while you are on narcotic pain meds to prevent constipation Driving: No, not until you are cleared to do so by your Orthopedic surgeon. Ideally you should not drive if you are on narcotic pain meds as these can affect your judgement and reaction time. Call yoursurgeon with any questions. Medication: 1. The pain medication that you are using can cause constipation, so make sure you increase your intake of fluids and fiber while you are on them. You should also take the stool softener that was ordered, sennakot, to factilitate a bowel movement. An [id number] medication, miralax can also be used if needed to combat constipation 2. If you need a renewal on your narcotic pain medication, you need to give the Orthopedic clinic enough time to process your request. This can take up to three days, so plan accordingly. 3. You have been discharged on a long acting (Oxycontin) and a short acting narcotic. You will be onthese medications for a limited period of time only. You will need to follow-up with your Primary Care Provider for ongoing pain evaluation/management. 4. Continue the Tylenol around the clock for the next 10 days, (Apr.25). This can be effective in controlling pain along with your other medications. Shower: 1. You can shower but remember your activity limitations and always have a chair available for balance and protection. DO NOT submerge the dressing/incision. 2. (Mepilex) Do not let water run over the operative dressing. If it becomes wet lightly pat the dressing dry. DO NOT submerge the incision. 3. You have skylar/sutures. Always cover them with a waterproof dressing or plastic bag when showering until they are removed. 4. After skylar/sutures are removed you can let water run gently over the incision. Wound (Mepilex): 1. Sutures/skylar: Staple/suture removal 11-14 days after surgery (approximately Apr.29). 2. Remove your operative dressing 7 days from your surgery (Apr.22). When it is removed you can leave the incision open to air or cover it with a light dressing. 3. If you have lots of drainage when you get home (and it is before Apr.22), remove this operativedressing and replace it with dry sterile gauze. Continue with daily dressing changes (and as needed)until the drainage stops, then remove the dressing and leave the incision open to air or lightly covered. 4. Do not pull back the Mepilex dressing to inspect the incision. Keep the Mepilex dressing in placeuntil Apr 22, unless wet or soiled. FOLLOWUP APPOINTMENTS: 1. You will have followup appointments at [facility] as indicated in Future Appointments and Orders. Youwill have an xray prior to those appointments so please come to Radiology, desk 3T, 1 hour BEFORE your appointment for those x-rays. 2. You have a follow-up appointment with your Primary Care Provider, Dr. Gotti, ([phone]), on April 26, at 2:25 pm. This appointment is for continued pain management. 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 The encounter with the patient was in whole, or in part, for the following medical condition, which is the primary reason for home health care services: s/o right total knee arthroplasty. In discussion with the provider, it is certified that, based on their findings, the following services are medically necessary for home health services. To provide the following care/treatments with the clinical findings supporting the need for services as follows: HOME CARE ORDERS: PT ORDERS: Continue rehab for endurance, gait stability and strength with mobility and transfers. Home safety evaluation. Home exercise program if appropriate. HOME HEALTH CARE AGENCY: [facility], [facility], [address] [place] [address], phone, fax Start of care: Thursday 04/19 In discussion with the attending physician, it is certified that the clinical findings support that this patient is homebound because absences from home require considerable and taxing effort due to: right total knee replacement Please note that any additional orders needs or changes will need to be obtained from this patient'sPCP: IVAN GOTTI MD [address] / [facility] [id number] All VNA agencies which cover the area of patient's residence have been reviewed, either verbally or in writing, and patient/family have chosen the home health care agency noted. Questions: Responses: Agency name and contact information [facility] Patient location post discharge home What services are requested Physical Therapy Start date 04/19/2013 Responsible MD post discharge contact info PCP/[facility] Orthopaedic Service Primary Care Provider: IVAN GOTTI MD [phone] Dr. Gaston: Joints: [phone] After Hours: Call [phone] and request to speak with the Orthopaedic Resident home care companion. Electronically Signed by: CHAPINCITO REYNOSO MD 04/18/2013 Consult Note - Getachew Landeros MD - 04/18/2013 12:08 PM EST Regional Anesthesia Service follow-up note. ID: pt is POD #3 following R TKA S: pt feels some aching in her right knee, otherwise doing well. Hoping to go home soon O: no weakness on motor exam of right leg. No sensory deficits on sensory exam. A/P : block has resolved appropriately. Will sign off on this patient. Please call the regional anesthesia service with any questions or concerns. Initial Assessments - Brandyn Alberto, OT - 04/18/2013 9:46 AM EST Occupational Therapy Evaluation Patient profile: Peggy Coffman is a 67 y.o. female patient of David Mitchell MD, admittedon 04/15/2013 R TKR. Past Medical History Diagnosis Date ??? Allergy ??? Blood disorder ??? Musculoskeletal disease ??? Hypertensive disease ??? Breast disease ??? Elevated cholesterol ??? Chronic pain ??? Diabetes ??? Digestive problems ??? Infection ??? Urinary disorder ??? Hormone disorder Past Surgical History Procedure Date ??? Musculoskeletal surgery unlisted ??? Total knee arthroplasty 04/15/2013 @TOTAL KNEE ARTHROPLASTY performed by David Gaston MD at [facility] MAIN OR Social History: Patient lives . Home Setup: one step into home, walk in shower (used to have a tub shower) DME: chair in shower, walker, cane, long handled shoe horn, sock aid Baseline ADL/Mobility: Independent with ADL???s except tied shoes and patient. Patient independent with IADL???s. Code Status: Full Code Precautions: WBAT Subjective: I have had this done before. I also have back surgery. Objective: Seen today for OT evaluation with PT. Cognitive Status/Behavior: alert, oriented to person, place, and time Communication: WFL Vision & Perception: NT Range of motion, strength, coordination: WFL Sensation: NT Activities of Daily Living: Self-feeding: Independent after set-up Upper and lower body dressing and bathing: ?? Independent donning pants and underwear sitting EOB. ?? Patient using sock aid and verbalizes understanding. ?? Assist for shoes reviewed standing to done right shoe. ?? Discussed shower transfer and need to have supervision for showering. Functional Mobility: Independent with walker Balance: good. IADL???s: Assistance available to patient. Issued swing manager with instruction. Endurance: Information taken from last recorded vitals in flow sheet. Last value Range last 8 hrs Heart Rate Heart Rate: 78 Heart Rate: [78] Blood Pressure BP: 150/53 mmHg BP: (150)/(53) SpO2 SpO2: 95 % SpO2: [95 %] Good Pain: Patient with minimal pain at rest and increases to 4/10 with activity. Skin: Not assessed, incision Informed Consent: The patient agrees to and understands the OT treatment plan and goals. Education: patient educated on Role of occupational therapy/rehabilitation, Adaptive equipment training, ADL, Functional Mobility, Home Management, Recommendations and Discharge planning and verbalize and demonstrate understanding. Patient status, treatment, and mobility recommendations discussed with nursing. Assessment: Pt has been seen by OT for evaluation, and she presents with impaired ability to perform daily activities and functional mobility secondary to R TKR. Pt tolerated treatment well. Pt would benefit from ongoing OT services to maximize functional independence. Recommendations: Equipment needs at discharge: Patient has all necessary equipment Discharge Recommendations: home with VNA Plan: Continue to monitor till d/c Eval Date: 04/18/2013 Total time spent with patient: 25 minutes brief eval and 10 minutes ADL training Total timed interventions: 10 minutes ADL training Pager: [phone] BRANDYN ALBERTO OT 04/18/2013 Occupational Therapy Rehabilitation Department Plan of Care - Tai Fong RN - 04/18/2013 5:25 AM EST Problem: Pain Chronic (Adult, Pediatric, Obstetric) Goal: Chronic Pain: Acceptable Pain Control/Comfort Level - Pain Chronic (Adult, Pediatric, Obstetric) Patient tolerating PO pain medications. See MAR for specifics. Patient states pain is 7/10. Patient aware to alert RN if pain is not being controlled with current pain medication. RN will monitor patient. Problem: Skin Integrity Impairment, Risk/Actual (Adult, Obstetric) Goal: Skin Integrity Impairment, Risk/Actual: Skin Integrity/Wound Healing Patients skin to be intact at this time except for surgical incision. Patient aware to reposition themselves every 2 hours. RN will monitor patients skin. Problem: Knee Replacement, Total (Adult) Goal: Prevent/Manage Potential Problems Based on my scope of practice, I assessed for signs and symptoms of potential problems that could bepresent as documented. Patient ambulating with FWW. Patient calling for assistance when OOB. Dressing c/d/i. Denies any numbness/tingling. Will continue to monitor. TAI FONG RN Plan of Care - Gauri Lawrence RN - 04/17/2013 11:19 AM EST Problem: Pain Acute (Adult, Obstetric) Goal: Acute Pain: Acceptable Pain Control/Comfort Level - Pain (Adult, Obstetric) Pt tolerating po medications. See MAR. Pt states pain is 6-9/10. Pt aware to alert RN if pain is notbeing controlled with current pain medication. Pt drowsy and sleeping between care. MD notified. Narcotic pain medication revised. Pt told of med changes. Pt requiring 2L O2 NC to bring O2 sats > 88. RN will continue to monitor. Problem: Skin Integrity Impairment, Risk/Actual (Adult, Obstetric) Goal: Skin Integrity Impairment, Risk/Actual: Skin Integrity/Wound Healing Patients skin remains free of red/sore spots. Pressure reduction measures in place. Patient shiftingweight as needed. Pillow supports used. Will continue to assess. Problem: Knee Replacement, Total (Adult) Goal: Prevent/Manage Potential Problems Based on my scope of practice, I assessed for signs and symptoms of potential problems that could bepresent as documented. Dsg to knee c/d/i. Pt denies numbness/tingling. Pt denies any SOB/chest pain. She is ambulating to commode with FWW and standby assist. Will continue to monitor. Plan of Care - Tai Fong RN - 04/17/2013 2:45 AM EST Problem: Pain Chronic (Adult, Pediatric, Obstetric) Goal: Chronic Pain: Acceptable Pain Control/Comfort Level - Pain Chronic (Adult, Pediatric, Obstetric) Patient tolerating po medicaitons. See MAR. Patient states pain is 7-9/10. Patient aware to alert RNif pain is not being controlled with current pain medication. RN will monitor patient. Problem: Skin Integrity Impairment, Risk/Actual (Adult, Obstetric) Goal: Skin Integrity Impairment, Risk/Actual: Skin Integrity/Wound Healing Patients skin remains free of red/sore spots. Pressure reduction measures in place. Patient shiftingweights as needed. Pillow supports used. Will continue to assess. Problem: Knee Replacement, Total (Adult) Goal: Prevent/Manage Potential Problems Based on my scope of practice, I assessed for signs and symptoms of potential problems that could bepresent as documented. Ted wrap noted to be c/d/i. Patient denies any numbness/tingling. Patient denies any SOB/chest pain.Patient ambulating to commode with FWW and standby assist. Will continue to monitor. TAI FONG RN Initial Assessments - Brigette Martinez, PT - 04/16/2013 8:44 AM EST Physical Therapy Evaluation Total Knee Arthroplasty Patient Profile: Pt. is a 67 y.o. female admitted on 04/15/2013 by David Mitchell MD for Right TKA. PMH: CAD Chronic pain DM Left TKA with a revision HTN Hypercholesterolemia Migraine SEGOVIA Lowback pain with history of surgery x 3. SID Recurrent peroneal entrapment, right with surgical release x 2. Depression Thyroid cyst Obesity Right RTC tear. Social History: Patient lives with her . 4 living children and many children. Pt has horses. 2 story home but pt lives on the 1st level. One step in without a handrail. Pt has a std walker and cane. Tub bench and commode. Pt with a tub/shower combination. Normally independent and self sufficient. Precautions/Special Considerations: WBAT RLE once nerve block has worn off; fall risk; full code. Post-operative course: Uneventful except dense Nerve block POD 1. Subjective: Patient states ???My knee does not hurt at all. It is my back that is bothering me. I had back surgery 3x and my back normally bothers me.?? Objective: Vitals: SpO2: 96% on RA, HR 70s Most recent Hgb value: 11.5 Pain: No report of knee pain. Back pain /. 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 Nerve block right knee in full effect. Strength: Slight muscle contraction right quad. Right ankle strength wnls. BUE strength wfls. LLE strength wfls. Functional Mobility: Supine->sit NE Sit->supine NE, OOB with mobility aide. Sit->stand min+ Stand->sit min assist Gait: NE 2/2 nerve block still in effect. Today???s Treatment: 1. Evaluation 2. Performed 10 reps each ankle pumps, quad sets,seated heel slides, and long arc quads with LLE assisting RLE. Pt in possession of handout illustrating the exercises and was instructed to perform themas able 3x per day. Informed Consent: The patient agrees to and understands the PT treatment plan and goals. Education: patient educated on Transfers, Exercise, Positioning, Safety , Precautions/protocol, Gait , Home program, Role of therapy, Balance and Discharge planning and needs reinforcement. understanding. Patient status, treatment, and mobility recommendations discussed with nursing staff. Pt left reclined in the chair with cryocuff placed on right knee and towel roll to prevent RLE ER. Assessment: Pt is POD#1 Right TKA. Pt. tolerated today???s session fairly well, but was limited in activity 2/2 dense right femoral nerve block. Pt presents with back pain (2/2 old pathology and prolonged positioning during surgery), decreased ROM, strength, functional mobility, and gait skills. Pt will benefit from PT to address his/her functional deficits to restore prior level of function. Anticipate dc to home with VNA services when medically stable. Pt has a std walker at home vs a rolling walker. Range of Motion: AROM R knee extension = -10 in supine, flexion = 95 Goals: (to be achieved by 04/19/13) Goal met? Yes No Pt will be knowledgeable of prescribed exercises. Pt will demonstrate AROM knee extension 0-15 degrees and flexion 80-90 degrees Pt will move supine<>sit independently. Pt will move sit<>stand independently. Pt will ambulate 150 feet using std walker independently Pt will negotiate one step with a std walker and cga Discharge Recommendations: Patient would benefit from continued therapeutic interventions 2-3 times a week as provided in a home environment to progress toward functional goals. Physical Therapist recommends: No other consults recommended at this time Plan: Patient to be seen daily for physical therapy to include Physical Therapy Evaluation, Therapeutic exercises, Therapeutic functional activities, Gait training, Self-care/management and dc planning. Patient agrees to the plan as stated. Equipment needs: No equipment necessary. 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 Patient states pain is 5/10. Patient aware to alert RN if pain is not being controlled with current pain medication. RN will monitor patient. Problem: Skin Integrity Impairment, Risk/Actual (Adult, Obstetric) Intervention: Skin Integrity Impairment, Risk/Actual: Related Risk Factors Patients skin noted to be intact at this time and free of pressure ulcers. Patient able to independently turn themselves Q2 hours. RN will monitor patients skin Miscellaneous - Provider, Scanning - 04/15/2013 3:31 PM EST Miscellaneous - Provider, Scanning - 04/15/2013 3:19 PM EST Op Note - David Gaston MD - 04/15/2013 11:42 AM EST [facility] Operative Note Patient Name: Peggy Coffman : [id number] MR#: [id number] Case Date: 04/15/2013 Surgeon: Surgeon(s) and Role: * David Gaston MD - Primary * Omar Varela MD - Resident-Surgeon Kleber PROCEDURE: right total knee arthroplasty. PREOPERATIVE DIAGNOSIS: Tricompartmental Osteoarthritis POSTOPERATIVE DIAGNOSIS: Tricompartmental Osteoarthritis ANESTHESIA: GET and FNB ESTIMATED BLOOD LOSS: 200 mL. COMPLICATIONS: None. FINDINGS: Chondromalacia was present as listed: Patellofemoral Compartment: Grade 4 Medial Compartment: Grade 3-4 Lateral Compartment-: Grade 4 SPECIMENS: Bone cuts were sent for gross pathology. DRAINS: Hemovac x1. TOURNIQUET TIME: 59 minutes at 250 mmHg. INSTRUMENTATION USED: DePuy PFC Sigma knee system 1. Size 3 lugged posterior stabilized femoral component. 2. Size 2.5 tibial tray. 3. 12.5 mm polyethylene insert. 4. 35 mm round all-polyethylene patellar component. 5. 1 batch of gentamycin bone cement. INDICATIONS: The patient presented to the orthopaedic surgery clinic with severe knee pain. The x-ray and exam findings are consistent with degenerative disease of the knee. SIGNIFICANT MEDICAL COMORBIDITIES: Patient Active Problem List Diagnosis Code ??? Osteoarthritis, knee 715.96 ??? Chronic pain 338.29 ??? CAD (coronary artery disease) 414.00 ??? Diabetes mellitus 250.00 ??? Anticoagulant long-term use on plavix V58.61 ??? 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 HTN (hypertension) 401.9 ??? Hypercholesterolemia 272.0 ??? migraine H/A 346.21 ??? Low back pain 724.2 ??? Obstructive sleep apnea 327.23 ??? 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 Depression 311 ??? Thyroid cyst 246.2 ??? adenoma coln polyp 211.3 She has exhausted non-operative treatment options including NSAIDS, physical therapy, walking aids,and injections. The patient was felt to be an appropriate candidate for total knee arthroplasty based on the severity of symptoms and the loss of function associated with knee pain. We discussed the risks and benefits of operative treatment including bleeding, infection, need for revision, fracture, damage to nerves and blood vessels, hematoma, DVT, PE, and cardiopulmonary complications, and she elected to proceed with surgery. Informed consent was signed. I personally marked the surgical site in the pre-operative holding area. DESCRIPTION OF PROCEDURE: After careful identification of the patient in the holding area and confirmation of the procedure, the patient was transferred to the operating room. Appropriate anesthesia was administered by the anesthesiology staff. Femoral nerve block had previously been placed in the hold ing area. Antibiotic prophylaxis was given and a Narayanan catheter was placed. The lower extremity was then prepped and draped in the usual sterile fashion. Time- out for safe surgery was undertaken and all agreed on the surgical side and to proceed with total knee arthroplasty. The limb was then exsanguinated and tourniquet inflated. Using a #10 blade, a midline skin incision was then carried out. Dissection was carried down to the level of the extensor mechanism. Using a medial parapatellar arthrotomy, the knee joint was then entered. The anterior horn of the medial meniscus was divided. A medial subperiosteal peel was then undertaken using Bovie electrocautery. A portion of the patellar fat pad was taken down. The lateral patellofemoral ligaments were released with scissors. The synovium was released circumferentially around the patella to allow for easier eversion. Care was taken to protect the extensor mechanism during this release. The knee was then carefully flexedup. Careful attention was paid to the tibial tubercle to be sure that there was no violation of the patellar tendon insertion as we flexed. The anterior and posterior cruciate ligaments were then released as well as the anterior horn of the lateral meniscus. The tibia was subluxated forward using a blunt Hohmann and attention was turned to tibial cut. The extramedullary tibial alignment guide was placed and set for a 6 mm resection off the medial compartment. The alignment tania was set in the center of the ankle joint. Appropriate posterior slope was then set. The guide was then pinned into position. Proximal tibial resection was undertaken using an oscillating saw. Care was taken to protect the medial and lateral collateral ligaments during the cut. The bone was removed and alignment guide was placed with a drop tania. We had excellent alignment. Attention was then turned to the femur. The femoral canal was opened using a starting drill just anterior to the PCL insertion. The canal was irrigated and suctioned prior to insertion of the intramedullary guide tania. This was then placed and set for 6 degrees of valgus angle. The distal femoral cut guide was then placed and set for 9 mm resection depth. This was then pinned into position. The cut depth was checked with an chema wing. The oscillating saw was then used to perform the distal femoral cut. The posterior referencing sizing guide was then placed and pins were set in 3 degrees of externalrotation from the posterior condylar axis in line with the transepicondylar axis. The sizing guide was placed and the size chosen that would provide the best fit and avoid anterior notching. Threaded pins were placed and the sizer removed. The cut block was then pinned into position. The anterior cut was performed followed by the posterior cuts. The anterior and posterior chamfer cuts were then performed. Flexion and extension blocks were then used to check the flexion and extension gaps to be sure that they were symmetric. Appropriate soft tissue releases were used where necessary to balance them.The notch cutting guide was then placed taking care to lateralize the femoral component appropriately. It was pinned into position. The notch cut was carried out with oscillating saw. We then placed the trial femoral component followed by the trial tibia and polyethylene. The knee was brought up to full extension. It was found to have good stability to varus and valgus stresses in both flexion and extension. We then proceeded with the patellar preparation. The patellar thickness was then measured with caliper. We then used freehand technique to remove the articular surface. The patella was measured and theappropriate-sized jig used to prepare the drill holes. Patellar trial was placed and caliper measurement reconfirmed to assure that there was no over-stuffing of the patellofemoral joint. The patellar trial was placed and taken through range of motion. It was found to track well without any evidence of liftoff. Lug holes were then drilled in the femur. The trial components were then removed and the final preparation of the tibia was undertaken. The tibia was exposed and the trial placed. It was pinned into position taking care to maintain the appropriate external rotation and adequate tibial coverage. This was then completed using the step drill andbroach. All bony surfaces were then thoroughly irrigated using normal saline pulsatile lavage. The components were opened onto the field except for the final polyethylene. Cement mixing was begun on the back table using vacuum technique. We then placed cement onto the tibial plateau and digitally pressurized it into the bone. We then placed the tibial component and impacted into position using an impactor and mallet. Excess cement was removed with a [place]. We then placed the cement onto the anterior and distal aspects of the femur. The cement was placed on the posterior aspect of the prosthetic condyles. The femoral component was then placed and impacted into position. Excess cement was removed with a [place]. The polyethylene trial was then placed and the knee brought out to full extension where it was held for the entire polymerization time. Cement was then pressurized into the patellar bone and the patellar component placed. The patella was clamped. Excess cement was removed with a [place]. After all cement had hardened, the knee was flexed up and the trial polyethylene removed. We checked the posterior femoral condyles for cement. We also subluxated the tibia forward and checked for any remaining cement. It was removed with an osteotome and rongeurs where necessary. The posterior capsule was then injected with local anesthetic. The knee was thoroughly irrigated using normal saline pulsatile lavage.We then placed our trial polyethylene and went through ligament testing both in flexion and extension. We decided on the appropriate polyethylene, it was opened onto the field. It was then inserted andthe knee brought out to full extension. It was taken through a full range of motion and had excellent stability to varus and valgus testing in both flexion and extension. The final alignment was excellent. The patella tracked well without liftoff using the no thumbs technique. Local anesthetic was then injected into the arthrotomy site both proximally and distally. The woundwas irrigated once again. A drain was placed through a separate superolateral stab incision and hooked into the suction system. The arthrotomy was then closed using absorbable suture. The deep dermal layers were closed using absorbable suture. The skin was then closed using skylar, taking care to dipak the edges. The wound was cleansed, dried, and dressing consisting of Mepilex silver. This was thensecured with Ted bandages. The patient was awakened by the anesthesiology staff and transferred to the [facility]. Sequential compression devices were placed. The patient was taken to the postanesthesia care unit in stable condition. All sponge instrument and needle counts were correct at the endof the case. POSTOPERATIVE PLAN: The patient will be admitted to the floor for pain control and montioring. Weightbearing as tolerated on the operative leg. Prophylactic IV antibiotics x 3 doses. We will use Plavixfor DVT prophylaxis as she is on it baseline. OR Attestation - David Gaston MD - 04/15/2013 11:42 AM EST Attestation: Case Date: 04/15/2013 I was present and I participated during the entire procedure (does not need to include opening and closing). DAVID GASTON MD 04/15/2013 Brief Op Note - David Gaston MD - 04/15/2013 11:41 AM EST Brief Operative Note Patient Name: Peggy Coffman : [id number] MR#: [id number] Case Date: 04/15/2013 Surgeon: Surgeon(s) and Role: * David Gaston MD - Primary * Omar Varela MD - Resident-Surgeon Kleber Preoperative diagnosis: Osteoarthritis Postoperative diagnosis: Osteoarthritis Procedure(s): @TOTAL KNEE ARTHROPLASTY MODIFIER PFC STABILIZED FIXED MODULAR DEPUY Anesthesia: General Findings: OA Complications: none Fluids: 2500 mL Estimated Blood Loss: 200 mL Drains: hemovac Disposition: awakened from anesthesia, extubated and taken to the recovery room in a stable condition, having suffered no apparent untoward event. Condition: doing well without problems Urine Output: 150 mL Tourniquet Time: 59 minutes. Right TKR Post OP RT Intra Op Knee Flexion (degrees): 105 RT Intra Op Knee Extension (degrees): 0 RT Intra Op Stability Ap Translation: <5mm RT Intra Op Stability Varus: <5mm RT Intra Op Stability Valgus: <5mm RT Lateral Release Performed: No RT Intra Op Bone Cement : Antibiotic RT Intra Op Surgical Approach: Quad Split RT Intra Op FX at Index Surgery: No RT Patient Specific Instrument Used: No RT Computer Assisted Case: No Implant Name Type Inv. Item Serial No. Cattle Dipper Lot No. LRB No. Used Action CEMENT,BNE,CMW 1,GNTA,40GM ([id number]) - SN/A IMPLANTS CEMENT,BNE,CMW 1,GNTA,40GM ([id number]) n/a Depuy Chief Design Engineer - [id number] Right 1 Implanted GRACIA,PFC,SGM,RND,SM,35MM ([id number]) (AUTOREQ) - SN/A IMPLANTS GRACIA,PFC,SGM,RND,SM,35MM ([id number]) (AUTOREQ) n/a Depuy Chief Design Engineer - 3527 [id number] Right 1 Implanted COMPO,SGM,FEM,PS,CMNT,LUG,R,3 ([id number]) (AUTOREQ) - SN/A IMPLANTS COMPO,SGM,FEM,PS,CMNT,LUG,R,3 ([id number]) (AUTOREQ) n/a Depuy Chief Design Engineer - 3527 [id number] Right 1 Implanted TRAY,TIB,SGM,MOD,CMNT,SZ2.5 ([id number]) (AUTOREQ) - SN/A IMPLANTS TRAY,TIB,SGM,MOD,CMNT,SZ2.5 ([id number]) (AUTOREQ) n/a Depuy Chief Design Engineer - 3527 [id number] Right 1 Implanted INSER,SGM,STAB,CRSLNK,2.5X12.5 ([id number]) (AUTOREQ) - SN/A IMPLANTS INSER,SGM,STAB,CRSLNK,2.5X12.5 ([id number]) (AUTOREQ) n/a Depuy Chief Design Engineer - 3527 [id number] Right 1 Implanted documented in this encounter Plan of Treatment Not on filedocumented as of this encounter Procedures Procedure Name Priority Date/Time Associated Comments Diagnosis IMPLANTABLE DEVICES 04/19/2013 12:29 Resu lts for this SCAN PM EST procedure are i n the results section. POCT GLUCOSE Routine 04/18/2013 12:23 Results for this PM EST procedure are i n the results section. POCT GLUCOSE Routine 04/18/2013 8:07 AM Results f or this EST procedure are i n the results section. DIFFERENTIAL, Routine 04/18/2013 4:01 AM Results for this AUTOMATED EST procedure are i n the results section. CBC (WITH DIFF) Routine 04/18/2013 4:01 AM Result s for this EST procedure are i n the results section. BASIC METABOLIC PANEL Routine 04/18/2013 4:01 AM Results for this (NON-FASTING) EST procedure are in the results section. POCT GLUCOSE Routine 04/18/2013 3:34 AM Results f or this EST procedure are i n the results section. POCT GLUCOSE Routine 04/17/2013 11:37 Results for this PM EST procedure are i n the results section. POCT GLUCOSE Routine 04/17/2013 8:06 PM Results f or this EST procedure are i n the results section. POCT GLUCOSE Routine 04/17/2013 4:02 PM Results f or this EST procedure are i n the results section. POCT GLUCOSE Routine 04/17/2013 11:33 Results for this AM EST procedure are i n the results section. POCT GLUCOSE Routine 04/17/2013 4:41 AM Results f or this EST procedure are i n the results section. DIFFERENTIAL, Routine 04/17/2013 3:14 AM Results for this AUTOMATED EST procedure are i n the results section. CBC (WITH DIFF) Routine 04/17/2013 3:14 AM Result s for this EST procedure are i n the results section. BASIC METABOLIC PANEL Routine 04/17/2013 3:14 AM Results for this (NON-FASTING) EST procedure are in the results section. POCT GLUCOSE Routine 04/16/2013 11:56 Results for this PM EST procedure are i n the results section. POCT GLUCOSE Routine 04/16/2013 8:10 PM Results f or this EST procedure are i n the results section. POCT GLUCOSE Routine 04/16/2013 3:47 PM Results f or this EST procedure are i n the results section. POCT GLUCOSE Routine 04/16/2013 11:30 Results for this AM EST procedure are i n the results section. POCT GLUCOSE Routine 04/16/2013 7:38 AM Results f or this EST procedure are i n the results section. POCT GLUCOSE Routine 04/16/2013 4:04 AM Results f or this EST procedure are i n the results section. DIFFERENTIAL, Routine 04/16/2013 3:44 AM Results for this AUTOMATED EST procedure are i n the results section. CBC (WITH DIFF) Routine 04/16/2013 3:44 AM Result s for this EST procedure are i n the results section. BASIC METABOLIC PANEL Routine 04/16/2013 3:44 AM Results for this (NON-FASTING) EST procedure are in the results section. POCT GLUCOSE Routine 04/15/2013 11:56 Results for this PM EST procedure are i n the results section. POCT GLUCOSE Routine 04/15/2013 10:01 Results for this PM EST procedure are i n the results section. POCT GLUCOSE Routine 04/15/2013 8:04 PM Results f or this EST procedure are i n the results section. POCT GLUCOSE Routine 04/15/2013 4:04 PM Results f or this EST procedure are i n the results section. POCT GLUCOSE Routine 04/15/2013 12:03 Results for this PM EST procedure are i n the results section. SURGICAL PATHOLOGY Routine 04/15/2013 12:01 Resul ts for this REPORT PM EST procedure are i n the results section. SPECIMEN TO PATHOLOGY Routine 04/15/2013 10:46 Re sults for this AM EST procedure are i n the results section. MODIFIER PFC 04/15/2013 9:46 AM Osteoarthritis, STABILIZED FIXED EST knee MODULAR DEPUY TOTAL KNEE 04/15/2013 9:46 AM Osteoarthritis, ARTHROPLASTY (WRVU EST knee 20.72) POCT GLUCOSE Routine 04/15/2013 8:53 AM Results f or this EST procedure are i n the results section. documented in this encounter Results SCAN DOC: IMPLANTABLE DEVICES (04/19/2013 12:29 PM EST) Narrative 04/19/2013 12:29 PM EST Procedure Note Provider, Scanning - 04/19/2013 12:29 PM EST Scanning Provider MEDIA MGR SCAN EXT ORDR/RSLT POCT Glucose (04/18/2013 12:23 PM EST) athologist Signature POC Glucose 96 60 - 199 CERNER mg/dL MILLENNIUM Comment: Supplemental ranges: <110 mg/dL before meals <200 mg/dL all other times of the day Specimen Anatomical Collection Method Collection Time Receive d Time (Source) Location / / Volume Laterality Blood specimen 04/18/2013 12:23 3 (specimen) PM EST 12:23 PM EST David Gaston MD POINT OF CARE TEST ORDERABLE S Performing Organization Address City/State/[place] [address] CERNER MILLENNIUM POCT Glucose (04/18/2013 8:07 AM EST) athologist Signature POC Glucose 87 60 - 199 CERNER mg/dL MILLENNIUM Comment: Supplemental ranges: <110 mg/dL before meals <200 mg/dL all other times of the day Specimen Anatomical Collection Method Collection Time Receive d Time (Source) Location / / Volume Laterality Blood specimen 04/18/2013 8:07 AM 013 8:07 (specimen) EST AM EST David Gaston MD POINT OF CARE TEST ORDERABLE S Performing Organization Address City/State/ZIP Code Phon e Number [place] [id number] CERNER MILLENNIUM Differential, Automated (04/18/2013 4:01 AM EST) P athologist Signature Neutrophils % 56.8 34.0 - CERNER 71.0 % MILLENNIUM Neutr Abs (ANC) 3.39 1.50 - CERNER 6.30 MILLENNIUM x10(3)/mcL Lymphocytes % 28.7 19.0 - CERNER 53.0 % MILLENNIUM Lymphocytes Abs 1.7 1.0 - 3.6 CERNER x10(3)/mcL MILLENNIUM Monocytes % 10.4 4.0 - 13.0 CERNER % MILLENNIUM Monocyte Abs 0.6 0.2 - 1.0 CERNER x10(3)/mcL MILLENNIUM Eosinophils % 3.7 0.0 - 7.0 CERNER % MILLENNIUM Eosinophils Abs 0.2 0.0 - 0.5 CERNER x10(3)/mcL MILLENNIUM Basophils % 0.2 0.0 - 2.0 CERNER % MILLENNIUM Basophils [...] Location / / Volume Laterality Blood specimen 04/18/2013 4:01 AM 013 4:08 (specimen) EST AM EST David Gaston MD HEMATOLOGY ORDERABLES Performing Organization Address City/State/[place] [address] CERNER MILLENNIUM (ABNORMAL) Basic Metabolic Panel (non-fasting) (04/18/2013 4:01 AM EST) P athologist Signature Glucose Lvl 104 60 - 199 CERNER mg/dL MILLENNIUM Comment: Diabetes: >=200 mg/dL plus symp toms BUN 22 (H) 8 - 18 mg/dL CERNER MILLENNIUM Creatinine 1.00 0.70 - 1.20 mg/dL CERNER MILL ENNIUM Comment: Please note that the pediatric reference intervals supplied above were not validated at [facility] [place]. Results from pediatri c patients should be interpreted in conjunction to the patient's age, height and muscle mass. Sodium 134 (L) 135 - 145 mmol/L CERNER SHIREEN NIUM Potassium 4.2 3.5 - 5.0 mmol/L CERNER SHIREEN NIUM Comment: Please note: ??Patients with WBC >100,00 0 may have falsely elevated Potassium levels. ??For accurate Potassium quantif ication in these patients send serum separator tube (gold top) for subsequent determinations. ??Contact the Clinical Chemistry Laboratory if there are any qu estions. Chloride 98 98 - 107 mmol/L CERNER MILLENN IUM CO2 30 22 - 31 mmol/L CERNER MILLENNI UM Anion Gap 6 5 - 15 mmol/L CERNER MILLENNIU M Calcium 9.2 8.5 - 10.5 mg/dL CERNER SHIREEN NIUM Estimated GFR 55 (L) >=60 CERNER MILLENNIU M Comment: This estimated [...] Location / / Volume Laterality Blood specimen 04/18/2013 4:01 AM 013 4:08 (specimen) EST AM EST Resulting Agency Comment Spec In Lab David Gaston MD CHEMISTRY ORDERABLES Performing Organization Address City/[facility]/[place] [address] CERNER MILLENNIUM (ABNORMAL) CBC (with Diff) (04/18/2013 4:01 AM EST) athologist Signature WBC 6.0 4.0 - 10.0 CERNER x10(3)/mcL MILLENNIUM RBC 3.48 (L) 3.93 - CERNER 5.22 MILLENNIUM x10(6)/mcL Hemoglobin 10.5 (L) 11.2 - CERNER 15.7 gm/dL MILLENNIUM Hematocrit 32.4 (L) 34.0 - CERNER 45.0 % MILLENNIUM MCV 93.1 79.0 - CERNER 94.0 fL MILLENNIUM MCH 30.2 26.6 - CERNER 32.2 pg MILLENNIUM MCHC 32.4 32.0 - CERNER 36.5 gm/dL MILLENNIUM Platelets 116 (L) 145 - 370 CERNER x10(3)/mcL MILLENNIUM RDWSD 47.2 (H) 35.0 - CERNER 46.0 fL MILLENNIUM RDWCV 13.9 10.9 - CERNER 14.4 % MILLENNIUM MPV 9.3 9.0 - 12.0 CERNER fL MILLENNIUM Specimen Anatomical Collection Method Collection Time Receive d Time (Source) Location / / Volume Laterality Blood specimen 04/18/2013 4:01 AM 013 4:08 (specimen) EST AM EST Resulting Agency Comment Spec In Lab David Gaston MD HEMATOLOGY ORDERABLES Performing Organization Address City/[facility]/ZIP Code [place] [address] CERNER MILLENNIUM POCT Glucose (04/18/2013 3:34 AM EST) athologist Signature POC Glucose 95 60 - 199 CERNER mg/dL [facility] Comment: Supplemental ranges: <110 mg/dL before meals <200 mg/dL all other times of the day Specimen Anatomical Collection Method Collection Time Receive d Time (Source) Location / / Volume Laterality Blood specimen 04/18/2013 3:34 AM 013 3:34 (specimen) EST AM EST David Gaston MD POINT OF CARE TEST ORDERABLE S Performing Organization Address City/State/ZIP Code Phon e Number [address] CERNER MILLENNIUM POCT Glucose (04/17/2013 11:37 PM EST) athologist Signature POC Glucose 87 60 - 199 CERNER mg/dL MILLENNIUM Comment: Supplemental ranges: <110 mg/dL before meals <200 mg/dL all other times of the day Specimen Anatomical Collection Method Collection Time Receive d Time (Source) Location / / Volume Laterality Blood specimen 04/17/2013 11:37 3 (specimen) PM EST 11:37 PM EST David Gaston MD POINT OF CARE TEST ORDERABLE S Performing Organization Address City/State/ZIP Code Phon e Number [address] CERNER MILLENNIUM POCT Glucose (04/17/2013 8:06 PM EST) athologist Signature POC Glucose 96 60 - 199 CERNER mg/dL MILLENNIUM Comment: Supplemental ranges: <110 mg/dL before meals <200 mg/dL all other times of the day Specimen Anatomical Collection Method Collection Time Receive d Time (Source) Location / / Volume Laterality Blood specimen 04/17/2013 8:06 PM 013 8:06 (specimen) EST PM EST David Gaston MD POINT OF CARE TEST ORDERABLE S Performing Organization Address City/State/ZIP Code Phon e Number [address] CERNER MILLENNIUM POCT Glucose (04/17/2013 4:02 PM EST) athologist Signature POC Glucose 113 60 - 199 CERNER mg/dL MILLENNIUM Comment: Supplemental ranges: <110 mg/dL before meals <200 mg/dL all other times of the day Specimen Anatomical Collection Method Collection Time Receive d Time (Source) Location / / Volume Laterality Blood specimen 04/17/2013 4:02 PM 013 4:02 (specimen) EST PM EST David Gaston MD POINT OF CARE TEST ORDERABLE S Performing Organization Address City/State/ZIP Code Phon e Number [address] CERNER MILLENNIUM POCT Glucose (04/17/2013 11:33 AM EST) athologist Signature POC Glucose 83 60 - 199 CERNER mg/dL [facility] Comment: Supplemental ranges: <110 mg/dL before meals <200 mg/dL all other times of the day Specimen Anatomical Collection Method Collection Time Receive d Time (Source) Location / / Volume Laterality Blood specimen 04/17/2013 11:33 3 (specimen) AM EST 11:33 AM EST David Gaston MD POINT OF CARE TEST ORDERABLE S Performing Organization Address City/[facility]/ZIP Code Phon e Number [address] CERNER MILLENNIUM POCT Glucose (04/17/2013 4:41 AM EST) athologist Signature POC Glucose 104 60 - 199 CERNER mg/dL [facility] Comment: Supplemental ranges: <110 mg/dL before meals <200 mg/dL all other times of the day Specimen Anatomical Collection Method Collection Time Receive d Time (Source) Location / / Volume Laterality Blood specimen 04/17/2013 4:41 AM 013 4:41 (specimen) EST AM EST David Gaston MD POINT OF CARE TEST ORDERABLE S Performing Organization Address City/State/ZIP Code Phon e Number [address] CERNER MILLENNIUM Differential, Automated (04/17/2013 3:14 AM EST) athologist Signature Neutrophils % 63.4 34.0 - CERNER 71.0 % MILLENNIUM Neutr Abs (ANC) 5.66 1.50 - CERNER 6.30 MILLENNIUM x10(3)/mcL Lymphocytes % 23.9 19.0 - CERNER 53.0 % MILLENNIUM Lymphocytes Abs 2.1 1.0 - 3.6 CERNER x10(3)/mcL MILLENNIUM Monocytes % 9.5 4.0 - 13.0 CERNER % MILLENNIUM Monocyte Abs 0.8 0.2 - 1.0 CERNER x10(3)/mcL MILLENNIUM Eosinophils % 2.9 0.0 - 7.0 CERNER % MILLENNIUM Eosinophils Abs 0.3 0.0 - 0.5 CERNER x10(3)/mcL MILLENNIUM Basophils % 0.1 0.0 - 2.0 CERNER % MILLENNIUM Basophils [...] differential will be performed. Hortencia Gran Abs 0.02 0.00 - 0.05 x10(3)/mcL CER NER MILLENNIUM Specimen Anatomical Collection Method Collection Time Receive d Time (Source) Location / / Volume Laterality Blood specimen 04/17/2013 3:14 AM 013 3:35 (specimen) EST AM EST David Gaston MD HEMATOLOGY ORDERABLES Performing Organization Address City/State/ZIP Code Phon e Number [place] [phone] [facility] [address] CERNER MILLENNIUM (ABNORMAL) Basic Metabolic Panel (non-fasting) (04/17/2013 3:14 AM EST) athologist Signature Glucose Lvl 121 60 - 199 CERNER mg/dL MILLENNIUM Comment: Diabetes: >=200 mg/dL plus symp toms BUN 15 8 - 18 mg/dL CERNER MILLENNIUM Creatinine 0.67 (L) 0.70 - 1.20 mg/dL CERNER MILL ENNIUM Comment: Please note that the pediatric reference intervals supplied above were not validated at [facility]. Results from pediatri c patients should be interpreted in conjunction to the patient's age, height and muscle mass. Sodium 131 (L) 135 - 145 mmol/L CERNER SHIREEN NIUM Potassium 4.2 3.5 - 5.0 mmol/L CERNER SHIREEN NIUM Comment: Please note: ??Patients with WBC >100,00 0 may have falsely elevated Potassium levels. ??For accurate Potassium quantif ication in these patients send serum separator tube (gold top) for subsequent determinations. ??Contact the Clinical Chemistry Laboratory if there are any qu estions. Chloride 96 (L) 98 - 107 mmol/L CERNER MILLENN IUM CO2 27 22 - 31 mmol/L CERNER MILLENNI UM Anion Gap 8 5 - 15 mmol/L CERNER MILLENNIU M Calcium 8.7 8.5 - 10.5 mg/dL CERNER SHIREEN NIUM [...] Location / / Volume Laterality Blood specimen 04/17/2013 3:14 AM 013 3:35 (specimen) EST AM EST Resulting Agency Comment Spec In Lab David Gaston MD CHEMISTRY ORDERABLES Performing Organization Address City/State/[place] [address] CERNER MILLENNIUM (ABNORMAL) CBC (with Diff) (04/17/2013 3:14 AM EST) P athologist Signature WBC 8.9 4.0 - 10.0 CERNER x10(3)/mcL MILLENNIUM RBC 3.65 (L) 3.93 - CERNER 5.22 MILLENNIUM x10(6)/mcL Hemoglobin 11.1 (L) 11.2 - CERNER 15.7 gm/dL MILLENNIUM Hematocrit 33.4 (L) 34.0 - CERNER 45.0 % MILLENNIUM MCV 91.5 79.0 - CERNER 94.0 fL MILLENNIUM MCH 30.4 26.6 - CERNER 32.2 pg MILLENNIUM MCHC 33.2 32.0 - CERNER 36.5 gm/dL MILLENNIUM Platelets 143 (L) 145 - 370 CERNER x10(3)/mcL MILLENNIUM RDWSD 45.5 35.0 - CERNER 46.0 fL MILLENNIUM RDWCV 13.7 10.9 - CERNER 14.4 % MILLENNIUM MPV 9.6 9.0 - 12.0 CERNER fL MILLENNIUM Specimen Anatomical Collection Method Collection Time Receive d Time (Source) Location / / Volume Laterality Blood specimen 04/17/2013 3:14 AM 013 3:35 (specimen) EST AM EST Resulting Agency Comment Spec In Lab David Gaston MD HEMATOLOGY ORDERABLES Performing Organization Address City/[facility]/ZIP Code Phon e Number [address] [facility] POCT Glucose (04/16/2013 11:56 PM EST) athologist Signature POC Glucose 138 60 - 199 CERNER mg/dL [facility] Comment: Supplemental ranges: <110 mg/dL before meals <200 mg/dL all other times of the day Specimen Anatomical Collection Method Collection Time Receive d Time (Source) Location / / Volume Laterality Blood specimen 04/16/2013 11:56 3 (specimen) PM EST 11:56 PM EST David Gaston MD POINT OF CARE TEST ORDERABLE S Performing Organization Address City/[facility]/ZIP Code Phon e Number [address] CERNER MILLENNIUM POCT Glucose (04/16/2013 8:10 PM EST) athologist Signature POC Glucose 125 60 - 199 CERNER mg/dL MILLENNIUM Comment: Supplemental ranges: <110 mg/dL before meals <200 mg/dL all other times of the day Specimen Anatomical Collection Method Collection Time Receive d Time (Source) Location / / Volume Laterality Blood specimen 04/16/2013 8:10 PM 013 8:10 (specimen) EST PM EST David Gaston MD POINT OF CARE TEST ORDERABLE S Performing Organization Address City/State/ZIP Code Phon e Number [address] CERNER MILLENNIUM POCT Glucose (04/16/2013 3:47 PM EST) athologist Signature POC Glucose 94 60 - 199 CERNER mg/dL MILLENNIUM Comment: Supplemental ranges: <110 mg/dL before meals <200 mg/dL all other times of the day Specimen Anatomical Collection Method Collection Time Receive d Time (Source) Location / / Volume Laterality Blood specimen 04/16/2013 3:47 PM 013 3:47 (specimen) EST PM EST David Gaston MD POINT OF CARE TEST ORDERABLE S Performing Organization Address City/[facility]/ZIP Code Phon e Number [address] CERNER MILLENNIUM POCT Glucose (04/16/2013 11:30 AM EST) athologist Signature POC Glucose 134 60 - 199 CERNER mg/dL MILLENNIUM Comment: Supplemental ranges: <110 mg/dL before meals <200 mg/dL all other times of the day Specimen Anatomical Collection Method Collection Time Receive d Time (Source) Location / / Volume Laterality Blood specimen 04/16/2013 11:30 3 (specimen) AM EST 11:30 AM EST David Gaston MD POINT OF CARE TEST ORDERABLE S Performing Organization Address City/State/ZIP Code Phon e Number [address] CERNER MILLENNIUM POCT Glucose (04/16/2013 7:38 AM EST) athologist Signature POC Glucose 105 60 - 199 CERNER mg/dL MILLENNIUM Comment: Supplemental ranges: <110 mg/dL before meals <200 mg/dL all other times of the day Specimen Anatomical Collection Method Collection Time Receive d Time (Source) Location / / Volume Laterality Blood specimen 04/16/2013 7:38 AM 013 7:38 (specimen) EST AM EST David Gaston MD POINT OF CARE TEST ORDERABLE S Performing Organization Address City/State/[place] [address] CERNER MILLENNIUM POCT Glucose (04/16/2013 4:04 AM EST) P athologist Signature POC Glucose 116 60 - 199 CERNER mg/dL MILLENNIUM Comment: Supplemental ranges: <110 mg/dL before meals <200 mg/dL all other times of the day Specimen Anatomical Collection Method Collection Time Receive d Time (Source) Location / / Volume Laterality Blood specimen 04/16/2013 4:04 AM 013 4:04 (specimen) EST AM EST David Gaston MD POINT OF CARE TEST ORDERABLE S Performing Organization Address City/State/ZIP Code Phon e Number [address] CERNER MILLENNIUM (ABNORMAL) Differential, Automated (04/16/2013 3:44 AM EST) [facility] Method Time Signature Neutrophils % 76.5 (H) 34.0 - CERNER 71.0 % MILLENNIUM Neutr Abs (ANC) 6.64 (H) 1.50 - CERNER 6.30 MILLENNIUM x10(3)/mc L Lymphocytes % 14.7 (L) 19.0 - CERNER 53.0 % MILLENNIUM Lymphocytes Abs 1.3 1.0 - 3.6 CERNER x10(3)/mc MILLENNIUM L Monocytes % 8.6 4.0 - CERNER 13.0 % MILLENNIUM Monocyte Abs 0.8 0.2 - 1.0 CERNER x10(3)/mc MILLENNIUM L Eosinophils % 0.1 0.0 - 7.0 CERNER % MILLENNIUM Eosinophils Abs 0.0 0.0 - 0.5 CERNER x10(3)/mc MILLENNIUM L Basophils % 0.0 0.0 - 2.0 CERNER % MILLENNIUM Basophils Abs 0.0 0.0 - 0.2 CERNER x10(3)/mc MILLENNIUM L Immature Gran % 0.10 0.00 - CERNER 0.66 % MILLENNIUM Comment: [...] Location / / Volume Laterality Blood specimen 04/16/2013 3:44 AM 013 3:52 (specimen) EST AM EST David Gaston MD HEMATOLOGY ORDERABLES Performing Organization Address City/State/[place] [address] CERNER MILLENNIUM (ABNORMAL) Basic Metabolic Panel (non-fasting) (04/16/2013 3:44 AM EST) athologist Signature Glucose Lvl 112 60 - 199 CERNER mg/dL MILLENNIUM Comment: Diabetes: >=200 mg/dL plus symp toms BUN 20 (H) 8 - 18 mg/dL CERNER MILLENNIUM Creatinine 1.07 0.70 - 1.20 mg/dL CERNER MILL ENNIUM Comment: Please note that the pediatric reference intervals supplied above were not validated at [facility]. Results from pediatri c patients should be interpreted in conjunction to the patient's age, height and muscle mass. Sodium 134 (L) 135 - 145 mmol/L CERNER SHIREEN NIUM Potassium 4.4 3.5 - 5.0 mmol/L CERNER SHIREEN NIUM Comment: Please note: ??Patients with WBC >100,00 0 may have falsely elevated Potassium levels. ??For accurate Potassium quantif ication in these patients send serum separator tube (gold top) for subsequent determinations. ??Contact the Clinical Chemistry Laboratory if there are any qu estions. Chloride 98 98 - 107 mmol/L CERNER MILLENN IUM CO2 26 22 - 31 mmol/L CERNER MILLENNI UM Anion Gap 10 5 - 15 mmol/L CERNER MILLENNIU M Calcium 8.4 (L) 8.5 - 10.5 mg/dL CERNER SHIREEN NIUM Estimated GFR 51 (L) >=60 CERNER MILLENNIU M Comment: This estimated [...] Location / / Volume Laterality Blood specimen 04/16/2013 3:44 AM 013 3:52 (specimen) EST AM EST Resulting Agency Comment Spec In Lab David Gaston MD CHEMISTRY ORDERABLES Performing Organization Address City/State/ZIP Code Phon e Number [place] [phone] [facility] [address] CERNER MILLENNIUM (ABNORMAL) CBC (with Diff) (04/16/2013 3:44 AM EST) P athologist Signature WBC 8.7 4.0 - 10.0 CERNER x10(3)/mcL MILLENNIUM RBC 3.86 (L) 3.93 - CERNER 5.22 MILLENNIUM x10(6)/mcL Hemoglobin 11.5 11.2 - CERNER 15.7 gm/dL MILLENNIUM Hematocrit 35.6 34.0 - CERNER 45.0 % MILLENNIUM MCV 92.2 79.0 - CERNER 94.0 fL MILLENNIUM MCH 29.8 26.6 - CERNER 32.2 pg MILLENNIUM MCHC 32.3 32.0 - CERNER 36.5 gm/dL MILLENNIUM Platelets 149 145 - 370 CERNER x10(3)/mcL MILLENNIUM RDWSD 45.9 35.0 - CERNER 46.0 fL MILLENNIUM RDWCV 13.8 10.9 - CERNER 14.4 % MILLENNIUM MPV 9.5 9.0 - 12.0 CERNER fL [facility] Specimen Anatomical Collection Method Collection Time Receive d Time (Source) Location / / Volume Laterality Blood specimen 04/16/2013 3:44 AM 013 3:52 (specimen) EST AM EST Resulting Agency Comment Spec In Lab David Gaston MD HEMATOLOGY ORDERABLES Performing Organization Address City/State/ZIP Code Phon e Number [address] CERNER MILLENNIUM POCT Glucose (04/15/2013 11:56 PM EST) athologist Signature POC Glucose 183 60 - 199 CERNER mg/dL [facility] Comment: Supplemental ranges: <110 mg/dL before meals <200 mg/dL all other times of the day Specimen Anatomical Collection Method Collection Time Receive d Time (Source) Location / / Volume Laterality Blood specimen 04/15/2013 11:56 3 (specimen) PM EST 11:56 PM EST David Gastno MD POINT OF CARE TEST ORDERABLE S Performing Organization Address City/[facility]/ZIP Code Phon e Number [address] CERNER MILLENNIUM (ABNORMAL) POCT Glucose (04/15/2013 10:01 PM EST) athologist Signature POC Glucose 250 (H) 60 - 199 CERNER mg/dL [facility] Comment: Supplemental ranges: <110 mg/dL before meals <200 mg/dL all other times of the day Specimen Anatomical Collection Method Collection Time Receive d Time (Source) Location / / Volume Laterality Blood specimen 04/15/2013 10:01 3 (specimen) PM EST 10:01 PM EST David Gaston MD POINT OF CARE TEST ORDERABLE S Performing Organization Address City/[facility]/ZIP Code Phon e Number [address] CERNER MILLENNIUM (ABNORMAL) POCT Glucose (04/15/2013 8:04 PM EST) athologist Signature POC Glucose 308 (H) 60 - 199 CERNER mg/dL MILLENNIUM Comment: Supplemental ranges: <110 mg/dL before meals <200 mg/dL all other times of the day Specimen Anatomical Collection Method Collection Time Receive d Time (Source) Location / / Volume Laterality Blood specimen 04/15/2013 8:04 PM 013 8:04 (specimen) EST PM EST David Gaston MD POINT OF CARE TEST ORDERABLE S Performing Organization Address City/State/[place] [address] CERNER MILLENNIUM POCT Glucose (04/15/2013 4:04 PM EST) athologist Signature POC Glucose 178 60 - 199 CERNER mg/dL MILLENNIUM Comment: Supplemental ranges: <110 mg/dL before meals <200 mg/dL all other times of the day Specimen Anatomical Collection Method Collection Time Receive d Time (Source) Location / / Volume Laterality Blood specimen 04/15/2013 4:04 PM 013 4:04 (specimen) EST PM EST David Gaston MD POINT OF CARE TEST ORDERABLE S Performing Organization Address City/[facility]/[place] [address] CERNER MILLENNIUM POCT Glucose (04/15/2013 12:03 PM EST) athologist Signature POC Glucose 138 60 - 199 CERNER mg/dL MILLENNIUM Comment: Supplemental ranges: <110 mg/dL before meals <200 mg/dL all other times of the day Specimen Anatomical Collection Method Collection Time Receive d Time (Source) Location / / Volume Laterality Blood specimen 04/15/2013 12:03 3 (specimen) PM EST 12:03 PM EST David Gaston MD POINT OF CARE TEST ORDERABLE S Performing Organization Address City/State/[place] [address] CERNER MILLENNIUM Surgical Pathology Report (04/15/2013 12:01 PM EST) Component Value Ref Test Analysis Performed At [facility] gist Range Method Time Signature Surgical CERNER Pathology ? [facility] Report ? Provider: ?? DAVID GASTON ?Pt. Name: ? ? PEGGY COFFMAN ? Acc #: ?[id number] ?Pt. MRN: ?[id number] ? Col Date: ?? 04/15/20 13 ?/Sex: ?1945,(67 years),Female ? Rec Date: ?? 04/15/2013 ?LOC: ?[id number] ? SURGICAL PATHOLOGY ? ---Pathologic Diagnosis--- ? A - Articular bone an d soft tissue consistent with osteoarthritis, right ? knee. ?Gross surgical pathology examination. ? CR-0 ? 04/15/13 ? PPS ? 04/16/13 Verified by: ? Paresh Sorto MD ? Pathologist ? (Electronic Si gnature) ? The attending pathologist whose signature appears o n this report has ? reviewed all diagnostic slides and has edited the willy ss and/or ? microscopic portion of the report in rendering the fi nal pathologic ? diagnosis. ? ---Gross Description--- ? A - Labeled/Fixative: Right knee bone and tissue, celena sh. ? Quantity/Size: Multiple, 9.5 x 7.5 x 3.8 cm in aggreg ate. ? Tissue Description: Fragments of yellow-white, hard , irregular bone, ? cartilage and soft tissue. ? Articular Surface: Granular, barkley-pink. ? Eburnation: Present. ? Osteophytes: Present. ? Sections/Processing: No sections are submitted. ??pps ? ---Clinical Information--- ? Specimen Submitted: ? A - Right knee bone and tissue ? Clinical History: ? Osteoarthritis ? Clinical Diagnosis: ? Same Specimen (Source) Anatomical Collection Method Collection Time Re ceived Time Location / / Volume Laterality 04/15/2013 12:01 PM EST David Gaston MD PATHOLOGY/CYTOLOGY ORDERABLE S Performing Organization Address City/[facility]/[place] [address] CERNER MILLENNIUM Specimen to Pathology (surgical or derm) (04/15/2013 10:46 AM EST) Specimen Anatomical Collection Method Collection Time Receive d Time (Source) Location / / Volume Laterality AP Specimen 04/15/2013 10:46 04/15/2013 AM EST 10:46 AM EST Narrative CERNER MILLENNIUM - 04/15/2013 10:46 AM EST Specimen requisition ordered. ??Separate Pathology report to follow David Gaston MD PATHOLOGY/CYTOLOGY ORDERABLE S Performing Organization Address City/[facility]/[place] [address] CERNER MILLENNIUM POCT Glucose (04/15/2013 8:53 AM EST) P athologist Signature POC Glucose 108 60 - 199 CERNER mg/dL MILLENNIUM Comment: Supplemental ranges: <110 mg/dL before meals <200 mg/dL all other times of the day Specimen Anatomical Collection Method Collection Time Receive d Time (Source) Location / / Volume Laterality Blood specimen 04/15/2013 8:53 AM 013 8:53 (specimen) EST AM EST David Gaston MD POINT OF CARE TEST ORDERABLE S Performing Organization Address City/[facility]/[place] [address] CERNER MILLENNIUM documented in this encounter Visit Diagnoses Diagnosis Osteoarthritis, knee - s/p R TKA () - Primary Osteoarthrosis, unspecified whether gene ralized or localized, lower leg Osteoarthritis, knee - s/p R TKA () Osteoarthrosis, unspecified whether gene ralized or localized, lower leg documented in this encounter Administered Medications Inactive Administered Medications - up to 3 most recent administrations Medication Order MAR Action Action Date Dose Rate Site acetaminophen (TYLENOL) tablet Given 04/18/2013 2:00 PM EST 1,00 0 mg 1,000 mg 1,000 mg, Oral, EVERY 8 HOURS SCHEDULED, First dose on Fri04/15/13 at 1545, Until Discontinued, Maximum dose of acetaminophen is 4000 mg from all sources in 24 hours., Routine Given 04/18/2013 5:48 AM EST 1,000 mg Given 04/17/2013 9:55 PM EST 1,000 mg ascorbic acid (VITAMIN C) tablet 500 mg Given 04/18/2013 9:00 AM EST 500 mg 500 mg, Oral, DAILY, First dose on Fri04/15/13 at 1700, Until Discontinued, Routine Given 04/17/2013 9:00 AM EST 500 mg Given 04/16/2013 9:00 AM EST 500 mg atenolol (TENORMIN) tablet 25 mg Given 04/17/2013 9:55 PM EST 25 mg 25 mg, Oral, DAILY, First dose on Fri04/15/13 at 1700, Until Discontinued, Hold for sbp <100, hr <60, Routine Given 04/16/2013 8:57 PM EST 25 mg biotin tablet 300 mcg Given 04/18/2013 9:00 AM EST 300 mcg 300 mcg, Oral, DAILY, First dose on Fri04/16/13 at 0900, Until Discontinued Given 04/17/2013 9:00 AM EST 300 mcg Given 04/16/2013 9:00 AM EST 300 mcg clopidogrel (PLAVIX) tablet 75 mg Given 04/18/2013 9:00 AM EST 75 mg 75 mg, Oral, DAILY, First dose on Fri04/15/13 at 1700, Until Discontinued, Routine Given 04/17/2013 9:00 AM EST 75 mg Given 04/16/2013 9:00 AM EST 75 mg cyanocobalamin (vitamin B-12) tablet 1,000 Given 04/18 9:00 AM EST 1,000 mcg mcg 1,000 mcg, Oral, DAILY, First dose on Fri04/15/13 at 1700, Until Discontinued, Routine Given 04/17/2013 9:00 AM EST 1,000 mcg Given 04/16/2013 8:59 AM EST 1,000 mcg diaZEPam (VALIUM) tablet 5 mg Given 04/16/2013 4:45 PM EST 5 mg 5 mg, Oral, EVERY 6 HOURS PRN, Starting on Fri04/16/13 at 1245, Until 04/17/13 at 1141, Anxiety, spasms, Routine ezetimibe (ZETIA) tablet 10 mg Given 04/18/2013 9:00 AM EST 10 mg 10 mg, Oral, DAILY, First dose on Fri04/16/13 at 0900, Until Discontinued, Routine Given 04/17/2013 9:00 AM EST 10 mg Given 04/16/2013 8:59 AM EST 10 mg HYDROmorphone (DILAUDID) 1 mg/mL New Syringe/Cartridge 04/15/2013 1 2:45 PM EST [employer]OM[employer]ION MANAGER 30 mL Intravenous, HEALTH PROMOTION MANAGER ONLY, Starting on Fri04/15/13 at 1245, Until Fri04/16/13 at 0742 HYDROmorphone (DILAUDID) injection 0.2-0 .4 mg Given 04/15/2013 1:09 PM EST 0.4 mg 0.2-0.4 mg, Intravenous, EVERY 5 MIN PRN, Starting on Gini 04/15/13 at 1155, Until Gini 04/15/13 at 1422, Pain, For moderate pain give: 0.2 mg every 5 minute prn For severe pain give: 0.4 mg every 5 minutes prn Maximum dose: 4 mg per hour Hold for respiratory rate less than 10 per minute., PACU Recovery, Routine Given 04/15/2013 12:56 PM EST 0.4 mg Given 04/15/2013 12:48 PM EST 0.4 mg HYDROmorphone (DILAUDID) injection 0.5 m g Given 04/16/2013 1:07 PM EST 0.5 mg 0.5 mg, Intravenous, ONCE, 1 dose, On Fri04/16/13 at 1315, Routine HYDROmorphone (DILAUDID) tablet 4-8 mg Given 04/16/2013 3:12 PM EST 8 mg 4-8 mg, Oral, EVERY 3 HOURS PRN, Starting on Fri04/16/13 at 1245, Until 04/16/13 at 1712, Pain, Routine HYDROmorphone (DILAUDID) tablet 4-8 mg Given 04/18/2013 2:33 PM EST 8 mg 4-8 mg, Oral, EVERY 4 HOURS PRN, Starting on 04/17/13 at 1126, Until 04/18/13 at 1734, Pain, Routine Given 04/18/2013 10:26 AM EST 8 mg Given 04/18/2013 6:19 AM EST 8 mg HYDROmorphone (DILAUDID) tablet 8-12 mg Given 04/17/2013 5:55 AM EST 12 mg 8-12 mg, Oral, EVERY 3 HOURS PRN, Starting on 04/16/13 at 1712, Until 04/17/13 at 0816, Pain, Routine Given 04/17/2013 1:06 AM EST 12 mg Given 04/16/2013 9:48 PM EST 12 mg HYDROmorphone (DILAUDID) tablet 8-12 mg Given 04/17/2013 10:16 AM EST 12 mg 8-12 mg, Oral, EVERY 4 HOURS PRN, Starting on 04/17/13 at 0830, Until 04/17/13 at 1126, Pain, Routine imipramine (TOFRANIL) tablet 25 mg Given 04/17/2013 9:55 PM EST 25 mg 25 mg, Oral, NIGHTLY, First dose on Gini 04/15/13 at 2100, Until Discontinued, Routine Given 04/16/2013 8:57 PM EST 25 mg Given 04/15/2013 9:14 PM EST 25 mg insulin aspart (novoLOG) PEN injection 2-8 Given 04/16 12:00 AM EST 4 Units Units 2-8 Units, Subcutaneous, EVERY 4 HOURS SCHEDULED, First dose on Gini 04/15/13 at 1245, Until Discontinued, CORRECTION BOLUS Moderate BG 140 - 160 Give 2 units BG 161 - 200 Give 4 units BG 201 - 240 Give 6 units BG greater than 240, give 8 units and recheck BG in 2 hours. If BG remains greater than 240, repeat 8 units (no more than three times) & call for new basal insulin orders. If less than 240 after two hours, give no insulin and resume prior schedule., Routine Given 04/15/2013 10:03 PM EST 8 Units Given 04/15/2013 8:00 PM EST 8 Units insulin glargine (LANTUS) PEN injection 40 Given 04/17 9:45 PM EST 40 Units Units 40 Units, Subcutaneous, NIGHTLY, First dose (after last modification) on Fri04/16/13 at 2100, Until Discontinued, Routine Given 04/16/2013 8:54 PM EST 40 Units insulin glargine (LANTUS) VIAL injection 50 Given 03/22 9:14 PM EST 50 Units Units 50 Units, Subcutaneous, NIGHTLY, First dose on Fri04/15/13 at 2100, Until Discontinued, Routine isosorbide mononitrate (IMDUR) CR tablet 60 mg Given 04/18/2013 9:00 AM EST 60 mg 60 mg, Oral, DAILY, First dose on Fri04/16/13 at 0900, Until Discontinued, Hold for systolic blood pressure less than 100, Routine Given 04/17/2013 9:00 AM EST 60 mg Given 04/16/2013 8:59 AM EST 60 mg lactated ringers infusion 1,000 New Bag 04/16/2013 2:53 AM EST 1,000 mLs 100 mL/hr mL 1,000 mL, at 100 mL/hr, Intravenous, CONTINUOUS, Starting on Fri04/15/13 at 1245, Until Fri04/16/13 at 0742 New Bag 04/15/2013 12:45 PM EST 1,000 mLs 100 mL/hr losartan (COZAAR) tablet 50 mg Given 04/18/2013 9:00 AM EST 50 mg 50 mg, Oral, DAILY, First dose on Fri04/16/13 at 0900, Until Discontinued, Routine Given 04/17/2013 9:00 AM EST 50 mg Given 04/16/2013 8:59 AM EST 50 mg midazolam (VERSED) 1 mg/mL injection 1 dose, Starting on Fri04/15/13 at 0807, Until Fri at 0902CARMITA: cabinet override midazolam (VERSED) injection 1 mg Given 04/15/2013 9:08 AM EST 1 mg 1 mg, Intravenous, EVERY 5 MIN PRN, Starting on Fri04/15/13 at 0852, Until Gini 04/15/13 at 0915, Anxiety, or prior to injection of local anesthetic., Hold for delirium/agitation. (maximum dose 5 mg), Day of Surgery (Day of Procedure), Routine Given 04/15/2013 9:02 AM EST 1 mg multivitamin Gpbf-Jz-VG-Min (THERAPEUTIC-M) Given 03/22 9:00 AM EST 1 tablet 27-0.4 mg tablet 1 tablet 1 tablet, Oral, DAILY, First dose on Fri04/15/13 at 1700, Until Discontinued Given 04/17/2013 9:00 AM EST 1 tablet Given 04/16/2013 8:59 AM EST 1 tablet OXYcodone (oxyCONTIN) CR tablet 60 mg Given 04/16/2013 8:59 AM EST 60 mg 60 mg, Oral, EVERY 12 HOURS SCHEDULED (2 times per day), First dose on Gini 04/15/13 at 1315, Until Discontinued Given 04/15/2013 9:14 PM EST 60 mg Given 04/15/2013 3:51 PM EST 60 mg OXYcodone (oxyCONTIN) CR tablet 60 mg Given 04/18/2013 9:00 AM EST 60 mg 60 mg, Oral, EVERY 12 HOURS SCHEDULED (2 times per day), First dose (after last modification) on Fri04/17/13 at 2100, Until Discontinued OXYcodone (oxyCONTIN) CR tablet 70 mg Given 04/17/2013 9:00 AM EST 70 mg 70 mg, Oral, EVERY 12 HOURS SCHEDULED (2 times per day), First dose (after last modification) on Fri04/16/13 at 2100, Until Discontinued Given 04/16/2013 8:57 PM EST 70 mg OXYcodone (ROXICODONE) immediate release Given 04/16/2013 12:17 PM EST 20 mg tablet 10-20 mg 10-20 mg, Oral, EVERY 3 HOURS PRN, Starting on Fri04/15/13 at 1259, Until Fri04/16/13 at 1244, Pain, Routine Given 04/16/2013 8:50 AM EST 20 mg Given 04/15/2013 1:02 PM EST 20 mg pyridoxine (VITAMIN B6) tablet 100 mg Given 04/18/2013 9:00 AM EST 100 mg 100 mg, Oral, DAILY, First dose on Fri04/15/13 at 1700, Until Discontinued, Routine Given 04/17/2013 9:00 AM EST 100 mg Given 04/16/2013 8:59 AM EST 100 mg senna-docusate (PERICOLACE) 8.6-50 mg per Given 2012 9:00 AM EST 2 tablets tablet 1-4 tablet 1-4 tablet, Oral, 2 TIMES DAILY, First dose on Gini 04/15/13 at 2100, Until Discontinued, Start with 1 tablet or liquid equivalent orally twice daily and titrate up to achieve: 1. One bowel movement at least every 48 hours, AND 2. Without straining, Routine Given 04/17/2013 9:55 PM EST 2 tablets Given 04/17/2013 9:00 AM EST 2 tablets simvastatin (ZOCOR) tablet 40 mg Given 04/17/2013 5:00 PM EST 40 mg 40 mg, Oral, EVERY EVENING, First dose on Gini 04/15/13 at 1700, Until Discontinued, Routine Given 04/16/2013 4:51 PM EST 40 mg Given 04/15/2013 5:14 PM EST 40 mg sodium chloride 0.9 % flush 5 mL Given 04/18/2013 3:45 AM EST 5 mLs 5 mL, Intravenous, EVERY 12 HOURS, First dose on Gini 04/15/13 at 1545, Until Discontinued Given 04/17/2013 3:45 PM EST 5 mLs Given 04/17/2013 3:45 AM EST 5 mLs sodium chloride 0.9% 500 mL IV bolus Given 04/15/2013 7:12 PM EST Intravenous, ONCE, 1 dose, On Gini 04/15/13 at 1830 vancomycin 1 g in dextrose 5% 200 mL Given 04/16/2013 8:59 AM EST 1,000 mg 1,000 mg (1 g), Intravenous, EVERY 12 HOURS, 2 doses, First dose on Gini 04/15/13 at 2130, Last dose on Fri04/16/13 at 0930, Administer over 90 Minutes, 15 mg/kg/dose for 2 doses postoperatively. Adjust to 12 hours from intraoperative dose., Indication for (Active or Suspected): Prophylaxis Given 04/15/2013 9:14 PM EST 1,000 mg documented in this encounter Active and Recently Administered Medications Times are shown in EST. Scheduled Medication Order 04/16/2013 04/17/2013 04/18/2013 acetaminophen (TYLENOL) tablet 1,000 mg 0540 (Given - Provider: Yocasta Cruz RN)1307 (Given - Provider: Falguni Manuel RN)2113 (Given - Provider: Tai Fong RN) 0554 (Given - Provider: Tai Fong RN)1400 (Given - Provider: Gauri Lawrence RN)2155 (Given - Provider: Tai Fong RN) 0548 (Given - Provider: Tai Fong RN)1400 (Given - Provider: Scott Landeros RN) 1,000 mg, Oral, EVERY 8 HOURS SCHEDULED, First dose on Fri04/15/13 at 1545, Until Discontinued, Maximum dose of acetaminophen is 4000 mg from all sources in 24 hours., Routine ascorbic acid (VITAMIN C) tablet 500 mg (CANCELED) 090 0 (Given - Provider: Falguni Manuel RN) 0900 (Given - Provider: Gauri Lawrence RN) 0900 (Giv en - Provider: Scott Landeros RN) 500 mg, Oral, DAILY, First dose on Gini 06/16/12 at 1700, Until Discontinued, Routine atenolol (TENORMIN) tablet 25 mg (CANCELED) 2056 (Give n - Provider: Tai Fong RN) 2154 (Given - Provider: Tai Fong RN) 25 mg, Oral, DAILY, First dose on Fri at 1700, Until Discontinued, Hold for sbp <100, hr <60, Routine biotin tablet 300 mcg (CANCELED) 0900 (Given - Provider: Belen Manuel RN) 0900 (Given - Provider: Gauri Lawrence RN) 0900 (Given - Provider: Scott Landeros RN) 300 mcg, Oral, DAILY, First dose on Fri04/16/13 at 0900, Until Discontinued, Routine clopidogrel (PLAVIX) tablet 75 mg (CANCELED) 0900 (Giv en - Provider: Falguni Manuel RN) 0900 (Given - Provider: Gauri Lawrence RN) 0900 (Giv en - Provider: Scott Landeros RN) 75 mg, Oral, DAILY, First dose on Fri at 1700, Until Discontinued, Routine cyanocobalamin (vitamin B-12) tablet 1,000 mcg (CANCEL ED) 0859 (Given - Provider: Falguni Manuel RN) 0900 (Given - Provider: Gauri Lawrence RN) 0900 (Given - Provider: Scott Landeros RN) 1,000 mcg, Oral, DAILY, First dose on 04/15/13 at 1700, Until Discontinued, Routine ezetimibe (ZETIA) tablet 10 mg (CANCELED) 0859 (Given - Provider: Falguni Manuel RN) 0900 (Given - Provider: Gauri Lawrence RN) 0900 (Giv en - Provider: Scott Landeros RN) 10 mg, Oral, DAILY, First dose on Fri at 0900, Until Discontinued, Routine HYDROmorphone (DILAUDID) injection 0.5 mg (COMPLETED) 1307 (Given - Provider: Falguni Manuel RN) 0.5 mg, Intravenous, ONCE, 1 dose, Fri04/16/13 at 1315, Routine imipramine (TOFRANIL) tablet 25 mg (CANCELED) 2056 (Gi sita - Provider: Tai Fong RN) 2155 (Given - Provider: Tai Fong RN) 25 mg, Oral, NIGHTLY, First dose on Fri04/15/13 at 2100, Until Discontinued, Routine insulin aspart (novoLOG) PEN injection 2-8 Units (CANC ELED) 0000 (Given - Provider: Yocasta Cruz RN)0400 (Not Given - Provider: Yocasta Cruz RN - Reason: Order parameters not met)0800 (Not Given - Provider: Falguni Manuel RN - Reason: Order parameters not met) 0004 (Not Given - Provider: Tai Fong RN - Reason: Order parameters not met)0442 (Not Given - Provider: Tai Fong RN - Reason: Order parameters not met) 0000 (Not Given - Provider: Tai Fong RN - Reason: Order parameters not met)0356 (Not Given - Provider: Tai Fong RN - Reason: Order parameters not met) 2-8 Units, Subcutaneous, EVERY 4 HOURS S CHEDULED, First dose on Gini 04/15/13 at 1245, Until Discontinued, CORRECTION BOLUS Moderate BG 140 - 160 Give 2 units BG 161 - 200 Give 4 units BG 201 - 240 G 1200 (Not Given - Provider: Falguni Manuel RN - Reason: Order parameters not met)1600 (Not Given - Provider: Falguni Manuel RN - Reason: Order parameters not met) 0800 (Not Given - Provider: Gauri Lawrence RN - Reason: Order parameters not met)1200 (Not Given - Provider: Gauri Lawrence RN - Reason: Order parameters not met - Comment: BG = 83. Pt given OJ.) 0800 (Not Given - Provider: Scott Landeros RN - Reason: Order parameters not met)1200 (Not Given - Provider: Scott Landeros RN - Reason: Order parameters not met) geraldine 6 units BG greater than 240, give 8 units and recheck BG in 2 hours. If BG remains greater than 240, repeat 8 units (no more than three times) & call for new basal insulin orders. If less than 2 2030 (Not Given - Provider: Tai Fong RN - Reason: Order parameters not met) 1600 (Not Given - Provider: Gauri Lawrence RN - Reason: Order parameters not met)2041 (Not Given - Provider: Tai Fong RN - Reason: Order parameters not met) 40 after two hours, give no insulin and resume prior schedule., Routine insulin glargine (LANTUS) PEN injection 40 Units (CAN ELED) 2053 (Given - Provider: Tai Fong RN) 2144 (Given - Provider: Tai Fong RN) 40 Units, Subcutaneous, NIGHTLY, First d ose on Fri04/16/13 at 2100, Until Discontinued, Routine isosorbide mononitrate (IMDUR) CR tablet 60 mg (CANCEL ED) 0859 (Given - Provider: Falguni Manuel RN) 0900 (Given - Provider: Gauri Lawrence RN) 0900 (Given - Provider: Scott Landeros RN) 60 mg, Oral, DAILY, First dose on Fri at 0900, Until Discontinued, Hold for systolic blood pressure less than 100, Routine losartan (COZAAR) tablet 50 mg (CANCELED) 0859 (Given - Provider: Falguni Manuel RN) 0900 (Given - Provider: Gauri Lawrence RN) 0900 (Giv en - Provider: Scott Landeros RN) 50 mg, Oral, DAILY, First dose on Fri at 0900, Until Discontinued, Routine multivitamin Lobu-Jh-JF-Min (THERAPEUTIC -M) 27-0.4 mg tablet 1 tablet (CANCELED) 0859 (Given - Provider: Falguni Manuel RN) 0900 (Gi sita - Provider: Gauri Lawrence RN) 0900 (Given - Provider: Scott jhaveri RN) 1 tablet, Oral, DAILY, First dose on Fri04/15/13 at 1700, Until Discontinued, Routine OXYcodone (oxyCONTIN) CR tablet 60 mg (CANCELED) 0859 (Given - Provider: Falguni Manuel RN) 60 mg, Oral, EVERY 12 HOURS SCHEDULED (2 times per day), First dose on Fri04/15/13 at 1315, Until Discontinued, Routine OXYcodone (oxyCONTIN) CR tablet 60 mg (CANCELED) 2100 (Not Given - Provider: Tai Fong RN - Reason: Patient/family refused) 0900 (Given - Provider: Scott Landeros RN) 60 mg, Oral, EVERY 12 HOURS SCHEDULED (2 times per day), First dose on Fri04/17/13 at 2100, Until Discontinued, Routine OXYcodone (oxyCONTIN) CR tablet 70 mg (CANCELED) 2056 (Given - Provider: Tai Fong RN) 0900 (Given - Provider: Gauri Lawrence RN) 70 mg, Oral, EVERY 12 HOURS SCHEDULED (2 times per day), First dose on Fri04/16/13 at 2100 pyridoxine (VITAMIN B6) tablet 100 mg (CANCELED) 0859 (Given - Provider: Falguni Manuel RN) 0900 (Given - Provider: Gauri Lawrence, CHOLO) 0900 (Giv en - Provider: Scott Landeros, CHOLO) 100 mg, Oral, DAILY, First dose on Fri06/16/12 at 1700, Until Discontinued, Routine senna-docusate (PERICOLACE) 8.6-50 mg per tablet 1-4 t ablet 0859 (Given - Provider: Falguni Manuel RN)205 (Given - Provider: Tai Fong, CHOLO) 0900 (Given - Provider: Gauri Lawrence, CHOLO)2155 (Given - Provider: Tai Fong, CHOLO) 0900 (Given - Provider: Scott jhaveri RN) 1-4 tablet, Oral, 2 TIMES DAILY, First d ose on Fri04/15/13 at 2100, Until Discontinued, Start with 1 tablet or liquid equivalent orally twice daily and titrate up to achieve: 1. One bowel movement at l east every 48 hours, AND 2. Without straining, Routine simvastatin (ZOCOR) tablet 40 mg (CANCELED) 165 (Give n - Provider: Falguni Manuel RN) 1700 (Given - Provider: Gauri Lawrence, CHOLO) 40 mg, Oral, EVERY EVENING, First dose o n Fri04/15/13 at 1700, Until Discontinued, Routine sodium chloride 0.9 % flush 5 mL (CANCELED) 0345 (Give n - Provider: Yocasta Cruz RN)1508 (Given - Provider: Falguni Manuel RN) 0345 (Given - Provider: Tai Fong RN)1545 (Given - Provider: Gauri Lawrence, CHOLO) 0345 (Given - Provider: Tai bacon RN) 5 mL, Intravenous, EVERY 12 HOURS, First dose on Fri04/15/13 at 1545, Until Discontinued, Routine vancomycin 1 g in dextrose 5% 200 mL (COMPLETED) 0859 (Given - Provider: Falguni Manuel, CHOLO) 1 g = 1,000 mg, Intravenous, EVERY 12 HO URS, 2 doses, First dose on Gini 04/15/13 at 2130, Last dose on Fri04/16/13 at 0930, for 90 Minutes, 15 mg/kg/dose for 2 doses postoperatively. Adjust to 12 hours from intraoperative dose., Indication for (Active or Suspected) : Prophylaxis Continuous Medication Order 04/16/2013 04/17/2013 04/18/2013 lactated ringers infusion 1,000 mL (CANCELED) 0253 (Ne w Bag - Provider: Yocasta Cruz, RN)0700 (Stopped - Provider: Scott Landeros, CHOLO) 1,000 mL, at 100 mL/hr, Intravenous, CON TINUOUS, Starting Gini 04/15/13 at 1245, Until Fri04/16/13 at 0742 PRN Medication Order 04/16/2013 04/17/2013 04/18/2013 diaZEPam (VALIUM) tablet 5 mg (CANCELED) 1645 (Given - Provider: Falguni Manuel RN) 5 mg, Oral, EVERY 6 HOURS PRN, Starting 04/16/13 at 1245, Until 04/17/13 at 1141, Anxiety, spasms, Routine HYDROmorphone (DILAUDID) tablet 4-8 mg (CANCELED) 1512 (Given - Provider: Falguni Manuel RN) 4-8 mg, Oral, EVERY 3 HOURS PRN, Startin g 04/16/13 at 1245, Until 04/16/13 at 1712, Pain, Routine HYDROmorphone (DILAUDID) tablet 4-8 mg 1 436 (Given - Provider: Gauri Lawrence, CHOLO) 0619 (Given - Provider: Tai bacon RN)1026 (Given - Provider: Scott Landeros, CHOLO)1433 (Given - Provider: Scott Landeros RN) 4-8 mg, Oral, EVERY 4 HOURS PRN, Startin g 04/17/13 at 1126, Until 04/18/13 at 1734, Pain, Routine HYDROmorphone (DILAUDID) tablet 8-12 mg (CANCELED) 182 6 (Given - Provider: Falguni Manuel RN)2148 (Given - Provider: Tai Fong RN) 0106 (Given - Provider: Tai Fong RN)0555 (Given - Provider: Tai Fong RN) 8-12 mg, Oral, EVERY 3 HOURS PRN, Starti ng Fri 04/16/13 at 1712, Until 04/17/13 at 0816, Pain, Routine HYDROmorphone (DILAUDID) tablet 8-12 mg (CANCELED) 1016 (Given - Provider: aGuri Lawrence RN) 8-12 mg, Oral, EVERY 4 HOURS PRN, Starti ng Sat 04/17/13 at 0830, Until 04/17/13 at 1126, Pain, Routine OXYcodone (ROXICODONE) immediate release tablet 10-20 mg (CANCELED) 0850 (Given - Provider: Falguni Manuel RN)1217 (Given - Provider: Falguni Manuel, CHOLO) 10-20 mg, Oral, EVERY 3 HOURS PRN, Start ing Gini 04/15/13 at 1259, Until 04/16/13 at 1244, Pain, Routine documented in this encounter Care Teams Beveler Relationship Specialty Start Date End Date Ivan Gotti MD PCP - General 03/13/10 [address] [place] [address] documented as of this encounter
--- OUTSIDE RECORDS SUMMARY | 2022-03-10 21:03 | XMS_ITS | Encounter Summary ---
:1945 Author Organization [place] [address] Care Team Providers Name Role Phone Ivan Gotti MD Primary Care Provider Reason for Visit Reason Onset Date Comments Pain Management 04/06/2013 Encounter Details Date Type Department Care Team Description 04/06/2013 Telephone Orthopaedics at [facility] Luis [place] [id number] Social History Tobacco Use Types Packs/Day Years Used Date Smoking Tobacco: Former Cigarettes Smokeless Tobacco: Never Alcohol Use Standard Drinks/Week Comments No 0 (1 standard drink = 0.6 oz pure alcoho l) Sex Assigned at Date Recorded Not on file documented as of this encounter Miscellaneous Notes Telephone Encounter - Luis Padilla RN - 04/06/2013 9:11 AM EST PCP office will continue to manage long acting narcotics after up coming surgery and we will do the short acting medication. 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 They are requesting a phone call post op to coordinate care once she is home. documented in this encounter Plan of Treatment Not on filedocumented as of this encounter Visit Diagnoses Not on filedocumented in this encounter Care Teams [facility] Service Worker Relationship Specialty Start Date End Date Ivan Gotti MD PCP - General 03/13/10 [address] [place] [address] documented as of this encounter
--- OUTSIDE RECORDS SUMMARY | 2022-03-10 21:03 | XMS_ITS | Encounter Summary ---
:1945 [place] [address] Care Team Providers Name Role Phone Ivan Gotti MD Primary Care Provider Encounter Details Date Type Department Care Team Description 04/15/2013 Anesthesia Event Main Operating Room Antelmo Jacinto MD [facility] [place] [address] [facility] Favio Taveras MD [facility] [place] [address] [place] [address] Anesthesia Record Procedure Summary Procedure Name Responsible Anesthesia Start Anesthesia Stop Anesthesiologist Time Time TOTAL KNEE Antelmo Rollins MD 04/15/13 0953 04/15/13 115 8 ARTHROPLASTY (WRVU 20.72) (Right: Knee) Events Date Time Event Comment 04/15/2013 0916 0953 Start 0954 AN Verify 0958 An Start Data 1001 An Induction 1004 An Intubation 1006 Anesthesia Ready 1018 An Tourn Inflated 1020 Procedure Start 1118 An Tourn Deflated 58min. 1154 Extubation/LMA Out 1154 an stop data 1158 Stop Name Total fentaNYL 250 mcg Propofol 240 mg Rocuronium 50 mg ePHEDrine 30 mg Ondansetron 4 mg Dexamethasone 8 mg vancomycin 1 g in dextrose 5% 200 mL 1 g tranexamic acid (CYKLOKAPRON) 1,380 mg in sodium chlor lisa 0.9% Cannot be calculated 113.8 mL HYDROmorphone 0.4 mg ketorolac (Toradol) (30 mg/mL) injection 30 mg lactated ringers infusion 1,000 mL 0 mL Lactated Ringers 1,500 mL Agents Name O2 Air Sevoflurane (et) Blood No blood administrations on file. Lines, Drains, and Airways Type Details Placement Removal Incision 04/15/13; knee; 04/15/13 0000 by 12/17/21 1715 b y 12/17/21 (LDA cleanup Jeromy Zhao, Garry Dennison utility RA#[id number]); 1715 (LDA cleanup utility RA#[id number]) Urethral Catheter 04/15/13; indwelling 04/15/13 0000 by 04/16/13 0718 by double lumen catheter; Jeromy Zhao, CHOLO foley, Patience K, 100% silicone; 16; AUT[employer]ERS inserted (using sterile technique); 1 (clear yellow return); drainage bag to dependent drainage; 04/16/13; 0718 Drain/Device Site 04/15/13; Right; knee; 04/15/13 0000 by 0000 by collapsible closed Jeromy Zhao RN Laferrier e, Samantha device (07/04 bob Sanchez RN drain connected to davol); 04/17/13 PIV 04/15/13; 0831; 04/15/13 0831 by 04/18/13 1617 b y 04/18/13; 1617 Carmita Jha RN [place] i, Stefan A, RN PIV 04/18/13; 1617 04/15/13 1012 by 04/18/13 1617 b y Eyal Landeros RN (RETIRED) Mask Ventilation: Easy 04/15/13 1012 by 04/15/13 1154 by Non-Surgical Airway (1); ETT Type: Cuffed, Favio Taveras MD Oral; ETT Size: 7 mm documented in this encounter Social History Tobacco Use Types Packs/Day Years Used Date Smoking Tobacco: Former Cigarettes Smokeless Tobacco: Never Alcohol Use Standard Drinks/Week Comments No 0 (1 standard drink = 0.6 oz pure alcoho l) never Sex Assigned at Date Recorded Not on file documented as of this encounter OR Notes Anesthesia Postprocedure Evaluation - Antelmo Rollins MD - 04/15/2013 1:05 PM EST Patient: Peggy Coffman Procedure(s) Performed: Procedure(s): @TOTAL KNEE ARTHROPLASTY MODIFIER PFC STABILIZED FIXED MODULAR DEPUY Actual Anesthetic: general, spinal Patient location: PACU Post-op pain: Adequate analgesia Post-op nausea: no nausea or vomiting Last Vitals: Filed Vitals: 04/15/13 1245 BP: 112/50 Pulse: 80 Temp: Resp: 18 Post-op cardiovascular and respiratory status: is stable Level of consciousness: awake, alert and oriented Complications: no apparent complications and tolerated the procedure well Fluid Status: normal Anesthesia Procedure Notes - Eduardo Garcia - 04/15/2013 9:09 AM ESTAssociated Order(s): ANESTHESIA BLOCK Procedure: Anesthesia Block Block: Post-op Pain Control, femoral nerve block Start time: 04/15/2013 9:02 AM End time: 04/15/2013 9:10 AM This patient was greeted in the block room and the risks and benefits of the anesthetic block were reviewed. The risks of infection, bleeding, local anesthetic toxicity, and nerve injury were discussed. Specifically, the approximate risk of nerve injury (04/2999-04/4999) including neuropathy, loss of sensation and motor function, whether permanent or temporary, was discussed as well as the fact that post-surgical nerve injury can be unrelated to the actual injection and may be related to intra-operative issues such as positioning and tourniquet usage. The anesthetic consent was obtained. The timeout was performed prior to procedure start. Standard ASA monitors were applied. Indication/Prep Position: supine Prep: alcohol and chlorhexidine Laterality: right Ultrasound Guidance: in-plane and live Skin Medication lidocaine 1% 3 ml Injection Injection technique:single-shot Needle Length: 5 cm Gauge: 22 Needle Type: D-[id number]-qlvsf Medication injection made incrementally with aspirations. Nerve infiltration solution through a needle Ropivicaine 0.5% 30 mL Performed by: Jose Supervising Attending/Fellow: Ayo ~~~~~~~~~~~~~~~~~~~~~~~~~~~~~~~~~~~~~~~~~~~~~~~~~~~~~~~~~~~~ Anesthesia Preprocedure Evaluation - Eduardo Garcia - 04/13/2013 3:42 PM EST Pre-Anesthesia Evaluation for: Peggy Coffman a 67 y.o. female. Procedure(s): @TOTAL KNEE ARTHROPLASTY MODIFIER PFC STABILIZED FIXED MODULAR DEPUY Patient Active Problem List Diagnosis ??? Hypercholesterolemia ??? migraine H/A ??? Low back pain ??? Obstructive sleep apnea ??? recurrent r peroneal entrapment ??? Depression ??? Thyroid cyst ??? adenoma coln polyp ??? Osteoarthritis, knee ??? Chronic pain ??? CAD (coronary artery disease) ??? Diabetes mellitus ??? Anticoagulant long-term use on plavix ??? 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 HTN (hypertension) Past Medical History Diagnosis Date ??? Allergy ??? Blood disorder ??? Musculoskeletal disease ??? Hypertensive disease ??? Breast disease ??? Elevated cholesterol ??? Chronic pain ??? Diabetes ??? Digestive problems ??? Infection ??? Urinary disorder ??? Hormone disorder Past Surgical History Procedure Date ??? Musculoskeletal surgery unlisted History Substance Use Topics ??? Smoking status: Former Smoker Types: Cigarettes ??? Smokeless tobacco: Never Used ??? Alcohol Use: No Comment: never History Drug Use Not on file Allergies Allergen Reactions ??? Aspirin Anaphylaxis Anaphylaxis ??? Codeine Phosphate Hives hives, swelling, hard time breathing ??? Lisinopril Hives hives, swelling, hard time breathing ??? Metformin Nausea And Vomiting vomiting ??? Methadone Hives Hives ??? Naproxen Anaphylaxis Anaphylaxis ??? Penicillins Anaphylaxis Anaphylaxis ??? Sulfa (Sulfonamide Antibiotics) Anaphylaxis Anaphylaxis ??? Mirtazapine Other (See Comments) dizziness Medications: MAR and/or home medications have been reviewed. Physical Exam: There were no vitals filed for this visit. There is no height or weight on file to calculate BMI. Airway Assessment: Mallampati: III TM distance: >3 FB Neck ROM: full Previously intubated with Mil 2 Cardiovascular Assessment: Rhythm: regular Rate: normal Pulmonary Assessment: breath sounds clear to auscultation Dental Assessment: (+) lower dentures and upper dentures [facility] Assessment: IV access: Peripheral line Anesthesia Plan: ASA 3 general and spinal, with a(n) intravenous induction Patient is a 67 yo female presenting for right TKA. She has a PMHx significant fro CAD (stress in 2011 showed small anterior reversible defect), htn, HLD, IDDM, SID, depression, and migraines. She has allergies to several medications including pcn, sulfa, and ASA. Previously intubated with Mil 2. T&S available. No significant abnormalities on preop labs. Plan for GA vs spinal IVx2. Discussed peripheral nerve block. Denies parasthesias. Discussed R/B/A to GA, spinal, and femoral nerve block. Questions sought and answered. Consent obtained. Region - Other Informed Consent: Anesthetic plan and risks discussed with patient. Plan discussed with attending. [facility]. Assessment: documented in this encounter Miscellaneous Notes Addendum Note - Eduardo Garcia - 04/16/2013 8:47 AM EST Addendum created 04/16/13 0847 by Eduardo Garcia MD Modules edited:Inpatient Notes documented in this encounter Plan of Treatment Not on filedocumented as of this encounter Procedures Procedure Name Priority Date/Time Associated Diagnosis Comme nts ANESTHESIA BLOCK Routine 04/15/2013 9:11 AM Resul ts for this EST procedure are i n the results section. documented in this encounter Results Anesthesia Block (04/15/2013 9:11 AM EST) Narrative Eduardo Garcia - 04/15/2013 9:11 AM EST Eduardo Garcia MD ? 04/15/2013 ??9:11 AM Procedure: ??Anesthesia Block Block: Post-op Pain Control, femoral ner ve block Start time: 04/15/2013 9:02 AM End time: 04/15/2013 9:10 AM This patient was greeted in the block ro om and the risks and benefits of the anesthetic block were re viewed. ??The risks of infection, bleeding, local anesthetic to xicity, and nerve injury were discussed. ??Specifically, the appr oximate risk of nerve injury (04/2999-04/4999) including neuropa thy, loss of sensation and motor function, whether permanent or temporary, was discussed as well as the fact that post-surgical n erve injury can be unrelated to the actual injection and ma y be related to intra-operative issues such as positioni ng and tourniquet usage. ?? The anesthetic consent was obtained. The timeout was performed prior to procedure start. ??Standard ASA monitors were applied. Indication/Prep Position: supine Prep: alcohol and chlorhexidine Laterality: right Ultrasound Guidance: in-plane and live Skin Medication lidocaine 1% 3 ml Injection Injection technique:single-shot Needle Length: 5 cm Gauge: 22 Needle Type: Q-bfsqw-xqcho Medication injection made incrementally with aspirations. Nerve infiltration solution through a ne edle Ropivicaine 0.5% 30 mL Performed by: ??Jose Supervising Attending/Fellow: ??Ayo ~~~~~~~~~~~~~~~~~~~~~~~~~~~~~~~~~~~~~~~~ ~~~~~~~~~~~~~~~~~~~~ Procedure Note Eduardo Garcia - 04/15/2013 9:09 AM ESTFo rmatting of this note might be different from the original. Procedure: Anesthesia Block Block: Post-op Pain Control, femoral ner ve block Start time: 04/15/2013 9:02 AM End time: 04/15/2013 9:10 AM This patient was greeted in the block ro om and the risks and benefits of the anesthetic block were reviewed. The risks of infection, bleeding, local anesthetic toxicity, and nerve injury were discussed. Specifically, the approximate risk of nerve injury (/ 3000-04/4999) including neuropathy, loss of sensation and motor function, whether permanent or temporary, was discussed as well as the fact that post-surgical nerve injury can be unrelated to the actual injection and ma y be related to intra-operative issues such as positioning and tourniquet usage. The anesthetic consent was obtained. The timeout was performed prior to procedure start. Standard ASA monitors were applied. Indication/Prep Position: supine Prep: alcohol and chlorhexidine Laterality: right Ultrasound Guidance: in-plane and live Skin Medication lidocaine 1% 3 ml Injection Injection technique:single-shot Needle Length: 5 cm Gauge: 22 Needle Type: Q-drxmz-exryx Medication injection made incrementally with aspirations. Nerve infiltration solution through a ne edle Ropivicaine 0.5% 30 mL Performed by: Jose Supervising Attending/Fellow: Ayo ~~~~~~~~~~~~~~~~~~~~~~~~~~~~~~~~~~~~~~~~ ~~~~~~~~~~~~~~~~~~~~ Eduardo Clark MD [employer] [facility] documented in this encounter Visit Diagnoses Not on filedocumented in this encounter Administered Medications Inactive Administered Medications - up to 3 most recent administrations Medication Order MAR Action Action Date Dose Rate Site dexamethasone (DECADRON) injection Given 04/15/2013 10:13 AM EST 8 mg PRN, Starting on Gini 04/15/13 at 1013, Until Gini 04/15/13 at 1305, Anesthesia Intra-op, Routine ePHEDrine Sulfate in sodium chloride 0.9% Given 04/15/2013 10:45 AM EST 10 mg (PF) 50 mg/10 mL (5 mg/mL) injection Syr g PRN, Starting on Gini 04/15/13 at 1016, Until Gini 04/15/13 at 1305, Anesthesia Intra-op Given 04/15/2013 10:19 AM EST 10 mg Given 04/15/2013 10:16 AM EST 10 mg fentaNYL 50mcg/mL injection Given 04/15/2013 10:34 AM EST 50 mcg PRN, Starting on Gini 04/15/13 at 0957, Until Gini 04/15/13 at 1305, Pain, Anesthesia Intra-op, Routine Given 04/15/2013 10:31 AM EST 50 mcg Given 04/15/2013 10:27 AM EST 50 mcg HYDROmorphone (DILAUDID) injection Given 04/15/2013 11:41 AM EST 0.2 mg PRN, Starting on Gini 04/15/13 at 1134, Until Gini 04/15/13 at 1305, Pain, Anesthesia Intra-op, Routine Given 04/15/2013 11:34 AM EST 0.2 mg ketorolac (TORADOL) injection Given 04/15/2013 11:36 AM EST 30 mg PRN, Starting on Gini 04/15/13 at 1136, Until Gini 04/15/13 at 1305, Pain, Anesthesia Intra-op, Routine lactated ringers infusion 1,000 mL New Bag 04/15/2013 10:37 AM EST mL 1,000 mL, at 100 mL/hr, Intravenous, CONTINUOUS, Starting on Gini 04/15/13 at 0830, Until Gini 04/15/13 at 1422, Day of Surgery (Day of Procedure) New Bag 04/15/2013 9:53 AM EST mL lactated ringers infusion New Bag 04/15/2013 10:06 AM EST mL CONTINUOUS PRN, Starting on Gini 04/15/13 at 1006, Until Gini 04/15/13 at 1305, Anesthesia Intra-op ondansetron (ZOFRAN) injection Given 04/15/2013 11:36 AM EST 4 mg PRN, Starting on Gini 04/15/13 at 1136, Until Gini 04/15/13 at 1305, Nausea, Anesthesia Intra-op, Routine propofol (DIPRIVAN) 10 mg/mL bolus injection Given 10:34 AM EST 20 mg (Anesthesia) PRN, Starting on Gini 04/15/13 at 1001, Until Gini 04/15/13 at 1305, Anesthesia Intra-op Given 04/15/2013 10:31 AM EST 20 mg Given 04/15/2013 10:01 AM EST 200 mg rocuronium (ZEMURON) injection Given 04/15/2013 10:01 AM EST 50 mg PRN, Starting on Gini 04/15/13 at 1001, Until Gini 04/15/13 at 1305, Anesthesia Intra-op, Routine tranexamic acid (CYKLOKAPRON) 1,380 mg in New Bag 04/15/2013 9:53 AM EST mg sodium chloride 0.9% 113.8 mL 1,380 mg (15 mg/kg/dose ? 91.5 kg), Intravenous, ONCE, 1 dose, On Gini 04/15/13 at 0830, Administer over 30 Minutes, Dilute tranexamic acid dose in 100 mL sodium chloride 0.9% prior to administration. For patients less than or equal to 200 kg infuse over 30 minutes. For patients greater than 200 kg infuse over 60 minutes., Day of Surgery (Day of Procedure) vancomycin 1 g in dextrose 5% 200 mL Given 04/15/2013 9:53 AM EST 1 g 1,000 mg (1 g), Intravenous, ONCE, 1 dose, On Gini 04/15/13 at 0830, Administer over 90 Minutes, Vancomycin may be administered at a rate of 1 gram per 60-90 minutes. Maximum rate of 1 gram per 60 minute., Day of Surgery (Day of Procedure), Indication for (Active or Suspected): Prophylaxis documented in this encounter Care Teams Telecommunicator Relationship Specialty Start Date End Date Ivan Gotti MD PCP - General 03/13/10 [address] [place] [address] documented as of this encounter
--- OUTSIDE RECORDS SUMMARY | 2022-03-10 21:03 | XMS_ITS | Encounter Summary ---
:1945 [place] [address] Care Team Providers Name Role Phone Ivan Gotti MD Primary Care Provider Reason for Visit Reason Comments Right Knee Pain Encounter Details Date Type Department Care Team Description 02/24/2013 Office Visit Orthopaedics at [facility] David Rehman, Osteoarthritis, knee [facility] (Primary Dx) [place] [address] [place] [address] ORTHOPAEDIC SURGERY [place] [address] Social History Tobacco Use Types Packs/Day Years Used Date Smoking Tobacco: Former Cigarettes Smokeless Tobacco: Never Alcohol Use Standard Drinks/Week Comments No 0 (1 standard drink = 0.6 oz pure alcoho l) Sex Assigned at Date Recorded Not on file documented as of this encounter Last Filed Vital Signs Vital Sign Reading Time Taken Comments Blood Pressure 137/86 02/24/2013 11:09 AM EST Pulse 73 02/24/2013 11:09 AM EST Temperature - - Respiratory Rate - - Oxygen Saturation - - Inhaled Oxygen Concentration - - Weight 91.5 kg (201 lb 12.8 oz) 02/24/2013 11:09 AM EST Height 154.9 cm (5' 1) 02/24/2013 11:09 AM STATED EST Body Mass Index 38.13 02/24/2013 11:09 AM EST documented in this encounter Progress Notes Brandyn Gardiner PA - 02/24/2013 4:48 PM EST Subjective: Peggy Coffman is a 67 y.o. female referred by Dr Gotti for evaluation and treatment of rightknee pain. The pain began several years ago. The pain's location is medial, lateral, anterior. She describes the symptoms as aching and throbbing. Symptoms improve with rest, avoiding painful activities. Symptoms worsen with activity. The knee has given out or felt unstable. The patient can bend and straighten the knee fully. Treatment to date has been ice, cortisone injection, therapy, without significant relief. Patient's medications, allergies, past medical, surgical, social and family histories were reviewed and updated as appropriate. ROS: Denies fevers, chills, night sweats, nausea, or vomiting. Objective: General : alert, appears stated age and cooperative Gait: Antalgic. The patient can bear weight on the injured extremity. I have made the following determinations: Knee Exam: Right Prior surgery on this joint: No Gait Abnormality: Antalgic Knee ROM: Extension:0 Flexion: 125 Alignment: 0-4 degrees Varus Stability: A/P Translation <5mm. Varus (lateral stability) <5mm Valgus (medial stability) <5mm Extension La degrees or less Radiographic evidence of joint damage: [0= normal; 1=minimal ; 2= some osteophytes , some narrowing ; 3= moderate osteophytes, significant narrowing, mild deformity; 4= large osteophytes, marked narrowing, obvious deformity]: 4= large osteophytes, marked narrowing, obvious deformity Patella Tracking: Normal Skin Integrity: Normal Pulses Palpable: Right PT: Yes Right DP:Yes Motor/Sensory: Distal Motor: Normal Distal Sensory: Normal Quadriceps Strength: 5 I have made the following determinations: Post Op Left Knee Exam: Gait Abnormality: Antalgic Knee ROM: Extension:0 Flexion: 120 Alignment: 0-4 degrees Neutral Stability: A/P Translation <5mm Varus (lateral stability) <5mm Valgus (medial stability) <5mm Extension La degrees or less Patella Tracking: Normal Pulses Palpable: Left PT:Yes Left DP:Yes Motor/Sensory: Distal Motor: Normal Distal Sensory: Normal Quadriceps Strength:5 Imaging X-rays: 4 views of the right knee demonstrate bone on bone deformity. Assessment: DJDright knee. Plan: Questions solicited and answered. Patient voiced understanding to info/instructions given. Treatment options discussed including Surgical options discussed knee right total knee., Medication options discussed and recommended., Cortisone injection discussed, Exercise options discussed and encouraged, Activity modification discussed and recommended, weight loss recommended. Radiology studies and anatomy of joint knee reviewed. Will need to discuss pain management with PCP to be sure that they will prescribe for patient post op of not will need to refer to pain clinic here Patient was seen and evaluated with FACUNDO Law David Rehman MD - 02/24/2013 11:49 AM EST I saw this patient in conjunction with FACUNDO Nicolas today. Please see her note for details ofthe history and physical examination. I am in agreement with the plan as stated. Peggy Coffman is a 67 y.o. year old female with right knee pain. She has a history, clinical exam, and radiographic findings consistent with severe osteoarthritis. She also has a history of chronicback pain and is on a narcotic medication management plan with her PCP. We had a discussion of the treatment options including activity modification, weight reduction, PT, NSAIDS, corticosteroid injection, as well as total knee replacement. The patient has reviewed the shared decisionmaking video. Shefeels that she has exhausted non- operative treatment measures at this point including NSAIDS, PT, activity modification and injections. She would like to proceed with TKA. We discussed the risks of surgery including bleeding requiring transfusion, infection, need for further surgery, fracture, damage to nerves or blood vessels, blood clots, failure of the prosthesis, cardiopulmonary complications, and . All questions were answered. We talked about the issues with pain management in the setting of chronic narcotics after surgery and will need assistance from her PCP in managing her oxycontin after surgery. We will proceed with a Depuy PFC fixed bearing cruciate substiuting component with antibiotic cement. We have evaluated the patient using the AAOS recommended criteria for bleeding and DVT risk. She david normal/normal risk of bleeding and DVT. Therefore, we will plan for restarting plavix therapy after surgery. David Rehman MD MS documented in this encounter Plan of Treatment Not on filedocumented as of this encounter Procedures Procedure Name Priority Date/Time Associated Diagnosis Comme nts TOTAL KNEE ARTHROPLASTY Routine 02/24/2013 11:41 AM Osteoarthr itis, knee EST documented in this encounter Results XR TKA [...] effusion. David Rehman MD IMG DX ORDERABLES EKG 12 Lead (04/07/2013 12:56 PM EST) [facility] [place] [employer] Method Time Signature Ventricular rate 83 BPM MUSE SYSTEM Atrial Rate 83 BPM MUSE SYSTEM P-R Interval 166 ms MUSE SYSTEM QRS Duration 88 ms MUSE SYSTEM Q-T Interval 386 ms MUSE SYSTEM QTC Calculated 453 ms MUSE SYSTEM (Bezet) Calculated P [place] 36 degrees MUSE SYSTEM Calculated R [place] -13 degrees MUSE SYSTEM Calculated T [place] 55 degrees MUSE SYSTEM INTERPRETATION Normal sinus [...] City/State/ZIP Code Phon e Number MUSE SYSTEM Urine culture Clean Catch Urine (04/07/2013 12:56 PM EST) [facility] [place] [employer] Method Time Signature Urine Culture CERNER ? Patient Name: PEGGY COFFMAN ?? Ordered By: DAVID PENA ? MR#: [id number] ?LOC: ??3C ? /Sex: ??1945 (67 years), [...] Organization Address City/State/[place] [address] CERNER MILLENNIUM Urinalysis with microscopic (04/07/2013 12:56 PM EST) [facility] Method Time Signature Glucose UA Negative [...] CERNER MILLENNIU M Appearance UA Clear Clear [facility] Spec [place] UA 1.012 1.002 - 1.030 [facility] LENNIUM Color UA Yellow Yellow [facility] RBC UA <1 0 - 4 /HPF [facility] WBC UA <1 0 - 5 /HPF [facility] Squam Epith UA 1 <=4 /HPF [facility] UM Trans Epith UA <1 <=1 /HPF [facility] UM Specimen Anatomical Collection Method Collection Time Receive d Time (Source) Location / / Volume Laterality Urine specimen 04/07/2013 12:56 3 1:06 (specimen) PM EST PM EST Resulting Agency Comment Spec In Lab David Rehman MD URINE ORDERABLES Performing Organization Address City/[facility] Code Phon e Number [address] [facility] Prothrombin Time (04/07/2013 12:47 PM EST) athologist Signature PT 12.3 12.0 - 15.0 [facility] sec [facility] Comment: [facility] Transfusion Committee Guidelines: I NR less than 2.0, PTT less than OR equal to 43.5 seconds, or Fibrinogen gre ater than or equal to 100 mg/dl indicate adequate procoagulant activity for hemostasis in patients without underlying bleeding disorders. INR 0.9 0.9 - 1.1 [facility] Specimen Anatomical Collection Method Collection Time Receive d Time (Source) Location / / Volume Laterality Blood specimen 04/07/2013 12:47 3 (specimen) PM EST 12:54 PM EST Resulting Agency Comment Spec In Lab David Rehman MD HEMATOLOGY ORDERABLES Performing Organization Address City/[facility]/ZIP [facility] Phon e Number [address] [facility] Basic Metabolic Panel (non-fasting) (04/07/2013 12:47 PM EST) P athologist Signature Glucose Lvl 149 60 - 199 [facility] mg/dL [facility] Comment: Diabetes: >=200 mg/dL plus symp toms BUN 16 8 - 18 mg/dL CERNER MILLENNIUM Creatinine 0.83 0.70 - 1.20 mg/dL CERNER MILL ENNIUM Comment: Please note that the pediatric reference intervals supplied above were not validated at [facility]. Results from pediatri c patients should be [...] Organization Address City/State/[place] [address] CERNER MILLENNIUM CBC (with Diff) (04/07/2013 12:47 PM EST) athologist Signature WBC 5.9 4.0 - 10.0 [...] Organization Address City/State/[place] [address] [facility] documented in this encounter Visit Diagnoses Diagnosis Osteoarthritis, knee - Primary Osteoarthrosis, unspecified whether gene ralized or localized, lower leg Osteoarthritis, knee Osteoarthrosis, unspecified whether gene ralized or localized, lower leg documented in this encounter Care Teams Real Estate Analyst Relationship Specialty Start Date End Date Ivan Gotti MD PCP - General 03/13/10 [address] [place] [address] documented as of this encounter
--- OUTSIDE RECORDS SUMMARY | 2022-03-10 21:03 | XMS_ITS | Encounter Summary ---
:1945 Author Organization [facility] [place] [address] Care Team Providers Name Role Phone Ivan Gotti MD Primary Care Provider Encounter Details Date Type Department Care Team Description 02/26/2013 Orders Only Orthopaedics [place] [facility] David Rehman MD [facility] [place] [address] ORTHOPAEDIC SURGERY [phone] [place] [id number] (Wo rk) Social History Tobacco Use Types [...] on filedocumented in this encounter Care Teams Unix Analyst Relationship Specialty Start Date End Date Ivan Gotti MD PCP - General 03/13/10 [address] [place] [address] documented as of this encounter
--- OUTSIDE RECORDS SUMMARY | 2022-03-10 21:03 | XMS_ITS | Encounter Summary ---
:1945 [place] [address] Care Team Providers Name Role Phone Ivan Gotti MD Primary Care Provider Encounter Details Date Type Department Care Team Description 02/11/2013 Orders Only Orthopaedics at [facility] David Rehman MD Knee pain [facility] [place] [address] ORTHOPAEDIC SURGERY [phone] [place] [id number] (Wo rk) Social History Tobacco Use Types Packs/Day Years Used Date Smoking Tobacco: Never Assessed Sex Assigned at Date Recorded Not on file documented as of this encounter Plan of Treatment Not on filedocumented as of this encounter Results XR JOINT TEAM ALIGNMENT [...] Knee pain Pain in joint, lower leg Knee pain Pain in joint, lower leg documented in this encounter Care Teams Renewal Specialist Relationship Specialty Start Date End Date Ivan Gotti MD PCP - General 03/13/10 [address] [place] [address] documented as of this encounter
--- OUTSIDE RECORDS SUMMARY | 2022-03-10 21:03 | XMS_ITS | Encounter Summary ---
:1945 Author Organization [facility] [place] [address] Care Team Providers Name Role Phone Ivan Gotti MD Primary Care Provider Encounter Details Date Type Department Care Team Description 04/07/2013 [place] [address] Social History Tobacco Use Types Packs/Day [...] on filedocumented in this encounter Care Teams Brake Mechanic Relationship Specialty Start Date End Date Ivan Gotti MD PCP - General 03/13/10 [address] [place], [place] [address] documented as of this encounter
--- OUTSIDE RECORDS SUMMARY | 2022-03-10 21:03 | XMS_ITS | Encounter Summary ---
:1945 [place] [address] Care Team Providers Name Role Phone Ivan Gotti MD Primary Care Provider Encounter Details Date Type Department Care Team Description 04/15/2013 Surgery Main Operating Room David Gaston MD TOTAL KNEE ARTHROPLASTY [facility] ([place] [address] [id number] 00 [phone] Social History Tobacco Use Types Packs/Day Years Used Date Smoking Tobacco: Former Cigarettes Smokeless Tobacco: Never Alcohol Use Standard Drinks/Week Comments No 0 (1 standard drink = 0.6 oz pure alcoho l) never Sex Assigned at Date Recorded Not on file documented as of this encounter Last Filed Vital Signs Vital Sign Reading Time Taken Comments Blood Pressure 96/51 04/18/2013 10:10 AM EST Pulse 60 04/18/2013 10:10 AM EST Temperature 36.9 ??C (98.5 ??F) 04/18/2013 10:10 AM EST Respiratory Rate 18 04/18/2013 10:10 AM EST Oxygen Saturation 94% 04/18/2013 10:10 AM EST Inhaled Oxygen Concentration - - [...] sennakot, to factilitate a bowel movement. An dkdq-bev-hmuiabt medication, miralax can also be used if [...] 1. You will have followup appointments at [facility] as indicated in Future Appointments and Orders. Youwill have an xray prior to those appointments so please come to Radiology, desk 3T, 1 hour BEFORE your appointment for those x-rays. 2. You have a follow-up appointment with your Primary Care Provider, Dr. Gotti, ([phone]), on April 26, at 2:25 pm. This [...] Meter 1 each by 0 (FREESTYLE FREEDOM [facility]Non-Drug; Combo LITE) monitoring kit Route) route as needed. insulin by [facility]Non-Drug; 0 syringe,safetyneedle Combo Route) route. 0.5 mL 29 x 1/2 Syrg lancets (FREESTYLE by [facility]Non-Drug; 0 LANCETS) 28 gauge Misc Combo [...] mg by mouth 0 02/24/2018 tablet daily. Sibley-3 Fatty Acids Take 1 capsule by 0 11/23/2015 (FISH OIL) 500 mg Cap mouth daily. OXYGEN-AIR DELIVERY by Mis.(Non-Drug; 0 11/23/2015 SYSTEMS (HORIZON NASAL Combo Route) [...] Total timed interventions: 30 minutes therapeutic functional Pager:[phone] CARMITA PUGA PT Physical Therapy Rehabilitation Department Scott Shanks RN [...] 11:44 AM EST Office of Care Management/Clinical Serologist (CRC)/Discharge Planning Note CRC Darius Brody RN (pager [phone]) Patient: Peggy Coffman : 1945 (67 y.o.) Home: [facility] [phone] LOS: 3 days Care reviewed with Dr. [...] agency: [facility] ([place], [place]) orders pended. phone/ fax ?? Transportation [...] afternoon. Pt ambulated 1 lap with Mobility BIOINFORMATICS ASSISTANT with FWW around unit. Reports pain 8/10 after mobility. Pt reports to fatigued to participate in exercises or PT activities. Pt has 1 step to enter home. Will follow up early tomorrow morning. Enc ambulation with nursing later this evening and to do her HEP. Pt verbalized agreement. ~Lucero Vaughn, PT Pager [phone] - 04/17/2013 4:14 PM EST Nutrition [...] ARTHROPLASTY performed by David Gaston MD at [facility] MAIN OR Past Medical History Diagnosis Date [...] Encourage p.o. Intake, debbie protein for healing. [place] food preferences as able. Boost Glucose Control [...] is availableto participate. Brooklyn Causey OT/L Pager [phone] Occupational Therapist Rehabilitation Department Kathy Chan - [...] Silver MD CA-2 Anesthesiology Regional team pager [phone] Susan Roque MD - 04/17/2013 5:52 AM [...] I had [place] other knee done in [place] and then revised in [place] and it took me three yrs to [...] , disabled, not working, and lives in [place], [place]. Pt denies the need for in-pt rehab and feels she can manage at home with VNA. Pt requests [facility] for services. She will be on Plavix, SR in 10-14 days, and Home PT 3xwk within 24 hrs of d/c including weekends. Pt requests a FWW andhas no preference so I have ordered from [facility] who will deliver to pt's room this afternoon. A: Progressing toward d/c to home with VNA, DME, and family assist. P: Anticipate d/c in 24-48 hrs. Eduardo Cochran - 04/16/2013 8:45 AM EST Regional Anesthesia [...] block. EDUARDO COCHRAN MD Regional team pager [phone] David Otero MD - 04/16/2013 8:11 AM EST Orthopaedic [...] is 7/10. Patient demonstrates use of Dilaudid MECHANIC HELPER. Patient denies chest pain, shortness of breath, [...] days. documented in this encounter Procedure Notes ProviderJones - 04/19/2013 12:29 PM ESTAssociated Order(s): SCAN [...] monitoring kit 1 each 1 each by [facility]Non-Drug; Combo Route) route as needed. insulin syringe,safetyneedle 0.5 mL 29 x 1/2 Syrg by [facility]Non-Drug; Combo Route) route. lancets (FREESTYLE LANCETS) 28 gauge Misc by [facility]Non-Drug; Combo Route) route. Sibley-3 Fatty Acids (FISH OIL) 500 mg Cap 1 capsule Take 1 capsule by mouth daily. OXYGEN-AIR DELIVERY SYSTEMS (HORIZON NASAL CPAP SYSTEM MISC) by [facility]Non-Drug; Combo Route) route. nitroGLYcerin (NITROSTAT) 0.4 mg [...] REMOVE Please contact the Blood Bank at [phone] for questions. ??? Sulfa (Sulfonamide Antibiotics) Anaphylaxis [...] sennakot, to factilitate a bowel movement. An zjho-pqt-tfkbspj medication, miralax can also be used if [...] 1. You will have followup appointments at [facility] as indicated in Future Appointments and Orders. Youwill have an xray prior to those appointments so please come to Radiology, desk 3T, 1 hour BEFORE your appointment for those x-rays. 2. You have a follow-up appointment with your Primary Care Provider, Dr. Gotti, ([phone]), on April 26, at 2:25 pm. This appointment is for continued pain management. Future Appointments and Orders Future Appointments: Provider: Department: Dept Phone: Center: 05/12/2013 1:00 PM David Gaston MD Orthopaedics [phone] None Joint Appt Health Question Three C [facility] [phone] None Future Orders Please Complete By Expires Referral to Home Health [[id number] CPT(R)] Process Instructions: Scheduling Instructions: Comments: DOCUMENTATION FOR VNA SERVICES PATIENT'S LOCATION: [address] [id number] (home) [phone] (mobile) Drying Tumbler Operator's Name: Self In discussion with the attending physician, it is certified that this patient is under their care and that they, or a Nurse Practitioner,Clinical Nurse specialist or Physician Frame Aligner who is working directly with them, had [...] HEALTH CARE AGENCY: [facility], [facility], [address] [place] [address], phone, fax Start of care: Thursday 04/19 [...] IVAN GOTTI MD [address] / [facility] [address] All VNA agencies which cover the area of patient's residence have been reviewed, either verbally or in writing, and patient/family have chosen the home health care agency noted. Questions: Responses: Agency name and contact information [facility] Patient location post discharge home What services are requested Physical Therapy Start date 04/19/2013 Responsible MD post discharge contact info PCP/[facility] Orthopaedic Service Primary Care Provider: IVAN GOTTI MD [phone] Dr. Gaston: Joints: [phone] After Hours: Call [phone] and request to speak with the Orthopaedic Resident filtration plant operator. Electronically Signed by: CHAPINCITO REYNOSO MD 04/18/2013 [...] ARTHROPLASTY performed by David Gaston MD at [facility] MAIN OR Social History: Patient lives . [...] good. IADL???s: Assistance available to patient. Issued buffing turner and counter with instruction. Endurance: Information taken from last [...] timed interventions: 10 minutes ADL training Pager: [phone] BRANDYN ALBERTO OT 04/18/2013 Occupational Therapy Rehabilitation [...] No report of knee pain. Back pain 7/10. Has MECHANIC HELPER. Nerve block right knee in full effect. [...] minutes Total timed treatment: 0 minutes BRIGETTE MARTINEZ PT Pager: [phone] Plan of Care - Yocasta Cruz RN - 04/16/2013 12:07 AM EST Problem: Pain Chronic (Adult, Pediatric, Obstetric) Intervention: Chronic Pain: Related Risk Factors Patient tolerating dilaudid MECHANIC HELPER. Patient states pain is 5/10. Patient aware [...] Gaston MD - 04/15/2013 11:42 AM EST [facility] Operative Note Patient Name: Peggy Coffman : [id number] MR#: [id number] Case Date: 04/15/2013 Surgeon: Surgeon(s) and Role: [...] mallet. Excess cement was removed with a [place]. We then placed the cement onto the anterior and distal aspects of the femur. The cement was placed on the posterior aspect of the prosthetic condyles. The femoral component was then placed and impacted into position. Excess cement was removed with a [place]. The polyethylene trial was then placed and the knee brought out to full extension where it was held for the entire polymerization time. Cement was then pressurized into the patellar bone and the patellar component placed. The patella was clamped. Excess cement was removed with a [place]. After all cement had hardened, the knee [...] the anesthesiology staff and transferred to the [facility]. Sequential compression devices were placed. The patient [...] Operative Note Patient Name: Peggy Coffman : [id number] MR#: [id number] Case Date: 04/15/2013 Surgeon: Surgeon(s) and Role: [...] Implant Name Type Inv. Item Serial No. Extrusion Utility Worker Lot No. LRB No. Used Action CEMENT,BNE,CMW 1,GNTA,40GM ([id number]) - SN/A IMPLANTS CEMENT,BNE,CMW 1,GNTA,40GM ([id number]) n/a Depuy Public Service Director - [id number] Right 1 Implanted GRACIA,PFC,SGM,RND,SM,35MM ([id number]) (AUTOREQ) - SN/A IMPLANTS GRACIA,PFC,SGM,RND,SM,35MM ([id number]) (AUTOREQ) n/a Depuy Public Service Director - 3527 [id number] Right 1 Implanted COMPO,SGM,FEM,PS,CMNT,LUG,R,3 ([id number]) (AUTOREQ) - SN/A IMPLANTS COMPO,SGM,FEM,PS,CMNT,LUG,R,3 ([id number]) (AUTOREQ) n/a Depuy Public Service Director - 3527 [id number] Right 1 Implanted TRAY,TIB,SGM,MOD,CMNT,SZ2.5 ([id number]) (AUTOREQ) - SN/A IMPLANTS TRAY,TIB,SGM,MOD,CMNT,SZ2.5 ([id number]) (AUTOREQ) n/a Depuy Public Service Director - 3527 [id number] Right 1 Implanted INSER,SGM,STAB,CRSLNK,2.5X12.5 ([id number]) (AUTOREQ) - SN/A IMPLANTS INSER,SGM,STAB,CRSLNK,2.5X12.5 ([id number]) (AUTOREQ) n/a Depuy Public Service Director - 3527 [id number] Right 1 Implanted documented in this encounter [...] Organization Address City/State/[place] [address] CERNER MILLENNIUM POCT Glucose [...] Organization Address City/State/[place] [address] CERNER MILLENNIUM Differential, Automated [...] Organization Address City/State/[place] [address] CERNER MILLENNIUM (ABNORMAL) Basic Metabolic Panel (non-fasting) (04/18/2013 4:01 AM EST) athologist Signature Glucose Lvl 104 60 - 199 CERNER mg/dL MILLENNIUM Comment: Diabetes: >=200 mg/dL plus symp toms BUN 22 (H) 8 - 18 mg/dL CERNER MILLENNIUM Creatinine 1.00 0.70 - 1.20 mg/dL CERNER MILL ENNIUM Comment: Please note that the pediatric reference intervals supplied above were not validated at [facility]. Results from pediatri c patients should be [...] Gaston MD CHEMISTRY ORDERABLES Performing Organization Address City/[facility]/[place] [address] CERNER MILLENNIUM (ABNORMAL) CBC (with Diff) (04/18/2013 4:01 AM EST) P athologist Signature WBC 6.0 4.0 - 10.0 [...] Organization Address City/State/[place] [address] [facility] MILLENNIUM POCT Glucose (04/18/2013 3:34 AM EST) P athologist Signature POC Glucose 95 60 - 199 CERNER mg/dL MILLENNIUM Comment: [...] Organization Address City/State/ZIP Code Phon e Number [address] CERNER MILLENNIUM POCT Glucose [...] Organization Address City/State/ZIP Code Phon e Number [address] CERNER MILLENNIUM POCT Glucose [...] Organization Address City/State/ZIP Code Phon e Number [address] CERNER MILLENNIUM POCT Glucose [...] CARE TEST ORDERABLE S Performing Organization Address City/[facility]/ZIP Code Phon e Number [address] CERNER MILLENNIUM POCT Glucose (04/17/2013 11:33 AM EST) athologist Signature POC Glucose 83 60 - 199 CERNER mg/dL MILLENNIUM Comment: Supplemental ranges: <110 mg/dL before meals <200 mg/dL all other times of the day Specimen Anatomical Collection Method Collection Time Receive d Time (Source) Location / / Volume Laterality Blood specimen 04/17/2013 11:33 3 (specimen) AM EST 11:33 AM EST David Gaston MD POINT OF CARE TEST ORDERABLE S Performing Organization Address City/[facility]/ZIP Code Phon e Number [address] CERNER MILLENNIUM POCT Glucose (04/17/2013 4:41 AM EST) athologist Signature POC Glucose 104 60 - 199 CERNER mg/dL ENNIUM Comment: Supplemental ranges: <110 mg/dL before meals <200 mg/dL all other times of the day Specimen Anatomical Collection Method Collection Time Receive d Time (Source) Location / / Volume Laterality Blood specimen 04/17/2013 4:41 AM 013 4:41 (specimen) EST AM EST David Gaston MD POINT OF CARE TEST ORDERABLE S Performing Organization Address City/State/ZIP Code Phon e Number [address] CERNER MILLENNIUM Differential, Automated [...] Organization Address City/State/[place] [address] CERNER MILLENNIUM (ABNORMAL) Basic [...] intervals supplied above were not validated at [facility]. Results from pediatri c patients should be [...] EST Resulting Agency Comment Spec In Lab aDvid Gaston MD CHEMISTRY ORDERABLES Performing Organization Address City/State/ZIP Code Phon e Number [place] [id number] CERNER MILLENNIUM (ABNORMAL) CBC [...] Organization Address City/State/ZIP Code Phon e Number [address] CERNER MILLENNIUM POCT Glucose (04/16/2013 11:56 PM EST) athologist Signature POC Glucose 138 60 - 199 CERNER mg/dL ENNIUM Comment: Supplemental ranges: <110 mg/dL before meals <200 mg/dL all other times of the day Specimen Anatomical Collection Method Collection Time Receive d Time (Source) Location / / Volume Laterality Blood specimen 04/16/2013 11:56 3 (specimen) PM EST 11:56 PM EST David Gaston MD POINT OF CARE TEST ORDERABLE S Performing Organization Address City/State/ZIP Code Phon e Number [address] CERNER MILLENNIUM POCT Glucose (04/16/2013 8:10 PM EST) athologist Signature POC Glucose 125 60 - 199 CERNER mg/dL ENNIUM Comment: Supplemental ranges: <110 mg/dL before meals <200 mg/dL all other times of the day Specimen Anatomical Collection Method Collection Time Receive d Time (Source) Location / / Volume Laterality Blood specimen 04/16/2013 8:10 PM 013 8:10 (specimen) EST PM EST David Gaston MD POINT OF CARE TEST ORDERABLE S Performing Organization Address City/State/ZIP Code Phon e Number [address] CERNER MILLENNIUM POCT Glucose [...] Organization Address City/State/ZIP Code Phon e Number [address] CERNER MILLENNIUM POCT Glucose [...] Organization Address City/State/ZIP Code Phon e Number [address] CERNER MILLENNIUM POCT Glucose [...] Organization Address City/State/[place] [address] CERNER MILLENNIUM POCT Glucose [...] Organization Address City/State/[place] [address] CERNER MILLENNIUM (ABNORMAL) Differential, Automated (04/16/2013 3:44 AM EST) Patholo gist Method Time Signature Neutrophils % 76.5 [...] Organization Address City/State/[place] [address] CERNER MILLENNIUM (ABNORMAL) Basic [...] intervals supplied above were not validated at [facility]. Results from pediatri c patients should be [...] SHIREEN NIUM Estimated GFR 51 (L) >=60 CERCEE AARONIU M Comment: This estimated GFR (eGFR) value [...] Organization Address City/State/[place] [address] CERNER MILLENNIUM (ABNORMAL) CBC [...] RDWCV 13.8 10.9 - CERNER 14.4 % [facility] MPV 9.5 9.0 - 12.0 CERNER fL [facility] Specimen Anatomical Collection Method Collection Time Receive d Time (Source) Location / / Volume Laterality Blood specimen 04/16/2013 3:44 AM 013 3:52 (specimen) EST AM EST Resulting Agency Comment Spec In Lab David Gaston MD HEMATOLOGY ORDERABLES Performing Organization Address City/State/ZIP Code Phon e Number [address] CERNER MILLENNIUM POCT Glucose (04/15/2013 11:56 PM EST) athologist Signature POC Glucose 183 60 - 199 CERNER mg/dL [facility] Comment: Supplemental ranges: <110 mg/dL before meals <200 mg/dL all other times of the day Specimen Anatomical Collection Method Collection Time Receive d Time (Source) Location / / Volume Laterality Blood specimen 04/15/2013 11:56 3 (specimen) PM EST 11:56 PM EST David Gaston MD POINT OF CARE TEST ORDERABLE S Performing Organization Address City/State/ZIP Code Phon e Number [address] CERNER MILLENNIUM (ABNORMAL) POCT Glucose (04/15/2013 10:01 PM EST) athologist Signature POC Glucose 250 (H) 60 - 199 CERNER mg/dL [facility] Comment: Supplemental ranges: <110 mg/dL before meals <200 mg/dL all other times of the day Specimen Anatomical Collection Method Collection Time Receive d Time (Source) Location / / Volume Laterality Blood specimen 04/15/2013 10:01 3 (specimen) PM EST 10:01 PM EST David Gaston MD POINT OF CARE TEST ORDERABLE S Performing Organization Address City/State/ZIP Code Phon e Number [address] CERNER MILLENNIUM (ABNORMAL) POCT Glucose (04/15/2013 8:04 PM EST) athologist Signature POC Glucose 308 (H) 60 - 199 CERNER mg/dL [facility] Comment: Supplemental ranges: <110 mg/dL before meals <200 mg/dL all other times of the day Specimen Anatomical Collection Method Collection Time Receive d Time (Source) Location / / Volume Laterality Blood specimen 04/15/2013 8:04 PM 013 8:04 (specimen) EST PM EST David Gaston MD POINT OF CARE TEST ORDERABLE S Performing Organization Address City/State/ZIP Code Phon e Number [address] CERNER [facility] POCT Glucose (04/15/2013 4:04 PM EST) athologist Signature POC Glucose 178 60 - 199 CERNER mg/dL [facility] Comment: Supplemental ranges: <110 mg/dL before meals <200 mg/dL all other times of the day Specimen Anatomical Collection Method Collection Time Receive d Time (Source) Location / / Volume Laterality Blood specimen 04/15/2013 4:04 PM 013 4:04 (specimen) EST PM EST David Gaston MD POINT OF CARE TEST ORDERABLE S Performing Organization Address City/[facility]/ZIP Code Phon e Number [address] CERNER MILLENNIUM POCT Glucose (04/15/2013 12:03 PM EST) athologist Signature POC Glucose 138 60 - 199 CERNER mg/dL [facility] Comment: Supplemental ranges: <110 mg/dL before meals <200 mg/dL all other times of the day Specimen Anatomical Collection Method Collection Time Receive d Time (Source) Location / / Volume Laterality Blood specimen 04/15/2013 12:03 3 (specimen) PM EST 12:03 PM EST David Gaston MD POINT OF CARE TEST ORDERABLE S Performing Organization Address City/State/ZIP Code Phon e Number [address] CERNER [facility] Surgical Pathology Report (04/15/2013 12:01 PM EST) Component Value Ref Test Analysis Performed At Patholo gist Range Method Time Signature Surgical CERNER Pathology ? [facility] Report ? Provider: ?? DAVID GASTON ?Pt. Name: ? ? PEGGY COFFMAN ? Acc #: ?[id number] ?Pt. MRN: ?[id number] ? Col Date: ?? 04/15/20 13 ?/Sex: ?1945,(67 years),Female ? Rec Date: ?? 04/15/2013 ?LOC: ?3WST ? SURGICAL PATHOLOGY ? ---Pathologic Diagnosis--- ? A - Articular bone an d soft tissue consistent with osteoarthritis, right ? knee. ?Gross surgical pathology examination. ? CR-0 ? 04/15/13 ? PPS ? 04/16/13 Verified by: ? Noreen HERNANDEZ, Paresh Holland ? Pathologist ? (Electronic Si gnature) ? [...] MD PATHOLOGY/CYTOLOGY ORDERABLE S Performing Organization Address City/[facility]/ZIP Code Phon e Number [address] CERNER MILLENNIUM Specimen to Pathology [...] MD PATHOLOGY/CYTOLOGY ORDERABLE S Performing Organization Address City/[facility]/[place] [address] CERNER MILLENNIUM POCT Glucose [...] CARE TEST ORDERABLE S Performing Organization Address City/[facility]/ZIP Code Phon e Number [address] CERNER MILLENNIUM documented in this [...] MAR Action Action Date Dose Rate Site ROpivacaine (NAROPIN) 2 Given 04/15/2013 11:55 AM 60 mLs 19- Surgical Site mg/mL (0.2 %) injection EST ONCE PRN, Starting on Gini 04/15/13 at 1155, Until Gini 04/15/13 at 1422, Intra-Operative (Intra-Procedure), Routine documented in this encounter Active and Recently [...] EVERY 8 HOURS SCHEDULED, First dose on Gini 04/15/13 at 1545, Until Discontinued, Maximum dose of acetaminophen is 4000 mg from all sources in 24 hours., Routine ascorbic acid (VITAMIN C) tablet 500 mg (CANCELED) 090 0 (Given - Provider: Falguni Manuel RN) 0900 (Given - Provider: Gauri Lawrence RN) 0900 (Giv en - Provider: Scott Landeros RN) 500 mg, Oral, DAILY, First dose on Gini 1 06/16/12 at 1700, Until Discontinued, Routine atenolol [...] (Gi sita - Provider: Tai Fong RN) 2154 (Given [...] 4 HOURS S CHEDULED, First dose on Fri04/15/13 at 1245, Until Discontinued, CORRECTION BOLUS Moderate [...] insulin glargine (LANTUS) PEN injection 40 Units ([facility]) 2053 (Given - Provider: Tai Fong, CHOLO) 2144 (Given - Provider: Tai Fong RN) [...] Fri at 0900, Until Discontinued, Routine multivitamin Dhox-Az-FY-Min (THERAPEUTIC -M) 27-0.4 mg tablet 1 tablet (CANCELED) 0859 (Given - Provider: Falguni Manuel RN) 0900 (Gi sita - Provider: Gauri Lawrence RN) 0900 (Given - Provider: Scott jhaveri RN) 1 tablet, Oral, DAILY, First dose on Fri04/15/13 at 1700, Until Discontinued, Routine OXYcodone (oxyCONTIN) CR tablet 60 mg (CANCELED) 08 (Given - Provider: Falguni Manuel RN) 60 [...] pyridoxine (VITAMIN B6) tablet 100 mg (CANCELED) 858 (Given - Provider: Falguni Manuel RN) 0900 (Given - Provider: Gauri Lawrence, CHOLO) 0900 (Giv en - Provider: Scott Landeros RN) 100 mg, Oral, DAILY, First dose on Gini 1 06/16/12 at 1700, Until Discontinued, Routine senna-docusate (PERICOLACE) 8.6-50 mg per tablet 1-4 t ablet 0859 (Given - Provider: Falguni Manuel RN)2056 (Given - Provider: Tai Fong RN) 0900 (Given - Provider: Gauri Lawrence, CHOLO)215 (Given - Provider: Tai Fong RN) 0900 (Given - Provider: Scott jhaveri RN) 1-4 tablet, Oral, 2 TIMES DAILY, First d ose on Gini 04/15/13 at 2100, Until Discontinued, Start with 1 tablet or liquid equivalent orally twice daily and titrate up to achieve: 1. One bowel movement at l east every 48 hours, AND 2. Without straining, Routine simvastatin (ZOCOR) tablet 40 mg (CANCELED) 1651 (Give n - Provider: Falguni Manuel, CHOLO) 1700 (Given - Provider: Gauri Lawrence, CHOLO) 40 mg, Oral, EVERY EVENING, First dose o n Gini 04/15/13 at 1700, Until Discontinued, Routine sodium chloride 0.9 % flush 5 mL (CANCELED) 0345 (Give n - Provider: Yocasta Cruz RN)1508 (Given - Provider: Falguni Manuel RN) 0345 (Given - Provider: Tai Fong, CHOLO)1545 (Given - Provider: Gauri Lawrence, CHOLO) 0345 (Given - Provider: Tai bacon RN) 5 mL, Intravenous, EVERY 12 HOURS, First dose on Gini 04/15/13 at 1545, Until Discontinued, Routine vancomycin 1 g in dextrose 5% 200 mL (COMPLETED) 0859 (Given - Provider: Falguni Manuel RN) 1 g = 1,000 mg, Intravenous, EVERY [...] 0253 (Ne w Bag - Provider: Yocasta Cruz RN)0700 (Stopped - Provider: Scott Landeros RN) 1,000 mL, at 100 mL/hr, Intravenous, CON [...] mg 1 436 (Given - Provider: Gauri Lawrence RN) 0619 (Given - Provider: Tai bacon RN)1026 [...] 8-12 mg (CANCELED) 1016 (Given - Provider: Gauri Lawrence RN) 8-12 mg, Oral, EVERY 4 HOURS PRN, Starti ng Sat 04/17/13 at 0830, Until 04/17/13 at 1126, Pain, Routine OXYcodone (ROXICODONE) immediate release tablet 10-20 mg (CANCELED) 0850 (Given - Provider: Falguni Manuel RN)1217 (Given - Provider: Falguni Manuel RN) 10-20 mg, Oral, EVERY 3 HOURS PRN, Start ing Gini 04/15/13 at 1259, Until 04/16/13 at 1244, Pain, Routine documented in this encounter Care Teams Hospital Pharmacist Relationship Specialty Start Date End Date Ivan Gotti MD PCP - General 03/13/10 [address] [place] [address] documented as of this encounter
--- OUTSIDE RECORDS SUMMARY | 2022-03-10 21:03 | XMS_ITS | Encounter Summary ---
:1945 Author Organization [place] [address] Care Team Providers Name Role Phone Ivan Gotti MD Primary Care Provider Encounter Details Date Type Department Care Team Description 04/09/2013 [place] [facility] [place], [place] [address] Social History Tobacco Use Types Packs/Day Years [...] on filedocumented in this encounter Care Teams Associate Spa Director Relationship Specialty Start Date End Date Ivan Gotti MD PCP - General 03/13/10 [address] [place] [address] documented as of this encounter
--- OUTSIDE RECORDS SUMMARY | 2022-03-10 21:03 | XMS_ITS | Encounter Summary ---
:1945 Author Organization [facility] [place] [address] Care Team Providers Name Role Phone Ivan Gotti MD Primary Care Provider Encounter Details Date Type Department Care Team Description 02/11/2013 Telephone [place] [facility] [place] [address] Social History Tobacco Use Types Packs/Day Years Used Date Smoking Tobacco: Never Assessed Sex Assigned at Date Recorded Not on file documented as of this encounter Miscellaneous Notes Telephone Encounter - Nanci Santiago - 02/11/2013 2:35 PM EDT Ask patient to verify the following: Full name: Peggy Coffman : 1945 Phone number: [phone] (home) Mailing address: [address] [address] UPDATED...the patient IS AWARE SHE HAS SEEN [facility] FOR HER LEFT KNEE BUT SHE WOULD LIKE TO SEE [facility] FOR HER RIGHT KNEE Intake: RIGHT KNEE PAIN Is this an injury that happened: NO ?? At work? ?? Playing a sport? ?? If yes to either, what is DOI? Tell me how this how long you've had these symptoms? ABOUT 4 YEARS Has anyone ever seen you before for this issue? YES Have you tried: ?? Physical Therapy ?? INJECTION ?? Other therapies Have you had any of the following studies for this issue? YES WITH NANCY ?? X-Ray ?? MRI ?? CT Scan ?? LABS Have you seen an Orthopaedic surgeon for the this issue? YES If YES: Who did you see? DR. CRUZ Where were you seen (facility)? [facility] When? Phone # Fax# Have you ever had surgery for this issue? NOT ON RIGHT - LEFT TKA WAS BY - DR. SIEGEL AT [facility] [place] [facility] If YES and different than above: Who performed surgery? Where did you have the surgery (facility)? When? Phone # Fax# If patient is implanted with hardware fixation or joint prosthesis retrieve OPERATIVE REPORT and IMPLANT STICKERS. documented in this encounter Plan of Treatment Not on filedocumented as of this encounter Visit Diagnoses Not on filedocumented in this encounter Care Teams Tennis Desk Team Member Relationship Specialty Start Date End Date Ivan Gotti MD PCP - General 03/13/10 [address] [place] [address] documented as of this encounter
--- OUTSIDE RECORDS SUMMARY | 2022-03-10 21:03 | XMS_ITS | Encounter Summary ---
:1945 Author Organization [facility] [place] [address] Care Team Providers Name Role Phone Ivan Gotti MD Primary Care Provider Reason for Visit Reason Onset Date Comments Post Hospital Discharge 04/22/2013 s/p right TKA Ori Encounter Details Date Type Department Care Team Description 04/22/2013 Telephone Orthopaedics at [facility] [place] Luis Muller, Post Hospital Discharge [facility] Krissy howell RN (s/p right TKA 04/15/12 [place] [address] Ori) [phone] Social History Tobacco Use Types Packs/Day Years Used Date Smoking Tobacco: Former Cigarettes Smokeless Tobacco: Never Alcohol Use Standard Drinks/Week Comments No 0 (1 standard drink = 0.6 oz pure alcoho l) never Sex Assigned at Date Recorded Not on file documented as of this encounter Miscellaneous Notes Telephone Encounter - Luis Padilla RN - 04/22/2013 2:46 PM EST Date of surgery Type of surgery right total knee replacement Surgeon: Adeline Rehman Call made within 2 weeks of discharge? Yes Is pain under control?yes Having bowel movements?yes Concerns with incision?no Has the [facility] been in contact?yes Anticoagulation plan? Resumed pre op Plavix dosing Rehab facility? Concerns? - she has been in contact with PCP office since discharger per their request. They will continue to manage her long acting pain medication documented in this encounter Plan of Treatment Not on filedocumented as of this encounter Visit Diagnoses Not on filedocumented in this encounter Care Teams Hand I Tube Bender Relationship Specialty Start Date End Date Ivan Gotti MD PCP - General 03/13/[address] [place] [address] documented as of this encounter
--- OUTSIDE RECORDS SUMMARY | 2022-03-10 21:04 | XMS_ITS | Encounter Summary ---
:1945 Author Organization [facility] Address [address] [place] [address] Care Team Providers Name Role Phone Ivan Gotti MD Primary Care Provider Encounter Details Date Type Department Care Team Description 06/06/2021 Lab Requisition [facility] Outr Resulting Lab, Pathology & Laboratory Provider [facility] [address], [place] [address] Social History Tobacco Use Types Packs/Day Years Used Date Smoking Tobacco: Passive Smoke Exposure - Never Smoker Smokeless Tobacco: Never Sex Assigned at Date Recorded Not on file documented as of this encounter Plan of Treatment Not on filedocumented as of this encounter Procedures Procedure Name Priority Date/Time Associated Diagnosis Comme nts COVID-19 TEST [facility] Today 06/06/2021 18:50 LAB PCR EST COVID-19 TESTING Routine 06/06/2021 18:50 Results for this EST procedure are i n the results section. documented in this encounter Results COVID-19 TEST [facility] LAB PCR (06/06/2021 18:50 EST) Specimen Anatomical Collection Method Collection Time Receive d Time (Source) Location / / Volume Laterality Swab 06/06/2021 18:50 06/07/2021 EST 21:18 EST Provider Outr Resulting Lab MICROBIOLOGY - GENERAL ORD ERABLES Performing Organization Address City/State/ZIP Code Phon e Number [facility] [address] [place] [address] SERVICES COVID-19 TESTING (06/06/2021 18:50 EST) Analysis Performed At Patho logist Time Signature COVID-19 Negative Negative 06/08/2021 [facility] rt-PCR Result 13:18 EST CENTER [facility] Comment: This test has not been FDA cleared or ap proved. This test has been authorized by FDA under an EUA for use by authorized laboratories. This test has been authorized only for detection of nucleic acid fro m 2019-nCoV, not for any other viruses o r pathogens. This test is only authorized for the duration of the declaration that circumstances exist justifying the authorization of emergency use of in vitro d iagnostic tests for detection and/or aneglina gnosis of 2019-nCoV under section 564(b)(1) of Act, 21 U.S.C ?? 360bbb-3(b) (1), unless the authorization is terminated or revoked sooner. Negative results do not preclude 2019-nC oV infection and should not be used as the sole basis for treatment or other patient management decisions. Negative results must be combined with clinical observa tions, patient history, and epidemiologi magaly information. Testing was performed using the denise SA RS-CoV-2 assay ([employer] on the Denise 6800 System Performing Lab Denise [address] [facility] 06/08/2021 13:18 E [facility] Lab LABORATORY SERVICES Specimen Anatomical Collection Method Collection Time Receive d Time (Source) Location / / Volume Laterality Swab 06/06/2021 18:50 06/07/2021 EST 21:18 EST Provider Outr Resulting Lab MICROBIOLOGY - GENERAL ORD ERABLES Performing Organization Address City/State/ZIP Code Phon e Number [facility] [address] [place] [address] SERVICES documented in this encounter Visit Diagnoses Not on filedocumented in this encounter Care Teams Purification Supervisor Relationship Specialty Start Date End Date Ivan Gotti MD PCP - General 03/23/09 [address] [place] [address] documented as of this encounter
--- OUTSIDE RECORDS SUMMARY | 2022-03-10 21:04 | XMS_ITS | Encounter Summary ---
:1945 Author Organization [facility] Address [address] [place] [address] Care Team Providers Name Role Phone Ivan Gotti MD Primary Care Provider Reason for Visit Reason Onset Date Comments Medications Refill 01/02/2022 Encounter Details Date Type Department Care Team Description 01/02/2022 Telephone [facility] Pelvic Cheyanne Garcia RN Medications Refill Medicine and [address] [place] [address] Reconstructive Surgery - [facility] [place], [place] [id number] [place] [address] [address] [place] [address] Social History Tobacco Use Types Packs/Day Years Used Date Smoking Tobacco: Passive Smoke Exposure - Never Smoker Smokeless Tobacco: Never Sex Assigned at Date Recorded Not on file documented as of this encounter Miscellaneous Notes Telephone Encounter - Cheyanne Garcia RN - 01/02/2022 0927 EDT Attempted twice to call patient to inquire about whether she is continuing to use the Estradiol cream. Phone hung up. Will not refill medication at this time. Refill request faxed to [facility] [phone] indicating patient needs to schedule appointment. Patient last office visit with Camelia LOREDO 12/06/2019. documented in this encounter Plan of Treatment Not on filedocumented as of this encounter Visit Diagnoses Not on filedocumented in this encounter Care Teams Utilization Management Nurse Relationship Specialty Start Date End Date Ivan Gotti MD PCP - General 03/23/09 [address] [place], [place] [id number] documented as of this encounter
--- OUTSIDE RECORDS SUMMARY | 2022-03-10 21:04 | XMS_ITS | Encounter Summary ---
:1945 Author Organization [facility] Address [address] [place] [address] Care Team Providers Name Role Phone Ivan Gotti MD Primary Care Provider Encounter Details Date Type Department Care Team Description 05/21/2021 Lab Requisition [facility] Outr Resulting Lab, Pathology & Laboratory Provider [facility] [address] [place] [id number] Social History Tobacco Use Types Packs/Day Years Used Date Smoking Tobacco: Passive Smoke Exposure - Never Smoker Smokeless Tobacco: Never Sex Assigned at Date Recorded Not on file documented as of this encounter Plan of Treatment Not on filedocumented as of this encounter Procedures Procedure Name Priority Date/Time Associated Diagnosis Comme nts COVID-19 TEST UVC Today 05/21/2021 11:00 LAB PCR EST COVID-19 TESTING Routine 05/21/2021 11:00 Results for this EST procedure are i n the results section. documented in this encounter Results COVID-19 TEST [facility] LAB PCR (05/21/2021 11:00 EST) Specimen Anatomical Collection Method Collection Time Receive d Time (Source) Location / / Volume Laterality Swab 05/21/2021 11:00 05/21/2021 EST 21:39 EST Provider Outr Resulting Lab MICROBIOLOGY - GENERAL ORD ERABLES Performing Organization Address City/State/ZIP Code Phon e Number [facility] [address] [place] [address] SERVICES COVID-19 TESTING (05/21/2021 11:00 EST) Analysis Performed At Patho logist Time Signature COVID-19 Negative Negative 05/23/2021 [facility] rt-PCR Result 9:15 EST CENTER LABORATORY SERVICES Comment: This test [...] vitro d iagnostic tests for detection and/or angelina gnosis of 2019-nCoV under section 564(b)(1) of Act, 21 U.S.C ?? 360bbb-3(b) (1), unless the authorization is terminated or revoked sooner. Negative results do not preclude 2019-nC oV infection and should not be used as the sole basis for treatment or other patient management decisions. Negative results must be combined with clinical observa tions, patient history, and epidemiologi magaly information. This test was developed and its performa nce characteristics determined by [facility]. It has not been cleared or approved by the US Food and Drug Administration. FDA does not require this test to go through premarket FDA review. This test is used for clinical purposes. It should not be regarded as investigational or for research. This laboratory is certified under the Clinical Laboratory Improvement Amendm ents (CLIA) as qualified to perform high complexity clinical laboratory testing. Laboratory Developed Test (LDT) Performed on the [employer] 7 Flex RT-PCR System. Performing Lab [facility] Lab 05/23/2021 9:[address] [facility] SERVICES Specimen Anatomical Collection Method Collection Time Receive d Time (Source) Location / / Volume Laterality Swab 05/21/2021 11:00 05/21/2021 EST 21:39 EST Provider Outr Resulting Lab MICROBIOLOGY - GENERAL ORD ERABLES Performing Organization Address City/State/ZIP Code Phon e Number [facility] [address] [place] [address] SERVICES documented in this encounter Visit Diagnoses Not on filedocumented in this encounter Care Teams Insulation Manager Relationship Specialty Start Date End Date Ivan Gotti MD PCP - General 03/23/09 [address] [place] [address] documented as of this encounter
--- OUTSIDE RECORDS SUMMARY | 2022-03-10 21:04 | XMS_ITS | Clinical Summary ---
:1945 Author Organization [facility] Address [address] [place] [address] Care Team Providers Name Role Phone Ivan Gotti MD Primary Care Provider Allergies Active Allergy Reactions Severity Noted Date Comments Aspirin Anaphylaxis, Swelling of High 06/14/2014 throat, Swelling of tongue Codeine Nausea And Vomiting 06/14/2014 Lisinopril Cough 06/14/2014 Metformin Nausea And Vomiting 06/14/2014 Methadone Hives 06/14/2014 Mirtazapine Vertigo 06/14/2014 Naproxen Anaphylaxis High 06/14/2014 Penicillins Swelling High 06/14/2014 Sulfa (Sulfonamide Rash 06/14/2014 Antibiotics) Medications Medication Sig Dispensed Refills Start Date End Date Status insulin glargine (LANTUS Inject into the 0 Active SOLOSTAR) 100 unit/mL (3 skin at bedtime mL) injection pen prochlorperazine Take 5 mg by 0 Active (COMPAZINE) 5 mg tablet mouth every 6 hours as needed for Nausea senna-docusate Take 1 Tab by 0 A ctive (ALEXANDREA-COLACE) 8.6-50 mg mouth daily per tablet PEG 3350-Electrolytes Take 17 g by 0 Active (MIRALAX) 17 gram packet mouth daily amLODIPine (NORVASC) 5 Take 5 mg by 0 Active mg tablet mouth daily atenolol (TENORMIN) 25 Take 25 mg by 0 Active mg tablet mouth daily Diflunisal 500 mg tablet Take by mouth 0 Active imipramine (TOFRANIL) 25 Take 25 mg by 0 Active mg tablet mouth at bedtime isosorbide mononitrate Take 60 mg by 0 Active (IMDUR) 60 mg CR tablet mouth every morning clopidogrel (PLAVIX) 75 Take 75 mg by 0 Active mg tablet mouth daily sertraline (ZOLOFT) 100 Take 100 mg by 0 Active mg tablet mouth daily atorvastatin (LIPITOR) Take 40 mg by 0 Active 40 mg tablet mouth daily nitroGLYCERIN Place 0.4 mg 0 Act geraldine (NITROSTAT) 0.4 mg SL under the tongue tablet every 5 minutes as needed for Chest Pain oxyCODONE-acetaminophen Take 1 Tab by 0 Active (PERCOCET) 5-325 mg per mouth every 4 tablet hours as needed for Pain losartan (COZAAR) 100 mg Take 100 mg by 0 Active tablet mouth daily sumatriptan (IMITREX) 50 Take 50 mg by 0 Active mg tablet mouth once as needed for Migraine oxyCODONE (OXYCONTIN) 40 Take 40 mg by 0 Active mg CR tablet mouth every 12 hours oxyCODONE (OXYCONTIN) 20 Take 20 mg by 0 Active mg CR tablet mouth every 12 hours HYDROCODONE-ACETAMINOPHE Take by mouth 0 Active N ORALIndications: 5-325 mg 5-325mg oxybutynin (DITROPAN-XL) Take 1 Tab by 30 Tab 11 09/02/2014 Active 10 mg CR tablet mouth daily Additional Information Patient taking differently: 5 mg oral DAILY, Reported on 12/06/2019 benzonatate (TESSALON) 100 mg Take 100 mg by mouth every 0 Active capsule 8 hours. lidocaine (XYLOCAINE) 5 % Apply topically 4 times 0 Active ointment daily. pregabalin (LYRICA) 100 mg Take 100 mg by mouth 3 0 Active capsule times daily. magnesium oxide (MAG-OX) 400 Take 500 mg by mouth daily. 0 Active mg (241.3 mg magnesium) tablet calcium carbonate (CALCIUM Take by mouth. 0 Active 500 ORAL) cholecalciferol, Vitamin D3, Take 1,000 Units by mouth 0 Active 1,000 unit tablet daily. Biotin 5 mg capsule Take 5 mg by mouth daily. 0 Active ascorbic acid, vitamin C, Take 1,000 mg by mouth 0 Active (VITAMIN C) 1,000 mg tablet daily. oxycodone myristate (XTAMPZA Take 36 mg by mouth 2 times 0 Active ER ORAL) daily. blood glucose (ONETOUCH ULTRA 1 Strip by [employer] (non-drug; 0 Active BLUE TEST STRIP) test strips combo route) route 3 times daily. blood glucose meter by [employer] (non-drug; combo 0 Active route) route 3 times daily. DULoxetine (CYMBALTA) 30 mg Take 30 mg by mouth daily. 0 Active delayed release capsule naloxone (NARCAN) 4 1 [place] by nasal route as 0 Active mg/actuation nasal spray needed for Opioid Reversal. EPINEPHrine (EPIPEN 2-JIM) Inject 0.3 mg into the 0 Active 0.3 mg/0.3 mL injection muscle once as needed. estradioL (ESTRACE) 0.01 % PLACE 1 (G) VAGINALLY TWICE 42.5 g 3 12/27/2020 Active (0.1 mg/gram) vaginal cream A WEEK Encounters Date Type Specialty Care Team Description 01/02/2022 Telephone Pelvic Medicine Cheyanne Garcia RN Medi cations Refill from Last 3 Months Surgical History Surgery Date Site/Laterality Comments TOTAL KNEE ARTHROPLASTY Medical History Medical History Date Comments Diabetes mellitus (HCC) Depression Hypertension Acid reflux Family History Medical History Relation Comments Early Father Heart Disease Father Relation Status Comments Father Social History Tobacco Use Types Packs/Day Years Used Date Smoking Tobacco: Passive Smoke Exposure - Never Smoker Smokeless Tobacco: Never Sex Assigned at Date Recorded Not on file Obstetrics History Last Filed Vital Signs Vital Sign Reading Time Taken Comments Blood Pressure 142/64 12/06/2019 1120 EDT Pulse 47 12/06/2019 1120 EDT Temperature - - Respiratory Rate - - Oxygen Saturation - - Inhaled Oxygen Concentration - - Weight 99.3 kg (219 lb) 12/06/2019 1120 EDT Height 154.9 cm (5' 1) 12/06/2019 1120 EDT Body Mass Index 41.38 12/06/2019 1120 EDT Plan of Treatment Health Maintenance Due Date Last Done Comments COVID-19 Vaccine (#1) 03/02/1946 Fall Risk Screening 08/30/2008 Hepatitis C Screen Completed 05/17/2021 Insurance Payer Benefit Plan / Subscriber ID Effective Phone Address T ype Group Dates [facility] MEDICARE [id number] 2019-Pre [phone] Med icare HEALTHCARE COMPLETE sent [phone] [place] [address] HUMANA HUMANA [id number] 2019-Pre [phone] Commerc ial GL SUPPLEMENTAL sent [phone] [place] [address] AugustusPeggy Personal/Family Self [address] (Home) [place] [address] AugustusPeggy Personal/Family Self [address] (Home) [place] [address] Care Teams Payroll Examiner Relationship Specialty Start Date End Date Ivan Gotti MD PCP - General 03/23/09 [address] [place] [address]
[2022-03-10 21:05] VITALS: BP 154/66; PULSE 71; RESP 18; TEMP 36.4
--- OUTSIDE RECORDS SUMMARY | 2022-03-10 21:05 | XMS_ITS | Encounter Summary ---
:1945 Author Organization [facility] Address [address] [place] [address] Care Team Providers Name Role Phone Unavailable Primary Care Provider Unavailable Encounter Details Date Type Department Care Team Description 03/21/2009 Orders Only [facility] Felix Pena MD Laboratory Services - [place] [id number] [place] [address] [phone] Social History Tobacco Use Types Packs/Day Years Used Date Smoking Tobacco: Never Assessed Sex Assigned at Date Recorded Not on file documented as of this encounter Plan of Treatment Not on filedocumented as of this encounter Procedures Procedure Name Priority Date/Time Associated Diagnosis Comme [facility] SURGICAL PATHOLOGY Routine 03/21/2009 0:00 EST Re sults for this procedure are i n the results section. documented in this encounter Results SURGICAL PATHOLOGY (03/21/2009 0:00 EST) Component Value Ref Test Analysis Performed At [facility] Method Time Signature Pathology SURGICAL PATHOLOGY REPORT ? CHETAN HER Report: Reports generated via electr [employer] interface contain original data; ? KAREL PORTILLO however they are lacking the format of the original report. ? Caution should be taken when reading/interpreting unformatted reports. ? Name: ? AUGUSTUS, PHYLL IS ? Accession #: ? [id number] ? : ? 1945 (Age: 63) ??F ? Collec t Date: ? 03/21/2009 ? Location: ? [facility] ? Re ceive Date: ? 03/21/2009 ? Provider: TESFAYE PENA MD ? Copy to: IRAIDA DURAN MD ? Final Pathologic Diagnosis: ? A. ?Colon, cecu m, biopsy: ? 1. ?No specific pathologic features. ? B. ?Colon, asce nding, biopsy: ? 1. ?No specific pathologic features. ? C. ?Colon, sple valentin flexure, biopsy: ? 1. ?No specific pathologic features. ? D. ?Colon, sigm oid, biopsy: ? 1. ?No specific pathologic features. ? E. ?Colon, dist al sigmoid, 25 cm, polypectomy: ? 1. 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 ??See com ment. ? - Size of polyp: ??0. 9 x 0.6 x 0.5 cm. ? - Specimen integrity: ??Intact. ? - Depth of invasion: ??Intramucosal (AJCC: pTis, pNX, pMX). ? - Venous (large vessel) inva montse: ??Not identified. ? - Lymphatic (small vessel) i nvasion: ??Not identified. ? - Surgical resection margins : ?- Deep/stalk margin: ??Ne gative. ? - Distance of tumo r from deep/cauterized margin: ??0.5 mm. ?- Mucosal/lateral m argin: ??Negative. ? - Additional pathologic find ings: ??None identified. ? F. ?? Rectum, polyp, biopsy: ? 1. ?? Cauterized frag ments of rectal-type mucosa with features suggestive of hyperplastic ? polyp. ??See comment. ? Comment: ? Intramucosal adenocar cinoma lacks the potential for metastasis and complete excision is considered adequ ate treatment. ??The cautery artifact present in ? specimen (F) precludes defin itive diagnosis. ??Scientific Informatics Analyst sections of this ?? case have been reviewed at i ntradepartmental consultation conference. ??( ? Stephanie)/kmm ? Document reviewed and electr onically signed by: ? Yumi Brown, ? Report ??Date: 03/24/2009 11 :28 ? By the signature above, the attending physician certifies that he/she has ? personally conducted a gross and/or microscopic examination of the described ? specimens and rendered or co nfirmed the above diagnosis. ? Specimen(s) Received: ? A. ?Cecum ? B. ? Ascending colon ? C. ? Splenic flexure ? D. ? Sigmoid colon ? E. ? Distal sigmoid poly p at 25 cm ? F. ? Rectal polyp ? Clinical History: ? Hx constipation ? Gross Description: ? Received in [facility] s fixative labelled Ochiltree, Peggy and cecum ?? is a single 0.4 x 0.2 x 0.1 cm pink-barkley irregular soft tissue, submitted in toto in (A). ? Received in [facility]'s fixat geraldine labelled Ochiltree, Peggy and ascending ? colon is a single 0.5 x 0.1 x 0.1 cm pink-barkley irregular soft tissue, submitted in toto in (B). ? Received in [facility]'s fixat geraldine labelled Ochiltree, Peggy and splenic ? flexure are two pink-barkley ir regular soft tissues, 0.3 x 0.1 x 0.1 cm and 0.4 x ?? 0.1 x 0.1 cm, submitted in t charles in (C). ? Received in [facility]'s fixat geraldine labelled Augustus, Peggy and sigmoid ? colon is a single 0.2 x 0.2 x 0.2 cm pink-barkley irregular soft tissue, submitted in toto in (D). ? Received in [facility]'s fixat geraldine labelled Ochiltree, Peggy and distal ? sigmoid polyp at 25 cm is a single 0.9 x 0.6 x 0.5 cm pink-barkley sessile polypoid soft tissue. ??The resection margin is inked blue, the specimen is trisected and entirely submitted in (E). ? Received in [facility]'s fixat geraldine labelled Augustus, Peggy and rectal polyp is a single 0.2 x 0.2 x 0.2 cm pink-bakrley irregular soft tissue, submitted in toto in (F). (Osvaldo Sommer)/mpl ? End of Report ? Specimen (Source) Anatomical Collection Method Collection Time Re ceived Time Location / / Volume Laterality 03/21/2009 03/21/2009 8:59 EST Tesfaye Pena MD PATHOLOGY ORDERABLES Performing Organization Address City/State/ZIP Code Phon e Number [facility] [address] [place] [address] SERVICES [facility] [address] [place] [address] documented in this encounter Visit Diagnoses Not on filedocumented in this encounter
--- OUTSIDE RECORDS SUMMARY | 2022-03-10 21:05 | XMS_ITS | Encounter Summary ---
:[address] [facility] Address [address] [place] [address] Care Team Providers Name Role Phone Ivan Gotti MD Primary Care Provider Encounter Details Date Type Department Care Team Description 03/05/2011 Results Only [facility] Felix Pena MD Laboratory Services - [address] [place] [address] [phone] Social History Tobacco Use Types Packs/Day Years Used Date Smoking Tobacco: Never Assessed Sex Assigned at Date Recorded Not on file documented as of this encounter Plan of Treatment Not on filedocumented as of this encounter Procedures Procedure Name Priority Date/Time Associated Diagnosis Comme [facility] SURGICAL PATHOLOGY Routine 03/05/2011 0:00 EST Re sults for this procedure are i n the results section. documented in this encounter Results SURGICAL PATHOLOGY (03/05/2011 0:00 EST) Component Value Ref Test Analysis Performed At [facility] Method Time Signature Pathology SURGICAL PATHOLOGY REPORT BHARATHI ANDERSEN Report: Reports generated via electronic interface contain origina l data; KAREL PORTILLO however they are lacking the format of the original report. Caution should be taken when reading/interpreting unformatte d reports. Name: ? SHAMEKA COFFMAN IS ? Accession #: ? [id number] ? : ? 1945 (Age: 65) ??F ? Collect Date: ? 03/05/2011 ? Location: ? [facility] ? Receive Date: ? 03/05/2011 ? Provider: TESFAYE PENA MD Copy to: ? Final Pathologic Diagnosis: A. ?Colon, sigmoid, polyp, biopsy: 1. ?Heavily cauterized hyperplastic polyp. B. ?Colon, ascending, polyp, biopsy: 1. ?Heavily cauterized tubular adenoma. ??See c omment. C. ?Colon, sigmoid, polyps, biopsy: 1. ?Heavily cauterized hyperplastic polyps. Comment: ? Deeper sections have been reviewed on parts (B) and (C). ??(Dr. Reese)/[facility] Document reviewed and electronically signed by: KONG REESE MD Report ??Date: 03/07/2011 17:06 By the signature above, the attending physician certifies th at he/she has personally conducted a gross and/or microscopic examin ation of the described specimens and rendered or confirmed the above diagnosis. Specimen(s) Received: A. ?Sigmoid colon polyps B. ? Ascending colon polyps C. ? Sigmoid colon polyps x2 Clinical History: ? Hx carcinoma in situ; clinical diagnosis code: 230.3 Gross Description: ? Received in formalin labelled Peggy Coffman and A ??sigmoid colon polyp is a 0.3 x 0.2 x 0.2 cm light barkley-white f irm piece of tissue, which is submitted intact as (A). Received in formalin labelled Peggy Coffman and B ??ascending colon polyp is a 0.3 x 0.3 x 0.2 cm barkley-white firm piece of tissue which is submitted intact as (B). Received in formalin Peggy Otero and C ??sigmoid colon polyps x2 is a 0.4 x 0.3 x 0.2 cm barkley-white firm piece of tissue which is submitted intact as (C). ??(Micheal Olvera)/[facility] End of Report Specimen (Source) Anatomical Collection Method Collection Time Re ceived Time Location / / Volume Laterality 03/05/2011 03/05/2011 17:2 8 EST Tesfaye Pena MD PATHOLOGY ORDERABLES Performing Organization Address City/State/ZIP Code Phon e Number [facility] [address] [place] [address] SERVICES [facility] [address] [place] [address] documented in this encounter Visit Diagnoses Not on filedocumented in this encounter Care Teams Interventional Tech Relationship Specialty Start Date End Date Ivan Gotti MD PCP - General 03/23/09 [address] [place] [address] documented as of this encounter
--- OUTSIDE RECORDS SUMMARY | 2022-03-10 21:05 | XMS_ITS | Encounter Summary ---
:1945 Author Organization [facility] Address [address] [place] [address] Care Team Providers Name Role Phone Ivan Gotti MD Primary Care Provider Encounter Details Date Type Department Care Team Description 10/05/2018 Hospital Encounter [facility]- Gwendolyn Unknown, Provider, [facility] [address] [facility] [phone] [place] [address] (Work) [phone] Social History Tobacco Use Types Packs/Day Years Used Date Smoking Tobacco: Passive Smoke Exposure - Never Smoker Smokeless Tobacco: Never Sex Assigned at Date Recorded Not on file documented as of this encounter Medications at Time of Discharge Medication Sig Dispensed Refills Start Date End Date amLODIPine (NORVASC) 5 mg Take 5 mg by mouth 0 tablet daily atenolol (TENORMIN) 25 mg Take 25 mg by mouth 0 tablet daily atorvastatin (LIPITOR) 40 Take 40 mg by mouth 0 mg tablet daily clopidogrel (PLAVIX) 75 mg Take 75 mg by mouth 0 tablet daily Diflunisal 500 mg tablet Take by mouth 0 HYDROCODONE-ACETAMINOPHEN Take by mouth 5-325 0 ORALIndications: 5-325mg mg imipramine (TOFRANIL) 25 Take 25 mg by mouth 0 mg tablet at bedtime insulin glargine (LANTUS Inject into the 0 SOLOSTAR) 100 unit/mL (3 skin at bedtime mL) injection pen isosorbide mononitrate Take 60 mg by mouth 0 (IMDUR) 60 mg CR tablet every morning losartan (COZAAR) 100 mg Take 100 mg by 0 tablet mouth daily nitroGLYCERIN (NITROSTAT) Place 0.4 mg under 0 0.4 mg SL tablet the tongue every 5 minutes as needed for Chest Pain oxybutynin (DITROPAN-XL) Take 1 Tab by mouth 30 Tab 11 10 mg CR tablet daily oxyCODONE (OXYCONTIN) 20 Take 20 mg by mouth 0 mg CR tablet every 12 hours oxyCODONE (OXYCONTIN) 40 Take 40 mg by mouth 0 mg CR tablet every 12 hours oxyCODONE-acetaminophen Take 1 Tab by mouth 0 (PERCOCET) 5-325 mg per every 4 hours as tablet needed for Pain PEG 3350-Electrolytes Take 17 g by mouth 0 (MIRALAX) 17 gram packet daily prochlorperazine Take 5 mg by mouth 0 (COMPAZINE) 5 mg tablet every 6 hours as needed for Nausea senna-docusate Take 1 Tab by mouth 0 (ALEXANDREA-COLACE) 8.6-50 mg daily per tablet sertraline (ZOLOFT) 100 mg Take 100 mg by 0 tablet mouth daily sumatriptan (IMITREX) 50 Take 50 mg by mouth 0 mg tablet once as needed for Migraine estradiol (ESTRACE) 0.01 % Place 1 g vaginally 42.5 g 5 08/10/2014 12/29/2019 (0.1 mg/gram) vaginal three times a week cream documented as of this encounter Discharge Disposition Disposition Code Departure Means Destination Home or Self Correction documented in this encounter Plan of Treatment Not on filedocumented as of this encounter Visit Diagnoses Not on filedocumented in this encounter Care Teams Director Title Relationship Specialty Start Date End Date Ivan Gotti MD PCP - General 03/23/09 [address] [place] [address] documented as of this encounter
--- OUTSIDE RECORDS SUMMARY | 2022-03-10 21:05 | XMS_ITS | Encounter Summary ---
:1945 Author Organization [facility] Address [address] [place] [address] Care Team Providers Name Role Phone Ivan Gotti MD Primary Care Provider Encounter Details Date Type Department Care Team Description 05/17/2021 Lab Requisition [facility] Outr Resulting Lab, Pathology & Laboratory Provider [facility] [address] [place] [id number] Social History Tobacco Use Types Packs/Day Years Used Date Smoking Tobacco: Passive Smoke Exposure - Never Smoker Smokeless Tobacco: Never Sex Assigned at Date Recorded Not on file documented as of this encounter Plan of Treatment Not on filedocumented as of this encounter Procedures Procedure Name Priority Date/Time Associated Diagnosis Comme nts HEPATITIS C AB W Routine 05/17/2021 10:50 Results for this REFLEX TO HCV RNA EST procedure are in BY PCR the results section. documented in this encounter Results HEPATITIS C AB W REFLEX TO HCV RNA BY PCR (05/17/2021 10:50 EST) Analysis Performed At Patho logist Time Signature Hep C Antibody Negative Negative 05/17/2021 [facility] 22:48 EST [facility] Specimen Anatomical Collection Method Collection Time Receive d Time (Source) Location / / Volume Laterality Blood VENOUS BLOOD / 05/17/2021 10:50 Unknown EST 20:54 EST Provider Outr Resulting Lab CHEMISTRY & BLOOD GAS MANAN Grey Organization Address City/State/ZIP Code Phon e Number [facility] [address] [place] [address] SERVICES documented in this encounter Visit Diagnoses Not on filedocumented in this encounter Care Teams Photo Mask Cleaner Relationship Specialty Start Date End Date Ivan Gotti MD PCP - General 03/23/09 [address] [place] [address] documented as of this encounter
--- OUTSIDE RECORDS SUMMARY | 2022-03-10 21:05 | XMS_ITS | Encounter Summary ---
:1945 Author Organization [facility] Address [address] [place] [id number] Care Team Providers Name Role Phone Ivan Gotti MD Primary Care Provider Reason for Visit Reason Comments New Patient Visit urinary incontinence, urinar y frequency, nocturia Encounter Details Date Type Department Care Team Description 12/06/2019 Office Visit [facility] Courtney Barber Urinar y Pelvic Medicine and E, PALeigh incontin ence, Reconstructive Surgery - uns pecified type Medical Office Build ing (Primary Dx) [facility] [address] [place], [place] [address] Social History Tobacco Use Types Packs/Day Years [...] Body Mass Index 41.38 12/06/2019 1120 EDT documented in this encounter Patient Instructions Patient Tesfaye Jacobo - 12/06/2019 11:15 EDT Urodynamic Test Instructions You have been referred for Urodynamics testing at the [facility]. The Procedure will be performed in the clinic. Please allow approximately 1 ?? hours for the procedure. The test is to help us determine how your bladder fills, stores, and eliminates the fluids. Directions for the procedure are as follows: ? Arrive at the clinic with a comfortably full bladder ? You may eat before the test however we ask that you stop drinking fluids 1 hour before your procedure time. ? Please let us know if you need special accommodations to transfer to an exam table ie.- (Slide board, Nelly lift.) If a Nelly life is needed, please come to the test with your sling positioned under you. The appointment will begin with reviewing the procedure, answering any questions that you have, followed by signing a consent form. The first part of the testing requires you to empty you bladder. You will sit on a specialized chairthat will act as the commode for this part of the test as well as for the remainder of the testing. We will need to test your urine to verify that you do not have a bacterial infection. A urinary infection will postpone the testing to another day and time. After we verify that you do not have an infection, we will proceed with the remainder of the Urodynamic testing. We will ask you to change into apatient gown. You will be able to keep your blouse/shirt on and place the gown over the top. You will need to remove your slacks and underpants. At certain times throughout the test, you may be asked to stand therefore we will ask you to keep your socks and/or shoes on. A small catheter will be inserted into the bladder and a separate catheter will be placed just inside your rectum. Three electrodes will be placed; one on either side of the rectum and one of your inner thigh. We will then attach your catheters to tubing which will transmit information to a computer. We will slowly start filling your bladder with normal saline. You will need to let us know what sensations you are having while your bladder is filling up. If you have a history of urinary incontinence,we will also be testing to see if we can reproduce that during the procedure. At the end of the procedure, we will have you empty your bladder. When the test has been completed, the doctor will go overthe results with you. If you have any questions, or if you need to reschedule you appointment, please call [phone] Urodynamics Discharge Instructions You have just completed Urodynamics testing. Here are some instructions to follow: 1. Drink 8-10 glasses of fluid over the next 2 days. Water is the best. This will help to prevent a urinary tract infection and soothe any irritation. 2. You may have a little irritation when you empty your bladder over the next 24 hours. This is normal. 3. You may pass a few drops of blood when you empty your bladder. This is normal. 4. Please notify our office ([phone]) if you experience ??? Persistent irritable voiding after the first 24 hours ??? A large amount of bleeding or clots in your urine ??? Fever greater than 101?? documented in this encounter Progress Notes Courtney Barber PA-C - 12/06/2019 1115 EDT [facility] Outpatient Consult Note Date of Service: 12/06/2019 PCP: Ivan Gotti Chief Complaint: Urinary Incontinence HPI: Peggy is a 74 y.o. female with a past medical history significant for hypertension, diabetes, depression and acid reflux who presents today in consultation for urinary frequency, urgency and urinary incontinence. She states that for a number of years, she is had worsening urinary incontinence when she coughs, laughs, sneezes in addition to when she has urinary urgency and is unable to make it to the bathroom in time. She wears 3-6 pads per day and constantly leaks. She has nocturia 4 times per night. She denies a history of urinary tract infections, kidney stones, pyelonephritis or gross hematuria. She denies any feelings of vaginal pressure or bulging. She is not currently sexually active. She is diabetic with most recent hemoglobin A1c of between 7 and 7.5. She denies any issues with constipation. She has 4 children all born via normal spontaneous vaginal delivery with the largest baby being10 pounds 9 ounces. She has tried vaginal estradiol cream in the using it. She is also tried oxybutynin in the past which did not work for her. She has undergone pelvic floor physical therapy as well which was not beneficial. She is a non-smoker, alcohol rarely denies illicit drug use. She denies a family history of malignancies. PMH PSH Past Medical History: Diagnosis Date ??? Acid reflux ??? Depression ??? Diabetes mellitus (CMS-HCC) ??? Hypertension Past Surgical History: Procedure Laterality Date ??? TOTAL KNEE ARTHROPLASTY Social History Family History Social History Tobacco Use ??? Smoking status: Passive Smoke Exposure - Never Smoker ??? Smokeless tobacco: Never Used Substance Use Topics ??? Alcohol use: Not on file Family History Problem Relation Age of Onset ??? Early Father ??? Heart Disease Father Medications Current Outpatient Medications Medication ??? amLODIPine (NORVASC) 5 mg tablet ??? atenolol (TENORMIN) 25 mg tablet ??? atorvastatin (LIPITOR) 40 mg tablet ??? clopidogrel (PLAVIX) 75 mg tablet ??? Diflunisal 500 mg tablet ??? estradiol (ESTRACE) 0.01 % (0.1 mg/gram) vaginal cream ??? HYDROCODONE-ACETAMINOPHEN ORAL ??? imipramine (TOFRANIL) 25 mg tablet ??? insulin glargine (LANTUS SOLOSTAR) 100 unit/mL (3 mL) injection pen ??? isosorbide mononitrate (IMDUR) 60 mg CR tablet ??? losartan (COZAAR) 100 mg tablet ??? nitroGLYCERIN (NITROSTAT) 0.4 mg SL tablet ??? oxybutynin (DITROPAN-XL) 10 mg CR tablet ??? oxyCODONE (OXYCONTIN) 20 mg CR tablet ??? oxyCODONE (OXYCONTIN) 40 mg CR tablet ??? oxyCODONE-acetaminophen (PERCOCET) 5-325 mg per tablet ??? PEG 3350-Electrolytes (MIRALAX) 17 gram packet ??? prochlorperazine (COMPAZINE) 5 mg tablet ??? senna-docusate (ALEXANDREA-COLACE) 8.6-50 mg per tablet ??? sertraline (ZOLOFT) 100 mg tablet ??? sumatriptan (IMITREX) 50 mg tablet No current facility-administered medications for this visit. Allergies Allergies Allergen Reactions ??? Asa [Aspirin] Anaphylaxis, Swelling of throat and Swelling of tongue ??? Naproxen Anaphylaxis ??? Penicillins Swelling ??? Codeine Nausea And Vomiting ??? Lisinopril Cough ??? Metformin Nausea And Vomiting ??? Methadone Hives ??? Mirtazapine Vertigo ??? Sulfa (Sulfonamide Antibiotics) Rash Review of Systems: Review of Systems Constitutional: Negative. HENT: Negative. Eyes: Negative. Respiratory: Negative. Cardiovascular: Negative. Genitourinary: Positive for frequency and urgency. Urinary incontinence Skin: Negative. Objective/Physical Exam: Vital Signs: Ht 154.9 cm (61) Wt 99.3 kg (219 lb) BMI 41.38 kg/m?? Physical Exam: Physical Exam Constitutional: Appearance: Normal appearance. Genitourinary: Genitourinary Comments: Stage II cystocele/rectocele, moderate to severe atrophy, no vaginal lesions or bleeding. HENT: Head: Normocephalic and atraumatic. Nose: Nose normal. Mouth/Throat: Mouth: Mucous membranes are moist. Pharynx: Oropharynx is clear. Eyes: Extraocular Movements: Extraocular movements intact. Pupils: Pupils are equal, round, and reactive to light. Neck: Musculoskeletal: Normal range of motion. Pulmonary: Effort: Pulmonary effort is normal. Abdominal: Palpations: Abdomen is soft. Musculoskeletal: Normal range of motion. Neurological: General: No focal deficit present. Mental Status: She is alert and oriented to person, place, and time. Skin: General: Skin is warm and dry. Psychiatric: Mood and Affect: Mood normal. Behavior: Behavior normal. Thought Content: Thought content normal. Judgment: Judgment normal. Vitals signs reviewed. Exam conducted with a group leader wafer polishing present. Data Review: I have independently visualized the patients' medical chart and reviewed the lab data Labs: Results for orders placed or performed in visit on 12/06/19 POCT URINE DIPSTICK, CLINITEK Result Value Ref Range Color, UA Yellow Yellow Clarity, UA Clear Clear Glucose, UA Negative Negative mg/dL Bilirubin, UA Negative Negative Ketones, UA Negative Negative mg/dL Specific [place], Urine 1.025 1.001 - 1.035 Blood, UA Negative Negative pH, UA 6.5 <=8 Protein, UA Negative Negative mg/dL Urobilinogen, UA 0.2 0.2 - 1.0 EU/dL Nitrite, UA Negative Negative Leuk Esterase 1+ (A) Negative Tech ID [id number] HN LAB COMMENT (CLINITEK, UR) Test performed at [facility] Impression/Plan: Peggy is a P4 postmenopausal 74-year-old female with mixed urinary incontinence. She has tried conservative management with pelvic floor physical therapy and anticholinergic medications, which did not improve her symptoms. She is interested in definitive surgical intervention. We discussed the potential options for a [place] colpocleisis, possible mid urethral sling, and/or possible repair of her pelvic organ prolapse. We also discussed a pessary trial which she declines at this time. I recommendedthat she initiate vaginal estradiol cream which can take 6 weeks to take effect. She is counseled onthe correct dosage and application.We did discuss the need for urodynamic studies prior to surgical i ntervention for further work-up and evaluation. The risk versus benefits of the procedure were discussed at length. We will look to schedule her for urodynamics in the near future. Urodynamics Informed Consent The patient has been informed and understands the information and situation being provided to them about the planned procedure. They have the capacity and ability to weigh the risks, goals and benefits, as well as the alternatives of proposed treatments, including the option of not undergoing the procedure. The patient has expressed their rationale and executed the choice to proceed forward with the procedure with no undue influence or coercion. If the patient is DNR, a required reconsideration has been completed (N/A) Courtney Barber PA-C 12/06/2019 11:18 documented in this encounter Plan of Treatment Not on filedocumented as of this encounter Procedures Procedure Name Priority Date/Time Associated Diagnosis Comme nts POCT CSN BARCODE Routine 12/06/2019 11:42 Urinary Results for this URINE DIPSTICK EDT incontinence, procedure ar e in unspecified type the results section. POCT URINE CLINITEK Routine 12/06/2019 11:36 Urinary Resu lts for this (DIPSTICK) - DOES EDT incontinence, procedure are in NOT REFLEX unspecified type the results section. POCT URINE Routine 12/06/2019 11:36 Urinary Results for this DIPSTICK, CLINITEK EDT incontinence, procedur e are in unspecified type the results section. documented in this encounter Results POCT CSN BARCODE URINE DIPSTICK (12/06/2019 11:42 EDT) athologist Signature Hold Hold 12/06/2019 [facility] 12:46 [facility] Specimen Anatomical Collection Method Collection Time Receive d Time (Source) Location / / Volume Laterality Urine URINE SPECIMEN 12/06/2019 11:42 0 COLLECTION, CLEAN EDT 11:42 EDT CATCH / Unknown Courtney Barber PA-C LAB INFO SERVICE AND SUPPORT & PHONE RESULT Performing Organization Address City/State/ZIP Code Phon e Number [facility] [address] [place] [address] SERVICES (ABNORMAL) POCT URINE DIPSTICK, CLINITEK (12/06/2019 11:36 EDT) [facility] Method Time Signature Color, UA Yellow Yellow 12/06/2019 [facility] 11:44 [facility] Clarity, UA Clear Clear 12/06/2019 [facility] 11:44 [facility] Glucose, UA Negative Negative 12/06/2019 [facility] mg/dL 11:44 [facility] Bilirubin, UA Negative Negative 12/06/2019 [facility] 11:44 [facility] Ketones, UA Negative Negative 12/06/2019 [facility] mg/dL 11:44 [facility] Specific 1.025 1.001 - 12/06/2019 [facility] [place], 1.035 11:44 [facility] Urine LABORATORY SERVICES Blood, UA Negative Negative 12/06/2019 [facility] 11:44 [facility] pH, UA 6.5 <=8 12/06/2019 [facility] 11:44 [facility] Protein, UA Negative Negative 12/06/2019 [facility] mg/dL 11:44 [facility] Urobilinogen, 0.2 0.2 - 1.0 12/06/2019 [facility] UA EU/dL 11:44 [facility] Nitrite, UA Negative Negative 12/06/2019 [facility] 11:44 [facility] Leuk Esterase 1+ (A) Negative 12/06/2019 [facility] 11:44 [facility] sawmill supervisor ID [id number] 12/06/2019 [facility] 11:44 [facility] HN LAB Test performed 12/06/2019 [facility] COMMENT at the 11:44 EDT CENTER (CLINITEK, [facility]) Center SERVICES Specimen Anatomical Collection Method Collection Time Receive d Time (Source) Location / / Volume Laterality Urine URINE SPECIMEN 12/06/2019 11:36 0 COLLECTION, CLEAN EDT 11:44 EDT CATCH / Unknown Courtney Barber PA-C POINT OF CARE TEST ORDERABLE S Performing Organization Address City/State/ZIP Code Phon e Number [facility] [address] [place] [address] SERVICES documented in this encounter Visit Diagnoses Diagnosis Urinary incontinence, unspecified type - Primary documented in this encounter Historical Medications This list may reflect changes made after this encounter. Medication Sig Dispensed Refills Start Date End Date EPINEPHrine (EPIPEN Inject 0.3 mg into the 0 2-JIM) 0.3 mg/0.3 mL muscle once as needed. injection naloxone (NARCAN) 4 1 [place] by nasal route 0 mg/actuation nasal spray as needed for Opioid Reversal. DULoxetine (CYMBALTA) 30 Take 30 mg by mouth 0 mg delayed release daily. capsule blood glucose meter by [employer] (non-drug; 0 combo route) route 3 times daily. blood glucose (ONETOUCH 1 Strip by [employer] 0 ULTRA BLUE TEST STRIP) (non-drug; combo test strips route) route 3 times daily. oxycodone myristate Take 36 mg by mouth 2 0 (XTAMPZA ER ORAL) times daily. ascorbic acid, vitamin C, Take 1,000 mg by mouth 0 (VITAMIN C) 1,000 mg daily. tablet Biotin 5 mg capsule Take 5 mg by mouth 0 daily. cholecalciferol, Vitamin Take 1,000 Units by 0 D3, 1,000 unit tablet mouth daily. calcium carbonate Take by mouth. 0 (CALCIUM 500 ORAL) magnesium oxide (MAG-OX) Take 500 mg by mouth 0 400 mg (241.3 mg daily. magnesium) tablet pregabalin (LYRICA) 100 Take 100 mg by mouth 3 0 mg capsule times daily. lidocaine (XYLOCAINE) 5 % Apply topically 4 0 ointment times daily. benzonatate (TESSALON) Take 100 mg by mouth 0 100 mg capsule every 8 hours. added in this encounter Care Teams Oracle Business Intelligence Developer Relationship Specialty Start Date End Date vIan Gotti MD PCP - General 03/23/09 [address] [place] [address] documented as of this encounter
--- OUTSIDE RECORDS SUMMARY | 2022-03-10 21:05 | XMS_ITS | Encounter Summary ---
:1945 Author Organization [facility] Address [address] [place] [address] Care Team Providers Name Role Phone Ivan Gotti MD Primary Care Provider Encounter Details Date Type Department Care Team Description 08/18/2006 Results Only [facility] - Clark Landon MD Maple conversion [address] [place] [address] [place], [place] [address] [phone] Social History Tobacco Use Types Packs/Day Years Used Date Smoking Tobacco: Never Assessed Sex Assigned at Date Recorded Not on file documented as of this encounter Plan of Treatment Not on filedocumented as of this encounter Procedures Procedure Name Priority Date/Time Associated Diagnosis Comme [facility] CYTOPATHOLOGY Routine 08/18/2006 0:00 EDT Results for this procedure are i n the results section . documented in this encounter Results CYTOPATHOLOGY (08/18/2006 0:00 EDT) Component Value Ref Test Analysis Performed At [facility] Method Time Signature Pathology CYTOPATHOLOGY REPORT ANGELIQUE Report: [facility] Reports generated via electronic interface contain original data; however they are lacking the format of the original report. Caution should be taken when reading/interpreting unformatte d reports. Name: ? PEGGY COFFMAN ? Accession #: ? [id number] : ? 1945 (Age: 60) ??F ?Collect Date: ? 08/18/2006 Location: ? [facility] ? Receive Date: ? 08/20/2006 Provider: ?MARVIN LANDON MD Copy to: ?IVAN GOTTI MD ? Specimen/Source: ? ThinPrep Pap Test, Vagina/Cervix/Endocervix, processed on [facility] ThinPrep Imaging System, with manual evaluation Last Menstrual Period: ? Other: ? Additional clinical information: H/O Nabothian Cyst, PMB ? SPECIMEN ADEQUACY ? Satisfactory for Evaluation - transformation zone component absent GENERAL CATEGORIZATION ? Negative for Intraepithelial Lesion or Malignancy ? Document reviewed and electronically signed by: ? GUANAKO [place](ASCP) ? Report Date: ??08/21/2006 16:16 End of Report Specimen (Source) Anatomical Location Collection Method / Collectio n Time Received Time / Laterality Volume 08/18/2006 08/20/2006 Marvin Landon MD PATHOLOGY ORDERABLES Performing Organization Address City/State/ZIP Code Phon e Number [facility] [address] [place] [address] SERVICES [facility] [address] [place] [address] documented in this encounter Visit Diagnoses Not on filedocumented in this encounter Care Teams Rock Climbing Team Member Relationship Specialty Start Date End Date Ivan Gotti MD PCP - General 03/23/09 [address] [place] [address] documented as of this encounter
--- OUTSIDE RECORDS SUMMARY | 2022-03-10 21:05 | XMS_ITS | Encounter Summary ---
:1945 Author Organization [facility] Address [address] [place] [address] Care Team Providers Name Role Phone Ivan Gotti MD Primary Care Provider Reason for Visit Reason Onset Date Comments Appointment Related 07/23/2019 Encounter Details Date Type Department Care Team Description 07/23/2019 Telephone [facility] Pelvic Courtney Barber, Appointment Related Medicine and PA-C Reconstructive Surgery - Medical Office [facility] [address] [place], [place] [address] Social History Tobacco Use Types Packs/Day Years Used Date Smoking Tobacco: Passive Smoke Exposure - Never Smoker Smokeless Tobacco: Never Sex Assigned at Date Recorded Not on file documented as of this encounter Miscellaneous Notes Telephone Encounter - Ignacia Vences - 07/23/2019 1107 EDT Attempted to call pt. ALEX full Video or recall documented in this encounter Plan of Treatment Not on filedocumented as of this encounter Visit Diagnoses Not on filedocumented in this encounter Care Teams Religious Assistant Relationship Specialty Start Date End Date Ivan Gotti MD PCP - General 03/23/09 [address] [place] [address] documented as of this encounter
--- OUTSIDE RECORDS SUMMARY | 2022-03-10 21:05 | XMS_ITS | Encounter Summary ---
:1945 Author Organization [facility] Address [address] [place] [address] Care Team Providers Name Role Phone Ivan Gotti MD Primary Care Provider Reason for Visit Reason Comments Urinary Incontinence mixed Encounter Details Date Type Department Care Team Description 07/11/2014 Office Visit [facility] Juan Lawton Stress incontinence in female (Primary Dx); Urology - Medical MD Thanh Urge incontinence; Office Building [address] [place] [address] [address] [place] [address] [facility], [place] [address] (Wo rk) Social History Tobacco Use Types Packs/Day Years Used Date Smoking Tobacco: Passive Smoke Exposure - Never Smoker Smokeless Tobacco: Never Sex Assigned at Date Recorded Not on file documented as of this encounter Discharge Diagnoses Diagnosis 788.30 ENURESIS NOS[ICD-9-CM] documented in this encounter Progress Notes Shwetha Caldwell MD - 07/11/2014 1425 EDT SUBJECTIVE: Chief complaint: Urinary incontinence HPI: Comes to care for 12-13 years of worsening urinary incontinence. She leaks with any lifting, sneezing, coughing, getting in and out of vehicles. She also does have urgency and will leak with that urge which happens mostly at night. Daytime frequency up to every hour and nocturia x6, although she does drink large amounts of fluids throughout the day and evening. Both urgency and frequency have improved with Sanctura. Her urge incontinence has improved quite a bit as well. She has also been usingestrogen cream, has not noticed any difference. 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 She wears pads and has to soaks them 6-7 times a day. Has tried Kegels at home on her own. Denies UTIs, hematuria, dysuria. ROS: admits to headaches, chronic pain, constipation, joint pains. Denies fevers, chills, CP, SOB, LE swelling, low energy. Medical and surgical history: Past Medical History Diagnosis Date ??? Diabetes mellitus ??? Depression ??? Hypertension ??? Acid reflux Past Surgical History Procedure Laterality Date ??? Total knee arthroplasty Family and smoking history: Family History Problem Relation Age of Onset ??? Early Father ??? Heart Disease Father Brother with kidney stones. History Smoking status ??? Passive Smoke Exposure - Never Smoker Smokeless tobacco ??? Never Used Medications: Current Outpatient Prescriptions Medication Sig Dispense Refill ??? amLODIPine (NORVASC) 5 mg tablet Take 5 mg by mouth daily ??? atenolol (TENORMIN) 25 mg tablet Take 25 mg by mouth daily ??? atorvastatin (LIPITOR) 40 mg tablet Take 40 mg by mouth daily ??? clopidogrel (PLAVIX) 75 mg tablet Take 75 mg by mouth daily ??? conjugated estrogens 0.625mg/G (PREMARIN) vaginal cream Apply 0.5 grams to topically vulva twiceweekly at bedtime. 1 Tube 1 ??? Diflunisal 500 mg tablet Take by mouth ??? HYDROCODONE-ACETAMINOPHEN ORAL Take by mouth 5-325 mg ??? imipramine (TOFRANIL) 25 mg tablet Take 25 mg by mouth at bedtime ??? insulin glargine (LANTUS SOLOSTAR) 100 unit/mL (3 mL) injection pen Inject into the skin at bedtime ??? isosorbide mononitrate (IMDUR) 60 mg CR tablet Take 60 mg by mouth every morning ??? losartan (COZAAR) 100 mg tablet Take 100 mg by mouth daily ??? nitroGLYCERIN (NITROSTAT) 0.[address] 0.4 mg under the tongue every 5 minutes as needed for Chest Pain ??? oxyCODONE (OXYCONTIN) 20 mg CR tablet Take 20 mg by mouth every 12 hours ??? oxyCODONE (OXYCONTIN) 40 mg CR tablet Take 40 mg by mouth every 12 hours ??? oxyCODONE-acetaminophen (PERCOCET) 5-325 mg per tablet Take 1 Tab by mouth every 4 hours as needed for Pain ??? PEG 3350-Electrolytes (MIRALAX) 17 gram packet Take 17 g by mouth daily ??? prochlorperazine (COMPAZINE) 5 mg tablet Take 5 mg by mouth every 6 hours as needed for Nausea ??? senna-docusate (ALEXANDREA-COLACE) 8.6-50 mg per tablet Take 1 Tab by mouth daily ??? sertraline (ZOLOFT) 100 mg tablet Take 100 mg by mouth daily ??? sumatriptan (IMITREX) 50 mg tablet Take 50 mg by mouth once as needed for Migraine ??? trospium (SANCTURA) 20 mg tablet Take 1 Tab by mouth at bedtime for 30 days 30 Tab 1 No current facility-administered medications for this visit. OBJECTIVE: Physical exam: no acute distress, appears her stated age. Her respirations are even and unlabored. heart has a regular rate and rhythm. : fullness of the anterior vaginal wall, mild atrophy on the posterior wall, urethral meatus is unremarkable Q-tip test with >30 degree mobility Bedside UDS: no uninhibited contractions on gravity filling to ~200cc, significant stress incontinence with cough with full stream during cough ASSESSMENT: 68 yo female with significant stress urinary incontinence and mild urge incontinence which has improved with Sanctura. PLAN: Voiding diary Pelvic floor PT Options also bulking injection, sling. Would consider formal UDS if considering more invasive interventions. documented in this encounter Procedure Notes Juan Lawton MD - 07/11/2014 7019 EDT Procedure: Procedures BEDSIDE UDS Informed consent was obtained. The urethral meatus was prepped and under sterile conditions a 16fr cath was placed for a PVR of 25cc. The bladder was again filled to about 200cc. There were no uninhibited contractions noted on filling. She tolerated it well, and the catheter was removed. On cough moderate leak was noted while supine. There was moderate urethral hypermobility noted. A q-tip test was 30-45 degrees. documented in this encounter Plan of Treatment Not on filedocumented as of this encounter Visit Diagnoses Diagnosis Stress incontinence in female - Primary Female stress incontinence Urge incontinence Nocturia documented in this encounter Historical Medications This list may reflect changes made after this encounter. Medication Sig Dispensed Refills Start Date End Date HYDROCODONE-ACETAMINOPHEN Take by mouth 5-325 0 ORALIndications: 5-325mg mg added in this encounter Care Teams Cutter Machine Tender Relationship Specialty Start Date End Date Ivan Gotti MD PCP - General 03/23/09 [address] [place] [address] documented as of this encounter
--- OUTSIDE RECORDS SUMMARY | 2022-03-10 21:05 | XMS_ITS | Encounter Summary ---
:1945 Author Organization [facility] Address [address] [place] [address] Care Team Providers Name Role Phone Ivan Gotti MD Primary Care Provider Reason for Visit Reason Comments Other Encounter Details Date Type Department Care Team Description 08/10/2014 Refill [facility] Urology - Kayla Mcghee, MOHSEN Other Medical Office Build [facility] [address], [address] [place] [phone] (Wo rk) Social History Tobacco Use Types Packs/Day Years Used Date Smoking Tobacco: Passive Smoke Exposure - Never Smoker Smokeless Tobacco: Never Sex Assigned at Date Recorded Not on file documented as of this encounter Ordered Prescriptions Prescription Sig Dispensed Refills Start Date End Date estradiol (ESTRACE) 0.01 Place 1 g vaginally 42.5 g 5 12/29/2019 % (0.1 mg/gram) vaginal three times a week cream documented in this encounter Plan of Treatment Not on filedocumented as of this encounter Visit Diagnoses Not on filedocumented in this encounter Discontinued Medications Medication Sig Discontinue Reason Start Date End Date conjugated estrogens Apply 0.5 grams to Reorder 06/14/2014 0 08/10/2014 0.625mg/G (PREMARIN) topically vulva twice vaginal cream weekly at bedtime. documented as of this encounter Care Teams Welfare Aide Relationship Specialty Start Date End Date Ivan Gotti MD PCP - General 03/23/09 [address] [place] [address] documented as of this encounter
--- OUTSIDE RECORDS SUMMARY | 2022-03-10 21:05 | XMS_ITS | Encounter Summary ---
:1945 Author Organization [facility] Address [address] [place] [address] Care Team Providers Name Role Phone Ivan Gotti MD Primary Care Provider Encounter Details Date Type Department Care Team Description 11/07/2015 Results Only [facility]- Dada Hahn MD [phone] [address] [facility] [address] [place] [phone] (Wo rk) Social History Tobacco Use Types Packs/Day Years Used Date Smoking Tobacco: Passive Smoke Exposure - Never Smoker Smokeless Tobacco: Never Sex Assigned at Date Recorded Not on file documented as of this encounter Plan of Treatment Not on filedocumented as of this encounter Procedures Procedure Name Priority Date/Time Associated Diagnosis Comme [facility] SURGICAL PATHOLOGY Routine 11/07/2015 12:04 Resul ts for this EDT procedure are i n the results section. documented in this encounter Results SURGICAL PATHOLOGY (11/07/2015 12:04 EDT) Component Value Ref Test Analysis Performed At [facility] Method Time Signature Pathology SURGICAL PATHOLOGY REPORT [facility] MED[facility] Report: Reports generated via electronic interface contain origina l data; CENTER however they are lacking the format of the original report. LABORATORY Caution should be taken when reading/interpreting unformat blanca reports. SERVICES Name: ? SHAMEKA COFFMAN IS ? Accession #: ? [id number] ? : ? 1945 (Age: 5 2) ??F ? Collect Date: ? 11/07/2015 ? Location: ? [facility] ? Receive Date: ? 11/08/2015 ? Provider: ISABEL OVIEDO MD Copy to: IVAN GOTTI MD ? Final Pathologic Diagnosis: COLON, DESCENDING, NODULE, BIOPSY: - Polypoid colonic mucosa with no specific pathologic featur es. - See comment. Comment: Deeper sections have been reviewed. ??A submucosal nod ule is not identified. (Dr. Reese)/[facility] Document reviewed and electronically signed by: KONG REESE MD Report ??Date: 11/09/2015 16:39 By the signature above, the attending physician certifies th at he/she has personally conducted a gross and/or microscopic examin ation of the described specimens and rendered or confirmed the above diagnosis. Specimen(s) Received: Descending colon submucosal nodule Clinical History: Screening; clinical diagnosis code: Z12.11 Gross Description: ? Received in formalin labelled with proper patient identification (initials M, P) and descending colon nodule are two barkley-brown mottled tissues (0.2 x 0.2 x 0.2 cm and 0.2 x 0.2 x 0.3 cm). Entirely submitted in 1. Velvet Carojacobo 11/08/2015 1:38 PM End of Report Specimen Anatomical Collection Method Collection Time Receive d Time (Source) Location / / Volume Laterality 11/07/2015 12:04 11/08/2015 EDT 12:04 EDT Dada Oviedo MD PATHOLOGY ORDERABLES Performing Organization Address City/State/ZIP Code Phon e Number [facility] [address] [place] [address] SERVICES documented in this encounter Visit Diagnoses Not on filedocumented in this encounter Care Teams [employer] Agent Team Member Relationship Specialty Start Date End Date Ivan Gotti MD PCP - General 03/23/09 [address] [place] [address] documented as of this encounter
--- OUTSIDE RECORDS SUMMARY | 2022-03-10 21:05 | XMS_ITS ---
:1945 Author Care Team Providers Name Role Phone DR. IRAIDA DURAN Primary Care Provider [phone] DR. IRAIDA DURAN Referring Provider [phone] DR. SPENSER DURAN Primary Care Provider [phone] DR. ALBERT ARMANDO Referring Provider [phone] Allergies Code Code System Name Reaction Severity Status Onset 1191 RxNorm Aspirin ? ? Active ? 2670 RxNorm Codeine ? ? Active ? 38047 RxNorm Lisinopril ? ? Active ? 7408 RxNorm Metformin ? ? Active ? 8182 RxNorm Methadone ? ? Active ? 51680 RxNorm Mirtazapine ? ? Active ? 9538 RxNorm Naproxen ? ? Active ? Penicillins ? ? Active ? Sulfa (Sulfonamide ? ? Active ? Antibiotics) [id number] RxNorm Zestril ? ? Active ? Medications Name Status Start Date Stop Date ? ? amlodipine 5 mg tablet Completed ? 8 atenolol 25 mg tablet Active ? Not availa ble atorvastatin 80 mg tablet Active ? Not av ailable Take 1 tablet every day by oral route. azithromycin 250 mg tablet Completed ? 12/11 clopidogrel 75 mg tablet Active ? Not irene ilable Take 1 tablet every day by oral route. Compazine 5 mg tablet Active ? Not availa ble Take 1 tablet every 6 hours by oral route as needed. Cozaar 100 mg tablet Active ? Not availab le Take 1 tablet every day by oral route as directed. diflunisal 500 mg tablet Active ? Not irene ilable Take 1 tablet twice a day by oral route for 90 days. duloxetine 30 mg capsule,delayed release Active ? Not available Take 1 capsule every day by oral route. EpiPen 0.3 mg/0.3 mL injection, auto-injector Active ? Not available INJECT 0.3 MILLILITER (0.3 MG) BY INTRA MUSCULAR ROUTE ONCE NEEDED FOR ANAPHYLAXIS FreeStyle Lancets Active ? Not available use 1 strip three times daily as directed FreeStyle Lite Strips Active ? Not availa ble use 1 strip three times daily as directed gabapentin 300 mg capsule Completed ? 2019 Take 1 capsule every day by oral route. GaviLyte-G 236 gram-22.74 gram-6.74 gram-5.86 gram oral Active ? Not available solution imipramine 25 mg tablet Completed ? 02/18/20 18 Imitrex 50 mg tablet Active ? Not availab le Take 1 tablet every day by oral route as needed. isosorbide mononitrate ER 60 mg tablet,extended release 24 hr Ac tive ? Not available Take 1 tablet every day by oral route for 90 days. ketoconazole 2 % topical cream Active ? N ot available 60 g tube apply to feet once daily Lantus U-100 Insulin 100 unit/mL subcutaneous solution Active ? Not available Inject 80 units every day by sub-q route for 30 days. lidocaine Active ? Not available 2% ext gel mirtazapine 15 mg tablet Active ? Not irene ilable Myrbetriq 25 mg tablet,extended release Completed ? 02/17/2018 Myrbetriq 50 mg tablet,extended release Active ? Not available Take 1 tablet every day by oral route. Narcan 4 mg/actuation nasal spray Active ? Not available SPRAY 0.1 MILLILITER (4 MG) IN 1 NOSTRI L BY INTRANASAL ROUTE MAY REPEAT DOSE EVERY 2-3 MINUTES NEEDED ALTERNATING NOSTRILS WITH EACH DOSE Nitrostat 0.4 mg sublingual tablet Active ? Not available PLACE 1 TABLET (0.4 MG) BY SUBLINGUAL R OUTE EVERY 5 MINUTES NEEDEDFOR CHEST PAIN. DO NOT EXCEED 3 DOSES IN 15 MINUTES. oxycodone-acetaminophen 5 mg-325 mg tablet Active ? Not available Take 2 tablets every 4 hours by oral route as needed for 9 days . OxyContin 15 mg tablet,crush resistant,extended release Complete d ? 02/17/2018 OxyContin 40 mg tablet,crush resistant,extended release Active ? Not available ALEXANDREA-COLACE 8.6 mg-50 mg tablet Active ? Not available Take 2 tablets twice a day by oral route as directed. Premarin 0.625 mg/gram vaginal cream Completed ? 02/17/2018 sertraline 100 mg tablet Active ? Not irene ilable triamcinolone acetonide 0.1 % topical cream Active ? Not available triamcinolone acetonide 0.5 % topical cream Active ? Not available APPLY A THIN LAYER TO THE AFFECTED AREA(S) BY TOPICAL ROUTE 2 T IMES PER DAY Vytorin 10 mg-40 mg tablet Active ? Not a vailable Problems Name Status Onset Date Source ? Diabetes Mellitus Active 12/12/2015 ? Hyperlipidemia Active 12/12/2015 ? Essential Hypertension Active 12/12/2015 ? Arthritis Active 12/12/2015 ? Chronic Back Pain Active 12/12/2015 ? Bursitis Active 12/12/2015 ? Onychomycosis Active 02/17/2018 ? Polyp of Colon Active 02/17/2018 ? Thyroid Nodule Active 02/17/2018 ? Diabetic Peripheral Neuropathy Active 02/17/2018 ? Hypercholesterolemia Active 02/17/2018 ? Depressive Disorder Active 02/17/2018 ? Obstructive Sleep Apnea Syndrome Active 02/17/2018 ? Chronic Pain Active 02/17/2018 ? Entrapment of Common Peroneal Nerve Active 02/17/2018 ? Hypertensive Disorder Active 02/17/2018 ? Coronary Arteriosclerosis Active 02/17/2018 ? Cystocele Active 02/17/2018 ? Osteoarthritis Active 02/17/2018 ? Pain in Left Lower Limb Active 02/17/2018 ? Thickened Nails Active 02/17/2018 ? Dizziness Active 02/17/2018 ? Fatigue Active 02/17/2018 ? Impairment of Balance Active 02/17/2018 ? Diarrhea Active 02/17/2018 ? Incontinence Active 02/17/2018 ? Globus Sensation Active 02/17/2018 ? Onychomycosis of Toenails Active 07/25/2020 ? Ingrowing Toenail Active 07/25/2020 ? Pain of Toe of Right Foot Active 07/25/2020 ? Pain of Toe of Left Foot Active 07/25/2020 ? Notes: Heart Problems, Procedures Date Name Performed by ? ? Wrist Surgery Information not avai lable ? Joint Replacement Information not avai lable Notes: Knee ? Hand Surgery Information not avai lable Results Lab Results None recorded. Past Encounters None recorded. Social History Tobacco Smoking Status Former Smoker Notes: 02/17/18 Vaccine List Vaccine Type pneumococcal polysaccharide PPV23 04/03/2000 02/14/2005 03/05/2006 pneumococcal, unspecified formulation 07/31/2015 Td (adult) 03/22/2005 Tdap 03/05/2012 zoster live 06/25/2007 Plan of Care Reminders Provider Appointments None recorded. ? ? Lab None recorded. ? ? Referral None recorded. ? ? Procedures None recorded. ? ? Surgeries None recorded. ? ? Imaging None recorded. ? ? Vitals 07/25/2020 11:30AM DIABETIC FOOT CARE Height Weight BMI Blood Pressure 154.94 cm 99.79 kg 41.6 kg/m2 11/11/2019 10:00AM NEW PATIENT Height Weight BMI Blood Pressure 154.94 cm 99.79 kg 41.6 kg/m2 132/60 mm[Hg] 02/17/2018 10:45AM FOLLOW UP Height Weight BMI Blood Pressure 154.94 cm 99.79 kg 41.6 kg/m2 132/60 mm[Hg] 12/12/2015 04:30PM NEW PATIENT Height Weight BMI Blood Pressure 154.94 cm 99.79 kg 41.6 kg/m2 124/74 mm[Hg]
--- OUTSIDE RECORDS SUMMARY | 2022-03-10 21:05 | XMS_ITS | Encounter Summary ---
:1945 Author Organization [facility] Address [address] [place] [address] Care Team Providers Name Role Phone Ivan Gotti MD Primary Care Provider Encounter Details Date Type Department Care Team Description 07/10/2011 Results Only [facility] Marvin Landon MD Laboratory Services - [address] [place] [phone] [facility] [place], [place] [id number] [phone] Social History Tobacco Use Types Packs/Day Years Used Date Smoking Tobacco: Never Assessed Sex Assigned at Date Recorded Not on file documented as of this encounter Plan of Treatment Not on filedocumented as of this encounter Procedures Procedure Name Priority Date/Time Associated Diagnosis Comme nts PAP TEST- RESULT Routine 07/10/2011 0:00 EDT Resu lts for this ONLY procedure are i n the results section. documented in this encounter Results PAP TEST- RESULT ONLY (07/10/2011 0:00 EDT) Component Value Ref Test Analysis Performed At [facility] Method Time Signature Pathology CYTOPATHOLOGY REPORT ANGELIQUE Report: [facility] Reports generated via electronic interface contain original data; however they are lacking the format of the original report. Caution should be taken when reading/interpreting unformatte d reports. Name: ? PEGGY COFFMAN ? Accession #: ? [id number] : ? 1945 (Age: 65) ??F ?Collect Date: ? 07/10/2011 Location: ? [facility] ? Receive Date: ? 07/12/2011 Provider: ?MARVIN LANDON MD Copy to: ?IVAN GOTTI MD ? Specimen/Source: ? Pap Test, Vagina/Cervix, ThinPrep Imaging System with manual evaluation Last Menstrual Period: ? Menstrual/ Status: ? Menopausal Other: ? Additional clinical informat ion: H/o Nabothian cyst. Stones. Urinary incontence. ? SPECIMEN ADEQUACY ? Satisfactory for Evaluation - assessment of transformation zone component not appl icable ( e.g. atrophy, vaginal sample, hysterectomy) - scant squamous epithelial component secondary to excessive blood GENERAL CATEGORIZATION ? Negative for Intraepithelial Lesion or Malignancy ? Document reviewed and electronically signed by: ? GUANAKO Pickard(ASCP) ? Report Date: ??07/16/2011 09:14 End of Report Specimen (Source) Anatomical Location Collection Method / Collectio n Time Received Time / Laterality Volume 07/10/2011 07/12/2011 Marvin Landon MD PATHOLOGY ORDERABLES Performing Organization Address City/State/ZIP Code Phon e Number [facility] [address] [place] [address] SERVICES [facility] [address] [place] [address] documented in this encounter Visit Diagnoses Not on filedocumented in this encounter Care Teams Hand Packer/Packager Relationship Specialty Start Date End Date Ivan Gotti MD PCP - General 03/23/[address] [place] [address] documented as of this encounter
--- OUTSIDE RECORDS SUMMARY | 2022-03-10 21:05 | XMS_ITS | Encounter Summary ---
:1945 Author Organization [facility] Address [address] [place] [address] Care Team Providers Name Role Phone Ivan Gotti MD Primary Care Provider Reason for Visit Reason Comments Other Encounter Details Date Type Department Care Team Description 12/24/2020 Refill [facility] Courtney Eller PA-C Other Medicine and Reconstructive Surgery - Medical Office [place] [address] [address] [place], [place] [id number] Social History Tobacco Use Types Packs/Day Years Used Date Smoking Tobacco: Passive Smoke Exposure - Never Smoker Smokeless Tobacco: Never Sex Assigned at Date Recorded Not on file documented as of this encounter Ordered Prescriptions Prescription Sig Dispensed Refills Start Date End Date estradioL (ESTRACE) 0.01 PLACE 1 (G) VAGINALLY 42.5 g 3 12/27/2020 % (0.1 mg/gram) vaginal TWICE A WEEK cream documented in this encounter Miscellaneous Notes Telephone Encounter - Christina Massey RN - 12/26/2020 0835 EDT Refill request for estrace. Pt last seen 11/2019. Plan was to follow up with Dr. Vela for UDS and discuss surgery. Pt has not done this. Will ask Adeline Barber if she would like to refill cream or have f/u appt first. documented in this encounter Plan of Treatment Not on filedocumented as of this encounter Visit Diagnoses Not on filedocumented in this encounter Discontinued Medications Medication Sig Discontinue Reason Start Date End Date estradioL (ESTRACE) Place 1 g vaginally 12/30/2019 0 12/27/2020 0.01 % (0.1 mg/gram) twice a week. vaginal cream documented as of this encounter Care Teams Head Pumper Relationship Specialty Start Date End Date Ivan Gotti MD PCP - General 03/23/09 [address] [place] [address] documented as of this encounter
--- OUTSIDE RECORDS SUMMARY | 2022-03-10 21:05 | XMS_ITS | Encounter Summary ---
:1945 Author Organization [facility] Address [address] [place] [address] Care Team Providers Name Role Phone Ivan Gotti MD Primary Care Provider Reason for Visit Reason Comments Other Encounter Details Date Type Department Care Team Description 08/14/[address] [facility] Urology - Kayla Mcghee, MOHSEN Other Medical Office Build [facility] [address], [address] [place] [phone] (Wo rk) Social History Tobacco Use Types Packs/Day Years Used Date Smoking Tobacco: Passive Smoke Exposure - Never Smoker Smokeless Tobacco: Never Sex Assigned at Date Recorded Not on file documented as of this encounter Ordered Prescriptions Prescription Sig Dispensed Refills Start Date End Date trospium (SANCTURA) 20 mg TAKE ONE TABLET BY 30 Tab 1 09/02/2014 tablet MOUTH AT BEDTIME FOR 30 DAYS documented in this encounter Plan of Treatment Not on filedocumented as of this encounter Visit Diagnoses Not on filedocumented in this encounter Discontinued Medications Medication Sig Discontinue Reason Start Date End Date trospium (SANCTURA) 20 Take 1 Tab by mouth Reorder 06/14/2014 08/14/2014 mg tablet at bedtime for 30 days documented as of this encounter Care Teams Statistical Modeler Relationship Specialty Start Date End Date Ivan Gotti MD PCP - General 03/23/09 [place] [address] documented as of this encounter
--- OUTSIDE RECORDS SUMMARY | 2022-03-10 21:05 | XMS_ITS | Encounter Summary ---
:1945 Author Organization [facility] Address [address] [place] [address] Care Team Providers Name Role Phone Unavailable Primary Care Provider Unavailable Encounter Details Date Type Department Care Team Description 05/13/[address] [facility] - Hilaria Heck MD Converted Visit Maple conversion [address] [facility] ([facility]) [address] [place], [place] [id number] [place] [phone] Social History Tobacco Use Types Packs/Day Years Used Date Smoking Tobacco: Never Assessed Sex Assigned at Date Recorded Not on file documented as of this encounter Plan of Treatment Not on filedocumented as of this encounter Procedures Procedure Name Priority Date/Time Associated Diagnosis Comme nts CYTOPATHOLOGY Routine 05/13/2008 0:00 EST Results for this procedure are i n the results section . documented in this encounter Results CYTOPATHOLOGY (05/13/2008 0:00 EST) Component Value Ref Test Analysis Performed At [facility] Method Time Signature Pathology CYTOPATHOLOGY REPORT ? ANGELIQUE Report: ? [facility] Reports generated via electr 4tiitoo interface contain original data; ? however they are lacking the format of the original report. ? Caution should be taken when reading/interpreting unformatted reports. ? Name: ? HONEY, PHYLL IS ? Accession #: ? [id number] ? : ? 1945 (Age: 62) ??F ?Collect Date: ? 05/13/2008 ? Location: ? [facility] ? Receive Date: ? 05/16/2008 ? Provider: ? LISHA J M WI LMOT MD ? Copy to: ?SHY L ALVORD MD ? IRAIDA DURAN MD ? Specimen Type: ? A: Thyroid, Fine Needle Aspi ration, Right Cyst ? B: Thyroid, Fine Needle Aspi ration, Left Cyst ? Clinical History: ? Bilateral thyroid cys ts. ? Gross Description: ? Two vials of Cytolyt were received and processed by selective cellular ? enhancement technique. ? CYTOLOGIC DIAGNOSIS: ? A. ?Thyroid, ri ght lobe, cyst, fine needle aspiration: ? 1. ? Benign thy roid cyst. ??See comment. ? B. ?Thyroid, le ft lobe, cyst, fine needle aspiration: ? 1. ?Insufficien t for diagnosis, specimen processed and examined but ? sample consists of cyst flui d only. ? COMMENT: ? This single ThinPrep slide from (A) demonstrates scattered groupings of ? follicular epithelial cells with Hurthleoid features against a background of ? histiocytes and cystic debri s. ??For (B), consider repeat aspiration with ? ultrasound guidance and, if possible, intraprocedural review of the aspirated ?? material by a cytopathologis t. ??(Dr. Lucas)/kmm ? Document reviewed and electr onically signed by: ? Rosalia Lucas MD ? Report Date: ??05/16/2008 15 :12 ? By the signature above, the attending physician certifies that he/she has ? personally conducted a gross and/or microscopic examination of the described ? specimens and rendered or co nfirmed the above diagnosis. ? End of Report ? Specimen (Source) Anatomical Collection Method Collection Time Re ceived Time Location / / Volume Laterality 05/13/2008 05/16/2008 8:04 EST Lisha Heck MD PATHOLOGY ORDERABLES Performing Organization Address City/State/ZIP Code Phon e Number [facility] [address] [place] [address] SERVICES [facility] [address] [place] [address] documented in this encounter Visit Diagnoses Not on filedocumented in this encounter
--- OUTSIDE RECORDS SUMMARY | 2022-03-10 21:05 | XMS_ITS | Encounter Summary ---
:1945 Author Organization [facility] Address [address] [place] [address] Care Team Providers Name Role Phone Ivan Gotti MD Primary Care Provider Reason for Visit Reason Comments Urinary Incontinence 12- 13 yrs of incontinence t hat has gotten worse Referral (Routine) - Closed Specialty Diagnoses / Procedures Referred By Contact Refer red To Contact Urology Diagnoses Incontinence of urine Ivan Gotti MD [facility] [address] [place] [address] [place] [address] Fax: Referral ID Status Reason Start Date Expiration Date Visits Requ ested Visits Authorized [id number] Closed 1 1 Encounter Details Date Type Department Care Team Description 06/14/2014 Office Visit [facility] Medical [place] White ed urinary Urology - Medical Kayla Stanley NP incontinence (Primary Office Building [address] [facility]) [address] [place] [address] [address] [id number] [place], [place] [address] Social History Tobacco Use Types Packs/Day Years Used Date Smoking Tobacco: Passive Smoke Exposure - Never Smoker Smokeless Tobacco: Never Sex Assigned at Date Recorded Not on file documented as of this encounter Ordered Prescriptions Prescription Sig Dispensed Refills Start Date End Date conjugated estrogens Apply 0.5 grams to 1 Tube 1 015 08/10/2014 0.625mg/G (PREMARIN) topically vulva twice vaginal cream weekly at bedtime. trospium (SANCTURA) 20 Take 1 Tab by mouth 30 Tab 1 05/2308/14/2014 mg tablet at bedtime for 30 days documented in this encounter Progress Notes Kayla White, BUDDER - 06/14/2014 0200 EST SUBJECTIVE: Chief complaint: Urinary incontinence HPI: Comes to care for 12-13 years of worsening urinary incontinence. She leaks with any lifting, sneezing, coughing, getting in and out of vehicles. She also does have urgency and will leak with that urge. Nocturia x6-7. Daytime frequency up to every hour. She wears pads and has to change them 6-7 times a day, and they are soaking at these times, not just damp. She does not get UTIs. She does not have symptoms of dysuria or blood in the urine. A 12-point ROS was performed and was positive for headaches, chest pain (monitored by PCP), irregular heartbeat, varicose veins, constipation, arthritis, back pain, constipation s/t opiates she takes for chronic pain, occasional night sweats, hypothyroidism, dizziness, depression/anxiety, and bleedingproblems. Medical and surgical history: Past Medical History [...] Take 75 mg by mouth daily ??? Diflunisal 500 mg tablet Take by mouth ??? imipramine (TOFRANIL) 25 mg tablet Take [...] by mouth once as needed for Migraine No current facility-administered medications for this visit. OBJECTIVE: Physical exam: This is a well developed, well nourished woman in no acute distress who appears her stated age. Her skin is warm, dry, and ethnically appropriate. The sclera of her eyes are clear, and the pupils are symmetrical. Her respirations are even and unlabored. There are no adventitious lung sounds, and her heart has a regular rate and rhythm. She is alert and oriented to person, place, time, and event. Her thought content is normal, and her affect is full. Her gait is slow but normal. The vulva and the vaginal vault are atrophic and the urethra seems to be prolapsed. ASSESSMENT: mixed urinary incontinence PLAN: Start [facility] Start estrogen cream RTC to see Leighann loza for procedure given the significant stress incontinence component. documented in this encounter Plan of Treatment Not on filedocumented as of this encounter Procedures Procedure Name Priority Date/Time Associated Diagnosis Comme nts POCT URINE Routine 06/14/2014 16:23 Unspecified urinary Resu lts for this DIPSTICK, CLINITEK EST incontinence procedure are in the results section. documented in this encounter Results POCT URINE DIPSTICK (06/14/2014 16:23 EST) [facility] gist Method Time Signature Color YELLOW 06/14/2014 [facility] 16:[address] [facility] Clarity, UA Clear 06/14/2014 [facility] MED[facility] 16:28 EST CENTER LAB[facility] SERVICES Glucose Neg Neg 06/14/2014 [facility] 16:28 EST [facility] Bilirubin Neg Neg 06/14/2014 [facility] 16:[address] [facility] Ketones Neg Neg 06/14/2014 [facility] 16:28 [facility] SERVICES Specific [place] 1.025 1.001 - 06/14/2014 [facility] 1.035 16:28 [facility] Blood Neg Neg 06/14/2014 [facility] 16:[address] [facility] SERVICES pH 6.0 4.6 - 8.0 06/14/2014 [facility] 16:[address] [facility] Protein Neg Neg 06/14/2014 [facility] 16:[address] [facility] SERVICES Urobilinogen 0.2 0.2 - 1.0 06/14/2014 [facility] E.U./dl 16:28 [facility] SERVICES Nitrite Neg Neg 06/14/2014 [facility] 16:28 EST CENTER [facility] SERVICES Leuk Esterase Neg Neg 06/14/2014 [facility] 16:[address] [facility] C[facility] LABORATORY mash grinder ID [id number] 06/14/2014 [facility] MED[facility] 16:28 [facility] Comment[facility] [place] [facility] Specimen Anatomical Collection Method Collection Time Receive d Time (Source) Location / / Volume Laterality Urine URINE / Unknown 06/14/2014 16:23 06/14/19 15 (substance) EST 16:28 EST Kayla White NP POINT OF CARE TEST ORDERABLE S Performing Organization Address City/State/ZIP Code Phon e Number [facility] [address] [place] [address] SERVICES documented in this encounter Visit Diagnoses Diagnosis Unspecified urinary incontinence - Prima ry documented in this encounter Historical Medications This list may reflect changes made after this encounter. Medication Sig Dispensed Refills Start Date End Date oxyCODONE (OXYCONTIN) 20 mg Take 20 mg by mouth 0 CR tablet every 12 hours oxyCODONE (OXYCONTIN) 40 mg Take 40 mg by mouth 0 CR tablet every 12 hours sumatriptan (IMITREX) 50 mg Take 50 mg by mouth 0 tablet once as needed for Migraine losartan (COZAAR) 100 mg Take 100 mg by 0 tablet mouth daily oxyCODONE-acetaminophen Take 1 Tab by mouth 0 (PERCOCET) 5-325 mg per every 4 hours as tablet needed for Pain nitroGLYCERIN (NITROSTAT) Place 0.4 mg under 0 0.4 mg SL tablet the tongue every 5 minutes as needed for Chest Pain atorvastatin (LIPITOR) 40 mg Take 40 mg by mouth 0 tablet daily sertraline (ZOLOFT) 100 mg Take 100 mg by 0 tablet mouth daily clopidogrel (PLAVIX) 75 mg Take 75 mg by mouth 0 tablet daily isosorbide mononitrate Take 60 mg by mouth 0 (IMDUR) 60 mg CR tablet every morning imipramine (TOFRANIL) 25 mg Take 25 mg by mouth 0 tablet at bedtime Diflunisal 500 mg tablet Take by mouth 0 atenolol (TENORMIN) 25 mg Take 25 mg by mouth 0 tablet daily amLODIPine (NORVASC) 5 mg Take 5 mg by mouth 0 tablet daily PEG 3350-Electrolytes Take 17 g by mouth 0 (MIRALAX) 17 gram packet daily senna-docusate (ALEXANDREA-COLACE) Take 1 Tab by mouth 0 8.6-50 mg per tablet daily prochlorperazine (COMPAZINE) Take 5 mg by mouth 0 5 mg tablet every 6 hours as needed for Nausea insulin glargine (LANTUS Inject into the 0 SOLOSTAR) 100 unit/mL (3 mL) skin at bedtime injection pen added in this encounter Care Teams Operations Program Manager Relationship Specialty Start Date End Date Ivan Gotti MD PCP - General 03/23/09 [address] [place] [address] documented as of this encounter
--- OUTSIDE RECORDS SUMMARY | 2022-03-10 21:05 | XMS_ITS ---
:1945 Author Care Team Providers Name Role Phone NUBIA LEMUS NP Primary Care Provider Unavailable CHANDNI ORTIZ MD Primary Care Provider Unavailable Allergies Code Code System Name Reaction Severity Status Onset 1191 RxNorm Aspirin ? ? Active ? 2670 RxNorm Codeine ? ? Active ? 59979 RxNorm Lisinopril ? ? Active ? 6809 RxNorm Metformin ? ? Active ? 6813 RxNorm Methadone ? ? Active ? 36064 RxNorm Mirtazapine ? ? Active ? 2758 RxNorm Naproxen ? ? Active ? Penicillins Hives ? Active ? Sulfa (Sulfonamide Hives ? Active ? Antibiotics) Notes: 08/14/18 Medications Name Status Start Date Stop Date ? ? amlodipine 10 mg tablet Active ? Not avai lable Take 1 tablet every day by oral route for 30 days. amlodipine 5 mg tablet Completed ? 9 atenolol 25 mg tablet Active ? Not availa ble atenolol 50 mg tablet Completed ? 05/20/2018 atorvastatin 40 mg tablet Completed ? 2018 Take 1 tablet every day by oral route. atorvastatin 80 mg tablet Active ? Not av ailable azithromycin 250 mg tablet Active ? Not a vailable BD Insulin Syringe Ultra-Fine 1 mL 31 gauge x 5/16 Active ? Not available benzonatate 200 mg capsule Active ? Not a vailable Take 1 capsule 3 times a day by oral route. betamethasone valerate 0.1 % topical ointment Completed ? 05/20/2018 clopidogrel 75 mg tablet Active ? Not irene ilable conjugated estrogens 0.625 mg/gram vaginal cream Completed ? 05/20/2018 Insert 0.5 applicatorsful every day by vaginal route. diflunisal 500 mg tablet Active ? Not irene ilable TAKE ONE TABLET BY MOUTH TWICE A DAY doxycycline hyclate 100 mg capsule Completed ? 05/20/2018 Take 1 capsule twice a day by oral route for 7 days. doxycycline hyclate 100 mg tablet Completed ? 05/20/2018 doxycycline monohydrate 100 mg tablet Completed ? 05/20/2018 Take 1 tablet twice a day by oral route for 10 days. duloxetine 30 mg capsule,delayed release Active ? Not available TAKE ONE CAPSULE BY MOUTH EVERY DAY gabapentin 100 mg capsule Completed ? 2018 TAKE ONE CAPSULE BY MOUTH EVERY DAY AT BEDTIME gabapentin 300 mg capsule Active ? Not av ailable imipramine 25 mg tablet Completed ? 05/20/19 19 TAKE ONE TABLET BY MOUTH AT BEDTIME insulin glargine (U-300) conc. 300 unit/mL (1.5 mL) subcutaneous pen Active ? Not available Inject 90 units every day by subcutaneous route. isosorbide mononitrate Unknown ? Not avail able isosorbide mononitrate ER 60 mg tablet,extended release Active ? Not available 24 hr ketoconazole 2 % topical cream Active ? N ot available APPLY TO FEET ONCE DAILY Lantus Solostar U-100 Insulin 100 unit/mL (3 mL) subcutaneous pe n Active ? Not available INJECT 90 UNITS DIRECTED Lantus U-100 Insulin 100 unit/mL subcutaneous solution Active ? Not available losartan 100 mg tablet Active ? Not avail able Myrbetriq 50 mg tablet,extended release Active ? Not available Narcan 4 mg/actuation nasal spray Active ? Not available INJECT IN NOSE FOR EXCESSIVE SEDATION FROM OPIATES nitroglycerin 0.4 mg sublingual tablet Active ? Not available TAKE 1 TABLET BY MOUTH NEEDED DIRECTED [place] 5 mg-325 mg tablet Completed ? 019 Take 1 tablet every 6 hours by oral route as needed. OneTouch Ultra Blue Test Strip Active ? N ot available OneTouch UltraMini kit Active ? Not avail able oxycodone-acetaminophen 5 mg-325 mg tablet Active ? Not available OxyContin 10 mg tablet,crush resistant,extended release Complete d ? 05/20/2018 OxyContin 15 mg tablet,crush resistant,extended release Complete d ? 05/20/2018 OxyContin 40 mg tablet,crush resistant,extended release Complete d ? 07/24/2018 OxyContin 60 mg tablet,crush resistant,extended release Complete d ? 05/20/2018 Take 1 tablet every 12 hours by oral route. peg 3350-electrolytes 227.1 gram-21.5 gram-6.36gram or al powder packet Completed ? 08/27/2016 Take by oral route. ALEXANDREA-COLACE 8.6 mg-50 mg tablet Completed ? 08/27/2016 Take 2 tablets every day by oral route. prednisone 5 mg tablets in a dose pack Completed ? 05/20/2018 TAKE DIRECTED ON PACKAGE prednisone 50 mg tablet Completed ? 05/20/19 19 Take 1 tablet every day by oral route for 5 days. ProAir HFA 90 mcg/actuation aerosol inhaler Completed ? 05/20/2018 Inhale 2 puffs 3 times a day by inhalation route. prochlorperazine 5 mg tablet Completed ? 12/2016 Take 1 tablet every 4 hours by oral route. sertraline 100 mg tablet Completed ? 019 sumatriptan 50 mg tablet Active ? Not irene ilable Take 1 tablet as needed by oral route. trospium 20 mg tablet Completed ? 08/30/2016 Take 1 tablet twice a day by oral route. Valium 2 mg tablet Completed ? 10/15/2016 take 1 to 2 tablets po TID PRN dizziness Vytorin 10 mg-40 mg tablet Completed ? 05/20 TAKE ONE TABLET BY MOUTH EVERY DAY Xtampza ER 36 mg capsule sprinkle Active ? Not available Notes: Vitamin C PO, Vitamin D PO, Vit wilson B12 PO, Biotin PO, Magnesium PO, Calcium PO 08/14/18 Problems Name Status Onset Date Source ? Goiter Active ? Encounter Disorder of Thyroid Gland Active ? Histor y Hyperlipidemia Active ? History Morbid Obesity Active ? Encounter Overweight Active ? Encounter Mood Disorder Active ? History Chronic Pain Syndrome Active ? History Migraine without Aura Active ? History Hypertensive Disorder Active ? History Spasm of Bladder Active ? History Mass of Soft Tissue Active ? Encounter Choking Sensation Active ? History Heart Murmur Active ? History Pulmonary Aspiration Active ? History Globus Sensation Unknown ? History Notes: 05/20/18 Procedures Date Name Performed by ? ? Back Surgery Information not avai lable Notes: DDD and nerve impingment ? 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 Other Information not avai lable Notes: Shoulder repair 05/12/2015 Mammogram, Screening Information not irene ilable 05/12/2015 Bone Density Study [facility] felix (Central Scheduling) [address] [id number] (Work [address]) 05/22/2015 CT, Soft Tissue Neck [facility] Diagnostic Imaging [facility] [address] [facility] [address] [place], [place] [address] (Work Place) 05/20/2018 MRI, Head, W/wo Contrast [facility] Diagnostic Imaging [facility] [address] [place], [place] [address] (Work Place) Results Lab Results Date Name Specimen Result Interpretation Description Value Range Status Address ? 08/14/2018 HbA1C Above Hemoglobin 7.2 % 4.8-5.6 % Final [facility]: (Hemoglobin High a1C [address]), Blood [address], [place] 07/24/2018 CBC W/ Auto ? Wbc 5.9 3.4-10.8 Final [facility]: Diff x10e3/uL x10e3/uL [address], [place] ? ? ? Rbc 4.63 3.77-5.28 Final [facility] : x10e6/uL x10e6/uL [address], [place] ? ? ? Hemoglobin 13.6 11.1-15.9 Final [facility]: g/dL g/dL [address], [place] ? ? ? Hematocrit 41.6 % 34.0-46.6 Final [facility]: % [address], [place] ? ? ? Mcv 90 fL 79-97 fL Final [facility]: [address], [place] ? ? ? Mch 29.4 pg 26.6-33.0 Final [facility]: pg [address], [place] ? ? ? Mchc 32.7 31.5-35.7 Final [facility] : g/dL g/dL [address], [place] ? ? ? Rdw 14.4 % 12.3-15.4 Final [facility] : % [address], [place] ? ? ? Platelets 166 150-379 Final [facility]: x10e3/uL x10e3/uL [address], [place] ? ? ? Neutrophils 44 % not Final [facility]: estab. % [address], [place] ? ? ? Lymphs 41 % not Final [facility]: estab. % [address], [place] ? ? ? Monocytes 9 % not Final [facility]: estab. % [address], [place] ? ? ? Eos 5 % not Final [facility]: estab. % [address], [place] ? ? ? Basos 1 % not Final [facility]: estab. % [address], [place] ? ? ? Immature vault attendant ? Cancelled [facility]: Cells [address], [place] ? ? ? Neutrophils 2.6 1.4-7.0 Final [facility]: (Absolute) x10e3/uL x10e3/uL [address], [place] ? ? ? Lymphs 2.4 0.7-3.1 Final [facility]: (Absolute) x10e3/uL x10e3/uL [address], [place] ? ? ? Monocytes(abs 0.5 0.1-0.9 Final [facility]: ol[place]) x10e3/uL x10e3/uL [address], [place] ? ? ? Eos 0.3 0.0-0.4 Final [facility]: (Absolute) x10e3/uL x10e3/uL [address], [place] ? ? ? Baso 0.0 0.0-0.2 Final [facility]: (Absolute) x10e3/uL x10e3/uL [address], [place] ? ? ? Immature 0 % not Final [facility] : Granulocytes estab. % [address], [place] ? ? ? Immature 0.0 0.0-0.1 Final [facility]: Grans (Abs) x10e3/uL x10e3/uL [address], [place] ? ? ? Nrbc vault attendant ? Cancelled [facility] : [address], [place] ? ? ? Hematology vault attendant ? Cancelled [facility]: Comments: [address], [place] 07/24/2018 BMP, Serum or ? Glucose 73 mg/dL 65-99 Fi nal [facility]: Plasma mg/dL [address], [place] ? ? ? Bun 14 mg/dL 8-27 Final [facility]: mg/dL [address], [place] ? ? ? Creatinine 0.73 0.57-1.00 Final [facility]: mg/dL mg/dL [address], [place] ? ? ? eGFR If 81 >59 Final [facility]: Nonafricn AM mL/min/1 mL/min/1. [address], [place] ? ? ? eGFR If 94 >59 Final [facility]: Africn AM mL/min/1 mL/min/1. [address], [place] ? ? ? BUN/creatinin 04-17 Final [facility]: e Ratio [address], [place] ? ? ? Sodium 142 134-144 Final [facility]: mmol/L mmol/L [address], [place] ? ? ? Potassium 4.6 3.5-5.2 Final [facility]: mmol/L mmol/L [address], [place] ? ? ? Chloride 101 96-106 Final [facility] : mmol/L mmol/L [address], [place] ? ? ? Carbon 27 20-29 Final [facility]: Dioxide, Total mmol/L mmol/L [address], [place] ? ? ? Calcium 10.3 8.7-10.3 Final [facility]: mg/dL mg/dL [address], [place] 07/24/2018 Rf (Rheumatoid ? RA Latex <10.0 0.0-13.9 Final [facility]: Factor), Serum Turbid. IU/mL IU/mL [address], [place] 07/24/2018 Ccp (Cyclic ? Ccp 1 units 0-19 Final [facility] Citrullinated Antibodies units ([place] Peptide) IgG/IgA ): [address], Serum [address], [place] 07/24/2018 CARLY ? CARLY Direct negative negative Cynthia l [facility]: (Antinuclear [address]) [address], [place] Screen, Serum 07/24/2018 ESR ? Sedimentation 2 mm/HR 0-40 Cynthia l [facility]: (Erythrocyte Rate-westergre mm/HR [address], [place] Rate), Blood 07/24/2018 C Reactive ? C-reactive 0.4 mg/L 0.0-4.9 F inal [facility]: Protein, QN, Protein, Quant mg/L [address], [place] Plasma 05/09/2015 Cbc ? Wbc 6.5 3.4-10.8 Final [facility] x10e3/uL x10e3/uL [facility]: [address], [place] ? ? ? Rbc 4.49 3.77-5.28 Final [facility] x10e6/uL x10e6/uL PSC: [address], [place] ? ? ? Hemoglobin 13.4 11.1-15.9 Final [facility] g/dL g/dL [facility]: [address], [place] ? ? ? Hematocrit 39.2 % 34.0-46.6 Final [facility] % [facility]: [address], [place] ? ? ? Mcv 87 fL 79-97 fL Final [facility] PSC: [address], [place] ? ? ? Mch 29.8 pg 26.6-33.0 Final [facility] pg PSC: [address], [place] ? ? ? Mchc 34.2 31.5-35.7 Final [facility] g/dL g/dL PSC: [address], [place] ? ? ? Rdw 14.4 % 12.3-15.4 Final [facility] % PSC: [address], [place] ? ? Below Platelets 143 150-379 Final [facility] Low x10e3/uL x10e3/uL PSC: [address], [place] ? ? ? Neutrophils 45 % ? Final [facility] PSC: [address], [place] ? ? ? Lymphs 37 % ? Final [facility] PSC: [address], [place] ? ? ? Monocytes 11 % ? Final [facility] PSC: [address], [place] ? ? ? Eos 6 % ? Final [facility] PSC: [address], [place] ? ? ? Basos 1 % ? Final [facility] PSC: [address], [place] ? ? ? Immature vault attendant ? Cancelled [facility] Cells [facility]: [address], [place] ? ? ? Neutrophils 3.0 1.4-7.0 Final [facility] (Absolute) x10e3/uL x10e3/uL PS C: [address], [place] ? ? ? Lymphs 2.4 0.7-3.1 Final [facility] (Absolute) x10e3/uL x10e3/uL PS C: [address], [place] ? ? ? Monocytes(abs 0.7 0.1-0.9 Final [facility] olute) x10e3/uL x10e3/uL PSC: [address], [place] ? ? ? Eos 0.4 0.0-0.4 Final [facility] (Absolute) x10e3/uL x10e3/uL PS C: [address], [place] ? ? ? Baso 0.1 0.0-0.2 Final [facility] (Absolute) x10e3/uL x10e3/uL PS C: [address], [place] ? ? ? Immature 0 % ? Final [facility] Granulocytes PSC: [address], [place] ? ? ? Immature 0.0 0.0-0.1 Final [facility] Grans (Abs) x10e3/uL x10e3/uL P SC: [address], [place] ? ? ? Nrbc vault attendant ? Cancelled [facility] PSC: [address], [place] ? ? ? Hematology vault attendant ? Cancelled [facility] Comments: [facility]SC: [address], [place] 05/09/2015 Urinalysis ? Specific 1.016 1.005-1.0 Fin al [facility] Complete, [place] 30 PSC: [address], [place] ? ? ? Ph 7.5 5.0-7.5 Final [facility] PSC: [address], [place] ? ? ? Urine-color yellow yellow Final [facility] PSC: [address], [place] ? ? ? Appearance clear clear Final [facility] PSC: [address], [place] ? ? ? WBC Esterase negative negative Final [facility] PSC: [address], [place] ? ? ? Protein negative negative/ Final [facility] trace PSC: [address], [place] ? ? ? Glucose negative negative Final [facility] PSC: [address], [place] ? ? ? Glucose vault attendant ? Cancelled [facility] Reflex PSC: [address], [place] ? ? ? Ketones negative negative Final [facility] PSC: [address], [place] ? ? ? Occult Blood negative negative Final [facility] PSC: [address], [place] ? ? ? Bilirubin negative negative Final [facility] PSC: [address], [place] ? ? ? Urobilinogen, 0.2 0.2-1.0 Final [facility] semi-qn mg/dL mg/dL PSC: [address], [place] ? ? ? Nitrite, negative negative Final [facility] Urine PSC: [address], [place] ? ? ? Microscopic comment ? Final [facility] Examination [facility]SC: [address], [place] ? ? ? Microscopic see ? Final [facility] Examination below: PSC: [address], [place] ? ? ? Wbc 0-5 /hpf 0 - 5 Final [facility] /hpf PSC: [address], [place] ? ? ? Rbc none 0 - 2 Final [facility] seen /hpf PSC: [address] /[address], [place] ? ? ? Epithelial 0-10 0 - 10 Final [facility] Cells (Non /hpf /hpf PSC: [address], [place] ? ? ? Epithelial vault attendant ? Cancelled [facility] Cells ([place]) PSC : [address], [place] ? ? ? Casts vault attendant ? Cancelled [facility] PSC: [address], [place] ? ? ? Cast Type vault attendant ? Cancelled [facility] PSC: [address], [place] ? ? ? Crystals vault attendant ? Cancelled [facility] PSC: [address], [place] ? ? ? Crystal Type vault attendant ? Cancelled [facility] PSC: [address], [place] ? ? ? Mucus Threads present not Final [facility] estab. PSC: [address], [place] ? ? ? Bacteria none none Final [facility] seen seen/few PSC: [address], [place] ? ? ? Yeast vault attendant ? Cancelled [facility] PSC: [address], [place] ? ? ? Trichomonas vault attendant ? Cancelled [facility] PSC: [address], [place] ? ? ? Comment vault attendant ? Cancelled [facility] PSC: [address], [place] ? ? ? Urinalysis comment ? Final [facility] Reflex P[facility]: [address], [place] 05/09/2015 BMP, Serum or ? Glucose, 70 mg/dL 65-99 F inal [facility] Plasma Serum mg/dL PSC: [address], [place] ? ? ? Bun 16 mg/dL 8-27 Final [facility] mg/dL PSC: [address], [place] ? ? ? Creatinine, 0.74 0.57-1.00 Final [facility] Serum mg/dL mg/dL PSC: [address], [place] ? ? ? eGFR If 82 >59 Final [facility] Nonafricn AM mL/min/1 mL/min/1. PSC: [address], [place] ? ? ? eGFR If 94 >59 Final [facility] Africn AM mL/min/1 mL/min/1. PS C: [address], [place] ? ? ? BUN/creatinin 22 11-26 Final [facility] e Ratio [facility]: [address], [place] ? ? ? Sodium, Serum 139 134-144 Final [facility] mmol/L mmol/L PSC: [address], [place] ? ? ? Potassium, 4.1 3.5-5.2 Final [facility] Serum mmol/L mmol/L PSC: [address], [place] ? ? ? Chloride, 98 97-108 Final [facility] Serum mmol/L mmol/L PSC: [address], [place] ? ? ? Carbon 25 18-29 Final [facility] Dioxide, Total mmol/L mmol/L PS C: [address], [place] ? ? ? Calcium, 9.6 8.7-10.3 Final [facility] Serum mg/dL mg/dL PSC: [address], [place] 05/09/2015 Lipid Panel, ? Cholesterol, 150 100-199 Final [facility] Serum Total mg/dL mg/dL PSC: [address], [place] ? ? ? Triglycerides 138 0-149 Final [facility] mg/dL mg/dL PSC: [address], [place] ? ? ? HDL 51 mg/dL >39 mg/dL Final [facility] Cholesterol PSC: [address], [place] ? ? ? VLDL 28 mg/dL 5-40 Final [facility] Cholesterol mg/dL PSC: [address], [place] ? ? ? LDL 71 mg/dL 0-99 Final [facility] Cholesterol mg/dL PSC: [address], [place] ? ? ? Comment: vault attendant ? Cancelled [facility] PSC: [address], [place] 05/09/2015 Hepatic ? Protein, 6.4 g/dL 6.0-8.5 Final [facility] Function Total, Serum g/dL PS C: [address] Panel, Serum [address], [place] ? ? ? Albumin, 4.2 g/dL 3.5-4.8 Final [facility] Serum g/dL [facility]: [address], [place] ? ? ? Bilirubin, 0.4 0.0-1.2 Final [facility] Total mg/dL mg/dL P[facility]: [address], [place] ? ? ? Bilirubin, 0.17 0.00-0.40 Final [facility] Direct mg/dL mg/dL PSC: [address], [place] ? ? ? Alkaline 50 IU/L 39-117 Final [facility] Phosphatase, S IU/L PS C: [address], [place] ? ? ? Ast (Sgot) 16 IU/L 0-40 IU/L Final [facility] PSC: [address], [place] ? ? ? Alt (Sgpt) 15 IU/L 0-32 IU/L Final [facility] PSC: [address], [place] 05/09/2015 Microalbumin/c ? Creatinine, 49.7 15.0-2 78. Final [facility] reatinine, Urine mg/dL 0 mg/dL PSC: [address] Mass Ratio, [address]rine [address], [place] ? ? ? Microalbumin, 8.0 0.0-17.0 Final [facility] Urine ug/mL ug/mL PSC: [address] [facility], [place] ? ? ? Microalb/crea 16.1 0.0-30.0 Final [facility] t Ratio mg/g mg/g PSC: [address], [place] 05/09/2015 HbA1C Above Hemoglobin 7.2 % 4.8-5.6 % Final [facility] (Hemoglobin High a1C PSC: [address] a1C), Blood Normal [address], [place] 05/09/2015 TSH, Serum or ? Tsh 1.300 0.450-4.5 Fin al [facility] Plasma uIU/mL 00 uIU/mL PSC: [address] [facility], [place] Past Encounters None recorded. Social History Tobacco Smoking Status Former Smoker Notes: Quit in 1967 and only smoked 3 per day Vaccine List Vaccine Type influenza, high dose seasonal 02/09/2016 influenza, injectable, quadrivalent 01/19/2018 pneumococcal polysaccharide PPV23 04/21/2012 zoster live 04/21/2013 Notes: 08/14/18 Plan of Care Reminders Provider Appointments None recorded. ? ? Lab None recorded. ? ? Referral None recorded. ? ? Procedures None recorded. ? ? Surgeries None recorded. ? ? Imaging None recorded. ? ? Vitals 08/14/2018 09:30AM FOLLOW UP Height Weight BMI Blood Pressure 5 ft 1 in 215 lbs 16 oz 40.8 kg/m2 138/70 mm[Hg] 08/07/2018 09:10AM FOLLOW UP Height Weight BMI Blood Pressure 5 ft 1 in 215 lbs 40.6 kg/m2 140/68 mm[Hg] 07/24/2018 10:30AM FOLLOW UP Height Weight BMI Blood Pressure 5 ft 1 in 215 lbs 40.6 kg/m2 130/62 mm[Hg] 05/20/2018 12:45PM WORK IN Height Weight BMI Blood Pressure 5 ft 1 in 214 lbs 40.4 kg/m2 124/72 mm[Hg] 03/04/2017 04:10PM WORK IN Height Weight BMI Blood Pressure 5 ft 1 in 219 lbs 41.4 kg/m2 130/66 mm[Hg] 10/15/2016 02:50PM P WORK IN Height Weight BMI Blood Pressure 5 ft 1 in 214 lbs 40.4 kg/m2 142/76 mm[Hg] 09/13/2016 09:00AM NURSING Height Blood Pressure 5 ft 1 in 124/64 mm[Hg] 08/30/2016 10:30AM FOLLOW UP Height Weight BMI Blood Pressure 5 ft 1 in 215 lbs 8 oz 40.7 kg/m2 158/80 mm[Hg] 08/27/2016 11:50AM P WORK IN Height Weight BMI Blood Pressure 5 ft 1 in 219 lbs 16 oz 41.6 kg/m2 160/100 mm[Hg] 07/10/2015 09:45AM hospital follow up Height Weight BMI Blood Pressure 5 ft 1 in 224 lbs 42.3 kg/m2 114/68 mm[Hg] 06/19/2015 11:30AM hospital follow up Height Weight BMI Blood Pressure 5 ft 1 in 219 lbs 41.4 kg/m2 124/68 mm[Hg] 05/22/2015 02:15PM FOLLOW UP Height Weight BMI Blood Pressure 5 ft 1 in 214 lbs 40.4 kg/m2 118/62 mm[Hg] 05/09/2015 01:15PM NEW PATIENT Height Weight BMI Blood Pressure 5 ft 1 in 214 lbs 40.4 kg/m2 122/66 mm[Hg]
--- OUTSIDE RECORDS SUMMARY | 2022-03-10 21:05 | XMS_ITS | Encounter Summary ---
:1945 Author Organization [facility] Address [address] [place] [address] Care Team Providers Name Role Phone Ivan Gotti MD Primary Care Provider Reason for Visit Reason Onset Date Comments Medication Problem 12/29/2019 Encounter Details Date Type Department Care Team Description 12/29/[address] [facility] Pelvic Courtney Barber, Medication Problem Medicine and PA-C Reconstructive Surgery - Medical Office [facility] [address] [place], [place] [address] Social History Tobacco Use Types Packs/Day Years Used Date Smoking Tobacco: Passive Smoke Exposure - Never Smoker Smokeless Tobacco: Never Sex Assigned at Date Recorded Not on file documented as of this encounter Ordered Prescriptions Prescription Sig Dispensed Refills Start Date End Date estradioL (ESTRACE) 0.01 Place 1 g vaginally 1 Tube 3 12/27/2020 % (0.1 mg/gram) vaginal twice a week. cream documented in this encounter Miscellaneous Notes Telephone Encounter - Laine Lozano RN - 12/29/2019 0917 EDT Reordered per OV 12/06/19. Pt aware. Telephone Encounter - Ignacia Vences - 12/29/2019 0858 EDT Pt states script for estrogen cream was supposed to be sent to [facility] in [facility] on [address] after her last appointment. Pharmacy has not received a script. documented in this encounter Plan of Treatment Not on filedocumented as of this encounter Visit Diagnoses Not on filedocumented in this encounter Discontinued Medications Medication Sig Discontinue Reason Start Date End Date estradiol (ESTRACE) Place 1 g vaginally Reorder 08/10/2014 0 12/29/2019 0.01 % (0.1 mg/gram) three times a week vaginal cream documented as of this encounter Care Teams Dentistry Professor Relationship Specialty Start Date End Date Ivan Gotti MD PCP - General 03/23/09 [address] [place] [address] documented as of this encounter
--- OUTSIDE RECORDS SUMMARY | 2022-03-10 21:05 | XMS_ITS | Encounter Summary ---
:1945 Author Organization [facility] Address [address] [place] [address] Care Team Providers Name Role Phone Ivan Gotti MD Primary Care Provider Encounter Details Date Type Department Care Team Description 10/05/2018 Results Only [facility]- Mirela Gonzalez, [address] [place], [place] [phone] (Wo rk) Social History Tobacco Use Types Packs/Day Years Used Date Smoking Tobacco: Passive Smoke Exposure - Never Smoker Smokeless Tobacco: Never Sex Assigned at Date Recorded Not on file documented as of this encounter Plan of Treatment Not on filedocumented as of this encounter Procedures Procedure Name Priority Date/Time Associated Diagnosis [facility]me [facility] SURGICAL PATHOLOGY Routine 10/05/2018 16:48 Resul ts for this EDT procedure are i n the results section. documented in this encounter Results SURGICAL PATHOLOGY (10/05/2018 16:48 EDT) Component Value Ref Test Analysis Performed At [facility] Method Time Signature Pathology SURGICAL PATHOLOGY REPORT [facility] MEDICAL Report: Reports generated via electronic interface contain origina l data; CENTER however they are lacking the format of the original report. LABORATORY Caution should be taken when reading/interpreting unformat blanca reports. SERVICES Name: ? SHAMEKA COFFMAN IS ? Accession #: ? [id number] ? : ? 1945 (Age: [age]) ??F ? Collect Date: ? 10/05/2018 ? Location: ? [facility] ? Receive Date: ? 10/06/2018 ? Provider: MIRELA KELLY PAC Copy to: ? Final Pathologic Diagnosis: SKIN OF BARNEY, LEFT ANTERIOR MEDIAL, PUNCH BIOPSY: - Superficial perivascular a nd interstitial dermatitis with epidermal spongiosis and erythrocyte extravasation. See microscopic and comment. - Actinic keratosis, incidental. Comment: The biopsy shows a superficial dermal in flammatory infiltrate with erythrocyte extravasation and epidermal spongiosis. Considerations could include the spongiotic (eczematid) form of pigmented purpuric dermatitis . Other considerations could include stasis dermatitis. Despite deeper levels, there is no evidence of vasculitis. T his case was shown at intradepartmental consultation conference. (Dr. Pinto)/alex Microscopic Description: Sections consist of a punch biopsy of skin. There is basketw eave to orthokeratosis with focal pa rakeratosis and entrapped crust. The epidermis shows slight acanthosis with moder ate spongiosis. Focally, there is basilar atypia of the keratinocytes. Within the dermis is a superficial, periv ascular and interstitial, lymphomononuclear inflammatory infiltrate with associated erythrocyte extravasation. The lymphocyt es are generally small with a spectrum of forms. Some of the papillary dermal blood vessels a re somewhat thickened. There are no vasculitic changes. Deeper levels have been exa mined. (Dr. Pinto)/alex ?? Document reviewed and electronically signed by: ENMANUEL PINTO MD Report ??Date: 10/07/2018 14:04 By the signature above, the attending physician certifies th at he/she has personally conducted a gross and/or microscopic examin ation of the described specimens and rendered or confirmed the above diagnosis. Specimen(s) Received: 3 mm punch biopsy left anterior medial barney Clinical History: B/L purpura of lower extremi ties x4 days; itches, non-blanching, pt is on Plavix Gross Description: ? Received in formalin labelled with proper patient identification (initials M, P) and biopsy left barney is a slightly flattened 0.3 cm pale brown circular skin excised to a depth of 0.3 cm. Entirely submitted in 1. FACUNDO Mcmullen (ASCP) 10/06/2018 5:07 PM End of Report Specimen Anatomical Collection Method Collection Time Receive d Time (Source) Location / / Volume Laterality 10/05/2018 16:48 10/06/2018 EDT 16:48 EDT Mirela Kelly PA-C PATHOLOGY ORDERABLES Performing Organization Address City/State/ZIP Code Phon e Number [facility] [address] [place] [id number] SERVICES documented in this encounter Visit Diagnoses Not on filedocumented in this encounter Care Teams Drapery And Upholstery Estimator Relationship Specialty Start Date End Date Ivan Gotti MD PCP - General 03/23/[address] [place] [id number] documented as of this encounter
--- OUTSIDE RECORDS SUMMARY | 2022-03-10 21:05 | XMS_ITS | Encounter Summary ---
:1945 Author Organization [facility] Address [address] [place] [address] Care Team Providers Name Role Phone Ivan Gotti MD Primary Care Provider Encounter Details Date Type Department Care Team Description 07/07/2014 Orders Only [facility] Juan Lawton Unspec ified urinary Urology - Medical MD Thanh incontinence (Primary Office Building [address] [facility]) [address] [facility] [address] [facility], [place] [address] [address], [place] [phone] (Wo rk) Social History Tobacco Use Types Packs/Day Years Used Date Smoking Tobacco: Passive Smoke Exposure - Never Smoker Smokeless Tobacco: Never Sex Assigned at Date Recorded Not on file documented as of this encounter Plan of Treatment Not on filedocumented as of this encounter Visit Diagnoses Diagnosis Unspecified urinary incontinence - Prima ry documented in this encounter Care Teams Glass Loading Equipment Tender Relationship Specialty Start Date End Date Ivan Gotti MD PCP - General 03/23/[address] [place] [id number] documented as of this encounter
--- NOTE | 2022-03-10 21:23 | NUR.NOTE ---
Nursing Note: Pt does not have a medication list with her and is not able to reconcile medications with me at this time. Pt was able to tell me that she was on a new blood thinner but couldn't remember what it was but she knew it was different than her normal plavix.
--- NOTE | 2022-03-10 21:34 | ED.GENADUL_ITS ---
Discharge Plan Disposition Patient Disposition: Home Condition: Stable Discharge Details Chief Complaint: GenMedical Clinical Impression: Ecchymosis, Edema Primary Care Provider: Ivan Gotti ED Provider: [place] Hawk Home Meds and New Rx's Prescriptions: No Action duloxetine 30 mg capsule,delayed release(DR/EC) 20 mg PO DAILY cholecalciferol (vitamin D3) 25 mcg (1,000 unit) capsule 50 mcg PO DAILY losartan 50 mg tablet 100 mg PO DAILY atorvastatin 80 mg tablet 80 mg PO HS ascorbic acid (vitamin C) 1,000 mg tablet 1 g PO DAILY pregabalin [Lyrica] 100 mg capsule 300 mg PO DAILY insulin glargine [Lantus U-100 Insulin] 100 unit/mL solution 30 unit subcut HS spironolactone 25 mg tablet 25 mg PO DAILY clopidogrel [Plavix] 75 mg tablet 75 mg PO DAILY Hold Instructions: Resume on 03/19/22. After Rivaroxaban is completed. polyethylene glycol 3350 [Miralax] 17 gram/dose powder 17 g PO DAILY Trulicity 0.75 mg/0.5 mL pen injector 0.75 mg subcut QWEEK atenolol 25 mg tablet 25 mg PO HS diflunisal 500 mg tablet 500 mg PO BID PRN Premarin 0.625 mg/gram cream 0.625 mg vaginal DAILY fluticasone propionate 50 mcg/actuation spray,suspension 1 spray intranasal DAILY Rx Instructions: administer into each nostril magnesium oxide 500 mg capsule 500 mg PO HS calcium carbonate 500 mg calcium (1,250 mg) tablet 1,200 mg PO DAILY biotin 5 mg capsule 5 mg PO DAILY naloxone [Narcan] 4 mg/actuation spray,non-aerosol 4 mg intranasal Q3M PRN Rx Instructions: spray 1 dose into ONE nostril; alternate nostrils w each dose until help arrives sumatriptan succinate [Imitrex] 50 MG tablet 50 mg PO PRN PRN isosorbide mononitrate 60 MG tablet extended release 24 hr 50 mg PO DAILY Label Comments: pt. reports dose change nitroglycerin 0.4 MG tablet, sublingual 0.4 mg Sublingual PRN PRN Label Comments: t. reports a long time ago epinephrine 0.3 MG/SYR auto-injector 1 unit IM PRN PRN Label Comments: pt. reports she used it quite awhile ago. Pt. states she used it about a year ago because she took kaden seltzer plus celecoxib 200 mg capsule 200 mg PO BID PRN (Reason: pain) Qty: 60 1RF pantoprazole 40 mg tablet,delayed release (DR/EC) 40 mg PO DAILY Qty: 30 0RF acetaminophen 500 mg tablet 1,000 mg PO Q8H PRN (Reason: pain) Qty: 90 3RF oxycodone 10 mg tablet 10 mg PO Q4H PRN PRNQty: 30 0RF Rx Instructions: Take up to every 4 hours as needed. rivaroxaban 10 mg tablet 10 mg PO DAILY Qty: 12 0RF Rx Instructions: for 12 days s/p MARBIN Calcium 600 + D(3) 600 mg calcium- 200 unit Capsule 2 cap PO DAILY docusate sodium [Colace] 100 mg capsule 100 mg PO BID PRNQty: 7 0RF Discharge Instructions Instructions: Leg Edema (ED), Ecchymosis (ED) Additional Instructions: Please follow-up tomorrow morning for official ultrasound of your left lower extremity. Follow-up with orthopedic team as scheduled. Please return to the emergency department for any further needs. Medical Decision Making 76-year-old female presents presents postop day 5 from left hip arthroplasty, endorsing pain and swelling in her left lower extremity, patient is afebrile nontoxic range of motion intact, surgical site clean dry intact, no erythema or warmth at surgical site, no fluctuance or purulence, evidence of ecchymosis and edema settling around anterior medial thigh and knee, bedside ultrasound negative for DVT. Will send patient for official ultrasound left lower extremity tomorrow morning. No signs of active infection. Patient's discomfort is well controlled on medication prescribed by orthopedic team. Patient given home care instructions and strict return precautions. We will follow-up with primary orthopedic team in a week and will obtain official ultrasound tomorrow. Sign Out No HPI General Date/Time Provider Initiated Documentation: 03/10/22 20:58 . HPI Narrative: 76-year-old female presents 5 days postop from fatigue, endorsing swelling and discomfort in her knee. No fevers, no drainage or discharge from surgical. Patient has been ambulating. No recent injuries Related Data Home Medications Medication Instructions Recorded Confirmed epinephrine 0.3 mg/0.3 mL 1 unit IM PRN PRN 03/16/14 03/05/22 injection, auto-injector isosorbide mononitrate 60 mg 50 mg PO DAILY 03/16/14 03/05/22 tablet,extended release 24 hr nitroglycerin 0.4 mg sublingual 0.4 mg sublingual PRN PRN 03/16/14 01/16/22 tablet sumatriptan succinate 50 mg tablet 50 mg PO PRN PRN 03/16/14 03/05/22 (Imitrex) ascorbic acid (vitamin C) 1,000 mg 1 g PO DAILY 02/20/21 03/05/22 tablet atorvastatin 80 mg tablet 80 mg PO HS 02/20/21 03/05/22 cholecalciferol (vitamin D3) 25 50 mcg PO DAILY 02/20/21 03/05/22 mcg (1,000 unit) capsule duloxetine 30 mg capsule,delayed 20 mg PO DAILY 02/20/21 03/05/22 release losartan 50 mg tablet 100 mg PO DAILY 02/20/21 03/05/22 calcium carbonate 600 mg-vitamin 2 cap PO DAILY 04/15/21 03/05/22 D3 5 mcg (200 unit) capsule (Calcium 600 + D(3)) insulin glargine 100 unit/mL 30 unit subcut HS 05/31/21 03/05/22 subcutaneous solution (Lantus U-100 Insulin) spironolactone 25 mg tablet 25 mg PO DAILY 05/31/21 03/05/22 docusate sodium 100 mg capsule 100 mg PO BID PRN #7 caps 07/18/21 03/05/22 (Colace) atenolol 25 mg tablet 25 mg PO HS 09/26/21 03/05/22 biotin 5 mg capsule 5 mg PO DAILY 09/26/21 03/05/22 calcium carbonate 500 mg calcium 1,200 mg PO DAILY 09/26/21 03/05/22 (1,250 mg) tablet conjugated estrogens 0.625 mg/gram 0.625 mg vaginal DAILY 09/26/21 03/05/22 vaginal cream (Premarin) diflunisal 500 mg tablet 500 mg PO BID PRN 09/26/21 03/05/22 dulaglutide 0.75 mg/0.5 mL 0.75 mg subcut QWEEK 09/26/21 03/05/22 subcutaneous pen injector ([facility]) fluticasone propionate 50 1 spray intranasal DAILY 09/26/21 03/05/22 mcg/actuation nasal spray,suspension magnesium oxide 500 mg capsule 500 mg PO HS 09/26/21 03/05/22 naloxone 4 mg/actuation nasal 4 mg intranasal Q3M PRN 09/26/21 03/05/22 spray (Narcan) clopidogrel 75 mg tablet (Plavix) 75 mg PO DAILY 10/04/21 03/05/22 polyethylene glycol 3350 17 17 g PO DAILY 10/04/21 03/05/22 gram/dose oral powder (Miralax) pregabalin 100 mg capsule (Lyrica) 300 mg PO DAILY 01/14/22 03/05/22 acetaminophen 500 mg tablet 1,000 mg PO Q8H PRN pain #90 tabs 03/05/22 celecoxib 200 mg capsule 200 mg PO BID PRN pain #60 caps 03/05/22 oxycodone 10 mg tablet 10 mg PO Q4H PRN PRN #30 tabs 03/05/22 pantoprazole 40 mg tablet,delayed 40 mg PO DAILY #30 tabs 03/05/22 release rivaroxaban 10 mg tablet 10 mg PO DAILY #12 tabs 03/05/22 Previous Rx's Medication Instructions Recorded docusate sodium 100 mg capsule 100 mg PO BID PRN #7 caps 07/18/21 (Colace) acetaminophen 500 mg tablet 1,000 mg PO Q8H PRN pain #90 tabs 03/05/22 celecoxib 200 mg capsule 200 mg PO BID PRN pain #60 caps 03/05/22 oxycodone 10 mg tablet 10 mg PO Q4H PRN PRN #30 tabs 03/05/22 pantoprazole 40 mg tablet,delayed 40 mg PO DAILY #30 tabs 03/05/22 release rivaroxaban 10 mg tablet 10 mg PO DAILY #12 tabs 03/05/22 Allergies Allergy/AdvReac Type Severity Reaction Status Date / Time aspirin Allergy Severe Anaphylaxis Verified 03/10/22 21:17 naproxen Allergy Severe Anaphylaxsi Verified 03/10/22 21:17 s codeine Allergy Intermediate Hives Verified 03/10/22 21:17 methadone Allergy Intermediate Hives Verified 03/10/22 21:17 Penicillins Allergy Intermediate Hives Verified 03/10/22 21:17 Sulfa (Sulfonamide Allergy Intermediate Hives Verified 03/10/22 21:17 Antibiotics) lisinopril [From Zestril] AdvReac Intermediate cough Verified 03/10/22 21:17 metformin AdvReac Intermediate Other (See Verified 03/10/22 21:17 Comment) mirtazapine AdvReac Intermediate Dizziness/L Verified 03/10/22 21:17 ightheade General Stated Complaint: GenMedical BROWN: 3 Review of Systems Narrative: Review of Systems Constitutional: negative Eyes: negative ENT: negative Cardiovascular: negative Respiratory: negative Gastrointestinal: negative : negative Musculoskeletal: Leg swelling discomfort Skin: negative Neurologic: negative Psych: negative PFSH All Active Problems (Updated 03/10/22 @ 21:45 by Sal[place] Hawk MD) History of total right hip arthroplasty (Acute 07/18/21) Trochanteric bursitis, right hip (Acute) Arthritis of left hip (Acute) Ecchymosis (Acute) Edema (Acute) Medical History (Updated 03/10/22 @ 21:45 by Sal[place] Hawk MD) Actinic keratosis Arthralgia Arthritis of hand Balance problem Bradycardia CAD (coronary artery disease) Chronic anticoagulation Chronic cough Chronic diarrhea Chronic pain Cystocele Depression Diabetes type 2, controlled Diabetic peripheral neuropathy Eczematous dermatitis 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 superficial peroneal nerve Globus sensation Hip pain, right Hx of adenomatous colonic polyps Hypercholesterolemia Hypertension Hypomagnesemia Infected sebaceous cyst Leg pain, left Lumbar back pain Migraine Mixed incontinence urge and stress Multinodular thyroid Myalgia Onychomycosis Osteoarthritis Osteoarthritis of left knee Postmenopausal Rectocele Right thyroid nodule Sebaceous cyst Skin lesion Sleep apnea Stasis dermatitis Thyroid cyst Visit for wound check Surgical History History of carpal tunnel surgery of left wrist History of hip replacement History of tonsillectomy and adenoidectomy Nerve entrapment of lower limb s/p right lower extremity around knee S/P colonoscopy Status post replacement of right shoulder joint Status post right knee replacement Status post total left knee replacement Became infected Revision s/p Left TKA Social History Smoking/Tobacco Use Status: Former Tobacco Use tobacco type: cigarettes Quit Date: 04/21/59 Smoking risk assessment performed?: Yes Alcohol Intake: never Drug use: Never Substance use type: does not use Details: Reports rare cigarette use when she was upset years ago; denies regular use Current gender identity: female Do you feel safe at home: Yes Do you feel safe in your relationship?: Yes Exam Narrative Exam Narrative: Physical Examination General: alert, awake, cooperative, resting comfortably, no acute distress HEENT: normocephalic, atraumatic; PERRL, EOM intact, conjunctiva normal; no nasal discharge; moist mucous membranes, oral and pharyngeal mucosa normal, tolerating secretions Neck: supple, trachea midline; full ROM Chest: normal to inspection Respiratory: normal respiratory effort, speaking in full sentences, clear to auscultation, no wheezing, rales or rhonchi Cardiac: regular rate, regular rhythm, S1S2 intact, no murmurs rubs or gallops GI: abdomen soft, non-tender, non-distended; no palpable mass or hepatosplenomegaly Skin: no lesions, rashes or trauma appreciated Neuro: AAOx3, normal speech, moving all extremities Extremities: Edema and ecchymosis left lower extremity, no erythema no purulence or drainage at surgical site; range of motion intact, warm well perfused extremity, sensate Psych: Appropriate mood and affect Course Vital Signs Vital signs: Vital Signs Temperature 36.4 C L 03/10/22 21:05 Pulse 71 03/10/22 21:05 Respiratory Rate 18 03/10/22 21:05 Blood Pressure 154/66 H 03/10/22 21:05 Temperature 36.4 C L 03/10/22 21:05 Temperature Source Temporal Artery Scan 03/10/22 21:05 Pulse 71 03/10/22 21:05 Respiratory Rate 18 03/10/22 21:05 Respiratory Effort 03/10/22 21:12 Respiratory Depth Normal 03/10/22 21:12 Respiratory Pattern Normal 03/10/22 21:12 Blood Pressure 154/66 H 03/10/22 21:05 Blood Pressure Position Supine 03/10/22 21:05 Oxygen Delivery Method Room Air 03/10/22 21:05 Oxygen Flow Rate 0 03/10/22 21:05 Pain Level 7 03/10/22 21:05
[2022-03-10 21:52] VITALS: BP 154/72; PULSE 70; RESP 16; O2SAT 96
== END 2022-03-10 22:12 | disposition home or self-care (01) ==
PROVIDERS: Emergency Provider Emergency Medicine; PCP Internal Medicine
DX: R23.3 Spontaneous ecchymoses (principal); R60.0 Localized edema; Z98.890 Other specified postprocedural states; M79.652 Pain in left thigh
CPT/HCPCS: 99284; 99282

== ENCOUNTER 2022-03-11 11:14 | Outpatient (CLI) | payer MEDICARE, SELFPAY ==
--- NOTE | 2022-03-11 09:15 | DI.US_ITS ---
Exam(s) US THYROID EXAM: US THYROID CLINICAL HISTORY: Assess for change,f/u multinodular thyroid,e04.2. TECHNIQUE: Ultrasound thyroid performed using standard protocol. COMPARISON: US US THYROID from 08/04/2020 , [facility]. FINDINGS: ISTHMUS: 3 mm RIGHT LOBE: Size: 4.2 x 2.0 x 2.1 cm cm Echogenicity: Heterogeneous Vascularity: Normal Nodules: Innumerable cysts. Largest 1.2 cm maximal dimension mid right lobe. 7 millimeter calcifica tion lower pole right lobe. No suspicious masses LEFT LOBE: Size: 3.7 x 1.8 x 1.8 cm cm Echogenicity: Heterogeneous. Vascularity: Normal. Nodules: Innumerable cysts. Two largest measuring 11 millimeters. No suspicious masses OTHER FINDINGS: None. IMPRESSION: No significant change multiple bilateral colloid cysts. No suspicious masses. DATA REPOSITORY:
== END 2022-03-11 11:34 ==
LOC: DI 11:14
PROVIDERS: PCP Internal Medicine; Visit Provider Otolaryngology
DX: E04.2 Nontoxic multinodular goiter (principal)
CPT/HCPCS: 76536

== ENCOUNTER 2022-03-11 12:27 | Outpatient (CLI) | payer MEDICARE, SELFPAY ==
--- NOTE | 2022-03-11 | DI.US_ITS ---
Exam(s) US LOWER EXTREMITY VENOUS LT EXAM: US LOWER EXTREMITY VENOUS LT CLINICAL HISTORY: POST OP SWELLING,. TECHNIQUE: Lower extremity venous ultrasound performed using grayscale, color-flow, and spectral Do ppler analysis. COMPARISON: No exams were available for comparison FINDINGS: The common femoral, femoral and popliteal veins demonstrate normal compressibility, augmentation, and color Doppler. The posterior tibial veins are patent. No saphenous vein thrombosis or other superfi cial venous thrombosis is seen. No hematoma or Paul's cyst is seen. Edema seen in the subcutaneous fat of the lower leg. IMPRESSION: Lower leg edema.. No evidence of DVT. DATA REPOSITORY:
== END 2022-03-11 12:47 ==
LOC: DI 12:28
PROVIDERS: PCP Internal Medicine; Visit Provider Emergency Medicine
DX: R60.0 Localized edema (principal)
CPT/HCPCS: 93971

== ENCOUNTER 2022-03-18 11:54 | Outpatient (CLI) | payer MEDICARE, SELFPAY ==
--- NOTE | 2022-03-18 11:45 | DI.RAD_ITS ---
Exam(s) XR HIP LT COMPLETE AP PELVIS EXAM: XR HIP LT COMPLETE AP PELVIS INDICATION: 1ST POST OP L MARBIN. COMPARISON: CR XR HIP RT COMPLETE AP PELVIS from 08/02/2021 XA XR HIP LT IN OR from 03/05/2022 TECHNIQUE: 2D digital imaging was performed. Two views. FINDINGS: There has been no change in the alignment of the bilateral hip prostheses. No abnormal bony lucencie s are seen. DATA REPOSITORY: RADIATION DOSE DELIVERED:
== END 2022-03-18 11:55 | disposition home or self-care (01) ==
LOC: DIORS 11:54
PROVIDERS: PCP Internal Medicine; Referring Provider Internal Medicine; Visit Provider Student in an Organized Health Care Education/Training Program
DX: Z96.642 Presence of left artificial hip joint (principal); Z47.1 Aftercare following joint replacement surgery
CPT/HCPCS: 73502

== ENCOUNTER 2022-04-12 12:40 | Emergency (ER) | payer MEDICARE, SELFPAY ==
--- NOTE | 2022-04-12 13:15 | RT.EKG_ITS ---
APPROVED REPORT Exam: Resting ECG Reason for Exam: DYSPNEA Patient Location: E HR:76 bpm ECG Measurements Heart Rate 76 AXIS [place] 197 P 0 QRSd 80 QRS -4 QT 400 T 63 QTc 425 Conclusion Sinus rhythm...normal P axis, V-rate 60- 99 Ventricular premature complex...V complex w/ short R-R interval. Sinus. Normal axis. No STEMI. I have reviewed and interpreted ECG and agree with software generated interpretation.
[2022-04-12 13:22] VITALS: BP 140/67; PULSE 75; RESP 18; TEMP 37.1; O2SAT 96
[2022-04-12 14:13] LABS: COVID-19 PCR Negative (Negative); Influenza A PCR Negative (Negative); Influenza B PCR Negative (Negative); RSV PCR Negative (Negative)
[2022-04-12 14:15] LABS: Source Nasopharynx
--- NOTE | 2022-04-12 14:30 | DI.RAD_ITS ---
Exam(s) XR CHEST 2V PA LATERAL EXAM: XR CHEST 2V PA LATERAL CLINICAL HISTORY: cough and fever TECHNIQUE: 2D digital imaging was performed of the chest. Two images were obtained. PA and lateral views were obtained. COMPARISON: CR,XR XR PORTABLE CHEST AP from 06/06/2021 FINDINGS: MEDIASTINUM: Normal. HEART: Normal. PULMONARY VASCULATURE: Normal. LUNGS: Clear. PLEURAL SPACE: No pleural effusion or pneumothorax. BONE:Within normal limits for the patient's age. The patient has a right total reverse shoulder arth roplasty. OTHER FINDINGS:There is a stimulating device seen in the posterior soft tissues. IMPRESSION: No acute pulmonary findings. DATA REPOSITORY: RADIATION DOSE DELIVERED:
[2022-04-12 15:05] VITALS: BP 154/78; PULSE 58; RESP 18; TEMP 36.8; O2SAT 94
--- NOTE | 2022-04-12 15:43 | ED.GENADUL_ITS ---
Discharge Plan Disposition Patient Disposition: Home Condition: Stable Discharge Details Clinical Impression: Pneumonia Primary Care Provider: Ivan Gotti ED Provider: Marla Medley Home Meds and New Rx's Prescriptions: New doxycycline hyclate 100 mg tablet 100 mg PO BID 14 Days Qty: 28 0RF Continued duloxetine 30 mg capsule,delayed release(DR/EC) 20 mg PO DAILY cholecalciferol (vitamin D3) 25 mcg (1,000 unit) capsule 50 mcg PO DAILY losartan 50 mg tablet 100 mg PO DAILY atorvastatin 80 mg tablet 80 mg PO HS ascorbic acid (vitamin C) 1,000 mg tablet 1 g PO DAILY pregabalin [Lyrica] 100 mg capsule 300 mg PO DAILY insulin glargine [Lantus U-100 Insulin] 100 unit/mL solution 30 unit subcut HS spironolactone 25 mg tablet 25 mg PO DAILY clopidogrel [Plavix] 75 mg tablet 75 mg PO DAILY Hold Instructions: Resume on 03/19/22. After Rivaroxaban is completed. polyethylene glycol 3350 [Miralax] 17 gram/dose powder 17 g PO DAILY Trulicity 0.75 mg/0.5 mL pen injector 0.75 mg subcut QWEEK atenolol 25 mg tablet 25 mg PO HS diflunisal 500 mg tablet 500 mg PO BID PRN fluticasone propionate 50 mcg/actuation spray,suspension 1 spray intranasal DAILY Rx Instructions: administer into each nostril magnesium oxide 500 mg capsule 500 mg PO HS calcium carbonate 500 mg calcium (1,250 mg) tablet 1,200 mg PO DAILY biotin 5 mg capsule 5 mg PO DAILY naloxone [Narcan] 4 mg/actuation spray,non-aerosol 4 mg intranasal Q3M PRN Rx Instructions: spray 1 dose into ONE nostril; alternate nostrils w each dose until help arrives oxycodone 10 mg tablet 10 mg PO Q6H PRN MDD 4 tabs PRN (Reason: pain) Qty: 30 0RF Rx Instructions: Take up to every 6 hours as needed. sumatriptan succinate [Imitrex] 50 MG tablet 50 mg PO PRN PRN isosorbide mononitrate 60 MG tablet extended release 24 hr 50 mg PO DAILY Label Comments: pt. reports dose change nitroglycerin 0.4 MG tablet, sublingual 0.4 mg Sublingual PRN PRN Label Comments: t. reports a long time ago epinephrine 0.3 MG/SYR auto-injector 1 unit IM PRN PRN Label Comments: pt. reports she used it quite awhile ago. Pt. states she used it about a year ago because she took kaden seltzer plus celecoxib 200 mg capsule 200 mg PO BID PRN (Reason: pain) Qty: 60 1RF pantoprazole 40 mg tablet,delayed release (DR/EC) 40 mg PO DAILY Qty: 30 0RF acetaminophen 500 mg tablet 1,000 mg PO Q8H PRN (Reason: pain) Qty: 90 3RF rivaroxaban 10 mg tablet 10 mg PO DAILY Qty: 12 0RF Rx Instructions: for 12 days s/p MARBIN Calcium 600 + D(3) 600 mg calcium- 200 unit Capsule 2 cap PO DAILY docusate sodium [Colace] 100 mg capsule 100 mg PO BID PRNQty: 7 0RF Discharge Instructions Instructions: Pneumonia (ED) Additional Instructions: Please take the antibiotic as prescribed Yogurt daily while on the antibiotic Use your albuterol, 2 puffs every 4-6 hours as needed for cough, wheeze, shortness of breath Robitussin [id number] reTurn earlier should he have new or worsening complaints Referrals: Ivan Gotti MD [Primary Care Provider] - 1 day Discharge Data Discharge Date/Time-TO BE ENTERED AT DEPARTURE: 04/12/22 16:20 Medical Decision Making This 76-year-old female presents with 2 weeks of upper respiratory symptoms in the presence of intermittent fevers and cough, her vitals are stable Patient is in no respiratory distress, her lungs are clear to auscultation I suspect right lower lobe infiltrate EKG appears baseline for patient and is not endorsing any chest pain at this time She is not hypoxic, she is ambulatory with steady gait She has not been on antibiotics, albuterol, or any prednisone Return precautions reviewed and patient expressed understanding Medical Records Medical records reviewed: Yes I reviewed the patient's medical records. Lab Data Lab results reviewed: Yes I reviewed the patient's lab results. HPI General Date/Time Provider Initiated Documentation: 04/12/22 12:45 . HPI Narrative: This 76-year-old female with history of coronary artery disease, bradycardia, chronic anticoagulation, diabetic peripheral neuropathy, hypercholesterolemia, hypertension, hypomagnesemia presents with report of 2 weeks of illness, shortness of breath, cough, and sputum production. She denies any significant worsening in symptoms today. She called Rick to set up an appointment for follow-up and she was told to go to the emergency department as they would not be available until Friday of next week. Related Data Home Medications Medication Instructions Recorded Confirmed epinephrine 0.3 mg/0.3 mL 1 unit IM PRN PRN 03/16/14 03/18/22 injection, auto-injector isosorbide mononitrate 60 mg 50 mg PO DAILY 03/16/14 03/18/22 tablet,extended release 24 hr nitroglycerin 0.4 mg sublingual 0.4 mg sublingual PRN PRN 03/16/14 03/18/22 tablet sumatriptan succinate 50 mg tablet 50 mg PO PRN PRN 03/16/14 03/18/22 (Imitrex) ascorbic acid (vitamin C) 1,000 mg 1 g PO DAILY 02/20/21 03/18/22 tablet atorvastatin 80 mg tablet 80 mg PO HS 02/20/21 03/18/22 cholecalciferol (vitamin D3) 25 50 mcg PO DAILY 02/20/21 03/18/22 mcg (1,000 unit) capsule duloxetine 30 mg capsule,delayed 20 mg PO DAILY 02/20/21 03/18/22 release losartan 50 mg tablet 100 mg PO DAILY 02/20/21 03/18/22 calcium carbonate 600 mg-vitamin 2 cap PO DAILY 04/15/21 03/18/22 D3 5 mcg (200 unit) capsule (Calcium 600 + D(3)) insulin glargine 100 unit/mL 30 unit subcut HS 05/31/21 03/18/22 subcutaneous solution (Lantus U-100 Insulin) spironolactone 25 mg tablet 25 mg PO DAILY 05/31/21 03/18/22 docusate sodium 100 mg capsule 100 mg PO BID PRN #7 caps 07/18/21 03/18/22 (Colace) atenolol 25 mg tablet 25 mg PO HS 09/26/21 03/18/22 biotin 5 mg capsule 5 mg PO DAILY 09/26/21 03/18/22 calcium carbonate 500 mg calcium 1,200 mg PO DAILY 09/26/21 03/18/22 (1,250 mg) tablet diflunisal 500 mg tablet 500 mg PO BID PRN 09/26/21 03/18/22 dulaglutide 0.75 mg/0.5 mL 0.75 mg subcut QWEEK 09/26/21 03/18/22 subcutaneous pen injector (Trulicity) fluticasone propionate 50 1 spray intranasal DAILY 09/26/21 03/18/22 mcg/actuation nasal spray,suspension magnesium oxide 500 mg capsule 500 mg PO HS 09/26/21 03/18/22 naloxone 4 mg/actuation nasal 4 mg intranasal Q3M PRN 09/26/21 03/18/22 spray (Narcan) clopidogrel 75 mg tablet (Plavix) 75 mg PO DAILY 10/04/21 03/18/22 polyethylene glycol 3350 17 17 g PO DAILY 10/04/21 03/18/22 gram/dose oral powder (Miralax) pregabalin 100 mg capsule (Lyrica) 300 mg PO DAILY 01/14/22 03/18/22 acetaminophen 500 mg tablet 1,000 mg PO Q8H PRN pain #90 tabs 03/05/22 03/18/22 celecoxib 200 mg capsule 200 mg PO BID PRN pain #60 caps 03/05/22 03/18/22 pantoprazole 40 mg tablet,delayed 40 mg PO DAILY #30 tabs 03/05/22 03/18/22 release rivaroxaban 10 mg tablet 10 mg PO DAILY #12 tabs 03/05/22 03/18/22 oxycodone 10 mg tablet 10 mg PO Q6H PRN PRN pain #30 tabs 03/28/22 doxycycline hyclate 100 mg tablet 100 mg PO BID 14 days #28 tabs 04/12/22 Previous Rx's Medication Instructions Recorded docusate sodium 100 mg capsule 100 mg PO BID PRN #7 caps 07/18/21 (Colace) acetaminophen 500 mg tablet 1,000 mg PO Q8H PRN pain #90 tabs 03/05/22 celecoxib 200 mg capsule 200 mg PO BID PRN pain #60 caps 03/05/22 pantoprazole 40 mg tablet,delayed 40 mg PO DAILY #30 tabs 03/05/22 release rivaroxaban 10 mg tablet 10 mg PO DAILY #12 tabs 03/05/22 oxycodone 10 mg tablet 10 mg PO Q6H PRN PRN pain #30 tabs 03/28/22 doxycycline hyclate 100 mg tablet 100 mg PO BID 14 days #28 tabs 04/12/22 Allergies Allergy/AdvReac Type Severity Reaction Status Date / Time aspirin Allergy Severe Anaphylaxis Verified 03/18/22 14:05 naproxen Allergy Severe Anaphylaxsi Verified 03/18/22 14:05 s codeine Allergy Intermediate Hives Verified 03/18/22 14:05 methadone Allergy Intermediate Hives Verified 03/18/22 14:05 Penicillins Allergy Intermediate Hives Verified 03/18/22 14:05 Sulfa (Sulfonamide Allergy Intermediate Hives Verified 03/18/22 14:05 Antibiotics) lisinopril [From Zestril] AdvReac Intermediate cough Verified 03/18/22 14:05 metformin AdvReac Intermediate Other (See Verified 03/18/22 14:05 Comment) mirtazapine AdvReac Intermediate Dizziness/L Verified 03/18/22 14:05 ightheade General Stated Complaint: RespSymp BROWN: 3 Review of Systems All systems reviewed & are unremarkable except as noted in HPI and below PFSH All Active Problems (Updated 04/12/22 @ 15:44 by FACUNDO Ferrera) Pneumonia (Acute) History of total left hip arthroplasty (Acute 03/05/22) History of total right hip arthroplasty (Acute 07/18/21) Trochanteric bursitis, right hip (Acute) Medical History Actinic keratosis Arthralgia Arthritis of hand Balance problem Bradycardia CAD (coronary artery disease) Chronic anticoagulation Chronic cough Chronic diarrhea Chronic pain Cystocele Depression Diabetes type 2, controlled Diabetic peripheral neuropathy Eczematous dermatitis 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 superficial peroneal nerve Globus sensation Hip pain, right Hx of adenomatous colonic polyps Hypercholesterolemia Hypertension Hypomagnesemia Infected sebaceous cyst Leg pain, left Lumbar back pain Migraine Mixed incontinence urge and stress Multinodular thyroid Myalgia Onychomycosis Osteoarthritis Osteoarthritis of left knee Postmenopausal Rectocele Right thyroid nodule Sebaceous cyst Skin lesion Sleep apnea Stasis dermatitis Thyroid cyst Visit for wound check Surgical History History of carpal tunnel surgery of left wrist History of hip replacement History of tonsillectomy and adenoidectomy Nerve entrapment of lower limb s/p right lower extremity around knee S/P colonoscopy Status post replacement of right shoulder joint Status post right knee replacement Status post total left knee replacement Became infected Revision s/p Left TKA Social History Smoking/Tobacco Use Status: Former Tobacco Use tobacco type: cigarettes Quit Date: 04/21/59 Smoking risk assessment performed?: Yes Alcohol Intake: never Drug use: Never Substance use type: does not use Details: Reports rare cigarette use when she was upset years ago; denies regular use Current gender identity: female Do you feel safe at home: Yes Do you feel safe in your relationship?: Yes Exam Const General: cooperative and comfortable HENMT Head: normal to inspection Eyes Sclera: sclerae normal Resp Effort & Inspection: normal respiratory effort Auscultation: clear to auscultation bilaterally Cardio Rate: regular rate Rhythm: regular rhythm Skin General skin exam: no rashes or lesions noted Neuro General: patient alert Course Vital Signs Vital signs: Vital Signs Temperature 37.1 C 04/12/22 13:22 Pulse 75 04/12/22 13:22 Respiratory Rate 18 04/12/22 13:22 Blood Pressure 140/67 04/12/22 13:22 Pulse Oximetry 96 04/12/22 13:22 Temperature 36.8 C 04/12/22 15:05 Temperature Source Oral 04/12/22 15:05 Pulse 58 L 04/12/22 15:05 Respiratory Rate 18 04/12/22 15:05 Blood Pressure 154/78 H 04/12/22 15:05 Blood Pressure Position Supine 04/12/22 13:22 Pulse Oximetry 94 04/12/22 15:05 Oxygen Delivery Method Room Air 04/12/22 15:05 Oxygen Flow Rate 0 04/12/22 15:05 Pain Level 8 04/12/22 13:22 Lab/Test Results Lab/Test Results: Laboratory Tests Range/Units 04/12/22 13:29 COVID-19 Source Nasopharynx SARS-CoV-2 (PCR) (Negative) Negative Influenza Type A (PCR) (Negative) Negative Influenza Type B (PCR) (Negative) Negative RSV (PCR) (Negative) Negative
--- NOTE | 2022-04-12 16:36 | DI.VRAD_ITS ---
PROCEDURE INFORMATION: Exam: XR Chest Exam date and time: 04/12/2022 3:09 PM Age: 76 years old Clinical indication: Other: Cough and fever TECHNIQUE: Imaging protocol: Radiologic exam of the chest. Views: 2 views. COMPARISON: XR PORTABLE CHEST AP 06/06/2021 7:55 PM FINDINGS: Lungs: The lungs are hyperinflated with changes of COPD. No consolidation. Pleural spaces: Unremarkable. No pleural effusion. No pneumothorax. Heart/Mediastinum: Unremarkable. No cardiomegaly. Bones/joints: Right reverse shoulder arthroplasty. IMPRESSION: No acute findings. Dictated and Authenticated by: Pamela Ferraro MD. Ordering:DWAYNE Gutiérrez MD
== END 2022-04-12 16:20 | disposition home or self-care (01) ==
PROVIDERS: Physician Assistant; Emergency Provider Physician Assistant; PCP Internal Medicine
DX: J18.9 Pneumonia, unspecified organism (principal); I25.10 Atherosclerotic heart disease of native coronary artery without angina pectoris; E78.00 Pure hypercholesterolemia, unspecified; I10 Essential (primary) hypertension; E11.42 Type 2 diabetes mellitus with diabetic polyneuropathy; Z20.822 Contact with and (suspected) exposure to COVID-19
CPT/HCPCS: 87637; 93005; 99284; 71046; 93010; 99285

== ENCOUNTER 2022-04-17 13:56 | Outpatient (CLI) | payer MEDICARE, SELFPAY ==
--- NOTE | 2022-04-17 13:45 | DI.RAD_ITS ---
Exam(s) XR HIP LT COMPLETE AP PELVIS EXAM: XR HIP LT COMPLETE AP PELVIS CLINICAL HISTORY: left MARBIN. TECHNIQUE: 2D digital imaging was performed. Three images were obtained. AP and lateral views were obtained. COMPARISON: CR XR HIP LT COMPLETE AP PELVIS from 03/18/2022 FINDINGS: BONES: There are stable post operative changes present. No fracture or dislocation. JOINTS: The orthopedic hardware is in good position. No evidence of hardware loosening. SOFT TISSUE: There is again seen a battery pack over the right pelvis. Atherosclerosis is present. IMPRESSION: Stable postoperative changes. DATA REPOSITORY: RADIATION DOSE DELIVERED:
== END 2022-04-17 13:57 | disposition home or self-care (01) ==
LOC: DIORS 13:56
PROVIDERS: PCP Internal Medicine; Referring Provider Internal Medicine; Visit Provider Physician Assistant
DX: Z96.642 Presence of left artificial hip joint (principal); Z47.1 Aftercare following joint replacement surgery
CPT/HCPCS: 73502

== ENCOUNTER 2022-04-25 01:19 | Outpatient (CLI) | payer MEDICARE, SELFPAY ==
--- NOTE | 2022-04-25 08:00 | DI.RAD_ITS ---
Exam(s) RF JOINT INJECTION FLUORO GUID EXAM: RF JOINT INJECTION FLUORO GUID CLINICAL HISTORY: L HIP PAIN,FLUORO GUIDED INJECTION, Z96.642,H/O TOTAL LT HIP, TECHNIQUE: Fluoroscopy provided. Radiologist not present. CONTRAST MATERIAL: None COMPARISON: No exams were available for comparison FINDINGS: Fluoroscopy was provided for Dr. Varela during hip injection. Please refer to the procedure report for complete details. Cumulative Dose: Ka,r=1.18 mGy IMPRESSION: RADIATION DOSE DELIVERED:
[2022-04-25] MEDS: Bupivacaine 0.5% Pres-Free 10 ML VIAL 8 ML IJ (15:32)
[2022-04-25] MEDS: methylPREDNISolone ACETATE 80 MG/ML VIAL IM (15:34)
--- NOTE | 2022-04-26 13:50 | W.PROCNOTE ---
Date of service: 04/25/22 Time of Service: 15:30 Procedure Note Date of procedure: 04/25/22 Procedure: Left Hip Injection with Fluoroscopic Guidance Surgeon/Proceduralist/Physician: Favoi Varela Procedure Diagnosis: Left Hip pain after replacement Procedure Indications: Peggy has had pain about the left hip and leg after hip replacement. To serve as both diagnostic and therapeutic, an aspiration as well as and injection under fluoroscopy was recommended. I had discussed the risks of the procedure and the patient elected to proceed. Procedure Description: Peggy was greeted in the flouroscopy room. The correct side was identified and the consent was reviewed with the patient and signed. The patient was then placed in the supine position on the fluoroscopy table. The LEFT hip was then prepped with Chloraprep. The anterolateral injection starting point was identiifed by bony landmarks and fluoroscopy. The skin and soft tissue in the tract of the injection was anesthetized with 1% Lidocaine. A spinal needle was then inserted deep into the hip joint at the level of the lateral femoral neck under fluoroscopic guidance. Metal was encountered with the needle tip. There is joint fluid notable within the needle and therefore no contrast was utilized. I was able to aspirate 3 to 4 cc of slightly cloudy but normal-appearing joint fluid. This was sent to the lab for cell count culture. I then injected the hip with 8 cc of 0.5% bupivacaine and 4 cc of 1% lidocaine. A bandaid was placed on the injection site. The patient tolerated the procedure well but did not have any significant improvement in pre-injection pain.
== END 2022-04-25 01:39 ==
LOC: DI 01:20
PROVIDERS: PCP Internal Medicine; Visit Provider Student in an Organized Health Care Education/Training Program
DX: Z96.642 Presence of left artificial hip joint (principal); M25.552 Pain in left hip
CPT/HCPCS: 20610; 20611; 77002; J1040

== ENCOUNTER 2022-04-25 16:47 | Outpatient (REF) | payer MEDICARE, SELFPAY ==
[2022-04-25 17:32] LABS: Clarity Cloudy; Mononuclear Cells 85 %; Nucleated Cells 1655 uL (0); Polynuclear Cells 15 %
== END 2022-04-25 16:48 | disposition home or self-care (01) ==
LOC: LBN 16:47
PROVIDERS: PCP Internal Medicine; Visit Provider Student in an Organized Health Care Education/Training Program
DX: T84.84XA Pain due to internal orthopedic prosthetic devices, implants and grafts, initial encounter (principal); Z96.642 Presence of left artificial hip joint
CPT/HCPCS: 87070; 87205; 89051

== ENCOUNTER 2022-04-30 14:51 | Outpatient (REF) | payer MEDICARE, SELFPAY ==
[2022-04-30 21:14] LABS: Anion Gap 7.2 mmol/L (3-11); BUN 24 mg/dL (7-18); CO2 30.8 mmol/L (21.0-32.0); CREATININE 1.1 mg/dL (0.55-1.02); Calcium 10.1 mg/dL (8.5-10.1); Chloride 102 mmol/L (98-107); Estimated GFR 51.43 (mL/min/1.73m2); Glucose 140 mg/dL (74-106); Potassium 4.3 mmol/L (3.5-5.1); Sodium 140 mmol/L (136-145)
== END 2022-04-30 14:52 | disposition home or self-care (01) ==
LOC: NCHCN 14:51
PROVIDERS: PCP Internal Medicine; Visit Provider Internal Medicine
DX: I10 Essential (primary) hypertension (principal); E11.9 Type 2 diabetes mellitus without complications; G57.02 Lesion of sciatic nerve, left lower limb; M79.605 Pain in left leg
CPT/HCPCS: 80048

== ENCOUNTER 2022-05-06 01:44 | Outpatient (CLI) | payer MEDICARE, SELFPAY ==
--- NOTE | 2022-05-06 07:15 | DI.CT_ITS ---
Exam(s) CT THORACIC LUMBAR SPINE WO EXAM: CT THORACIC LUMBAR SPINE WO CLINICAL HISTORY: HIP, BACK PAIN,M54.50. TECHNIQUE: Imaging Protocol: Axial computed tomography images with coronal and sagittal reformatted images were created and reviewed. COMPARISON: No exams were available for comparison FINDINGS: Bones: There is a lytic lesion involving the L5 vertebral body, left pedicle, left transverse process and left lamina. There is a soft tissue component which extends beyond the borders of the vertebra into the central spinal canal and left neural foramen. There is moderately severe central spinal can al stenosis and marked left neural foraminal stenosis. There is a pathologic fracture involving the vertebral body with loss of approximately 20 percent of the height of the vertebral body. The alignm ent of the spine is normal including the cervicothoracic junction and the thoracolumbar junction. At L5-S1, there is no significant central spinal canal stenosis. There is severe left neural foramin al stenosis secondary to the L5 metastatic disease. No significant right neural foraminal stenosis i s present. At L4-L5, there is moderate central spinal canal stenosis due to extension of the soft tissue mass. Degenerative facet disease and endplate degenerative changes are also noted. There is marked left ne ural foraminal stenosis and moderate right neural foraminal stenosis. The left neural foraminal sten osis is as a result of the metastatic disease. At L3-4, there is prominence of the osteophyte disc complex and hypertrophic changes of the facets. These all contribute to cause marked central spinal canal stenosis. There is mild bilateral neural f oraminal stenosis. At L2-3 there degenerative changes of the facets and endplates. No significant central spinal canal stenosis is seen. There is [id number] bilateral neural foraminal stenosis present. At L1-L2, there is prominence of the osteophyte disc complex and hypertrophic changes of the facets. There is mild central spinal canal stenosis. There is mild bilateral neural foraminal stenosis. At T12-L1 degenerative disc disease and facet arthropathy is present. There is no central spinal can al stenosis. There is mild bilateral neural foraminal stenosis. There is atherosclerosis present. There is a lytic lesion in the L2 vertebral body. There is loss of the cortical margins inferiorly c ysts consistent with a pathologic fracture. There is mild loss of height of the vertebral body. The re is not appear to be any associated central spinal canal or neural foraminal stenosis. Multilevel degenerative changes are present throughout the thoracic spine without significant central spinal can al or neural foraminal stenosis. Soft tissues: A nerve stimulator device is present. Delete IMPRESSION: 1. 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 The findings resultant moderately severe central spinal canal stenosis and marked left neural foraminal stenosis at both L5-S1 and L4-L5. Thi s also results in moderate central spinal canal stenosis at L4-L5. 2. Multilevel degenerative changes throughout the lumbar spine resulting in central spinal canal or n eural foraminal stenosis as described above. 3. Lytic lesion in the L2 vertebral body with a pathologic fracture. No significant central spinal c anal or neural foraminal stenosis results. 4. Multilevel degenerative changes throughout the thoracic spine. RADIATION DOSE DELIVERED: 1,287.21mGy.cm Total DLP DATA REPOSITORY: All CT scans at this facility are submitted to the National Radiology Data Registry (NRDR) Dose Index Registry (DIR) with the [employer] ([employer]). RADIATION OPTIMIZATION: All CT scans at this facility use at least one of these dose optimization te chniques: automated exposure control; mA and/or kV adjustment per patient size (includes targeted exa ms where dose is matched to clinical indication); or iterative reconstruction.
== END 2022-05-06 02:04 ==
LOC: DI 01:44
PROVIDERS: PCP Internal Medicine; Visit Provider Student in an Organized Health Care Education/Training Program
DX: C79.51 Secondary malignant neoplasm of bone (principal); M84.48XA Pathological fracture, other site, initial encounter for fracture; M48.07 Spinal stenosis, lumbosacral region; M47.815 Spondylosis without myelopathy or radiculopathy, thoracolumbar region
CPT/HCPCS: 72128; 72131

== ENCOUNTER 2022-05-14 02:17 | Outpatient (CLI) | payer MEDICARE, SELFPAY ==
--- NOTE | 2022-05-14 06:51 | DI.CT_ITS ---
Exam(s) CT NECK CHEST ABD PEL W EXAM: CT NECK CHEST ABD PEL W CLINICAL HISTORY: NEW LESIONS OF SPINE,? OTHER PRIMARY,M89.9. TECHNIQUE: Imaging Protocol: Axial computed tomography images with coronal and sagittal reformatted images were created and reviewed CONTRAST MATERIAL: Intravenous: Omnipaque 350 Contrast volume:100 ml Oral: Yes COMPARISON: CR XR PELVIS AP from 05/31/[address] THORACIC LUMBAR SPINE WO from 05/06/2022 FINDINGS: NECK: Nasopharynx: Unremarkable Ashley dental: No significant focal findings. Oropharynx: Uvula midline. No evidence of mass nor abscess at the level of the tonsils. No abnormal retropharyngeal swelling. Hypopharynx: Epiglottis and valleculae unremarkable. Aryepiglottic folds unremarkable. Vocal cords and subglottic airway: Unremarkable. No masses. Thyroid gland: Bilateral nodules evident. Salivary glands: No abnormal focal findings in the parotid and submandibular glands. Lymph nodes: No significant lymphadenopathy in the neck and supraclavicular regions. Vascular: No tight focal stenosis at the carotid bifurcations and proximal internal carotid arteries. Vertebral arteries in the neck also patent. Both vertebral arteries exhibit equal luminal diameter s. Calcification both vertebral arteries noted at the skull base. Osseous: Lucency in the lower odontoid which is probably degenerative. No pathologic appearing verte bral bodies in the cervical spine. However, there is diffuse lytic involvement T2 vertebral body as well as some involvement of T3. There is no spinal canal compromise at these levels evident. CHEST: LUNGS: No infiltrates nor pleural effusions. Mild benign-appearing increased markings are noted in t he posterior basal segments of both lower lobes. There are no metastatic appearing pulmonary nodules . No pleural effusions.. MEDIASTINUM: There is no hilar nor mediastinal adenopathy. Visualized thyroid unremarkable. CARDIAC: Heart size is normal. There is no pericardial effusion.Caliber of the thoracic aorta is wit hin normal limits. OSSEOUS: There is prominent lytic involvement of the T2 vertebral body. However, this does not appea r to breach the posterior cortex into the spinal column. Extensive lytic involvement of L5 vertebral body also noted, recent documented on 05/06/2022. ABDOMEN: There is no ascites. LIVER: There are no focal hepatic lesions nor dilatation of intrahepatic ducts. GALLBLADDER/BILIARY: Subtle layering hyperdense density in the dependent wall the bladder probable fishman btle gallstones. Small density possible gallstones seen in the cystic duct. No gallbladder wall lewis ma nor pericholecystic fluid. Also small calcification at the level the pancreatic head may be withi n nondilated CBD. The CBD and pancreatic duct are not dilated. No peripancreatic fluid. PANCREAS: No evidence of pancreatic mass nor dilatation of the pancreatic duct. SPLEEN: Spleen is not enlarged. There are no intrasplenic lesions. Splenic and portal veins are herrmann nt. ADRENALS: There are no significant adrenal masses. KIDNEYS: Left kidney unremarkable. Mild dilatation of the right collecting system is noted. Right u reter is dilated. Distal most right ureter difficult to assess because of beam hardening artifact fr om bilateral hip prosthesis.. No cysts evident. ABDOMINAL AORTA: Calcified but not enlarged. LYMPH NODES: There is no retroperitoneal nor paraaortic adenopathy. ABDOMINAL WALL: No evidence of significant anterior abdominal wall nor inguinal hernia. GI: There is no evidence of bowel obstruction.There is diverticulosis of the descending-left colon an d sigmoid. No evidence of obvious acute diverticulitis. No appendicitis. PELVIS: LYMPH NODES: There is no intrapelvic nor inguinal adenopathy. GI: No evidence of appendicitis.No evidence of sigmoid diverticulitis. URINARY BLADDER: Difficult to assess because of beam hardening artifact from bilateral hip prosthesis . REPRODUCTIVE: Uterus size upper normal. No abnormal adnexal masses. No obvious free fluid in the pe lvis. OSSEOUS: Bilat hip prostheses. Right subcutaneous buttock stimulator device feeds posterior epidural leads. Extensive L5 vertebral body and pedicle involvement with soft tissue mass extending into the spinal c anal and significant spinal canal stenosis. 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 Also lytic lesion L2 vertebral body noted. IMPRESSION: 1. No evidence of soft tissue mass nor lymphadenopathy in the neck. 2. Extensive lytic involvement of T2 vertebral body with dehiscence of posterior cortex. 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 3. No pulmonary nodules nor pleural effusions nor intrathoracic adenopathy. 4. Mild hydronephrosis and hydroureter on the right side. However, the distal most right ureter is o bscured by beam hardening artifact from the bilateral hip prostheses. May be obstructed by calculus or lesion. Urinary bladder is also difficult to assess because of beam hardening artifact from the b ilateral hip prostheses. 5. Thoracic stimulator leads noted. Other findings as above. RADIATION DOSE DELIVERED: 2,436.69mGy.cm Total DLP DATA REPOSITORY: All CT scans at this facility are submitted to the National Radiology Data Registry (NRDR) Dose Index Registry (DIR) with the [employer] ([employer]). RADIATION OPTIMIZATION: All CT scans at this facility use at least one of these dose optimization te chniques: automated exposure control; mA and/or kV adjustment per patient size (includes targeted exa ms where dose is matched to clinical indication); or iterative reconstruction.
[2022-05-14] MEDS: Barium Sulfate 2% W/V-Berry Smoothie 450 ML BTL PO ×2 (08:34→08:35)
[2022-05-14 09:11] LABS: ESR 6 mm/hr (0-30)
[2022-05-14 09:12] LABS: Abs Immature Grans 0.01 10^3/uL (0.0-0.06); Absolute Basophil Count 0.03 10^3/uL (0.0-0.2); Absolute Eosinophil Count 0.28 10^3/uL (0.0-0.7); Absolute Lymphocyte Count 1.33 10^3/uL (1.2-3.4); Absolute Monocyte Count 0.42 10^3/uL (0.1-0.8); Absolute Neutrophil Count 2.01 10^3/uL (1.2-6.7); Basophils % 0.7; Eosinophils % 6.9; HCT 38.9 % (36.0-46.0); HGB 12.3 g/dL (11.2-15.7); Immature Grans % 0.2; Lymphocytes % 32.6; MCH 28.9 pg (27.0-33.0); MCHC 31.6 % (32.0-36.0); MCV 92 fL (80-95); MPV 8.9 fL (8.0-11.0); Monocytes % 10.3; Neutrophils % 49.3; Platelet Count 143 10^3/uL (130-400); RBC 4.25 10^6/uL (3.93-5.22); RDW 15.1 % (11.7-14.6); RDW-SD 50.1 fL; WBC 4.08 10^3/uL (4.4-10.8)
[2022-05-14 09:32] LABS: ALT 25 U/L (14-59); AST 21 U/L (15-37); Albumin 3.2 g/dL (3.4-5.0); Alkaline Phosphatase 64 U/L (46-116); Anion Gap 5.8 mmol/L (3-11); BUN 14 mg/dL (7-18); Bilirubin, Total 0.6 mg/dL (0.2-1.0); CO2 30.2 mmol/L (21.0-32.0); CREATININE 0.9 mg/dL (0.55-1.02); Chloride 105 mmol/L (98-107); Estimated GFR 65.44 (mL/min/1.73m2); Glucose 92 mg/dL (74-106); PHOSPHORUS 3.2 mg/dL (2.6-4.7); Potassium 4.1 mmol/L (3.5-5.1); Sodium 141 mmol/L (136-145); Total Protein 6.5 g/dL (6.4-8.2)
[2022-05-14] MEDS: Normal Saline - Diluent 50 ML VIAL IJ ×2 (11:29→11:30)
[2022-05-14] MEDS: Omnipaque 350 MG/ML 500 ML BTL-Imaging package IJ (11:29)
[2022-05-14] MEDS: Normal Saline Flush 10 ML SYR IVP (11:30)
[2022-05-15 12:58] LABS: Albumin 57.8 % (55.8-66.1); Albumin g/dL 3.5 g/dL (3.6-5.2); Comment (See Note); Monoclonal Spike 6.6 % (None Seen); Monoclonal Spike g/dL 0.4 g/dL (None Seen); Total Protein 6.1 g/dL (6.3-8.2)
[2022-05-15 14:56] LABS: Albumin, Urine % 29.8 %; Albumin, Urine mg/dL 4 mg/dL; Globulins, Urine % 70.2 %; Globulins, Urine mg/dL 10 mg/dL; Immunotyping, Urine (See Note); Total Protein Urine 14 mg/dL (See Note)
== END 2022-05-14 02:37 ==
LOC: DI 02:18
PROVIDERS: PCP Internal Medicine; Visit Provider Student in an Organized Health Care Education/Training Program
DX: M89.8X8 Other specified disorders of bone, other site (principal); J98.4 Other disorders of lung; K80.20 Calculus of gallbladder without cholecystitis without obstruction; N28.82 Megaloureter; C79.51 Secondary malignant neoplasm of bone; N13.30 Unspecified hydronephrosis
CPT/HCPCS: 70491; 74177; 80053; 84156; 84166; 85652; 86335; 71260; 84080; 84100; 84165; 85025; 86320

== ENCOUNTER 2022-05-15 01:21 | Outpatient (CLI) | payer MEDICARE, SELFPAY ==
--- NOTE | 2022-05-15 07:15 | DI.NM_ITS ---
Exam(s) NM BONE SCAN WHOLE BODY GRP EXAM: NM BONE SCAN WHOLE BODY GRP CLINICAL HISTORY: multiple spine lesions in bone,m89.9,f/u abnl imaging. TECHNIQUE: Injected Dose: 25 mCi Tc-99m MDP Delayed Images: 2-3 hours. COMPARISON: CR XR HIP LT COMPLETE AP PELVIS from 03/18/2022 CR,XR XR CHEST 2V PA LATERAL from 04/12/[address] NECK CHEST ABD PEL W from 05/14/2022 FINDINGS: Symmetric axial uptake. Bilateral renal excretion is identified. No focal area of intense suspicious uptake is seen. Focal uptake in anterior right rib corresponding to a subacute appearing fracture o n CT. Photopenic defects from bilateral hip prostheses and bilateral knee prostheses. No abnormal l abeling in the thoracic spine. A significant lytic lesion was seen at T2 on the CT. There is increa sed activity in the left shoulder consistent with severe degenerative changes. There is a right shou lder prosthesis. There is mildly increased activity in the lower lumbar spine. A destructive lesion was noted in L5 on the recent CT. Increased activities noted in in both thigh tarsal regions, presu mably related to degenerative changes. IMPRESSION: 1. Significantly increased activity corresponding to the destructive lesion at T2. Mildly increased activity is seen at L5 corresponding to the destructive lesion. No widespread findings of avidly up -taking metastatic lesions. DATA REPOSITORY:
== END 2022-05-15 01:41 ==
LOC: DI 01:21
PROVIDERS: PCP Internal Medicine; Visit Provider Student in an Organized Health Care Education/Training Program
DX: M89.8X8 Other specified disorders of bone, other site (principal); Z96.643 Presence of artificial hip joint, bilateral; Z96.653 Presence of artificial knee joint, bilateral; Z96.611 Presence of right artificial shoulder joint; M19.012 Primary osteoarthritis, left shoulder
CPT/HCPCS: 78306

== ENCOUNTER 2022-06-13 12:47 | Outpatient (CLI) | payer MEDICARE, SELFPAY ==
[2022-06-13 13:14] LABS: Abs Immature Grans 0.01 10^3/uL (0.0-0.06); Absolute Basophil Count 0.02 10^3/uL (0.0-0.2); Absolute Eosinophil Count 0.33 10^3/uL (0.0-0.7); Absolute Lymphocyte Count 0.75 10^3/uL (1.2-3.4); Absolute Monocyte Count 0.36 10^3/uL (0.1-0.8); Absolute Neutrophil Count 2.15 10^3/uL (1.2-6.7); Basophils % 0.6; Eosinophils % 9.1; HCT 38.6 % (36.0-46.0); HGB 12.1 g/dL (11.2-15.7); Immature Grans % 0.3; Lymphocytes % 20.7; MCH 28.7 pg (27.0-33.0); MCHC 31.3 % (32.0-36.0); MCV 92 fL (80-95); MPV 8.6 fL (8.0-11.0); Monocytes % 9.9; Neutrophils % 59.4; Platelet Count 144 10^3/uL (130-400); RBC 4.22 10^6/uL (3.93-5.22); RDW 15.3 % (11.7-14.6); RDW-SD 51.5 fL; WBC 3.62 10^3/uL (4.4-10.8)
[2022-06-13 13:25] LABS: Calcium 9.9 mg/dL (8.5-10.1)
[2022-06-13 13:30] LABS: ALT 28 U/L (14-59); AST 16 U/L (15-37); Alkaline Phosphatase 77 U/L (46-116); Anion Gap 3.3 mmol/L (3-11); BUN 18 mg/dL (7-18); Bilirubin, Total 0.7 mg/dL (0.2-1.0); CO2 33.7 mmol/L (21.0-32.0); CREATININE 0.8 mg/dL (0.55-1.02); Calcium 9.7 mg/dL (8.5-10.1); Chloride 103 mmol/L (98-107); Estimated GFR 75.37 (mL/min/1.73m2); Glucose 81 mg/dL (74-106); LDH 187 U/L (81-234); Sodium 140 mmol/L (136-145); Total Protein 6.5 g/dL (6.4-8.2)
[2022-06-14 10:44] LABS: IgA 144 mg/dL (85-499); IgG 916 mg/dL (610-1616); IgM 62 mg/dL (35-242); Kappa Free Light Chain 7.74 mg/dL (0.33-1.94); Lambda Free Light Chain 1.36 mg/dL (0.57-2.63)
[2022-06-14 12:59] LABS: Albumin 56.7 % (55.8-66.1); Albumin g/dL 3.3 g/dL (3.6-5.2); Comment (See Note); Monoclonal Spike 6.2 % (None Seen); Monoclonal Spike g/dL 0.4 g/dL (None Seen); Total Protein 5.9 g/dL (6.3-8.2)
[2022-06-17 20:06] LABS: Beta-2-Microglobulin 2.75 mcg/mL
== END 2022-06-13 12:48 | disposition home or self-care (01) ==
LOC: LBO 12:47
PROVIDERS: Student in an Organized Health Care Education/Training Program; PCP Internal Medicine; Visit Provider Internal Medicine Hematology & Oncology
DX: C90.00 Multiple myeloma not having achieved remission (principal); M89.8X8 Other specified disorders of bone, other site
CPT/HCPCS: 36415; 80053; 82784; 82232; 82310; 83615; 83883; 84165; 85025

== ENCOUNTER 2022-07-15 02:37 | Outpatient (CLI) | payer MEDICARE, SELFPAY ==
[2022-07-15 09:17] LABS: Absolute Basophil Count 0.03 10^3/uL (0.0-0.2); Absolute Lymphocyte Count 0.82 10^3/uL (1.2-3.4); Absolute Monocyte Count 0.25 10^3/uL (0.1-0.8); Absolute Neutrophil Count 0.65 10^3/uL (1.2-6.7); Basophils % 1.3; Eosinophils % 25.5; HCT 34.7 % (36.0-46.0); HGB 10.9 g/dL (11.2-15.7); Lymphocytes % 34.9; MCH 28.6 pg (27.0-33.0); MCHC 31.4 % (32.0-36.0); MCV 91 fL (80-95); Monocytes % 10.6; Neutrophils % 27.7; RBC 3.81 10^6/uL (3.93-5.22); RDW 16.5 % (11.7-14.6); RDW-SD 55.5 fL; WBC 2.35 10^3/uL (4.4-10.8)
[2022-07-15 09:34] LABS: Burr Cells (echinocyte) 2+; Diff Comment Diff Reviewed; Platelet Count 75 10^3/uL (130-400)
[2022-07-15 09:46] LABS: ALT 40 U/L (14-59); AST 34 U/L (15-37); Albumin 2.6 g/dL (3.4-5.0); Alkaline Phosphatase 64 U/L (46-116); Anion Gap 5.9 mmol/L (3-11); BUN 13 mg/dL (7-18); Bilirubin, Total 1.1 mg/dL (0.2-1.0); CO2 30.1 mmol/L (21.0-32.0); Calcium 9.3 mg/dL (8.5-10.1); Chloride 102 mmol/L (98-107); Estimated GFR 57.66 (mL/min/1.73m2); Glucose 161 mg/dL (74-106); Potassium 3.9 mmol/L (3.5-5.1); Sodium 138 mmol/L (136-145); Total Protein 6.1 g/dL (6.4-8.2)
[2022-07-16 11:09] LABS: IgA 202 mg/dL (85-499); IgG 667 mg/dL (610-1616); IgM 165 mg/dL (35-242); Kappa Free Light Chain 4.63 mg/dL (0.33-1.94); Lambda Free Light Chain 2.06 mg/dL (0.57-2.63)
[2022-07-16 12:49] LABS: Albumin 55.4 % (55.8-66.1); Albumin g/dL 3.1 g/dL (3.6-5.2); Comment (See Note); Monoclonal Spike 4.1 % (None Seen); Monoclonal Spike g/dL 0.2 g/dL (None Seen); Total Protein 5.6 g/dL (6.3-8.2)
== END 2022-07-15 02:38 | disposition home or self-care (01) ==
PROVIDERS: PCP Internal Medicine; Visit Provider Nurse Practitioner Family
DX: C90.00 Multiple myeloma not having achieved remission (principal)
CPT/HCPCS: 36415; 80053; 82784; 83883; 84165; 85025

== ENCOUNTER 2022-07-18 11:39 | Outpatient (CLI) | payer MEDICARE, SELFPAY ==
--- NOTE | 2022-07-18 09:15 | DI.RAD_ITS ---
Exam(s) XR CHEST 2V PA LATERAL EXAM: XR CHEST 2V PA LATERAL CLINICAL HISTORY: PERSISTENT COUGH, R05.3, ON CHEMO TECHNIQUE: 2D digital imaging was performed. COMPARISON: CR,XR XR CHEST 2V PA LATERAL from 04/12/2022 FINDINGS: HEART: Normal size. Aorta: Not dilated. PULMONARY VASCULATURE: Normal. LUNGS: Clear. PLEURAL SPACE: No pleural effusion or pneumothorax. BONE: Right shoulder prosthesis. Spinal stimulator device. Degenerative changes in the thoracic spi ne. Slight compression midthoracic vertebral bodies, unchanged. IMPRESSION: No acute abnormality. DATA REPOSITORY: RADIATION DOSE DELIVERED:
== END 2022-07-18 11:59 ==
LOC: DI 11:40
PROVIDERS: PCP Internal Medicine; Visit Provider Nurse Practitioner Family
DX: R05.3 Chronic cough (principal); C90.00 Multiple myeloma not having achieved remission; Z92.21 Personal history of antineoplastic chemotherapy
CPT/HCPCS: 71046

== ENCOUNTER 2022-07-25 03:41 | Outpatient (CLI) | payer MEDICARE, SELFPAY ==
[2022-07-25 08:40] LABS: Abs Immature Grans 0.01 10^3/uL (0.0-0.06); HCT 36.3 % (36.0-46.0); HGB 11.6 g/dL (11.2-15.7); MCH 29.3 pg (27.0-33.0); MCV 92 fL (80-95); MPV 8.8 fL (8.0-11.0); RBC 3.96 10^6/uL (3.93-5.22); RDW 17.6 % (11.7-14.6); RDW-SD 58.4 fL; WBC 2.75 10^3/uL (4.4-10.8)
[2022-07-25 08:58] LABS: ALT 17 U/L (14-59); AST 10 U/L (15-37); Albumin 2.9 g/dL (3.4-5.0); Alkaline Phosphatase 57 U/L (46-116); Anion Gap 4.9 mmol/L (3-11); BUN 24 mg/dL (7-18); Bilirubin, Total 0.6 mg/dL (0.2-1.0); CO2 32.1 mmol/L (21.0-32.0); Calcium 9.6 mg/dL (8.5-10.1); Chloride 107 mmol/L (98-107); Estimated GFR 57.66 (mL/min/1.73m2); Glucose 132 mg/dL (74-106); Potassium 4.4 mmol/L (3.5-5.1); Sodium 144 mmol/L (136-145); Total Protein 6.2 g/dL (6.4-8.2)
[2022-07-25 09:10] LABS: Absolute Basophil Count 0.19 10^3/uL (0.0-0.2); Absolute Eosinophil Count 0.22 10^3/uL (0.0-0.7); Absolute Lymphocyte Count 1.02 10^3/uL (1.2-3.4); Absolute Monocyte Count 0.39 10^3/uL (0.1-0.8); Absolute Neutrophil Count 0.94 10^3/uL (1.2-6.7); Atypical Lymphocytes % 3; Platelet Count 101 10^3/uL (130-400)
[2022-07-25 09:11] LABS: Diff Comment Manual Differential; Poikilocytes 1+
== END 2022-07-25 03:42 | disposition home or self-care (01) ==
PROVIDERS: PCP Internal Medicine; Visit Provider Nurse Practitioner Family
DX: C90.00 Multiple myeloma not having achieved remission (principal)
CPT/HCPCS: 36415; 80053; 85025

== ENCOUNTER 2022-08-01 13:50 | Outpatient (CLI) | payer MEDICARE, SELFPAY ==
[2022-08-01 13:06] LABS: Abs Immature Grans 0.01 10^3/uL (0.0-0.06); Absolute Basophil Count 0.05 10^3/uL (0.0-0.2); Absolute Lymphocyte Count 0.81 10^3/uL (1.2-3.4); Absolute Monocyte Count 0.21 10^3/uL (0.1-0.8); Absolute Neutrophil Count 1.74 10^3/uL (1.2-6.7); Basophils % 1.4; Eosinophils % 19.9; HCT 34.1 % (36.0-46.0); HGB 10.9 g/dL (11.2-15.7); Immature Grans % 0.3; MCH 29.2 pg (27.0-33.0); MCV 91 fL (80-95); MPV 10.1 fL (8.0-11.0); Neutrophils % 49.4; RBC 3.73 10^6/uL (3.93-5.22); RDW 17.2 % (11.7-14.6); RDW-SD 57.1 fL; WBC 3.52 10^3/uL (4.4-10.8)
[2022-08-01 13:26] LABS: Platelet Count 57 10^3/uL (130-400)
== END 2022-08-01 13:51 | disposition home or self-care (01) ==
LOC: LBO 13:50
PROVIDERS: PCP Internal Medicine; Visit Provider Internal Medicine Hematology & Oncology
DX: C90.00 Multiple myeloma not having achieved remission (principal)
CPT/HCPCS: 36415; 85025

== ENCOUNTER 2022-08-08 03:31 | Outpatient (CLI) | payer MEDICARE, SELFPAY ==
[2022-08-08 10:56] LABS: Abs Immature Grans 0.01 10^3/uL (0.0-0.06); HCT 34.8 % (36.0-46.0); HGB 10.9 g/dL (11.2-15.7); MCH 29.3 pg (27.0-33.0); MCHC 31.3 % (32.0-36.0); MCV 94 fL (80-95); MPV 10.2 fL (8.0-11.0); RBC 3.72 10^6/uL (3.93-5.22); RDW 16.7 % (11.7-14.6); WBC 2.77 10^3/uL (4.4-10.8)
[2022-08-08 11:08] LABS: ALT 40 U/L (14-59); AST 21 U/L (15-37); Alkaline Phosphatase 86 U/L (46-116); Anion Gap 3.3 mmol/L (3-11); BUN 19 mg/dL (7-18); Bilirubin, Total 1.1 mg/dL (0.2-1.0); CO2 33.7 mmol/L (21.0-32.0); CREATININE 0.9 mg/dL (0.55-1.02); Calcium 9.2 mg/dL (8.5-10.1); Chloride 100 mmol/L (98-107); Estimated GFR 65.44 (mL/min/1.73m2); Glucose 113 mg/dL (74-106); Potassium 4.3 mmol/L (3.5-5.1); Sodium 137 mmol/L (136-145); Total Protein 6.1 g/dL (6.4-8.2)
[2022-08-08 11:39] LABS: Acanthocytes 1+; Anisocytosis 1+; Diff Comment Manual Differential
[2022-08-08 11:40] LABS: Howell-Jolly Bodies Present
[2022-08-08 11:44] LABS: Absolute Basophil Count 0.14 10^3/uL (0.0-0.2); Absolute Eosinophil Count 0.94 10^3/uL (0.0-0.7); Absolute Lymphocyte Count 0.47 10^3/uL (1.2-3.4); Absolute Monocyte Count 0.11 10^3/uL (0.1-0.8); Absolute Neutrophil Count 1.02 10^3/uL (1.2-6.7); Atypical Lymphocytes % 4; Bands % 5; Platelet Count 39 10^3/uL (130-400)
[2022-08-08 11:45] LABS: Metamyelocytes % 2; Myelocytes % 1
== END 2022-08-08 03:32 | disposition home or self-care (01) ==
LOC: LBO 03:32
PROVIDERS: PCP Internal Medicine; Visit Provider Internal Medicine Hematology & Oncology
DX: C90.00 Multiple myeloma not having achieved remission (principal)
CPT/HCPCS: 36415; 80053; 85025

== ENCOUNTER 2022-08-15 02:01 | Outpatient (CLI) | payer MEDICARE, SELFPAY ==
[2022-08-15 11:03] LABS: Absolute Basophil Count 0.01 10^3/uL (0.0-0.2); Absolute Eosinophil Count 0.32 10^3/uL (0.0-0.7); Absolute Lymphocyte Count 0.72 10^3/uL (1.2-3.4); Absolute Monocyte Count 0.39 10^3/uL (0.1-0.8); Basophils % 0.6; Eosinophils % 19.3; HCT 32.3 % (36.0-46.0); HGB 10.3 g/dL (11.2-15.7); Lymphocytes % 43.4; MCH 29.5 pg (27.0-33.0); MCHC 31.9 % (32.0-36.0); MCV 93 fL (80-95); MPV 9.9 fL (8.0-11.0); Monocytes % 23.5; Neutrophils % 13.2; RBC 3.49 10^6/uL (3.93-5.22); RDW 16.8 % (11.7-14.6); RDW-SD 56.1 fL
[2022-08-15 11:17] LABS: ALT 33 U/L (14-59); AST 16 U/L (15-37); Albumin 2.8 g/dL (3.4-5.0); Alkaline Phosphatase 61 U/L (46-116); Anion Gap 6.1 mmol/L (3-11); BUN 12 mg/dL (7-18); Bilirubin, Total 1.1 mg/dL (0.2-1.0); CO2 28.9 mmol/L (21.0-32.0); CREATININE 0.8 mg/dL (0.55-1.02); Calcium 9.3 mg/dL (8.5-10.1); Chloride 103 mmol/L (98-107); Estimated GFR 75.37 (mL/min/1.73m2); Glucose 130 mg/dL (74-106); Potassium 3.8 mmol/L (3.5-5.1); Sodium 138 mmol/L (136-145); Total Protein 5.9 g/dL (6.4-8.2)
[2022-08-15 11:37] LABS: Diff Comment Diff Reviewed; RBC Morphology Normal
[2022-08-15 11:38] LABS: Platelet Count 80 10^3/uL (130-400)
[2022-08-15 11:42] LABS: Absolute Neutrophil Count 0.22 10^3/uL (1.2-6.7); WBC 1.66 10^3/uL (4.4-10.8)
== END 2022-08-15 02:02 | disposition home or self-care (01) ==
LOC: LBO 02:01
PROVIDERS: PCP Internal Medicine; Visit Provider Internal Medicine Hematology & Oncology
DX: C90.00 Multiple myeloma not having achieved remission (principal)
CPT/HCPCS: 36415; 80053; 85025

== ENCOUNTER 2022-08-29 02:54 | Outpatient (CLI) | payer MEDICARE, SELFPAY ==
[2022-08-29 14:01] LABS: Abs Immature Grans 0.01 10^3/uL (0.0-0.06); Absolute Basophil Count 0.03 10^3/uL (0.0-0.2); Absolute Eosinophil Count 0.05 10^3/uL (0.0-0.7); Absolute Lymphocyte Count 1.15 10^3/uL (1.2-3.4); Absolute Monocyte Count 0.45 10^3/uL (0.1-0.8); Absolute Neutrophil Count 1.57 10^3/uL (1.2-6.7); Basophils % 0.9; Eosinophils % 1.5; HCT 37.5 % (36.0-46.0); HGB 12.3 g/dL (11.2-15.7); Immature Grans % 0.3; Lymphocytes % 35.3; MCH 30.1 pg (27.0-33.0); MCHC 32.8 % (32.0-36.0); MCV 92 fL (80-95); MPV 10.4 fL (8.0-11.0); Monocytes % 13.8; Neutrophils % 48.2; RBC 4.08 10^6/uL (3.93-5.22); RDW 16.4 % (11.7-14.6); RDW-SD 55.9 fL; WBC 3.26 10^3/uL (4.4-10.8)
[2022-08-29 14:14] LABS: Platelet Count 65 10^3/uL (130-400)
[2022-08-29 14:16] LABS: ALT 28 U/L (14-59); AST 21 U/L (15-37); Albumin 3.2 g/dL (3.4-5.0); Alkaline Phosphatase 140 U/L (46-116); Anion Gap 3.7 mmol/L (3-11); BUN 31 mg/dL (7-18); Bilirubin, Total 0.7 mg/dL (0.2-1.0); CO2 34.3 mmol/L (21.0-32.0); CREATININE 0.8 mg/dL (0.55-1.02); Calcium 9.6 mg/dL (8.5-10.1); Chloride 100 mmol/L (98-107); Estimated GFR 75.37 (mL/min/1.73m2); Glucose 152 mg/dL (74-106); Potassium 4.3 mmol/L (3.5-5.1); Sodium 138 mmol/L (136-145); Total Protein 6.1 g/dL (6.4-8.2)
== END 2022-08-29 02:55 | disposition home or self-care (01) ==
PROVIDERS: Internal Medicine Hematology & Oncology; PCP Internal Medicine; Visit Provider Nurse Practitioner Family
DX: C90.00 Multiple myeloma not having achieved remission (principal)
CPT/HCPCS: 36415; 80053; 85025

== ENCOUNTER 2022-09-12 12:32 | Outpatient (CLI) | payer MEDICARE, SELFPAY ==
[2022-09-12 11:03] LABS: Abs Immature Grans 0.01 10^3/uL (0.0-0.06); Absolute Eosinophil Count 0.02 10^3/uL (0.0-0.7); Absolute Monocyte Count 0.31 10^3/uL (0.1-0.8); Absolute Neutrophil Count 3.39 10^3/uL (1.2-6.7); Eosinophils % 0.5; HCT 37.5 % (36.0-46.0); HGB 12.5 g/dL (11.2-15.7); Immature Grans % 0.2; Lymphocytes % 9.7; MCH 30.8 pg (27.0-33.0); MCHC 33.3 % (32.0-36.0); MCV 92 fL (80-95); MPV 10.1 fL (8.0-11.0); Monocytes % 7.5; Neutrophils % 82.1; Platelet Count 138 10^3/uL (130-400); RBC 4.06 10^6/uL (3.93-5.22); RDW 16.5 % (11.7-14.6); RDW-SD 56.6 fL; WBC 4.13 10^3/uL (4.4-10.8)
[2022-09-12 11:24] LABS: ALT 35 U/L (14-59); AST 10 U/L (15-37); Albumin 3.3 g/dL (3.4-5.0); Alkaline Phosphatase 112 U/L (46-116); Anion Gap 5.7 mmol/L (3-11); BUN 25 mg/dL (7-18); CO2 33.3 mmol/L (21.0-32.0); CREATININE 0.9 mg/dL (0.55-1.02); Calcium 9.2 mg/dL (8.5-10.1); Chloride 96 mmol/L (98-107); Estimated GFR 65.03 (mL/min/1.73m2); Glucose 489 mg/dL (74-106); Potassium 3.8 mmol/L (3.5-5.1); Sodium 135 mmol/L (136-145); Total Protein 6.1 g/dL (6.4-8.2)
== END 2022-09-12 12:33 | disposition home or self-care (01) ==
LOC: LBO 12:32
PROVIDERS: PCP Internal Medicine; Visit Provider Nurse Practitioner Family
DX: C90.00 Multiple myeloma not having achieved remission (principal); R79.89 Other specified abnormal findings of blood chemistry
CPT/HCPCS: 36415; 80053; 85025